=== PATIENT | female | born 1950 | race Caucasian/White ===

== ENCOUNTER 2021-09-28 09:19 | Day surgery (SDC) | payer MEDICARE, MEDICAID, SELFPAY ==
[2021-09-21 15:28] VITALS: BMI 31.8
[2021-09-28] VITALS (12 sets, daily range): BP systolic 110–148; BP diastolic 57–77; PULSE 64–79; RESP 16–17; TEMP 36.2–36.4; O2SAT 93–98
--- NOTE | 2021-09-28 10:22 | HO.ANESPROP2 ---
[facility] Past Medical History Medical History (HFpEF) heart failure with preserved ejection fraction Anxiety Arthritis Back pain Cardiac pacemaker in situ COPD (chronic obstructive pulmonary disease) Double vision Elevated cholesterol GERD (gastroesophageal reflux disease) History of 2019 novel coronavirus disease (COVID-19) History of DVT (deep vein thrombosis) History of TMJ disorder HTN (hypertension) Family History Family History Brother Factor V Leiden Brother Factor V Leiden Surgical History Surgical History History of parotidectomy Hx of colonoscopy Hx of hysterectomy Hx of umbilical hernia repair History of Problems with Anesthesia: No Social History Social History Patient Tobacco Use Status: Former Tobacco user Quit Date: 2009 Use of substances other than those prescribed or required for medical reasons: No Are you DNR?: No Advance Directives: No (will bring dos) Advance Directives Information Provided: No Advance Directives on File: No Recently lost weight without trying: No Meds Allergies Allergy/AdvReac Type Severity Reaction Status Date / Time aspirin [ASA] Allergy Angioedema Verified 09/28/21 10:01 Home Medications Medication Instructions Recorded Confirmed Last Taken Type apixaban 2.5 mg tablet (Eliquis) 2.5 mg PO BID 09/21/21 09/21/21 09/26/21 History atorvastatin 10 mg tablet 10 mg PO BEDTIME 09/21/21 09/21/21 Unknown History calcitriol 0.25 mcg capsule 0.25 mcg PO DAILY 09/21/21 09/21/21 Unknown History diazepam 5 mg tablet 5 mg PO BID PRN 09/21/21 09/21/21 Unknown History diltiazem HCl 120 mg 120 mg PO DAILY 09/21/21 09/21/21 Unknown History capsule,extended release 24 hr, controlled docusate sodium 100 mg capsule 100 mg PO BID 09/21/21 09/21/21 Unknown History (Colace) omeprazole 20 mg capsule,delayed 20 mg PO BID 09/21/21 09/21/21 Unknown History release oxycodone 10 mg tablet 10 mg PO Q8H PRN 09/21/21 09/21/21 Unknown History spironolactone 25 mg tablet 25 mg PO BID 09/21/21 09/21/21 Unknown History torsemide 20 mg tablet 20 mg PO BID 09/22/21 09/22/21 Unknown History Exam Exam Date and Time: September 28, 2021 1022 Height,Weight and Vital Signs: Height 5 ft 3 in Weight 81.647 kg Last Vital Signs Temp 97.6 F 09/28/21 10:08 Pulse 68 09/28/21 10:08 Resp 16 09/28/21 10:08 BP 110/57 L 09/28/21 10:08 Pulse Ox 95 09/28/21 10:08 Airway Mallampati Class: II (Edentulous) TM Dist: >3cm Neck ROM: Full Denture: Upper and Lower Loose/Missing/Broken Teeth: Yes Heart: RRR Lungs: CTA Assessment and Plan Assessment Anesthesia Assessment: Anesthesia Plan Discussed and Chart Reviewed Final Anesthetic Review History of Problems with Anesthesia: No NPO: Yes ASA Class: III Final Preanesthetic Review: Meds/Allgs Chart Reviewed, Consent Obtained/Reviewed and Anes Risks/Benef Reviewed Patient Risk: Intermediate Procedure Risk: Low Anesthetic Plan Anesthetic Plan: GA Disposition: Standard PACU
[2021-09-28] MEDS: fentaNYL citrate/PF 100 MCG/2 ML VIAL 50 MCG IVPUSH ×3 (12:07→13:12)
[2021-09-28] MEDS: Acetaminophen 325 MG TABLET 650 MG PO (12:08)
[2021-09-28] MEDS: oxyCODONE HCl Immed Release 5 MG TABLET PO ×2 (12:08→13:01)
--- NOTE | 2021-09-28 12:15 | HO.PEDOPHTHA ---
Pediatric Ophthalmology Operative Note Date of Service: 09/28/21 Narrative: Procedure 1. Recession of right lateral rectus muscle 6 mm anesthesia general complications none. The patient was brought to the operating room placed under general anesthesia. The patient's right eye was prepped and draped in the usual sterile ophthalmic fashion. A lid speculum was placed in the right eye and a limbal peritomy was created around the lateral rectus muscle. The muscle was secured with a double-armed Vicryl suture and disinserted from the globe. It was reattached to position 6 mm behind the original insertion. Conjunctiva was closed with interrupted Vicryl sutures. The patient was then awoken from general anesthesia and discharged to postoperative recovery in good condition. End of dictation
== END 2021-09-28 14:17 | disposition home or self-care (01) ==
PROVIDERS: PCP Student in an Organized Health Care Education/Training Program; Visit Provider Ophthalmology
PROC: (CPT 67311; principal; 2021-09-28 11:00)
DX: H50.10 Unspecified exotropia (principal); H53.2 Diplopia; I13.0 Hypertensive heart and chronic kidney disease with heart failure and stage 1 through stage 4 chronic kidney disease, or unspecified chronic kidney disease; N18.31 Chronic kidney disease, stage 3a; I50.30 Unspecified diastolic (congestive) heart failure; Z95.0 Presence of cardiac pacemaker; Z79.01 Long term (current) use of anticoagulants; Z87.891 Personal history of nicotine dependence; J44.9 Chronic obstructive pulmonary disease, unspecified; Z79.899 Other long term (current) drug therapy; Z88.8 Allergy status to other drugs, medicaments and biological substances; Z86.718 Personal history of other venous thrombosis and embolism; H50.111 Monocular exotropia, right eye
CPT/HCPCS: 67311; J2250; J2405; J3010

== ENCOUNTER 2022-05-25 09:23 | Outpatient (REF) | payer MEDICARE, MEDICAID, SELFPAY ==
--- NOTE | ~2022-05-25 | US_ITS ---
EXAMINATION: US VENOUS ULTRASOUND WITH DOPPLER LOWER EXTREMITY, LEFT CLINICAL INFORMATION: Leg pain status post recent fall COMPARISON: None TECHNIQUE: Ultrasound of the deep veins is performed from the hip to the calf with compression sonography and color and pulse Doppler assessment. Spectral analysis with color-flow imaging is performed. FINDINGS: There is normal venous compression and respiratory variation and augmented flow. The visualized common femoral vein, superficial femoral vein, profunda femoral vein, popliteal vein, and the trifurcation region shows no evidence of deep venous thrombosis. There is no significant popliteal fossa cyst. The contralateral right femoral vein appears normal. If the patient's symptoms persist, followup ultrasound in 5 days 7 days might be of value to exclude proximal propagation from a non-visualized calf vein. US/US venous duplex LE IMPRESSION: No DVT demonstrated in the left left lower extremity.
== END 2022-05-25 09:24 | disposition home or self-care (01) ==
LOC: HO.HMGCX 09:23
PROVIDERS: Visit Provider Student in an Organized Health Care Education/Training Program
DX: M79.605 Pain in left leg (principal); M79.89 Other specified soft tissue disorders; Z91.81 History of falling
CPT/HCPCS: 93971

== ENCOUNTER 2023-09-13 11:32 | Outpatient (REF) | payer MEDICARE, MEDICAID, SELFPAY ==
[2023-09-13 15:11] LABS: Alanine Aminotransferase 13 U/L (0-31); Albumin Level 4.4 g/dL (3.5-5.0); Alkaline Phosphatase 218 U/L (39-117); Anion Gap 15 (12-20); Aspartate Amino Transferase 19 U/L (5-31); Bilirubin Direct 0.2 mg/dL (0.0-0.5); Bilirubin Total 0.5 mg/dL (0.0-1.0); Blood Urea Nitrogen 23 mg/dL (9-16); Calcium 10.9 mg/dL (8.4-10.2); Carbon Dioxide 27 mmol/L (22-29); Chloride 100 mmol/L (96-108); Cholesterol 170 mg/dL (<200); Estimated Glomerular Filt Rate 37; Glucose Fasting 104 mg/dL (60-99); HDL Cholesterol 38 mg/dL (>40); LDL Cholesterol Calculated 95 mg/dL (<100); Potassium 4.4 mmol/L (3.3-5.1); Sodium 138 mmol/L (135-145); Total Protein 7.6 g/dL (6.5-8.0); Triglycerides 187 mg/dL (<150)
== END 2023-09-13 11:33 | disposition home or self-care (01) ==
LOC: HO.CHCLDS 11:32
PROVIDERS: Visit Provider Student in an Organized Health Care Education/Training Program
DX: N18.4 Chronic kidney disease, stage 4 (severe) (principal)
CPT/HCPCS: 36415; 80048; 80061; 80076

== ENCOUNTER 2024-02-20 14:22 | Outpatient (AMB) | payer MEDICARE, MEDICAID, SELFPAY ==
--- NOTE | 2024-02-20 14:25 | HO.NEPHOV ---
HPI HPI Comments History of Present Illness Details Elderly woman with HTN and CHF with CKD IV She is on high dose of diuretics - Torsemide 40 mg BID and Spironolactone 25 mg BID [facility] Medical History (Updated 02/20/24 @ 14:38 by Nestor Zepeda MD) (HFpEF) heart failure with preserved ejection fraction Cardiac pacemaker in situ History of TMJ disorder Arthritis Back pain History of DVT (deep vein thrombosis) GERD (gastroesophageal reflux disease) Double vision Anxiety History of 2019 novel coronavirus disease (COVID-19) COPD (chronic obstructive pulmonary disease) Elevated cholesterol HTN (hypertension) Surgical History Hx of colonoscopy Hx of umbilical hernia repair Hx of hysterectomy History of parotidectomy Family History Brother Factor V Leiden Brother Factor V Leiden Social History Patient Tobacco Use Status: Former Tobacco user Quit Date: 2009 Vital Signs 02/20/24 14:26 Weight 190 lb BP 118/64 Blood Pressure Location Lt brachial Position Sitting Pulse 90 Pulse Source Pulse Oximeter Pulse Oximetry (%) 87 L Oxygen Delivery Method Room Air Physical Exam Vital Signs: Last Vital Signs Pulse 90 02/20/24 14:26 BP 118/64 02/20/24 14:26 Pulse Ox 87 L 02/20/24 14:26 Oxygen Delivery Method Room Air 02/20/24 14:26 Const General: comfortable Nutritional Appearance: well nourished Orientation/consciousness: patient oriented x3 HEENT Head: No normal to inspection Mouth: moist mucous membranes Neck Neck: Yes supple and Yes no JVD Resp Auscultation: clear to auscultation bilaterally, no rales and rub present Cardio Jugular venous distension: no JVD Palpation: no palpable S3 and no palpable S4 Heart sounds: no rubs GI Palpation (GI): Soft to palpation and nontender Percussion: No Fluid wave present General: Yes no CVA tenderness Back/Spine/Pelvis Back: no CVA tenderness Skin General skin exam: no rashes or lesions noted Neuro General: patient oriented x3 Extrem General: No clubbing and Yes edema Assessment & Plan Assessment & Plan (1) CKD (chronic kidney disease) stage 4, GFR 15-29 ml/min: Code(s): N18.4 - Chronic kidney disease, stage 4 (severe) Plan 71-year-old man with stage IV CKD in a setting of longstanding diabetes mellitus and congestive heart failure. Renal function close to baseline. She has no signs symptoms of uremia. She continues to have mild fluid overload. Continue with current dose of diuretics. Encouraged to stand low-sodium diet. Continue to avoid nephrotoxic agents including NSAIDs. We will continue to follow renal function closely. We will screen for anemia and secondary hyperparathyroidism We will need to track down old records as well I have answered all the questions Orders: Orders Total Protein Urine Random 02/20/24 N18.4 - Chronic kidney disease, stage 4 (severe) Complete Blood Count Auto Diff 02/20/24 N18.30 - Chronic kidney disease, stage 3 unspecified, N18.4 - Chronic kidney disease, stage 4 (severe) Parathyroid Hormone Intact 02/20/24 N18.4 - Chronic kidney disease, stage 4 (severe) Phosphorus 02/20/24 N18.4 - Chronic kidney disease, stage 4 (severe) Magnesium 02/20/24 N18.4 - Chronic kidney disease, stage 4 (severe) UA and rflx microscopic 02/20/24 N18.4 - Chronic kidney disease, stage 4 (severe) Creatinine Urine 02/20/24 N05.9 - Unspecified nephritic syndrome with unspecified morphologic changes, N18.4 - Chronic kidney disease, stage 4 (severe) Comprehensive Met. Panel 02/20/24 N18.4 - Chronic kidney disease, stage 4 (severe), N18.9 - Chronic kidney disease, unspecified Coding Level of Care Code New Pt Level 5 (62677) Diagnoses CKD (chronic kidney disease) stage 4, GFR 15-29 ml/min N18.4 Results Reviewed Nephrology Results: Sodium 138 mmol/L (135-145) 09/13/23 Potassium 4.4 mmol/L (3.3-5.1) 09/13/23 Chloride 100 mmol/L (96-108) 09/13/23 Carbon Dioxide 27 mmol/L (22-29) 09/13/23 BUN 23 mg/dL (9-16) H 09/13/23 Creatinine 1.40 mg/dL (0.5-1.4) 09/13/23 Calcium 10.9 mg/dL (8.4-10.2) H 09/13/23 Phosphorus 3.0 MG/DL (2.7-4.5) 09/16/19 PTH Intact 116 pg/mL (14-64) H 09/16/19 Protein/Creatinin Ratio TNP (< 0.2-) 09/16/19
[2024-02-20 14:26] VITALS: BP 118/64; PULSE 90; O2SAT 87
== END 2024-02-20 14:46 | disposition home or self-care (01) ==
PROVIDERS: PCP Student in an Organized Health Care Education/Training Program; Referring Provider Student in an Organized Health Care Education/Training Program; Visit Provider Internal Medicine Hypertension Specialist
DX: I13.0 Hypertensive heart and chronic kidney disease with heart failure and stage 1 through stage 4 chronic kidney disease, or unspecified chronic kidney disease (principal); E11.22 Type 2 diabetes mellitus with diabetic chronic kidney disease; N18.4 Chronic kidney disease, stage 4 (severe); I50.9 Heart failure, unspecified; Z79.899 Other long term (current) drug therapy
CPT/HCPCS: 99204

== ENCOUNTER → 2024-02-20 14:22 | Outpatient (BNVA) | payer MEDICARE, MEDICAID, SELFPAY | PROVIDERS: PCP Student in an Organized Health Care Education/Training Program; Referring Provider Student in an Organized Health Care Education/Training Program; Visit Provider Internal Medicine Hypertension Specialist | DX: N18.4 Chronic kidney disease, stage 4 (severe) (principal) | CPT/HCPCS: 99202 ==

== ENCOUNTER 2024-03-18 13:12 | Outpatient (REF) | payer MEDICARE, MEDICAID, SELFPAY ==
[2024-03-18 14:21] LABS: Appearance Urine Clear; Color Urine Yellow; Glucose Urine UA Negative (Negative); Leukocyte Esterase Urine Trace (Negative); Nitrite Urine Negative (Negative); PH 5.5 (5.0-9.0); Specific Gravity - Urine <= 1.005 (1.005-1.025); UMIC TRIGGER UA YES; Urine Blood Trace (Negative); Urine Ketones Negative (Negative); Urine Protein Negative (Neg-Trace)
[2024-03-18 14:32] LABS: Bacteria Urine None Seen (None Seen); Hyaline Casts Urine 0-2 /LPF (0-2); RBC Urine 0-2 /HPF (0-2); Squamous Epithelial Cell Urine 0-2 /HPF (0-2); WBC Urine 0-5 /HPF (0-5)
[2024-03-18 14:41] LABS: Basophils Percent Auto 0.4 % (0-2); Eosinophils Absolute Auto 0.1 X10*3/uL (0.0-0.4); Eosinophils Percent Auto 1.3 % (0-4); Hematocrit 36.1 % (37.0-47.0); Hemoglobin 11.5 g/dl (12.0-16.0); Imm Gran Abs Auto 0.04 X10*3/uL (0.00-0.03); Imm Gran Pct Auto 0.7 % (0.0-0.4); Lymphocytes Absolute Auto 1.2 X10*3/uL (1.2-4.9); Lymphocytes Percent Auto 21.9 % (20-40); MANUAL DIFF FLAG SCAN; Mean Corpuscular HGB Conc 31.9 g/dl (31.0-35.0); Mean Corpuscular Hemoglobin 30.3 pg (27.0-33.0); Mean Corpuscular Volume 95.3 fL (80.0-98.0); Mean Platelet Volume 10.8 fL (9.4-12.3); Monocytes Absolute Auto 1.2 X10*3/uL (0.1-1.2); Monocytes Percent Auto 22.6 % (2-11); Neutrophils Absolute Auto 2.9 x10*3/uL (2.0-8.3); Neutrophils Percent Auto 53.1 % (45-73); Platelet Count 268 X10*3/uL (160-400); Red Blood Count 3.79 X10*6/uL (4.20-5.50); Red Cell Distribution Width 13.2 % (11.0-16.0); SCAN SMEAR FLAG 1; White Blood Count 5.5 X10*3/uL (4.8-10.8)
[2024-03-18 14:45] LABS: Alanine Aminotransferase 9 U/L (0-31); Albumin Level 4.2 g/dL (3.5-5.0); Alkaline Phosphatase 170 U/L (39-117); Anion Gap 14 (12-20); Aspartate Amino Transferase 15 U/L (5-31); Bilirubin Total 0.3 mg/dL (0.0-1.0); Blood Urea Nitrogen 34 mg/dL (9-16); Calcium 9.9 mg/dL (8.4-10.2); Carbon Dioxide 28 mmol/L (22-29); Chloride 101 mmol/L (96-108); Estimated Glomerular Filt Rate 28; Glucose Random 125 mg/dL (60-115); Magnesium 2.1 mg/dL (1.6-2.6); Phosphorus 3.6 mg/dL (2.7-4.5); Potassium 4.1 mmol/L (3.3-5.1); Sodium 139 mmol/L (135-145); Total Protein 7.2 g/dL (6.5-8.0)
[2024-03-18 15:01] LABS: Creatinine Urine 43.35 mg/dL; Total Protein Urine Random < 7 mg/dL (<12)
[2024-03-18 15:27] LABS: SLIDE REVIEW VERIFIED
== END 2024-03-18 13:13 | disposition home or self-care (01) ==
LOC: HO.CHCLDS 13:12
PROVIDERS: PCP Student in an Organized Health Care Education/Training Program; Visit Provider Internal Medicine Hypertension Specialist
DX: N05.9 Unspecified nephritic syndrome with unspecified morphologic changes (principal); N18.4 Chronic kidney disease, stage 4 (severe)
CPT/HCPCS: 36415; 80053; 81001; 82570; 83735; 83970; 84100; 84156; 85025

== ENCOUNTER 2024-03-26 11:10 | Outpatient (AMB) | payer MEDICARE, MEDICAID, SELFPAY ==
[2024-03-26 11:11] VITALS: BP 130/68; PULSE 104; O2SAT 88
--- NOTE | 2024-03-26 11:11 | HO.NEPHOV ---
Vital Signs 03/26/24 11:11 Weight 187 lb BP 130/68 Blood Pressure Location Lt brachial Position Sitting Pulse 104 H Pulse Source Pulse Oximeter Pulse Oximetry (%) 88 L Oxygen Delivery Method Room Air Intake Visit Reasons: 4-5 wks follow up/LVM Schedule Planning Manager Required: No Accompanied by: Daughter Allergies aspirin [ASA] Allergy (Verified 03/26/24 11:13) Angioedema HPI Comments Details: Elderly woman with HTN and CHF with CKD IV She is on high dose of diuretics - Torsemide 40 mg BID and Spironolactone 25 mg BID Overall feels better Accompanied by granddaughter Lost 3 lbs from last visit [facility] Medical History (Updated 02/20/24 @ 14:38 by Nestor Zepeda MD) (HFpEF) heart failure with preserved ejection fraction Cardiac pacemaker in situ History of TMJ disorder Arthritis Back pain History of DVT (deep vein thrombosis) GERD (gastroesophageal reflux disease) Double vision Anxiety History of 2019 novel coronavirus disease (COVID-19) COPD (chronic obstructive pulmonary disease) Elevated cholesterol HTN (hypertension) Surgical History Hx of colonoscopy Hx of umbilical hernia repair Hx of hysterectomy History of parotidectomy Family History Brother Factor V Leiden Brother Factor V Leiden Social History Patient Tobacco Use Status: Former Tobacco user Quit Date: 2009 Physical Exam Vital Signs: Last Vital Signs Pulse 104 H 03/26/24 11:11 BP 130/68 03/26/24 11:11 Pulse Ox 88 L 03/26/24 11:11 Oxygen Delivery Method Room Air 03/26/24 11:11 Const General: comfortable Nutritional Appearance: well nourished Orientation/consciousness: patient oriented x3 HEENT Head: No normal to inspection Mouth: moist mucous membranes Neck Neck: Yes supple and Yes no JVD Resp Auscultation: clear to auscultation bilaterally, no rales and rub present Cardio Jugular venous distension: no JVD Palpation: no palpable S3 and no palpable S4 Heart sounds: no rubs GI Palpation (GI): Soft to palpation and nontender Percussion: No Fluid wave present General: Yes no CVA tenderness Back/Spine/Pelvis Back: no CVA tenderness Skin General skin exam: no rashes or lesions noted Neuro General: patient oriented x3 Extrem General: No clubbing and Yes edema Results Reviewed Nephrology Results: Hgb 11.5 g/dl (12.0-16.0) L 03/18/24 WBC 5.5 X10*3/uL (4.8-10.8) 03/18/24 Plt Count 268 X10*3/uL (160-400) 03/18/24 Sodium 139 mmol/L (135-145) 03/18/24 Potassium 4.1 mmol/L (3.3-5.1) 03/18/24 Chloride 101 mmol/L (96-108) 03/18/24 Carbon Dioxide 28 mmol/L (22-29) 03/18/24 BUN 34 mg/dL (9-16) H 03/18/24 Creatinine 1.78 mg/dL (0.5-1.4) H 03/18/24 Calcium 9.9 mg/dL (8.4-10.2) 03/18/24 Phosphorus 3.6 mg/dL (2.7-4.5) 03/18/24 PTH Intact 276.0 pg/mL (8.7-77.1) H 03/18/24 Urine Protein Negative mg/dL (Neg-Trace) 03/18/24 Urine Creatinine 43.35 mg/dL 03/18/24 Protein/Creatinin Ratio TNP (< 0.2-) 09/16/19 Assessment & Plan Assessment & Plan (1) HTN (hypertension): Code(s): I10 - Essential (primary) hypertension Category: Medical (2) CKD (chronic kidney disease) stage 4, GFR 15-29 ml/min: Code(s): N18.4 - Chronic kidney disease, stage 4 (severe) Category: Medical Plan 71-year-old man with stage IV CKD in a setting of longstanding diabetes mellitus and congestive heart failure. Renal function close to baseline. She has no signs symptoms of uremia. She continues to have mild fluid overload. She has lost 3 lbs Continue with current dose of diuretics. Encouraged to stand low-sodium diet. Continue to avoid nephrotoxic agents including NSAIDs. We will continue to follow renal function closely. creatinine close to baseline We will continue to screen for anemia and secondary hyperparathyroidism Orders: Orders Basic Metabolic Panel 3 Months I10 - Essential (primary) hypertension, N18.4 - Chronic kidney disease, stage 4 (severe) Complete Blood Count no Diff 3 Months I10 - Essential (primary) hypertension, N18.4 - Chronic kidney disease, stage 4 (severe) Parathyroid Hormone Intact 3 Months I10 - Essential (primary) hypertension, N18.4 - Chronic kidney disease, stage 4 (severe) Coding Level of Care Code Est Pt Level 4 (66152) Diagnoses HTN (hypertension) I10 CKD (chronic kidney disease) stage 4, GFR 15-29 ml/min N18.4
== END 2024-03-26 11:37 | disposition home or self-care (01) ==
PROVIDERS: PCP Student in an Organized Health Care Education/Training Program; Visit Provider Internal Medicine Hypertension Specialist
DX: I12.9 Hypertensive chronic kidney disease with stage 1 through stage 4 chronic kidney disease, or unspecified chronic kidney disease (principal); N18.4 Chronic kidney disease, stage 4 (severe)
CPT/HCPCS: 99214

== ENCOUNTER → 2024-03-26 11:10 | Outpatient (BNVA) | payer MEDICARE, MEDICAID, SELFPAY | PROVIDERS: PCP Student in an Organized Health Care Education/Training Program; Visit Provider Internal Medicine Hypertension Specialist | DX: I13.0 Hypertensive heart and chronic kidney disease with heart failure and stage 1 through stage 4 chronic kidney disease, or unspecified chronic kidney disease (principal); I50.9 Heart failure, unspecified; N18.4 Chronic kidney disease, stage 4 (severe) | CPT/HCPCS: 99212 ==

== ENCOUNTER 2024-07-11 12:26 | Outpatient (REF) | payer MEDICARE, MEDICAID, SELFPAY ==
[2024-07-11 14:24] LABS: Appearance Urine Clear; Color Urine Yellow; Glucose Urine UA Negative (Negative); Leukocyte Esterase Urine Moderate (2+) (Negative); Nitrite Urine Negative (Negative); PH 5.5 (5.0-9.0); UMIC TRIGGER UA YES; Urine Blood Small (1+) (Negative); Urine Ketones Negative (Negative); Urine Protein Negative (Neg-Trace)
[2024-07-11 14:35] LABS: Hematocrit 34.8 % (37.0-47.0); Mean Corpuscular HGB Conc 31.6 g/dl (31.0-35.0); Mean Corpuscular Hemoglobin 29.1 pg (27.0-33.0); Mean Corpuscular Volume 92.1 fL (80.0-98.0); Mean Platelet Volume 10.9 fL (9.4-12.3); Platelet Count 212 X10*3/uL (160-400); Red Blood Count 3.78 X10*6/uL (4.20-5.50); White Blood Count 5.9 X10*3/uL (4.8-10.8)
[2024-07-11 14:46] LABS: Anion Gap 17 (12-20); Blood Urea Nitrogen 40 mg/dL (9-16); Calcium 10.1 mg/dL (8.4-10.2); Carbon Dioxide 28 mmol/L (22-29); Chloride 96 mmol/L (96-108); Estimated Glomerular Filt Rate 21; Glucose Random 96 mg/dL (60-115); Potassium 5.1 mmol/L (3.3-5.1); Sodium 136 mmol/L (135-145)
[2024-07-11 14:47] LABS: Bacteria Urine None Seen (None Seen); Squamous Epithelial Cell Urine 0-2 /HPF (0-2); WBC Clumps Urine Present
[2024-07-11 15:30] LABS: Parathyroid Hormone Intact 325.1 pg/mL (8.7-77.1)
== END 2024-07-11 12:27 | disposition home or self-care (01) ==
LOC: HO.CHCLDS 12:26
PROVIDERS: Visit Provider Internal Medicine Hypertension Specialist
DX: I12.9 Hypertensive chronic kidney disease with stage 1 through stage 4 chronic kidney disease, or unspecified chronic kidney disease (principal); N18.4 Chronic kidney disease, stage 4 (severe)
CPT/HCPCS: 36415; 80048; 81001; 83970; 85027

== ENCOUNTER 2024-07-21 13:28 | Outpatient (AMB) | payer MEDICARE, MEDICAID, SELFPAY ==
[2024-07-21 13:29] VITALS: BP 128/70
--- NOTE | 2024-07-21 13:29 | HO.NEPHOV ---
Vital Signs 07/21/24 13:29 Height 5 ft 5 in Weight 180 lb BMI 30.0 BP 128/70 Blood Pressure Location Lt brachial Position Sitting Intake Visit Reasons: CKD/ Conf Selvage Machine Operator Required: No Accompanied by: Self / Same As Patient Allergies aspirin [ASA] Allergy (Verified 07/21/24 13:31) Angioedema Medication List - Last Reconciled 07/21/24 by Nestor Zepeda MD apixaban (Eliquis) 5 mg PO BID atorvastatin 10 mg PO BEDTIME budesonide-formoterol 80-4.5 mcg/actuation (Symbicort) inhalation BID calcitriol 0.25 mcg PO DAILY diazepam 5 mg PO BID PRN diltiazem HCl ER 120 mg PO DAILY docusate sodium (Colace) 100 mg PO BID fluticasone propion-salmeterol 115-21 mcg/actuation (Advair HFA) 2 puffs inhalation BID PRN gabapentin 100 mg PO DAILY omeprazole 20 mg PO BID oxycodone 15 mg PO QID PRN spironolactone 25 mg PO BID torsemide 40 mg PO BID umeclidinium 62.5 mcg/actuation (Incruse Ellipta) 1 inh inhalation DAILY HPI Comments Details: Elderly woman with HTN and CHF with CKD IV She is on high dose of diuretics - Torsemide 40 mg BID and Spironolactone 25 mg BID Overall feels better [facility] Medical History (Updated 02/20/24 @ 14:38 by Nestor Zepeda MD) (HFpEF) heart failure with preserved ejection fraction Cardiac pacemaker in situ History of TMJ disorder Arthritis Back pain History of DVT (deep vein thrombosis) GERD (gastroesophageal reflux disease) Double vision Anxiety History of 2019 novel coronavirus disease (COVID-19) COPD (chronic obstructive pulmonary disease) Elevated cholesterol HTN (hypertension) Surgical History Hx of colonoscopy Hx of umbilical hernia repair Hx of hysterectomy History of parotidectomy Family History Brother Factor V Leiden Brother Factor V Leiden Social History Patient Tobacco Use Status: Former Tobacco user Physical Exam Vital Signs: Last Vital Signs BP 128/70 07/21/24 13:29 BMI result Body Mass Index 30.0 Results Reviewed Nephrology Results: Hgb 11.0 g/dl (12.0-16.0) L 07/11/24 WBC 5.9 X10*3/uL (4.8-10.8) 07/11/24 Plt Count 212 X10*3/uL (160-400) 07/11/24 Sodium 136 mmol/L (135-145) 07/11/24 Potassium 5.1 mmol/L (3.3-5.1) 07/11/24 Chloride 96 mmol/L (96-108) 07/11/24 Carbon Dioxide 28 mmol/L (22-29) 07/11/24 BUN 40 mg/dL (9-16) H 07/11/24 Creatinine 2.30 mg/dL (0.5-1.4) H 07/11/24 Calcium 10.1 mg/dL (8.4-10.2) 07/11/24 Phosphorus 3.6 mg/dL (2.7-4.5) 03/18/24 PTH Intact 325.1 pg/mL (8.7-77.1) H 07/11/24 Urine Protein Negative mg/dL (Neg-Trace) 07/11/24 Urine Creatinine 43.35 mg/dL 03/18/24 Protein/Creatinin Ratio TNP (< 0.2-) 09/16/19 Assessment & Plan Assessment & Plan (1) HTN (hypertension): Code(s): I10 - Essential (primary) hypertension Category: Medical (2) CKD (chronic kidney disease) stage 4, GFR 15-29 ml/min: Code(s): N18.4 - Chronic kidney disease, stage 4 (severe) Category: Medical Plan 71-year-old man with stage IV CKD in a setting of longstanding diabetes mellitus and congestive heart failure. Renal function close to baseline. She has no signs symptoms of uremia. Encouraged to stand low-sodium diet. Continue to avoid nephrotoxic agents including NSAIDs. We will continue to follow renal function closely. Creatinine is bumped up to 2.58. I will decrease torsemide to 40 mg q.a.m. and 20 mg q.p.m.. Recheck renal function again. We will continue to screen for anemia and secondary hyperparathyroidism Orders: Orders Basic Metabolic Panel 1 Month N18.4 - Chronic kidney disease, stage 4 (severe) Coding Level of Care Code Tele New Pt Level 4 (57287) Diagnoses HTN (hypertension) I10 CKD (chronic kidney disease) stage 4, GFR 15-29 ml/min N18.4
== END 2024-07-21 16:50 | disposition home or self-care (01) ==
LOC: HO.HKA 13:28
PROVIDERS: PCP Student in an Organized Health Care Education/Training Program; Visit Provider Internal Medicine Hypertension Specialist
DX: I13.0 Hypertensive heart and chronic kidney disease with heart failure and stage 1 through stage 4 chronic kidney disease, or unspecified chronic kidney disease (principal); I50.9 Heart failure, unspecified; E11.22 Type 2 diabetes mellitus with diabetic chronic kidney disease; N18.4 Chronic kidney disease, stage 4 (severe)
CPT/HCPCS: 99214

== ENCOUNTER → 2024-07-21 13:28 | Outpatient (BNVA) | payer MEDICARE, MEDICAID, SELFPAY | PROVIDERS: PCP Student in an Organized Health Care Education/Training Program; Visit Provider Internal Medicine Hypertension Specialist | DX: I13.0 Hypertensive heart and chronic kidney disease with heart failure and stage 1 through stage 4 chronic kidney disease, or unspecified chronic kidney disease (principal); I50.30 Unspecified diastolic (congestive) heart failure; N18.4 Chronic kidney disease, stage 4 (severe) | CPT/HCPCS: 99212 ==

== ENCOUNTER 2024-08-18 11:46 | Outpatient (REF) | payer MEDICARE, MEDICAID, SELFPAY ==
[2024-08-18 15:44] LABS: Anion Gap 18 (12-20); Blood Urea Nitrogen 48 mg/dL (9-16); Calcium 9.9 mg/dL (8.4-10.2); Carbon Dioxide 23 mmol/L (22-29); Chloride 101 mmol/L (96-108); Estimated Glomerular Filt Rate 24; Glucose Random 92 mg/dL (60-115); Potassium 4.5 mmol/L (3.3-5.1); Sodium 137 mmol/L (135-145)
== END 2024-08-18 11:47 | disposition home or self-care (01) ==
LOC: HO.CHCLDS 11:46
PROVIDERS: Visit Provider Internal Medicine Hypertension Specialist
DX: N18.4 Chronic kidney disease, stage 4 (severe) (principal)
CPT/HCPCS: 36415; 80048

== ENCOUNTER 2024-08-20 10:45 | Outpatient (AMB) | payer MEDICARE, MEDICAID, SELFPAY ==
--- NOTE | 2024-08-20 10:37 | HO.NEPHOV ---
Vital Signs 08/20/24 10:46 08/20/24 11:13 Height 5 ft 5 in Weight 185 lb BMI 30.8 BP 142/84 H 140/82 H Blood Pressure Location Lt brachial Lt brachial Position Sitting Sitting Pulse 110 H Pulse Source Pulse Oximeter Pulse Oximetry (%) 93 Oxygen Delivery Method Room Air Intake Visit Reasons: CKD/ Conf Weaving Machine Operator Required: No Accompanied by: Self / Same As Patient Allergies aspirin [ASA] Allergy (Verified 08/20/24 10:48) Angioedema Medication List - Last Reconciled 08/20/24 by Lizabeth Odom, DNP, [employer] apixaban (Eliquis) 5 mg PO BID atorvastatin 10 mg PO BEDTIME budesonide-formoterol 80-4.5 mcg/actuation (Symbicort) inhalation BID calcitriol 0.25 mcg PO Q OTHER DAY diazepam 5 mg PO BID PRN diltiazem HCl ER 120 mg PO DAILY docusate sodium (Colace) 100 mg PO BID fluticasone propion-salmeterol 115-21 mcg/actuation (Advair HFA) 2 puffs inhalation BID PRN gabapentin 100 mg PO DAILY omeprazole 20 mg PO BID oxycodone 15 mg PO QID PRN spironolactone 25 mg PO BID torsemide 60 mg (3 x 20 mg) PO DAILY umeclidinium 62.5 mcg/actuation (Incruse Ellipta) 1 inh inhalation DAILY HPI Comments Details: Elderly woman with HTN and CHF with CKD IV pt was previously taking torsemide 40mg BID, spironolactone 25mg BID last visit Creatinine bumped from 1.78 to 2.30. Torsemide was reduced to 40mg in a.m., 20mg in p.m. her creatinine has since improved to 2.01 she notes she was on a course of prednisone and just finished yesterday for wrist swelling in the ED. reports ate salty soup over the weekends and legs were more swollen, prior no leg swelling breathing has been comfortable sees social work faculty member: Dr Mauricio at [facility] saw her a few months ago this summer, but does not have another appointment yet. Had been seen every 6 months reports has 1500mL fluid restriction denies urinary symptoms PFSH Medical History (Updated 02/20/24 @ 14:38 by Nestor Zepeda MD) (HFpEF) heart failure with preserved ejection fraction Cardiac pacemaker in situ History of TMJ disorder Arthritis Back pain History of DVT (deep vein thrombosis) GERD (gastroesophageal reflux disease) Double vision Anxiety History of 2019 novel coronavirus disease (COVID-19) COPD (chronic obstructive pulmonary disease) Elevated cholesterol HTN (hypertension) Surgical History Hx of colonoscopy Hx of umbilical hernia repair Hx of hysterectomy History of parotidectomy Family History Brother Factor V Leiden Brother Factor V Leiden Social History Patient Tobacco Use Status: Former Tobacco user Physical Exam Vital Signs: Last Vital Signs Pulse 110 H 08/20/24 10:46 BP 140/82 H 08/20/24 11:13 Pulse Ox 93 08/20/24 10:46 Oxygen Delivery Method Room Air 08/20/24 10:46 BMI result Body Mass Index 30.8 Const Other: General: No acute distress, well-appearing. Neck: No lymphadenopathy, no thyromegaly. No JVD. Resp: Clear to auscultation bilaterally. Cardio: Regular rate, regular rhythm. No JVD. Trace pitting lower extremity edema. GI: soft, nontender, no guarding. : No CVA tenderness. Skin: no rashes or lesions noted Neuro: Alert, oriented to person, place, time. Moves all extremities spontaneously. No tremor. No asterixis. Neck Neck: Yes supple and Yes no JVD Resp Auscultation: clear to auscultation bilaterally and no rales Cardio Jugular venous distension: no JVD Palpation: no palpable S3 and no palpable S4 Heart sounds: no rubs GI Palpation (GI): Soft to palpation and nontender Percussion: No Fluid wave present General: Yes no CVA tenderness Back/Spine/Pelvis Back: no CVA tenderness Skin General skin exam: no rashes or lesions noted Extrem General: Yes edema Results Reviewed Nephrology Results: Hgb 11.0 g/dl (12.0-16.0) L 07/11/24 WBC 5.9 X10*3/uL (4.8-10.8) 07/11/24 Plt Count 212 X10*3/uL (160-400) 07/11/24 Sodium 137 mmol/L (135-145) 08/18/24 Potassium 4.5 mmol/L (3.3-5.1) 08/18/24 Chloride 101 mmol/L (96-108) 08/18/24 Carbon Dioxide 23 mmol/L (22-29) 08/18/24 BUN 48 mg/dL (9-16) H 08/18/24 Creatinine 2.01 mg/dL (0.5-1.4) H 08/18/24 Calcium 9.9 mg/dL (8.4-10.2) 08/18/24 Phosphorus 3.6 mg/dL (2.7-4.5) 03/18/24 PTH Intact 325.1 pg/mL (8.7-77.1) H 07/11/24 Urine Protein Negative mg/dL (Neg-Trace) 07/11/24 Urine Creatinine 43.35 mg/dL 03/18/24 Assessment & Plan Assessment & Plan (1) HTN (hypertension): Code(s): I10 - Essential (primary) hypertension Category: Medical (2) CKD (chronic kidney disease) stage 4, GFR 15-29 ml/min: Code(s): N18.4 - Chronic kidney disease, stage 4 (severe) Category: Medical (3) Hematuria: Code(s): R31.9 - Hematuria, unspecified Plan 71-year-old woman with stage IV CKD in a setting of longstanding diabetes mellitus and congestive heart failure. Encouraged to stand low-sodium diet- pt will avoid salty foods going forward, this is likely shy her legs have some trace edema today. Continue to avoid nephrotoxic agents including NSAIDs. We will continue to follow renal function closely. creatinine has improved since lowering dose of torsemide, she may continue 40mg every morning and 20mg every afternoon. appears euvolemic clinically. will continue to monitor renal function and screen for secondary hyperparathyroidism blood pressure is acceptable. no changes today. she will return in [address] Zepeda. Orders: Orders Basic Metabolic Panel 4 Months I10 - Essential (primary) hypertension, N18.30 - Chronic kidney disease, stage 3 unspecified Parathyroid Hormone Intact 4 Months N18.4 - Chronic kidney disease, stage 4 (severe) UA w Microscopic 4 Months N18.4 - Chronic kidney disease, stage 4 (severe), R31.9 - Hematuria, unspecified Coding Level of Care Code Est Pt Level 3 (31868) Diagnoses HTN (hypertension) I10 CKD (chronic kidney disease) stage 4, GFR 15-29 ml/min N18.4 Hematuria R31.9
[2024-08-20 10:46] VITALS: BP 142/84; PULSE 110; O2SAT 93; BMI 30.8
[2024-08-20 11:13] VITALS: BP 140/82
== END 2024-08-20 11:11 | disposition home or self-care (01) ==
PROVIDERS: PCP Student in an Organized Health Care Education/Training Program; Visit Provider Internal Medicine Hypertension Specialist
DX: I12.9 Hypertensive chronic kidney disease with stage 1 through stage 4 chronic kidney disease, or unspecified chronic kidney disease (principal); N18.4 Chronic kidney disease, stage 4 (severe); R31.9 Hematuria, unspecified
CPT/HCPCS: 99213

== ENCOUNTER → 2024-08-20 10:45 | Outpatient (BNVA) | payer MEDICARE, MEDICAID, SELFPAY | PROVIDERS: PCP Student in an Organized Health Care Education/Training Program; Visit Provider Internal Medicine Hypertension Specialist | DX: I12.9 Hypertensive chronic kidney disease with stage 1 through stage 4 chronic kidney disease, or unspecified chronic kidney disease (principal); I50.30 Unspecified diastolic (congestive) heart failure; N18.4 Chronic kidney disease, stage 4 (severe); R31.9 Hematuria, unspecified | CPT/HCPCS: 99212 ==

== ENCOUNTER 2024-08-26 14:10 | Outpatient (REF) | payer MEDICARE, MEDICAID, SELFPAY ==
[2024-08-29 21:23] LABS: Alk.Phos Iso. Macrohepatic 0 % (<=0); Alk.Phos Isoenzymes Bone 26 % (28-66); Alk.Phos Isoenzymes Intest 8 % (1-24); Alk.Phos Isoenzymes Liver 66 % (25-69); Alk.Phos Isoenzymes Placental 0 % (<=0); Alk.Phos Isoenzymes Total 152 U/L (37-153)
== END 2024-08-26 14:11 | disposition home or self-care (01) ==
LOC: HO.CHCLDS 14:10
PROVIDERS: Visit Provider Student in an Organized Health Care Education/Training Program
DX: R74.8 Abnormal levels of other serum enzymes (principal)
CPT/HCPCS: 36415; 84080

== ENCOUNTER 2024-09-29 14:14 | Outpatient (REF) | payer MEDICARE, MEDICAID, SELFPAY ==
[2024-09-29 17:44] LABS: MANUAL DIFF FLAG NO
[2024-09-29 17:51] LABS: Basophils Percent Auto 0.2 % (0-2); Eosinophils Absolute Auto 0.1 X10*3/uL (0.0-0.4); Eosinophils Percent Auto 1.1 % (0-4); Hematocrit 31.9 % (37.0-47.0); Hemoglobin 9.8 g/dl (12.0-16.0); Imm Gran Abs Auto 0.04 X10*3/uL (0.00-0.03); Imm Gran Pct Auto 0.7 % (0.0-0.4); Lymphocytes Absolute Auto 0.9 X10*3/uL (1.2-4.9); Lymphocytes Percent Auto 16.2 % (20-40); Mean Corpuscular HGB Conc 30.7 g/dl (31.0-35.0); Mean Corpuscular Hemoglobin 28.5 pg (27.0-33.0); Mean Corpuscular Volume 92.7 fL (80.0-98.0); Mean Platelet Volume 10.6 fL (9.4-12.3); Monocytes Absolute Auto 1.1 X10*3/uL (0.1-1.2); Monocytes Percent Auto 19.7 % (2-11); Neutrophils Absolute Auto 3.4 x10*3/uL (2.0-8.3); Neutrophils Percent Auto 62.1 % (45-73); Platelet Count 349 X10*3/uL (160-400); Red Blood Count 3.44 X10*6/uL (4.20-5.50); Red Cell Distribution Width 15.8 % (11.0-16.0); White Blood Count 5.4 X10*3/uL (4.8-10.8)
[2024-09-29 18:31] LABS: Amylase 18 U/L (28-100); Anion Gap 17 (12-20); Blood Urea Nitrogen 18 mg/dL (9-16); Calcium 10.2 mg/dL (8.4-10.2); Carbon Dioxide 27 mmol/L (22-29); Chloride 102 mmol/L (96-108); Estimated Glomerular Filt Rate 30; Glucose Random 94 mg/dL (60-115); Lipase 26 U/L (8-78); Potassium 4.2 mmol/L (3.3-5.1); Sodium 142 mmol/L (135-145)
== END 2024-09-29 14:15 | disposition home or self-care (01) ==
LOC: HO.CHCLDS 14:14
PROVIDERS: Visit Provider Internal Medicine
DX: K85.80 Other acute pancreatitis without necrosis or infection (principal); D72.828 Other elevated white blood cell count
CPT/HCPCS: 36415; 80048; 82150; 83690; 85025

== ENCOUNTER 2024-10-15 10:10 | Outpatient (AMB) | payer MEDICARE, MEDICAID, SELFPAY ==
[2024-10-15 10:09] VITALS: BP 122/72; PULSE 113; O2SAT 80; BMI 31.3
--- NOTE | 2024-10-15 10:09 | HO.NEPHOV ---
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 Lieutenant Required: No Accompanied by: Self / Same As Patient Allergies aspirin [ASA] Allergy (Verified 10/15/24 10:11) Angioedema Medication List - Last Reconciled 10/15/24 by Nestor Zepeda MD apixaban (Eliquis) 5 mg PO BID atorvastatin 10 mg PO BEDTIME budesonide-formoterol 80-4.5 mcg/actuation (Symbicort) inhalation BID calcitriol 0.25 mcg PO Q OTHER DAY diazepam 5 mg PO BID PRN diltiazem HCl ER 120 mg PO DAILY docusate sodium (Colace) 100 mg PO BID fluticasone propion-salmeterol 115-21 mcg/actuation (Advair HFA) 2 puffs inhalation BID PRN gabapentin 100 mg PO DAILY omeprazole 20 mg PO BID oxycodone 15 mg PO QID PRN spironolactone 25 mg PO BID torsemide 60 mg (3 x 20 mg) PO DAILY umeclidinium 62.5 mcg/actuation (Incruse Ellipta) 1 inh inhalation DAILY HPI Comments Details: Elderly woman with HTN and CHF with CKD IV pt was previously taking torsemide 40mg BID, spironolactone 25mg BID last visit Creatinine bumped from 1.78 to 2.30. Torsemide was reduced to 40mg in a.m., 20mg in p.m. her creatinine has since improved to 2.01 she notes she was on a course of prednisone and just finished yesterday for wrist swelling in the ED. reports ate salty soup over the weekends and legs were more swollen, prior no leg swelling breathing has been comfortable sees gis scientist: Dr Mauricio at [facility] saw her a few months ago this summer, but does not have another appointment yet. Had been seen every 6 months reports has 1500mL fluid restriction denies urinary symptoms 10/15/24 Recently hospitalized to [facility] for pancreatitis On discharge , creatinine was 0.93 Now has right UE edema and leg edema No dyspnea Currently on Torsemide 40 mg in AM and 20 mg in PM [facility] Medical History (Updated 02/20/24 @ 14:38 by Nestor Zepeda MD) (HFpEF) heart failure with preserved ejection fraction Cardiac pacemaker in situ History of TMJ disorder Arthritis Back pain History of DVT (deep vein thrombosis) GERD (gastroesophageal reflux disease) Double vision Anxiety History of 2019 novel coronavirus disease (COVID-19) COPD (chronic obstructive pulmonary disease) Elevated cholesterol HTN (hypertension) Surgical History Hx of colonoscopy Hx of umbilical hernia repair Hx of hysterectomy History of parotidectomy Family History Brother Factor V Leiden Brother Factor V Leiden Social History Patient Tobacco Use Status: Former Tobacco user Physical Exam Vital Signs: Last Vital Signs Pulse 113 H 10/15/24 10:09 BP 122/72 10/15/24 10:09 Pulse Ox 80 L 10/15/24 10:09 Oxygen Delivery Method Room Air 10/15/24 10:09 BMI result Body Mass Index 31.3 Const General: comfortable Nutritional Appearance: well nourished Orientation/consciousness: patient oriented x3 HEENT Head: No normal to inspection Mouth: moist mucous membranes Neck Neck: Yes supple and Yes no JVD Resp Auscultation: clear to auscultation bilaterally, no rales and rub present Cardio Jugular venous distension: no JVD Palpation: no palpable S3 and no palpable S4 Heart sounds: no rubs GI Palpation (GI): Soft to palpation and nontender Percussion: No Fluid wave present General: Yes no CVA tenderness Back/Spine/Pelvis Back: no CVA tenderness Skin General skin exam: no rashes or lesions noted Neuro General: patient oriented x3 Extrem General: No clubbing and Yes edema Results Reviewed Nephrology Results: Hgb 9.8 g/dl (12.0-16.0) L 09/29/24 WBC 5.4 X10*3/uL (4.8-10.8) 09/29/24 Plt Count 349 X10*3/uL (160-400) 09/29/24 Sodium 142 mmol/L (135-145) 09/29/24 Potassium 4.2 mmol/L (3.3-5.1) 09/29/24 Chloride 102 mmol/L (96-108) 09/29/24 Carbon Dioxide 27 mmol/L (22-29) 09/29/24 BUN 18 mg/dL (9-16) H 09/29/24 Creatinine 1.65 mg/dL (0.5-1.4) H 09/29/24 Calcium 10.2 mg/dL (8.4-10.2) 09/29/24 Phosphorus 3.6 mg/dL (2.7-4.5) 03/18/24 PTH Intact 325.1 pg/mL (8.7-77.1) H 07/11/24 Urine Protein Negative mg/dL (Neg-Trace) 07/11/24 Urine Creatinine 43.35 mg/dL 03/18/24 Assessment & Plan Assessment & Plan (1) HTN (hypertension): Code(s): I10 - Essential (primary) hypertension Category: Medical (2) CKD (chronic kidney disease) stage 4, GFR 15-29 ml/min: Code(s): N18.4 - Chronic kidney disease, stage 4 (severe) Category: Medical (3) Hematuria: Code(s): R31.9 - Hematuria, unspecified Plan 71-year-old woman with stage IV CKD in a setting of longstanding diabetes mellitus and congestive heart failure. Encouraged to stand low-sodium diet- pt will avoid salty foods going forward, this is likely shy her legs have some trace edema today. Continue to avoid nephrotoxic agents including NSAIDs. We will continue to follow renal function closely. Keep current dose of Torsemide Blood pressure is acceptable. no changes today. she will return in 4 months Orders: Orders Basic Metabolic Panel 3 Months I10 - Essential (primary) hypertension, N18.4 - Chronic kidney disease, stage 4 (severe) Parathyroid Hormone Intact 3 Months I10 - Essential (primary) hypertension, N18.4 - Chronic kidney disease, stage 4 (severe) Complete Blood Count no Diff 3 Months I10 - Essential (primary) hypertension, N18.4 - Chronic kidney disease, stage 4 (severe) Coding Level of Care Code Est Pt Level 4 (31954) Diagnoses HTN (hypertension) I10 CKD (chronic kidney disease) stage 4, GFR 15-29 ml/min N18.4 Hematuria R31.9
== END 2024-10-15 10:25 | disposition home or self-care (01) ==
PROVIDERS: PCP Student in an Organized Health Care Education/Training Program; Visit Provider Internal Medicine Hypertension Specialist
DX: I12.9 Hypertensive chronic kidney disease with stage 1 through stage 4 chronic kidney disease, or unspecified chronic kidney disease (principal); N18.4 Chronic kidney disease, stage 4 (severe); R31.9 Hematuria, unspecified
CPT/HCPCS: 99214

== ENCOUNTER → 2024-10-15 10:10 | Outpatient (BNVA) | payer MEDICARE, MEDICAID, SELFPAY | PROVIDERS: PCP Student in an Organized Health Care Education/Training Program; Visit Provider Internal Medicine Hypertension Specialist | DX: I12.9 Hypertensive chronic kidney disease with stage 1 through stage 4 chronic kidney disease, or unspecified chronic kidney disease (principal); N18.4 Chronic kidney disease, stage 4 (severe); R31.9 Hematuria, unspecified | CPT/HCPCS: 99212 ==

== ENCOUNTER 2024-12-30 13:02 | Outpatient (AMB) | payer MEDICARE, MEDICAID, SELFPAY ==
--- NOTE | 2024-12-30 12:57 | HO.NEPHOV ---
Vital Signs 12/30/24 13:00 Height 5 ft 5 in Weight 175 lb BMI 29.1 Intake Visit Reasons: CKD/ Conf Clerical Proofreader Required: No Accompanied by: Self / Same As Patient Allergies aspirin [ASA] Allergy (Verified 12/30/24 12:58) Angioedema Medication List - Last Reconciled 12/30/24 by Nestor Zepeda MD albuterol sulfate 90 mcg/actuation inhalation apixaban (Eliquis) 5 mg PO BID atorvastatin 10 mg PO BEDTIME budesonide-formoterol 80-4.5 mcg/actuation (Symbicort) inhalation BID calcitriol 0.25 mcg PO Q OTHER DAY diazepam 5 mg PO BID PRN diltiazem HCl ER 120 mg PO DAILY docusate sodium (Colace) 100 mg PO BID fluticasone propion-salmeterol 115-21 mcg/actuation (Advair HFA) 2 puffs inhalation BID PRN gabapentin 100 mg PO DAILY omeprazole 20 mg PO BID oxycodone 15 mg PO QID PRN spironolactone 25 mg PO BID torsemide 60 mg (3 x 20 mg) PO DAILY umeclidinium 62.5 mcg/actuation (Incruse Ellipta) 1 inh inhalation DAILY HPI Comments Details: Elderly woman with HTN and CHF with CKD IV pt was previously taking torsemide 40mg BID, spironolactone 25mg BID last visit Creatinine bumped from 1.78 to 2.30. Torsemide was reduced to 40mg in a.m., 20mg in p.m. her creatinine has since improved to 2.01 she notes she was on a course of prednisone and just finished yesterday for wrist swelling in the ED. reports ate salty soup over the weekends and legs were more swollen, prior no leg swelling breathing has been comfortable sees jockey's agent: Dr Mauricio at [facility] saw her a few months ago this summer, but does not have another appointment yet. Had been seen every 6 months reports has 1500mL fluid restriction denies urinary symptoms 10/15/24 Recently hospitalized to [facility] for pancreatitis On discharge , creatinine was 0.93 Now has right UE edema and leg edema No dyspnea Currently on Torsemide 40 mg in AM and 20 mg in PM [facility] Medical History (Updated 02/20/24 @ 14:38 by Nestor Zepeda MD) (HFpEF) heart failure with preserved ejection fraction Cardiac pacemaker in situ History of TMJ disorder Arthritis Back pain History of DVT (deep vein thrombosis) GERD (gastroesophageal reflux disease) Double vision Anxiety History of 2019 novel coronavirus disease (COVID-19) COPD (chronic obstructive pulmonary disease) Elevated cholesterol HTN (hypertension) Surgical History Hx of colonoscopy Hx of umbilical hernia repair Hx of hysterectomy History of parotidectomy Family History Brother Factor V Leiden Brother Factor V Leiden Social History Patient Tobacco Use Status: Former Tobacco user Physical Exam Vital Signs: BMI result Body Mass Index 29.1 Telehealth Telehealth Telehealth Platform: Telephone Location of provider rendering services: practice address Location of patient: address on file Telehealth method: voice only Patient verbally consented to treatment: Yes Results Reviewed Nephrology Results: Hgb 9.8 g/dl (12.0-16.0) L 09/29/24 WBC 5.4 X10*3/uL (4.8-10.8) 09/29/24 Plt Count 349 X10*3/uL (160-400) 09/29/24 Sodium 142 mmol/L (135-145) 09/29/24 Potassium 4.2 mmol/L (3.3-5.1) 09/29/24 Chloride 102 mmol/L (96-108) 09/29/24 Carbon Dioxide 27 mmol/L (22-29) 09/29/24 BUN 18 mg/dL (9-16) H 09/29/24 Creatinine 1.65 mg/dL (0.5-1.4) H 09/29/24 Calcium 10.2 mg/dL (8.4-10.2) 09/29/24 Phosphorus 3.6 mg/dL (2.7-4.5) 03/18/24 PTH Intact 325.1 pg/mL (8.7-77.1) H 07/11/24 Urine Protein Negative mg/dL (Neg-Trace) 07/11/24 Urine Creatinine 43.35 mg/dL 04/23/24 Assessment & Plan Assessment & Plan (1) HTN (hypertension): Code(s): I10 - Essential (primary) hypertension Category: Medical (2) CKD (chronic kidney disease) stage 4, GFR 15-29 ml/min: Code(s): N18.4 - Chronic kidney disease, stage 4 (severe) Category: Medical (3) Hematuria: Code(s): R31.9 - Hematuria, unspecified Plan 71-year-old woman with stage IV CKD in a setting of longstanding diabetes mellitus and congestive heart failure. Encouraged to stay on low-sodium diet- pt will avoid salty foods going forward, this is likely shy her legs have some trace edema today. cr improved ;1.6 on 12/12/24 Continue to avoid nephrotoxic agents including NSAIDs. We will continue to follow renal function closely. Keep current dose of Torsemide Blood pressure is acceptable. no changes today. she will return in 4 months Coding Level of Care Code Tele New Pt Level 4 (14830) Diagnoses HTN (hypertension) I10 CKD (chronic kidney disease) stage 4, GFR 15-29 ml/min N18.4 Hematuria R31.9
[2024-12-30 13:00] VITALS: BMI 29.1
--- OUTSIDE RECORDS SUMMARY | 2024-12-30 13:21 | XMS_ITS | Encounter Summary ---
Author Organization [employer] Address [address] [place] [address] [address] [place] [address] Care Team Providers Care Net Mender Name Role Phone Keyla Burgess MD Primary Care Provider [phone] Reason for Visit * Reason Comments Med Refill Encounter Details Date Type Department Care Team (Late Contact Info) Description 07/18/2023 Refill [facility] MED & PEDS [address] [place] [address] Keyla Burgess MD [address] [place] [address] Gastroesophageal reflux disease without esophagitis Social History Tobacco Use Types Packs/Day Years Used Date Smoking Tobacco: Never Passive Smoke Exposure: Never Smokeless Tobacco: Never Alcohol Use Standard Drinks/Week Comments Never 0 (1 standard drink = 0.6 oz pur e alcohol) Comments Unknown Sex and Gender Information Value Date Recorded Sex Assigned at Female 09/25/2022 10:25 AM EDT Legal Sex Female 10:25 AM EDT Gender Identity Female 09/25/2022 10:25 AM EDT Sexual Orientation Straight 09/25/2022 10 :25 AM EDT documented as of this encounter Plan of Treatment Upcoming Encounters Date Type Department Care Team (Late Contact Info) Description 03/09/2025 2:00 PM EDT Telemedicine [facility] MED & PEDS [address] [place] [address] Lin Cline RN [address] [place] [address] documented as of this encounter Visit Diagnoses Diagnosis Gastroesophageal reflux disease without esophagitis Esophageal reflux documented in this encounter Care Teams Net Mender Relationship Specialty Start Date End Date Keyla Burgess MD [address] [place] [address] PCP - General Family Medicine 11/10/15 Harry 09/28/24 documented as of this encounter
--- OUTSIDE RECORDS SUMMARY | 2024-12-30 13:21 | XMS_ITS | Encounter Summary ---
Author Organization [employer] Address [address] [facility] [address] [place] [address] Care Team Providers Care Terminal Makeup Operator Name Role Phone Keyla Burgess MD Primary Care Provider [phone] Reason for Visit * Reason Onset Date Comments Request For Order(s) 11/12/2024 Encounter Details Date Type Department Care Team ([facility] st Contact Info) Description 11/12/2024 Telephone [facility] MEDICINE [address] [place] [address] Keyla Burgess MD [address] [place], [place] [id number] Request For Order(s) Social History Tobacco Use Types Packs/Day Years Used Date Smoking Tobacco: Never Passive Smoke Exposure: Never Smokeless Tobacco: Never Alcohol Use Standard Drinks/Week Comments Never 0 (1 standard drink = 0.6 oz pur e alcohol) Housing Stability Answer Date Recorded What is your housing situation today? I have meganelma sifuentes 03/14/[address] you li ve. Do you have problems with any of the following? None of the above 03/14/2024 Food Insecurity Answer Date Recorded Within the past 12 months, y ou worried that your food would run out before you got money to buy more: Never True 03/14/2024 Within the past 12 months,th e food you bought just didn't last and you didn't have enough money to get more: Never True Transportation Answer Date Recorded In the past 12 months, has l ack of transportation kept you from medical appts, meetings, work or from getting things needed for daily living? No 03/14/2024 Utilities Answer Date Recorded In the past 12 months, has t he electric, gas, oil or water company threatened to shut off services in your home? No 03/14/2024 Comments No Sex and Gender Information Value Date Recorded Sex Assigned at Female 09/25/2022 10:25 AM EDT Legal Sex Female 10:25 AM EDT Gender Identity Female 09/25/2022 10:25 AM EDT Sexual Orientation Straight 09/25/2022 10 :25 AM EDT documented as of this encounter Miscellaneous Notes * Telephone Encounter - Antonietta Yeung RN - 11/12/2024 11:24 AM EST Ok for VO given to [facility] for additional visit. * Telephone Encounter - Spencer Boggs - 11/12/2024 10:59 AM EST Tc from [facility] with care tender a verbal order for penitentiary visit , states would like to add an additional visit for tomorrow 11/13/24 due to pt having BP changes. Please contact at [phone] documented in this encounter Plan of Treatment Upcoming Encounters Date Type Department Care Team (Late st Contact Info) Description 03/09/2025 2:00 PM EDT Telemedicine [facility] MED & PEDS [address] [place] [address] Lin Cline, CECILIO [address] [place] [address] documented as of this encounter Visit Diagnoses Not on filedocumented in this encounter Care Teams Terminal Makeup Operator Relationship Specialty Start Date End Date Keyla Burgess MD [address] [place] [address] PCP - General Family Medicine 11/10/15 [place] 09/28/24 documented as of this encounter
--- OUTSIDE RECORDS SUMMARY | 2024-12-30 13:21 | XMS_ITS | Encounter Summary ---
Author Organization [employer] Address [address] [place] [address] Care Team Providers Care Process Controller Name Role Phone Keyla Burgess MD Primary Care Provider [phone] Encounter Details Date Type Department Care Team ([facility] st Contact Info) Description 12/30/[address] [facility] MEDICINE [address] [place] [address] Keyla Burgess MD [address] [place], [place] [phone] Social History Tobacco Use Types Packs/Day Years Used Date Smoking Tobacco: Never Passive Smoke Exposure: Never Smokeless Tobacco: Never Alcohol Use Standard Drinks/Week Comments Never 0 (1 standard drink = 0.6 oz pur e alcohol) Housing Stability Answer Date Recorded What is your housing situation today? I have megan sifuentes 03/14/[address] you [...] encounter Miscellaneous Notes * Telephone Encounter - Jaime Covarrubias - 12/30/2024 12:59 PM EST Pharmacy [facility] attempted outreach call on 12/30/24 for CDTM - Hypertension appointment; however, unable to reach patient. LVM for patient to contact Jaime Covarrubias at [phone]. documented in this encounter Plan of Treatment Upcoming Encounters Date Type Department Care Team ([facility] st Contact Info) Description 03/09/2025 2:00 PM EDT Telemedicine [facility] MED & PEDS [address] [place] [address] Lin Cline, RN [address] [place] [address] documented as of this encounter Visit Diagnoses Not on filedocumented in this encounter Care Teams Process Controller Relationship Specialty Start Date End Date Keyla Burgess MD [address] [place] [id number] PCP - General Family Medicine 11/10/15 [place] 09/28/24 documented as of this encounter
--- OUTSIDE RECORDS SUMMARY | 2024-12-30 13:21 | XMS_ITS | Encounter Summary ---
Author Organization [employer] Address [address] [place] [address] [address] [place] [address] Care Team Providers Care Administrative Project Coordinator Name Role Phone Keyla Burgess MD Primary Care Provider [phone] Reason for Visit * Reason Comments Med Refill Encounter Details Date Type Department Care Team ([facility] Contact Info) Description 10/11/2023 Refill [facility] MED & PEDS [address] [place] [address] Ana Mei MD [address] [place] [address] Gastroesophageal reflux disease without esophagitis Social History [...] Upcoming Encounters Date Type Department Care Team ([facility] Contact Info) Description 03/09/2025 2:00 PM EDT Telemedicine [facility] MED & PEDS [address] [place] [address] Lin Cline RN [address] [place], [place] [phone] documented as of this encounter Visit Diagnoses Diagnosis Gastroesophageal reflux disease without esophagitis Esophageal reflux documented in this encounter Care Teams Administrative Project Coordinator Relationship Specialty Start Date End Date Kelya Burgess MD [address] [place] [address] PCP - General Family Medicine 11/10/15 Harry 09/28/24 documented as of this encounter
--- OUTSIDE RECORDS SUMMARY | 2024-12-30 13:21 | XMS_ITS | Encounter Summary ---
Author Organization [email or web address] Address [address] [place] [address] [address] [place] [address] Care Team Providers Care Rail Bender Name Role Phone Keyla Burgess MD Primary Care Provider [phone] Reason for Visit * Reason Onset Date Comments Med Refill 05/22/2023 Encounter Details Date Type Department Care Team (Late st Contact Info) Description 05/22/2023 Telephone [facility] MED & PEDS [address] [place] [address] Keyla Burgess MD [address] [place] [address] Med Refill Social History Tobacco Use Types Packs/Day Years [...] encounter Miscellaneous Notes * Telephone Encounter - Tati Burnett - 05/22/2023 10:12 AM EDT Tc from pt requesting a medication refill on oxyCODONE (Roxicodone) 10 MG immediate release tablet documented in this encounter Plan of Treatment Upcoming Encounters Date Type Department Care Team (Late st Contact Info) Description 03/09/2025 2:00 PM EDT Telemedicine [facility] MED & PEDS [address] [place] [address] Lin Cline, RN [address] [place] [address] documented as of this encounter Visit Diagnoses Not on filedocumented in this encounter Care Teams Rail Bender Relationship Specialty Start Date End Date Keyla Burgess MD [address] [place] [id number] PCP - General Family Medicine 11/10/15 Harry 09/28/24 documented as of this encounter
--- OUTSIDE RECORDS SUMMARY | 2024-12-30 13:21 | XMS_ITS | Encounter Summary ---
Author Organization [employer] Address [address] [place] [address] [address] [place] [address] Care Team Providers Care County Director Name Role Phone Keyla Burgess MD Primary Care Provider [phone] Reason for Visit * Reason Comments Med Refill Encounter Details Date Type Department Care Team ([facility] Contact Info) Description 12/07/[address] [facility] MEDICINE [address] [place] [address] Keyla Burgess MD [address] [place] [address] Other terminal makeup operator (current) drug therapy Social History Tobacco Use Types Packs/Day Years [...] Orientation Straight 09/25/2022 10 :25 AM EDT COVID-19 Exposure Response Date Recorded In the last 10 days, have yo u been in contact with someone who was confirmed or suspected to have Coronavirus/COVID-19? No / Unsure 12/01/2022 9:28 AM EST documented as of this encounter Plan of Treatment Upcoming Encounters Date Type Department Care Team ([facility] Contact Info) Description 03/09/2025 2:[address] [facility] MED & PEDS [address] [place], [place] [phone] Lin Cline RN [address] [place] [address] documented as of this encounter Visit Diagnoses Diagnosis Other correction (current) drug therapy documented in this encounter Care Teams County Director Relationship Specialty Start Date End Date Keyla Burgess MD [address] [place] [id number] PCP - General Family Medicine [facility] documented as of this encounter
--- OUTSIDE RECORDS SUMMARY | 2024-12-30 13:21 | XMS_ITS | Encounter Summary ---
Author Organization [employer] Address [address] [place] [address] [address] [place] [address] Care Team Providers Care System Safety Engineer Name Role Phone Keyla Burgess MD Primary Care Provider [phone] Reason for Visit * Reason Onset Date Comments Nurse Triage 10/08/2023 Encounter Details Date Type Department Care Team ([facility] st Contact Info) Description 10/08/2023 Telephone [facility] [address] [place] [address] Keyla Burgess MD [address] [place] [address] Nurse Triage Social History Tobacco Use Types Packs/Day Years [...] encounter Miscellaneous Notes * Telephone Encounter - Salome Davis RN - 10/08/2023 3:52 PM EST Triage call Pt reports 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 Pt reports cleaning the area and applying antibioticointment, silvadene and covering with clean bandage. Pt is concerned that there are more than one of these skin tears and there is some redness surrounding this recent one. Pt is advised to come to be seen by provider. Apt scheduled with Dr. eMi 10/11/23 @ 330pm and Pt agrees with this disposition and will call a neighbor for a ride. Insurance is verified as active prior to booking Protocol Used: Skin Injury (Adult) Protocol-Based Disposition: See in Office or Video Visit within 3 Days Positive Triage Question: * Minor cut, scratch, scrape, or scab from self-injury (e.g., cutting, picking; self-harm) and stable (i.e., not suicidal, not out of control) * All higher-acuity triage questions were negative Care Advice Discussed: * Reassurance and Education - Small Cut or Scrape * How to Stop Bleeding - Apply Direct Pressure * Clean the Wound * Antibiotic Ointment * Liquid Skin Bandage * Pain Medicines * Pain Medicines - Extra Notes and Warnings * Reasons To Call Back - Dirt in the wound persists after 15 minutes of scrubbing - Looks infected (increasing pain or tenderness, pus, spreading redness) - Doesn't heal within 14 days - Bleeding does not stop after using direct pressure - You become worse * Telephone Encounter - Carlos Hanna - 10/08/2023 3:23 PM EST Symptom: Skin Injury / Cuts Outcome: Schedule an urgent appointment (within 4 hours) or talk to a nurse or provider soon Reason: Getting worse The caller accepted this outcome Bleeding Please contact pt at [phone] documented in this encounter Plan of Treatment Upcoming Encounters Date Type Department Care Team (Late st Contact Info) Description 03/09/2025 2:00 PM EDT Telemedicine [facility] [address] [place] [address] Lin Cline, RN [address] [place] [address] documented as of this encounter Visit Diagnoses Not on filedocumented in this encounter Care Teams System Safety Engineer Relationship Specialty Start Date End Date Keyla Burgess MD [address] [facility] [place] [address] PCP - General Family Medicine 11/10/15 Harry 09/28/24 documented as of this encounter
--- OUTSIDE RECORDS SUMMARY | 2024-12-30 13:21 | XMS_ITS | Encounter Summary ---
Author Organization [employer] Address [address] [place] [address] [address] [place] [address] Care Team Providers Care Bottom Presser Name Role Phone Keyla Burgess MD Primary Care Provider [phone] Reason for Referral * Consultation (Urgent) - Authorized Specialty Diagnoses / Procedures Referred By Jeremy kothari Referred To Contact Pharmacy Diagnoses Primary hypertension Keyla Burgess MD [address] [place] [address] Phone: tel: fax: Referral ID Status Reason Start Date Expiration Date Visits Requested Visits Authorized [id number] Authorized Consult and Treat 12/30/2024 12/30/2025 6 6 Reason for Visit * Reason Comments pain meds Encounter Details Date Type Department Care Team ([facility] st Contact Info) Description 12/30/2024 11:30 AM EST Telemedicine [facility] MED & PEDS [address] [place] [address] Keyla Burgess MD [address] [place] [address] Primary hypertension (Primary Dx); Chronic obstructive pulmonary disease, unspecified COPD type (CMS/HCC); Dorsalgia of lumbar region Social History Tobacco Use Types Packs/Day Years [...] AM EDT documented as of this encounter Progress Notes * Keyla Burgess MD - 12/30/2024 11:30 AM EST Subjective Patient ID: Ame Hernandez is a 74 y.o. female who presents for No chief complaint on file.. Pt had a few inhalers changed by Pulm which is working better now Follows with Nephro Pain is better controlled with new regimen Review of Systems Constitutional: Negative. Respiratory: Negative. Negative for shortness of breath. Cardiovascular: Negative for chest pain and palpitations. Gastrointestinal: Negative. Genitourinary: Negative. Musculoskeletal: Negative for neck pain. Neurological: Negative for headaches. Objective Physical Exam Psychiatric: Mood and Affect: Mood normal. Behavior: Behavior normal. Thought Content: Thought content normal. Judgment: Judgment normal. Assessment/Plan Diagnoses and all orders for this visit: Primary hypertension Comments: Stable No changes in meds referred to [facility] Orders: - Referral to Pharmacy [facility] Chronic obstructive pulmonary disease, unspecified COPD type ([facility]) Comments: Inhalers updated Dorsalgia of lumbar region Comments: Stable on New regimen No changes in COT Other orders - albuterol 108 (90 Base) MCG/ACT inhaler; Inhale 2 puffs every 4 (four) hours if needed for wheezing. documented in this encounter Plan of Treatment Upcoming Encounters Date Type Department Care Team ([facility] st Contact Info) Description 03/09/2025 2:00 PM EDT Telemedicine [facility] MED & PEDS [address] [place] [address] Lin Cline, RN [address] [place] [address] Scheduled Referrals Name Type Priority Associated Diagnoses Orde r Schedule Referral to Pharmacy [facility] Outpatient Referral Urgent Primary hypertension Ordered: 12/30/2024 documented as of this encounter Visit Diagnoses Diagnosis Primary hypertension- Primary Unspecified essential hypertension Chronic obstructive pulmonary disease, unspecified COPD type (CMS/HCC) Dorsalgia of lumbar region documented in this encounter Care Teams Bottom Presser Relationship Specialty Start Date End Date Keyla Burgess MD [address] [place] [id number] PCP - General Family Medicine 11/10/15 Harry 09/28/24 documented as of this encounter
--- OUTSIDE RECORDS SUMMARY | 2024-12-30 13:21 | XMS_ITS | Encounter Summary ---
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
--- OUTSIDE RECORDS SUMMARY | 2024-12-30 13:21 | XMS_ITS | Encounter Summary ---
Author Organization [employer] Address [address] [place] [address] Care Team Providers Care Battery Container Tester Aluminum Name Role Phone Keyla Burgess MD Primary Care Provider [phone] Reason for Visit * Reason Onset Date Comments Med Refill 11/06/2023 Encounter Details Date Type Department Care Team ([facility] st Contact Info) Description 11/06/2023 Telephone [facility] MEDICINE [address] [place] [address] Keyla Burgess MD [address] [place], [place] [id number] Med Refill Social History Tobacco Use Types [...] the past 12 months, has t he [employer], gas, oil or water [employer] threatened to shut off services in your home? No 03/14/2024 Comments Unknown Sex and Gender Information Value Date Recorded Sex Assigned at Female 09/25/2022 10:25 AM EDT Legal Sex Female 10:25 AM EDT Gender Identity Female 09/25/2022 10:25 AM EDT Sexual Orientation Straight 09/25/2022 10 :25 AM EDT documented as of this encounter Miscellaneous Notes * Telephone Encounter - Spencer Boggs - 11/06/2023 11:27 AM EST Tc from pt requesting a refill for diazePAM (Valium) 5 MG tablet and oxyCODONE (Roxicodone) 10 MG immediate release tablet documented in this encounter Plan of Treatment Upcoming Encounters Date Type Department Care Team (Late st Contact Info) Description 03/09/2025 2:00 PM EDT Telemedicine [facility] MED & PEDS [address] [place] [address] Lin Cline, RN [address] [place] [address] documented as of this encounter Visit Diagnoses Not on filedocumented in this encounter Care Teams Battery Container Tester Aluminum Relationship Specialty Start Date End Date Keyla Burgess MD [address] [place] [address] PCP - General Family Medicine 11/10/15 [facility] 09/28/24 documented as of this encounter
--- OUTSIDE RECORDS SUMMARY | 2024-12-30 13:21 | XMS_ITS | Clinical Summary ---
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 and 20 mg every afternoon 02/27/2019 Active budesonide-formote roL (SYMBICORT) 160-4.5 mcg/actuation inhaler Inhale 2 puffs by mouth 2 (two) times a day. 06/26/2024 Active dilTIAZem SR (CARDIZEM SR) 120 mg 12 hr capsule Take 1 capsule (120 mg total) by mouth 1 (one) time each day. 06/05/2011 Active fluticasone propion-salmeteroL (ADVAIR HFA) 115-21 mcg/actuation inhaler Inhale 2 puffs by mouth. 01/07/2024 Active albuterol HFA (PROAIR HFA ; PROVENTIL HFA ; VENTOLIN HFA) 90 mcg/actuation inhaler Inhale 2 puffs by mouth 1 (one) time each day if needed. 11/15/2023 Active docusate sodium (COLACE) 100 mg capsule Take 1 capsule (100 mg total) by mouth 2 (two) times a day. 03/25/2024 Active spironolactone (ALDACTONE) 25 mg tablet Take 1 tablet (25 mg total) by mouth 2 (two) times a day. 04/12/2017 Active ondansetron (ZOFRAN) 4 mg tablet Take 1 tablet (4 mg total) by mouth if needed. 08/30/2022 Active gabapentin (NEURONTIN) 100 mg capsule Take 1 capsule (100 mg total) by mouth daily. 09/29/2022 Active apixaban (Eliquis) 5 mg tablet Take 1 tablet (5 mg total) by mouth 2 (two) times a day. 08/30/2022 Active fluticasone propionate (FLONASE) 50 mcg/actuation nasal spray 2 (two) times a day if needed. 07/28/2022 Active omeprazole OTC (PriLOSEC OTC) 20 mg EC tablet 2 (two) times a day. Active loratadine (CLARITIN) 10 mg tablet Take 1 tablet (10 mg total) by mouth daily. 05/23/2022 Active oxyCODONE (ROXICODONE) 15 mg immediate release tablet Take 1 tablet (15 mg total) by mouth every 6 (six) hours if needed. Active atorvastatin (LIPITOR) 10 mg tablet Take 1 tablet (10 mg total) by mouth 1 (one) time each day. 90 tablet 1 11/06/2024 Active budesonide-formote roL (Symbicort) 160-4.5 mcg/actuation inhalerIndications :Chronic obstructive pulmonary disease, unspecified COPD type (CMS/HCC),Bronchie ctasis without acute exacerbation (CMS/HCC) Inhale 2 puffs by mouth 2 (two) times a day. Rinse mouth with water after use to reduce aftertaste and incidence of candidiasis. Do not swallow. 3 each 3 12/09/2024 Active umeclidinium (Incruse Ellipta) 62.5 mcg/actuation inhalationIndicati ons:Chronic obstructive pulmonary disease, unspecified COPD type (CMS/HCC),Bronchie ctasis without acute exacerbation (CMS/HCC) Inhale 1 puff by mouth 1 (one) time each day. 3 each 3 12/09/2024 6 Active albuterol HFA (PROAIR HFA ; PROVENTIL HFA ; VENTOLIN HFA) 90 mcg/actuation inhalerIndications :Chronic obstructive pulmonary disease, unspecified COPD type (CMS/HCC) Inhale 2 puffs by mouth every 6 (six) hours if needed for wheezing or shortness of breath. 3 each 3 12/09/2024 6 Active fluticasone furoate-vilanteroL (Breo Ellipta) 200-25 mcg/dose inhaler Inhale 1 puff by mouth 1 (one) time each day. 2 each 4 12/17/2024 6 Active umeclidinium (Incruse Ellipta) 62.5 mcg/actuation inhalation Inhale 1 puff by mouth 1 (one) time each day. 06/26/2024 5 Discontinue d(Reorder) Active Problems Problem Noted Date Diagnosed Date Hypoxia 06/15/2023 Overview (09/02/2024): Last Assessment & Plan: She is having episodes of hypoxia which is concerning. She is highly symptomatic at this time. I checked her device in the office today and did not correlate this with any SVT or arrhythmias. There are actually no alerts since her last device check in February. I am not going to make any adjustments to her rate control medications at this time. I do think she needs to see a fur designer if she is having hypoxia. She may benefit from supplemental oxygen. I am going to refer her for this. Echocardiogram from January is relatively unremarkable. I also do not believe this is a volume issue. HLD (hyperlipidemia) 07/10/2022 Overview (09/02/2024): Last Assessment & Plan: Continue low-dose atorvastatin. Assessment & Plan (10/27/2024 3:17 PM EST): Continue statin therapy. Most recent LDL was 57. Orders: Basic metabolic panel; Future CBC and differential; Future B-type natriuretic peptide; Future Basic metabolic panel CBC and differential B-type natriuretic peptide Status post placement of cardiac pacemaker 07/10 Overview (09/02/2024): - Status post Medtronic dual-chamber permanent pacemaker placement for sick sinus syndrome on 09/07/2015 - Most recent device check on 04/16/2024 showed normal device function, 2 EGM suggestive of paroxysmal atrial tachycardia or SVT with the longest episode being 3 minutes and 52 seconds for which the patient was asymptomatic, no events to correlate to yesterday symptomatic episode Last Assessment & Plan: Continue follow-up in device clinic. Deep venous thrombosis 09/17/2021 Overview (09/02/2024): Last Assessment & Plan: She states that she is going to be having an injection on her back. She tells me that the doctor is willing to do this on her anticoagulation. If they are willing to continue anticoagulation during her procedure this would be okay. If anticoagulation must be stopped for 48 hours then it would need to be discussed with her PCP whether or not bridging is required given she is on this for DVTs and PEs. (HFpEF) heart failure with preserved ejection fr action 02/15/2021 Overview (09/02/2024): -??Last echocardiogram is from January 2023 revealing mild concentric LVH with a normal left ventricular ejection fraction of 60 to 65%, indeterminate diastolic function, and no significant valvular abnormalities Last Assessment & Plan: Clinically euvolemic on exam without symptoms of overt heart failure. No recent heart failure hospitalizations. For now continue current torsemide 40 mg twice daily along with spironolactone 25 mg daily. If she has additional episodes that are not clearly triggered by something else such as sodium indiscretion, may opt to start her on SGLT2 inhibitor or potentially Entresto. Will hold off for now. Assessment & Plan (10/27/2024 3:17 PM EST): Patient appears to be fluid overloaded today. I am going to draw BNP lab. Will instruct patient to increase torsemide dosage we will have her take 40 mg in the morning and 40 mg in the afternoon for the next 3 days, and then she can reduce back to her normal regimen. I would like patient to weigh herself daily the same way, at the same time ideally. I would like her to continue her fluid restriction. Would like to in the future investigate adding SGLT2 inhibitor like Farxiga or Jardiance.Have instructed patient to raise her limbs especially while she sleeps. Would like her to adhere to a cardiac healthy diet. Would like her to continue limiting sodium. Orders: Basic metabolic panel; Future CBC and differential; Future B-type natriuretic peptide; Future Basic metabolic panel CBC and differential B-type natriuretic peptide Paroxysmal supraventricular tachycardia 02/16/20 Overview (09/02/2024): Paroxysmal supraventricular tachycardia Last Assessment & Plan: Patient did have a 3-minute episode since her last device check but it did not correlate any of her symptomatic episodes. Continue diltiazem for suppression. Assessment & Plan (10/27/2024 3:17 PM EST): Seen on remote download. 3 seconds of AT/A-fib. Patient is anticoagulated on Eliquis. No issues with abnormal bleeding. Of note Eliquis is primarily for history of PE/DVTs. Orders: Basic metabolic panel; Future CBC and differential; Future B-type natriuretic peptide; Future Basic metabolic panel CBC and differential B-type natriuretic peptide Sick sinus syndrome 02/15/2021 Overview (09/02/2024): Sinus node dysfunction Last Assessment & Plan: Normal functioning Medtronic dual-chamber permanent pacemaker on most recent device check. 3.5 years of battery longevity. We will continue to monitor. Assessment & Plan (10/27/2024 3:17 PM EST): Normal functioning Medtronic dual-chamber permanent pacemaker. Continue to monitor. Orders: Basic metabolic panel; Future CBC and differential; Future B-type natriuretic peptide; Future Basic metabolic panel CBC and differential B-type natriuretic peptide Hypertension 02/15/2021 Overview (09/02/2024): Last Assessment & Plan: Well-controlled on current regimen, continue. Chest pain 02/15/2021 Overview (09/02/2024): Chest pain Last Assessment & Plan: Had a strange episode just yesterday which thankfully was not correlated to any arrhythmias. All in all, since the symptoms resolved and she was not having any preceding chest pain with exertion, I suspect this might have been a vagal episode triggered by headache. At this point, we will just continue to monitor for future symptoms. Low suspicion for cardiac cause for this particular episode. She has described these types of episodes sometimes associated with presyncopal symptoms and sometimes overt syncope in the past. Ultimately explained that if she has any chest pain that is concerning, it is reasonable to go to the hospital to be ruled out. Chronic obstructive lung disease 11/10/2015 Overview (09/02/2024): Chronic obstructive lung disease Encounters Date Type Department Care Team Description [facility] [address] [phone] Hansa Cheek MD prior authorization [facility] [address] [place] [address] Emily Keita MA 12/12/2024 Telephone [facility] Cardiology [facility] - [facility] [address] [facility] [address] [place] [address] Gladis Mauricio MD tele monitor 12/09/2024 1:15 PM EST [facility] [address] [place] [phone] Hansa Cheek MD Chronic obstructive pulmonary disease, unspecified COPD type (CMS/HCC) (Primary Dx); Bronchiectasis without acute exacerbation (CMS/HCC); Chronic hypoxemic respiratory failure (CMS/HCC); Pulmonary hypertension (CMS/HCC); HEMANT (obstructive sleep apnea); Dyspnea, unspecified type; Restrictive lung disease 11/06/2024 Telephone [facility] Cardiology [facility] [address] [facility] [address] [place] [address] Gladis Mauricio MD Med Refill (Atorvastatin) 2024 12:03 PM EST - 2024 6:29 PM EST Emergency [facility] Emergency [address] [place] [address] Yury Barba MD Arm swelling (Primary Dx); Cellulitis, unspecified cellulitis site Discharge Disposition: Home or Self Care 10/27/2024 12:40 PM EST Office Visit [facility] Cardiology [facility] - [facility] [address] [phone] Rigo Meyers NP Acute on chronic heart failure with preserved ejection fraction (CMS/HCC) (Primary Dx); Paroxysmal supraventricular tachycardia (CMS/HCC); Sick sinus syndrome (CMS/HCC); Hyperlipidemia, unspecified hyperlipidemia type; Right arm cellulitis 10/21/2024 Telephone [facility] Cardiology [facility] [address] [phone] Gladis Mauricio MD Arm Swelling 10/01/2024 5:00 PM EST - 10/01/2024 11:59 PM EST Hospital Encounter [facility] Ultrasound [address] [place] [phone] Localized swelling, mass and lump, right upper limb; Redness Discharge Disposition: Home or Self Care from Last 3 Months Immunizations Name Administration Dates Next Due Influenza Quadravalent, 0.5m l (Fluzone High-dose) 65yo and older 07/13/2023,09/15/2022,09/08/2021,09/01 Influenza Quadrivalent, with preservative (Fluzone; Afluria) 6mo and older 09/16/2019,09/02/2018,08/28/2017,11/10 Influenza trivalent, 0.5mL ( Fluzone High-dose) 65yo and older 07/30/2016 Moderna SARS-CoV-2 COVID-19, mRNA, LNP-S, preservative free 10/18/2021,02/02/2021 Pneumococcal conjugate 13 va lent (Prevnar 13, PCV13) 2mo and older 10/29/2018,07/30/2016 Pneumococcal polysaccharide 23 valent (Pneumovax 23) 2yo and older 10/30/2019,09/16/2014,03/09/2014,01/19,01/19/2013 Td Tetanus diptheria (Tdvax) 7yo and older 08/28/2017 Zoster recombinant (Shingrix ) 19yo and older 08/10/2022,06/08/2022 Surgical History Surgery Date Site/Laterality Comments PACEMAKER IMPLANT PROCEDURE: HISTORICAL PACEMAKER OTHER SURGICAL HISTORY 02/16/2021 N/A PROCEDURE: [place] RPR EPIGASTRIC HERNIA REDUCIBLE SPX; COMMENT: open epigastric ventral hernia repair - Dr. Charlie Marquez HYSTERECTOMY PROCEDURE: HISTORICAL HYSTERECTOMY Medical History Medical History Date Comments Heart disease DX:Heart disease Acute respiratory failure wi th hypoxia (CMS/HCC) DX:Acute respiratory failure with hypoxia (HCC) COPD exacerbation (CMS/HCC) DX:C OPD exacerbation (HCC) SSS (sick sinus syndrome) (CMS/HCC) DX:SSS (sick sinus syndrome) (HCC) CKD (chronic kidney disease) , stage IV (CMS/HCC) DX:CKD (chronic kidney disea se), stage IV (HCC) History of DVT (deep vein thrombosis) DX:History of DVT (deep vein thrombosis) HEMANT (obstructive sleep apnea) 12/13/2022 DX :HEMANT (obstructive sleep apnea) Ventral hernia DX:Ventral herni a Obesity DX:Obesity Family History Medical History Relation Name Comments Coronary artery disease Brother Coronary artery disease Father Relation Name Status Comments Brother Father triple by pass Social History Tobacco Use Types Packs/Day Years Used Date Smoking Tobacco: Former Smokeless Tobacco: Never Tobacco Cessation:Counseling Given: Not Answered Alcohol Use Standard Drinks/Week Comments No 0 (1 standard drink = 0.6 oz pur e alcohol) Sex and Gender Information Value Date Recorded Sex Assigned at Not on file Gender Identity Not on file Sexual Orientation Not on file Job Start Date Occupation Industry Not on file Not on file Not on file Obstetrics History Last Filed Vital Signs Vital Sign Reading Time Taken Comments Blood Pressure 113/52 12/09/2024 1:19 PM EST Pulse 76 12/09/2024 1:19 PM EST Temperature 36.1 ??C (96.9 ??F) 12/09/2024 1:19 PM ES T Respiratory Rate 21 12/09/2024 1:19 PM EST Oxygen Saturation 92% 12/09/2024 1:19 PM EST Inhaled Oxygen Concentration - - Weight 81.2 kg (179 lb 1.6 oz) 12/09/2024 1:19 P M EST Height 152.4 cm (5') 12/09/2024 1:19 PM EST Body Mass Index 34.98 12/09/2024 1:19 PM EST Plan of Treatment Upcoming Encounters Date Type Department Care Team (Late st Contact Info) Description 03/05/2025 2:40 PM EDT Office Visit [facility] Cardiology [facility] - [facility] [address] [facility] [address] [place] [phone] Rigo Meyers NP [address] [place] [address] 04/16/2025 2:00 PM EDT Ancillary Procedure [facility] - [facility] [address] [facility] [address] [place] [address] 06/23/2025 10:45 AM EDT Office Visit Pulmonolgy - [place] 175 [facility] [address] [place] [address] Hansa Cheek MD 175 [facility] [address] [place] [address] Health Maintenance Due Date Last Done Comments Depression Screening 11/04/2022 Falls Risk Assessment 11/04/2022 Hepatitis C Screening 11/04/2022 Medicare Annual Wellness Visit 11/04/2022 Osteoporosis Screening (Bone Density Screening) 11/04/2022 Social Influencers of Health Screening 11/04/2022 Hypertension/CHF/CAD Annual BMP Blood Test 2025 2024, 10/30/2024, 09/29/2024, Additional history exists DTaP,Tdap,and Td Vaccines (2 - Td or Tdap) 08/28/2027 08/28/2017 Cholesterol Screening (Lipid Panel) 09/13/2028 09/13/2023, 09/13/2023 Pneumococcal Vaccine: 65+ Years Completed 10/30/2019, 10/29/2018, 07/30/2016, Additional history exists Zoster Vaccines Completed 08/10/2022, 06/08/2022 RSV Immunization Patients 60+ Years Old Completed 06/27/2024 COVID-19 Vaccine Completed 08/23/2024, , 09/15/2022, Additional history exists Influenza Vaccine Completed 08/23/2024, , 09/15/2022, Additional history exists HIB Vaccines Aged Out No longer eligi ble based on patient's age to complete this topic HPV Vaccines Aged Out No longer eligi ble based on patient's age to complete this topic Hepatitis A Vaccines Aged Out No long er eligible based on patient's age to complete this topic Hepatitis B Vaccines Aged Out No long er eligible based on patient's age to complete this topic IPV Vaccines Aged Out No longer eligi ble based on patient's age to complete this topic MMR Vaccines Aged Out No longer eligi ble based on patient's age to complete this topic Meningococcal ACWY Vaccine Aged Out N o longer eligible based on patient's age to complete this topic RSV Immunization Patients Under 20 months Aged Out No longer eligible based on patient's age to complete this topic Varicella Vaccines Aged Out No longer eligible based on patient's age to complete this topic Procedures Procedure Name Priority Date/Time Associated Diagnosis Comments VAS US DUPLEX UPPER EXT VENOUS RIGHT STAT 2024 1:56 PM EST Arm swelling CBC WITH AUTO DIFFERENTIAL STAT 2024 12:20 PM EST C-REACTIVE PROTEIN STAT 2024 12 :20 PM EST SEDIMENTATION RATE STAT 2024 12 :20 PM EST CBC AND DIFFERENTIAL STAT 2024 12:20 PM EST COMPREHENSIVE METABOLIC PANEL STAT 2024 12:20 PM EST VAS US DUPLEX UPPER EXT VENOUS RIGHT Routine 10/01/2024 5:39 PM EST Localized swelling, mass and lump, right upper limb Redness LIPID PANEL Routine 09/13/2023 from Last 3 Months or Most Recently Relevant to Health Maintenance Results * Vascular US duplex upper extremity venous right (2024 1:56 PM EST) Only the most recent of2 resultswithin the time period is included. Anatomical Region Laterality Modality Vascular, Abdomen Ultrasound 2024 2:22 PM EST Impressions 2024 2:23 PM EST No evidence of deep vein thrombosis. -------- FINAL REPORT -------- Dictated By: Chico Agudelo Dictated Date: 2024 14:22 ET Assigned Physician: Chico Agudelo Reviewed and Electronically Signed By: Chico Agudelo Signed Date: 2024 14:23 ET Workstation ID: [id number] Transcribed By: Self Edit Transcribed Date: 2024 14:22 ET Narrative 2024 2:23 PM EST Ultrasound duplex venous study right upper extremity TECHNIQUE: Grayscale and color imaging with spectral analysis was performed of the region of interest INDICATION: Swelling COMPARISON: None FINDINGS: The veins appear normal throughout the right upper extremity. ??Normal venous flow. ??Normal compressibility. ??Soft tissues appear normal. ??No evidence of thrombosis. Procedure Note Chico Agudelo MD - 2024 Ultrasound duplex venous study right upper extremity TECHNIQUE: Grayscale and color imaging with spectral analysis wasperformed of the region of interest INDICATION: Swelling COMPARISON: None FINDINGS: The veins appear normal throughout the right upper extremity. Normalvenous flow. Normal compressibility. Soft tissues appear normal. Noevidence of thrombosis. IMPRESSION: No evidence of deep vein thrombosis. -------- FINAL REPORT -------- Dictated By: Chico Agudelo Dictated Date: 2024 14:22 ET Assigned Physician: Chico Agudelo Reviewed and Electronically Signed By: Chico Agudelo Signed Date: 2024 14:23 ET Workstation ID: [id number] Transcribed By: Self Edit Transcribed Date: 2024 14:22 ET [place] [facility]EG[facility] CV VASCULAR PROCE DURES * (ABNORMAL) CBC auto differential (2024 12:20 PM EST) [facility] Signature WBC 6.3 4.8 - 10.8 K/mcL LAB HEMETOLOGY METHOD 2024 12:38 PM [facility] RBC 3.50(L) 3.80 - 4.80 M/mcL LAB HEMETOLOGY METHOD 2024 12:38 PM [facility] Hemoglobin 9.0(L) 11.5 - 16.0 g/dL LAB HEMETOLOGY METHOD 2024 12:38 PM [facility] Hematocrit 30.9(L) 35.0 - 47.0 % LAB HEMETOLOGY METHOD 2024 12:38 PM [facility] MCV 88.0 79.0 - 98.0 FL LAB HEMETOLOGY METHOD 2024 12:38 PM [facility] MCH 25.6(L) 27.0 - 32.0 pcg LAB HEMETOLOGY METHOD 2024 12:38 PM [facility] MCHC 29.1(L) 32.0 - 37.0 g/dL LAB HEMETOLOGY METHOD 2024 12:38 PM [facility] RDW 16.6(H) 11.0 - 15.0 % LAB HEMETOLOGY METHOD 2024 12:38 PM [facility] Platelets 288 130 - 400 K/mcL LAB HEMETOLOGY METHOD 2024 12:38 PM [facility] MPV 10.0 7.0 - 11.0 FL LAB HEMETOLOGY METHOD 2024 12:38 PM [facility] NRBC 0.0 <1.0 % LAB HEMETOLOGY METHOD 2024 12:38 PM [facility] NRBC Absolute 0.00 <0.10 K/mcL LAB HEMETOLOGY METHOD 2024 12:38 PM [facility] Neutrophils Relative 62.6 % LAB HEMETOLOGY METHOD 2024 12:38 PM [facility] Lymphocytes Relative 12.9 % LAB HEMETOLOGY METHOD 2024 12:38 PM [facility] Monocytes Relative 23.2 % LAB HEMETOLOGY METHOD 2024 12:38 PM [facility] Eosinophils Relative 0.2 % LAB HEMETOLOGY METHOD 2024 12:38 PM [facility] Basophils Relative 0.3 % LAB HEMETOLOGY METHOD 2024 12:38 PM [facility] Immature Granulocytes Relative 0.8 % LAB HEMETOLOGY METHOD 2024 12:38 PM [facility] Neutrophils Absolute 3.94 1.50 - 7.00 K/mcL LAB HEMETOLOGY METHOD 2024 12:38 PM [facility] Lymphocytes Absolute 0.81(L) 1.00 - 5.00 K/mcL LAB HEMETOLOGY METHOD 2024 12:38 PM [facility] Monocytes Absolute 1.46(H) 0.20 - 1.00 K/mcL LAB HEMETOLOGY METHOD 2024 12:38 PM [facility] Eosinophils Absolute 0.01 0.00 - 0.50 K/mcL LAB HEMETOLOGY METHOD 2024 12:38 PM [facility] Basophils Absolute 0.02 0.00 - 0.20 K/mcL LAB HEMETOLOGY METHOD 2024 12:38 PM [facility] Immature Granulocytes Absolute 0.05(H) 0.00 - 0.03 K/mcL LAB HEMETOLOGY METHOD 2024 12:38 PM EST [facility] Blood Venous blood specimen / Unknown Venipuncture / Unknown 2024 12:20 PM EST 2024 12:28 PM EST [place] [facility] LAB BLOOD ORDERAB LES [facility] [address] [place] [address], [place] [phone] * (ABNORMAL) Sedimentation Rate, Automated (2024 12:20 PM EST) Pathologist [facility] Sed Rate 81(H) 0 - 30 mm/hr LAB HEMETOLOGY METHOD 2024 12:53 PM EST [facility] Blood Venous blood specimen / Unknown Venipuncture / Unknown 2024 12:20 PM EST 2024 12:28 PM EST [place] [facility] LAB BLOOD ORDERAB LES Performing Organization Address City/[facility]/ZIP Co de Phone Number [facility] [address] [place] [address], [place] [phone] * (ABNORMAL) C-reactive protein (2024 12:20 PM EST) [facility] C-Reactive Protein 1.26(H) <=0.50 mg/dL LAB CHEMISTRY METHOD 2024 12:54 PM EST [facility] Blood Venous blood specimen / Unknown Venipuncture / Unknown 2024 12:20 PM EST 2024 12:28 PM EST [place] [facility] LAB BLOOD ORDERAB LES [facility] [address] [place] [address], [place] [phone] * (ABNORMAL) Comprehensive Metabolic Panel (CMP) (2024 12:20 PM EST) [facility] Signature Sodium 138 133 - 145 mmol/L LAB CHEMISTRY METHOD 2024 12:54 PM [facility] Potassium 3.8 3.5 - 5.5 mmol/L LAB CHEMISTRY METHOD 2024 12:54 PM [facility] Chloride 101 96 - 110 mmol/L LAB CHEMISTRY METHOD 2024 12:54 PM [facility] CO2 29 21 - 32 mmol/L LAB CHEMISTRY METHOD 2024 12:54 PM [facility] Anion Gap 8 3 - 11 LAB CHEMISTRY METHOD 2024 12:54 PM [facility] Glucose 131(H) 70 - 100 mg/dL LAB CHEMISTRY METHOD 2024 12:54 PM [facility] BUN 24 5 - 25 mg/dL LAB CHEMISTRY METHOD 2024 12:54 PM [facility] Creatinine 1.98(H) 0.50 - 1.10 mg/dL LAB CHEMISTRY METHOD 2024 12:54 PM [facility] eGFR 26(L) >=60 mL/min/1. 73m2 LAB CHEMISTRY METHOD 2024 12:54 PM [facility] Comment:Calculation based on the??Chronic Kidney Disease Epidemiology Collaboration (CKD-EPI) equation refit??without adjustment for race. BUN/Creatinine Ratio 12.1 LAB CHEMISTRY METHOD 2024 12:54 PM [facility] Calcium 9.8 8.5 - 10.5 mg/dL LAB CHEMISTRY METHOD 2024 12:54 PM [facility] AST (SGOT) 14 10 - 42 unit/L LAB CHEMISTRY METHOD 2024 12:54 PM [facility] ALT (SGPT) 10 10 - 60 unit/L LAB CHEMISTRY METHOD 2024 12:54 PM EST [facility] Alkaline Phosphatase 143(H) 42 - 121 unit/L LAB CHEMISTRY METHOD 2024 12:54 PM EST [facility] Total Protein 6.5 6.0 - 8.0 g/dL LAB CHEMISTRY METHOD 2024 12:54 PM EST [facility] Albumin 3.5 3.2 - 5.0 g/dL LAB CHEMISTRY METHOD 2024 12:54 PM [facility] Total Bilirubin 0.4 0.0 - 1.4 mg/dL LAB CHEMISTRY METHOD 2024 12:54 PM EST [facility] Blood Venous blood specimen / Unknown Venipuncture / Unknown 2024 12:20 PM EST 2024 12:28 PM EST [place] [facility] BLOOD ORDERAB LES [facility] [address] [place] [address], * Lipid panel (09/13/2023) LDL/HDL Ratio 0 Comment:no interpretation Triglycerides 0 mg/dL Comment:no interpretation Cholesterol 0 mg/dL Comment:no interpretation HDL 0 mg/dL Comment:no interpretation LDL Cholesterol 0 mg/dL Comment:no interpretation Blood Venous blood specimen / Unknown Historical Provider LAB BLOOD ORDERAB LES from Last 3 Months or Most Recently Relevant to Health Maintenance Advance Directives Documents on File Type Date Recorded Patient [employer] Supervisor Expl anation Health Care Decision (hx) 01/31/2023 AD SOTELO DIRECTIVE Health Care Decision (hx) 01/31/2023 AD SOTELO DIRECTIVE Health Care Decision (hx) 01/31/2023 AD SOTELO DIRECTIVE Health Care Decision (hx) 01/31/2023 AD SOTELO DIRECTIVE Care Teams Photoengraving Proofer Apprentice Relationship Specialty Start Date End Date Keyla Burgess MD [address] [place] [address] PCP - General 09/04/12
--- OUTSIDE RECORDS SUMMARY | 2024-12-30 13:21 | XMS_ITS | Encounter Summary ---
Author Organization [employer] Address [address] [facility] [address] [place] [address] Care Team Providers Care Pharmacognosist Name Role Phone Keyla Burgess MD Primary Care Provider [phone] Encounter Details Date Type Department Care Team ([facility] st Contact Info) Description 12/09/2024 Telephone [facility] CHC MED & PEDS [address] [place] [address] Keyla Burgess MD [address] [place] [address] Social History Tobacco Use Types Packs/Day Years [...] encounter Miscellaneous Notes * Telephone Encounter - Yanique Villarreal RN - 12/09/2024 1:46 PM EST Returned call to Megan at [facility]. She was unavailable. She will return call. * Telephone Encounter - Annette Price - 12/09/2024 11:18 AM EST Tc from Megan with [facility] requesting an order for tele monitor. Any further question please contact phone # [phone]. documented in this encounter Plan of Treatment Upcoming Encounters Date Type Department Care Team (Late st Contact Info) Description 03/09/2025 2:00 PM EDT Telemedicine [facility] CHC MED & PEDS [address] [place] [address] Lin Cline, RN 505 [place] [address] documented as of this encounter Visit Diagnoses Not on filedocumented in this encounter Care Teams Pharmacognosist Relationship Specialty Start Date End Date Keyla Burgess MD [address] [place] [address] PCP - General Family Medicine 11/10/15 [facility] 09/28/24 documented as of this encounter
--- OUTSIDE RECORDS SUMMARY | 2024-12-30 13:21 | XMS_ITS | Encounter Summary ---
Author Organization [employer] Address [address] [facility] 7t [place] [address] Care Team Providers Care Senior Cytotechnologist Name Role Phone Keyla Burgess MD Primary Care Provider [phone] Reason for Visit * Reason Onset Date Comments Verbal orders 12/11/2024 Encounter Details Date Type Department Care Team ([facility] st Contact Info) Description 12/11/2024 Telephone [facility] MEDICINE [address] [place] [address] Keyla Burgess MD [address] [place], [place] [phone] Verbal orders Social History Tobacco Use Types Packs/Day Years [...] encounter Miscellaneous Notes * Telephone Encounter - Ara Rausch RN - 12/23/2024 9:29 AM EST TC placed to [facility] to deliver instructions from pt PCP Dr. Buregss to continue with the tele monitoring. VNA also advised that there are no specific parameters for the monitor * Telephone Encounter - Keyla Burgess MD - 12/23/2024 8:49 AM EST Advised to keep the telemonitor * Telephone Encounter - Ara Rausch RN - 12/16/2024 12:34 PM EST TC from Megan with [facility] who called in to request VO for pt to continue with wearing a tele-monitor. According to Megan who spoke with [facility] Cardiology the pt had the orders for a tele monitor signed by PCP Dr. Burgess back in September of 2024. The pt would need these verbal orders by tomorrow 12/17/24 as the pt is currently going through re certification by [facility]. * Telephone Encounter - Ara Rausch RN - 12/16/2024 11:59 AM EST TC placed to Megan with [facility] and LVM to call back the [facility] * Telephone Encounter - Angelique Bennett - 12/12/2024 3:44 PM EST Tc from Megan returning call. [phone] * Telephone Encounter - Yanique Villarreal RN - 12/12/2024 9:24 AM EST TC from [facility] Cardiology nurse. She states she does not see where patient has been orderedto wear a telemonitor. Cardio nurse stated she would call Megan from [facility] ([phone]) to find out what exactly Megan is looking for. * Telephone Encounter - Jose Holcomb - 12/11/2024 3:19 PM EST Tc from Megan from [facility] requesting a verbal order for a telemonitor for pt. Megan requested a call back at [phone]. documented in this encounter Plan of Treatment Upcoming Encounters Date Type Department Care Team (Late st Contact Info) Description 03/09/2025 2:00 PM EDT Telemedicine [facility] MED & PEDS [address] [place] [address] Lin Cline, RN 505 [place] [address] documented as of this encounter Visit Diagnoses Not on filedocumented in this encounter Care Teams Senior Cytotechnologist Relationship Specialty Start Date End Date Keyla Burgess MD [address] [place] [address] PCP - General Family Medicine 11/10/15 Harry 09/28/24 documented as of this encounter
--- OUTSIDE RECORDS SUMMARY | 2024-12-30 13:21 | XMS_ITS | Encounter Summary ---
Author Organization [employer] Address [address] [place] [address] 7t [place] [address] Care Team Providers Care Poly Packer And Heat Sealer Name Role Phone Keyla Burgess MD Primary Care Provider [phone] Reason for Visit * Reason Onset Date Comments triage 11/22/2022 Encounter Details Date Type Department Care Team ([facility] st Contact Info) Description 11/22/2022 Telephone C [facility] MED & PEDS 505 [place] [address] Keyla Burgess MD 505 [place] [address] triage Social History Tobacco Use Types Packs/Day Years Used Date Smoking Tobacco: Never Assessed Comments Unknown Sex and Gender Information Value [...] suspected to have Coronavirus/COVID-19? No / Unsure 2022 10:14 AM EST documented as of this encounter Miscellaneous Notes * Telephone Encounter - Keyla Burgess MD - 12/04/2022 11:34 AM EST Increase dose and task * Telephone Encounter - Lin Torres RN - 12/04/2022 11:17 AM EST Pt was recently discharged from [facility], states she has been in so much pain and has been told at the hospital to increase Oxycodone 10mg to qid. She is due for a refill. Please advise. * Telephone Encounter - Annette Price - 11/22/2022 1:43 PM EST Patient calling for HDF follow up appointment. Patient hospitalized at [facility] on 11/14/22 and discharged on 11/21/22. Patient advised will forward to triage nurse for follow up and appointment scheduling. Pt states paper work informs needs an appt within 2 weeks. Pt also informs her saturation oxygen levels are between 84-88. documented in this encounter Plan of Treatment Upcoming Encounters Date Type Department Care Team (Late st Contact Info) Description 03/09/2025 2:00 PM EDT Telemedicine [facility] MED & PEDS 505 [place] [address] Lin Cline, CECILIO 505 [place] [address] documented as of this encounter Visit Diagnoses Diagnosis Dorsalgia of lumbar region documented in this encounter Care Teams Poly Packer And Heat Sealer Relationship Specialty Start Date End Date Keyla Burgess MD [address] [place] [address] PCP - General Family Medicine 11/10/15 [facility] 09/28/24 documented as of this encounter
--- OUTSIDE RECORDS SUMMARY | 2024-12-30 13:21 | XMS_ITS | Encounter Summary ---
Author Organization [employer] Address [address] 7t [place] [address] Care Team Providers Care Pig Sticker Name Role Phone Keyla Burgess MD Primary Care Provider [phone] Encounter Details Date Type Department Care Team (Latest Contact Info) Description 12/30/2024 Travel Social History Tobacco Use Types Packs/Day Years [...] Info) Description 03/09/2025 2:00 PM EDT Telemedicine [facility] MED & PEDS 505 [place] [address] Lin Cline, RN [address] [place] [address] documented as of this encounter Visit Diagnoses Not on filedocumented in this encounter Care Teams Pig Sticker Relationship Specialty Start Date End Date Keyla Burgess MD [address] [place] [address] PCP - General Family Medicine 11/10/15 Harry 09/28/24 documented as of this encounter
--- OUTSIDE RECORDS SUMMARY | 2024-12-30 13:21 | XMS_ITS | Encounter Summary ---
Author Organization [employer] Address [address] [facility] 7t [place] [address] Care Team Providers Care Dietary Worker Name Role Phone Kyela Burgess MD Primary Care Provider Reason for Visit * Reason Onset Date Comments Telemonitor orders 12/12/2024 Encounter Details Date Type Department Care Team ([facility] st Contact Info) Description 12/12/2024 Telephone [facility] CHC MED & PEDS [address] [place] [address] Yanique Villarreal RN Telemonitor orders Social History Tobacco Use Types Packs/Day [...] Encounter - Yanique Villarreal RN - 12/12/2024 9:15 AM EST Called [facility] to see if they ordered a telemonitor for the patient tohave in place. They will return call when they have the information available. documented in this encounter Plan of Treatment Upcoming Encounters Date Type Department Care Team (Late st Contact Info) Description 03/09/2025 2:00 PM EDT Telemedicine [facility] MED & PEDS 505 [place] [address] Lin Cline RN [address] [place] [address] documented as of this encounter Visit Diagnoses Not on filedocumented in this encounter Care Teams Dietary Worker Relationship Specialty Start Date End Date Keyla Burgess MD [address] [place] [address] PCP - General Family Medicine 11/10/15 [facility] documented as of this encounter
--- OUTSIDE RECORDS SUMMARY | 2024-12-30 13:21 | XMS_ITS | Encounter Summary ---
Author Organization [employer] Address [address] [facility] 7t [place] [address] Care Team Providers Care Refrigerating Machine Operator Name Role Phone Keyla Burgess MD Primary Care Provider [phone] Reason for Visit * Reason Onset Date Comments Nurse Triage 12/19/2024 Encounter Details Date Type Department Care Team ([facility] st Contact Info) Description 12/19/[address] [facility] MEDICINE [address] [place] [address] Keyla Burgess MD [address] [place], [place] [phone] Nurse Triage Social History Tobacco Use Types [...] encounter Miscellaneous Notes * Telephone Encounter - Marilu Kasper RN - 12/19/2024 4:21 PM EST Called pt. She states that she has been having increasingly painful right hand pain that radiates up her arm to her shoulder. Pt also having knee pain. Pt. States that she had to take an extra Oxycodone 1 or 2 days last week because she is in so much pain. Pt states that she went to ED and had testing done on her arm hands and leg which came back negative. Pt. States that she has been using her walker to walk and she still has severe pain. Pt. Has VNA nurse come once a week and has a INTERNET [employer] SPECIALIST come Sunday-. Pt states that she feels she does not get any benefit from going to ED . Pt. Feels like she has Rheumatoid Arthritis and wants advice from Dr. Burgess . Pt states all her fingers are crooked and she has a strong Family HX. Of Rheumatoid Arthritis so she is wondering if she should get blood work or be referred to a Staff Readiness Officer to control and monitor her pain. Advised that PCP has no openings next week and she wants PCP to know that she is in pain when she walks and is requesting a call from PCP when she has free time . Please advise and I can call pt. Back on 12/22/24. With any information you advise. *I did make a televisit for 12/30/24 at 1130am with PCP Protocol Used: Arm Pain (Adult) Protocol-Based Disposition: Go to Office or Video Visit Now- Will send note to PCP. Positive Triage Questions: * Severe pain (e.g., excruciating, unable to do any normal activities) * Weakness (i.e., loss of strength) of new-onset in hand or fingers (Exceptions: Not truly weak, hand feels weak because of pain; weakness present > 2 weeks) * Arm pains with exertion (e.g., occurs with walking; goes away on resting) * All higher-acuity triage questions were negative Care Advice Discussed: * Pain Medicines * Pain Medicines - Extra Notes and Warnings * Use a Cold Pack for Pain * Use Heat After 48 Hours for Pain * Local Heat (Shower Option) * Rest * Pain Medicines * Telephone Encounter - Jose Gallos - 12/19/2024 4:17 PM EST Symptom: Hand or Wrist Pain - Not From Injury Outcome: Schedule an urgent appointment (within 1 hour) or talk to a nurse or provider soon Reason: Can't use the hand normally The caller accepted this outcome. documented in this encounter Plan of Treatment Upcoming Encounters Date Type Department Care Team (Late st Contact Info) Description 03/09/2025 2:00 PM EDT Telemedicine [facility] MED & PEDS 505 [place] [address] Lin Cline RN 505 [place] [address] documented as of this encounter Visit Diagnoses Not on filedocumented in this encounter Care Teams Refrigerating Machine Operator Relationship Specialty Start Date End Date Keyla Burgess MD [address] [place] [address] PCP - General Family Medicine 11/10/15 [facility] 09/28/24 documented as of this encounter
--- OUTSIDE RECORDS SUMMARY | 2024-12-30 13:21 | XMS_ITS | Encounter Summary ---
Author Organization [employer] Address [address] [facility] 7t [place] [address] Care Team Providers Care Utility Maintenance Worker Name Role Phone Keyla Burgess MD Primary Care Provider [phone] Reason for Visit * Reason Onset Date Comments Medication Question 11/11/2024 FYI 11/11/2024 Encounter Details Date Type Department Care Team ([facility] st Contact Info) Description 11/11/2024 Telephone [facility] MEDICINE [address] [place] [address] Keyla Burgess MD 505 [place], [place] [phone] Medication Question; Social History Tobacco Use Types Packs/Day Years [...] encounter Miscellaneous Notes * Telephone Encounter - Jey Amor - 11/11/2024 10:36 AM EST TC from pt stating she stopped taking Med Doxycycline due to the medication making pt feel Nauseas. IF any questions contact pt at [phone] documented in this encounter Plan of Treatment Upcoming Encounters Date Type Department Care Team (Late st Contact Info) Description 03/09/2025 2:00 PM EDT Telemedicine [facility] MED & PEDS 505 [place] [address] Lin Cline, CECILIO 505 [place] [address] documented as of this encounter Visit Diagnoses Not on filedocumented in this encounter Care Teams Utility Maintenance Worker Relationship Specialty Start Date End Date Keyla Burgess MD [address] [place] [address] PCP - General Family Medicine 11/10/15 [facility] 09/28/24 documented as of this encounter
--- OUTSIDE RECORDS SUMMARY | 2024-12-30 13:21 | XMS_ITS | Encounter Summary ---
Author Organization [employer] Address [address] [facility] 7t [place] [address] Care Team Providers Care Historiography Teacher Name Role Phone Keyla Burgess MD Primary Care Provider [phone] Encounter Details Date Type Department Care Team ([facility] Contact Info) Description 12/24/2024 Telephone C [facility] MED & PEDS [address] [place] [address] Lin Cline, RN [address] [place] [address] Social History Tobacco Use Types Packs/Day Years [...] Telephone Encounter - Keyla Burgess MD - 12/25/2024 1:06 PM EST Yes * Telephone Encounter - Lin Cline RN - 12/24/2024 1:41 PM EST .What TRANSPORTATION OFFICER Tier would you like this patient to be? Are you ok with TRANSPORTATION OFFICER Televisit? Tier 1 = HIGH RISK, Monthly TRANSPORTATION OFFICER visits Tier 2 = MODerate RISK, Q3 Month visits Tier 3 = LOW RISK = Q4-6 month visits documented in this encounter Plan of Treatment Upcoming Encounters Date Type Department Care Team (Late st Contact Info) Description 03/09/2025 2:00 PM EDT Telemedicine [facility] MED & PEDS [address] [place] [address] Lin Cline, RN [address] [place] [address] documented as of this encounter Visit Diagnoses Not on filedocumented in this encounter Care Teams Historiography Teacher Relationship Specialty Start Date End Date Keyla Burgess MD [address] [place] [address] PCP - General Family Medicine 11/10/15 [facility] 09/28/24 documented as of this encounter
--- OUTSIDE RECORDS SUMMARY | 2024-12-30 13:21 | XMS_ITS | Encounter Summary ---
Author Organization [employer] Address [address] [facility] 7t [place] [address] Care Team Providers Care Japanese Tutor Name Role Phone Keyla Burgess MD Primary Care Provider [phone] Reason for Visit * Reason Onset Date Comments Results 10/25/2023 Encounter Details Date Type Department Care Team ([facility] st Contact Info) Description 10/25/2023 Telephone [facility] MEDICINE [address] [place] [address] Keyla Burgess MD [address] [place], [place] [phone] Results Social History Tobacco Use Types Packs/Day Years [...] Telephone Encounter - Antonietta Yeung RN - 2023 9:55 AM EST Returned call to pt and informed of XR results. Pt expressed understanding and agrees with plan. * Telephone Encounter - Spencer Boggs - 10/25/2023 1:38 PM EST Tc from pt requesting XRAY results. Please contact at [phone] documented in this encounter Plan of Treatment Upcoming Encounters Date Type Department Care Team (Late st Contact Info) Description 03/09/2025 2:00 PM EDT Telemedicine [facility] MED & PEDS [address] [place] [address] Lin Cline RN 505 [place] [address] documented as of this encounter Visit Diagnoses Not on filedocumented in this encounter Care Teams Japanese Tutor Relationship Specialty Start Date End Date Keyla Burgess MD [address] [place] [address] PCP - General Family Medicine 11/10/15 Harry 09/28/24 documented as of this encounter
--- OUTSIDE RECORDS SUMMARY | 2024-12-30 13:21 | XMS_ITS | Encounter Summary ---
Author Organization [employer] Address [address] [facility] 7t [place] [address] Care Team Providers Care Ethics Instructor Name Role Phone Keyla Burgess MD Primary Care Provider [phone] Reason for Visit * Reason Onset Date Comments Nurse Triage 05/31/2023 Encounter Details Date Type Department Care Team ([facility] st Contact Info) Description 05/31/2023 Telephone [facility] MEDICINE [address] [place] [address] Keyla Burgess MD [address] [place] [address] Nurse Triage Social History Tobacco Use Types [...] suspected to have Coronavirus/COVID-19? No / Unsure 06/01/2023 1:25 PM EDT documented as of this encounter Miscellaneous Notes * Telephone Encounter - Salome Davis RN - 05/31/2023 3:01 PM EDT Triage call Pt reports that since winter has had some mucous plugs in the chest that have been hardto expectorate. Pt reports taking mucinex during the day and a cough suppressant at night to calm cough to be able to sleep. Pt reports being able to drink 2000cc/day of liquid. Pt did a Covid test yesterday and it was neg. Pt uses symbicort inhaler in AM and HS and can use albuterol prn 4x/day when needed. Pt reports no wheezing or difficulty breathing. Occasional desats to 80% due to mucous plugs. Pt reports having gerd and when having to cough to free mucous plugs it upsets stomach. Pt is asking to be seen for possible medication prescription to help this. Insurance is verified as active prior to booking. Apt [facility] 06/01 @ 140pm Protocol Used: Cough (Adult) Protocol-Based Disposition: See in Office or Video Visit within 3 Days Positive Triage Question: * Cough has been present for > 3 weeks * All higher-acuity triage questions were negative Care Advice Discussed: * Reassurance and Education - Cough * Prevent Dehydration * Humidifier * Reasons To Call Back - Difficulty breathing - Cough lasts more than 3 weeks - Fever lasts more than 3 days - You become worse * Telephone Encounter - Marie Saldana - 05/31/2023 2:42 PM EDT Symptom: Cough and Phlegm Outcome: Schedule an appointment to be seen within 24 hours Reason: Caller denied all higher acuity questions The caller accepted this outcome documented in this encounter Plan of Treatment Upcoming Encounters Date Type Department Care Team (Late st Contact Info) Description 03/09/2025 2:00 PM EDT Telemedicine [facility] MED & PEDS [address] [place] [address] Lin Cline, RN 505 [place] [address] documented as of this encounter Visit Diagnoses Not on filedocumented in this encounter Care Teams Ethics Instructor Relationship Specialty Start Date End Date Keyla Burgess MD [address] [place] [address] PCP - General Family Medicine 11/10/15 Harry 09/28/24 documented as of this encounter
--- OUTSIDE RECORDS SUMMARY | 2024-12-30 13:21 | XMS_ITS | Encounter Summary ---
Author Organization [employer] Address [address] [facility] 7t [place] [address] Care Team Providers Care Fulfillment Coordinator Name Role Phone Keyla Burgess MD Primary Care Provider [phone] Reason for Visit * Reason Onset Date Comments Med Refill 06/21/2023 Encounter Details Date Type Department Care Team ([facility] st Contact Info) Description 06/21/2023 Telephone [facility] [address] [place] [address] Keyla Burgess MD [address] [place], [place] [id number] Med Refill Social History Tobacco Use Types [...] the past 12 months, has t he [employer], gas, oil or water [employer] threatened to shut off services in your [...] * Telephone Encounter - Spencer Boggs - 06/21/2023 11:21 AM EDT Tc from pt requesting a refill for diazePAM (Valium) 5 MG tablet documented in this encounter Plan of Treatment Upcoming Encounters Date Type Department Care Team (Late st Contact Info) Description 03/09/2025 2:00 PM EDT Telemedicine [facility] P[facility] [address] [place] [address] Lin Cline RN [address] [place] [address] documented as of this encounter Visit Diagnoses Not on filedocumented in this encounter Care Teams Fulfillment Coordinator Relationship Specialty Start Date End Date Keyla Burgess MD [address] [place] [id number] PCP - General Family Medicine 11/10/15 [facility] 09/28/24 documented as of this encounter
--- OUTSIDE RECORDS SUMMARY | 2024-12-30 13:22 | XMS_ITS | Encounter Summary ---
Author Organization [employer] Address [address] [facility] [address] [place] [address] Care Team Providers Care Animal Cytologist Name Role Phone Keyla Burgess MD Primary Care Provider [phone] Encounter Details Date Type Department Care Team (Latest Contact Info) Description 12/22/2024 Travel Social History Tobacco Use Types Packs/Day [...] 03/09/2025 2:00 PM EDT Telemedicine [facility] MED & [facility]ED[facility] [address] [place] [address] Lin Cline, RN [address] [place] [address] documented as of this encounter Visit Diagnoses Not on filedocumented in this encounter Care Teams Animal Cytologist Relationship Specialty Start Date End Date Keyla Burgess MD [address] [place] [id number] PCP - General Family Medicine 11/10/15 [facility] 09/28/24 documented as of this encounter
--- OUTSIDE RECORDS SUMMARY | 2024-12-30 13:22 | XMS_ITS | Encounter Summary ---
Author Organization [employer] Address [address] [facility] [address] [place] [address] Care Team Providers Care Sandwich And Drink Cart Operator Name Role Phone Keyla Burgess MD Primary Care Provider [phone] Encounter Details Date Type Department Care Team ([facility] st Contact Info) Description 10/01/2024 Telephone [facility] MED[facility]INE [address] [place] [address] Keyla Burgess MD [address] [place], [place] [phone] Social History Tobacco Use Types Packs/Day Years [...] Miscellaneous Notes * Telephone Encounter - Spencer Francisjia - 10/01/2024 3:21 PM EST Tc from pt stating they received a missed calll from [facility] however health underwriter sees no encounter,pt was triaged and scheduled earlier today. Please contact at [phone] documented in this encounter Plan of Treatment Upcoming Encounters Date Type Department Care Team ([facility] st Contact Info) Description 03/09/2025 2:00 PM EDT Telemedicine [facility]S [address] [place] [address] Lin Cline, RN [address] [place] [address] documented as of this encounter Visit Diagnoses Not on filedocumented in this encounter Care Teams Sandwich And Drink Cart Operator Relationship Specialty Start Date End Date Keyla Burgess MD [address] [place] [address] PCP - General Family Medicine 11/10/15 [facility] 09/28/24 documented as of this encounter
--- OUTSIDE RECORDS SUMMARY | 2024-12-30 13:22 | XMS_ITS | Encounter Summary ---
Author Organization [facility] Address [address] [place] [address] Care Team Providers Care Tool And Cutter Grinder Name Role Phone Keyla Burgess MD Primary Care Provider [phone] Encounter Details Date Type Department Care Team (Late Contact Info) Description 12/17/2024 Telephone [facility] [place] [address] [facility] [address] [place] [address] Emily Keita MA Social History Tobacco Use Types Packs/Day Years Used Date Smoking Tobacco: Former Smokeless Tobacco: Never Alcohol Use Standard Drinks/Week Comments No 0 (1 standard drink = 0.6 oz pur e alcohol) Sex and Gender Information Value Date Recorded Sex Assigned at Not on file Gender Identity Not on file Sexual Orientation Not on file Job Start Date Occupation Industry Not on file Not on file Not on file documented as of this encounter Progress Notes * Emily Keita MA - 12/17/2024 12:[address] [facility] pharmacy request alter script symbicort non formulary alternate breo,fluticasone-salmet please submit alternate to patient pharmacy documented in this encounter Plan of Treatment Upcoming Encounters Date Type Department Care Team (Late Contact Info) Description 03/05/2025 2:40 PM EDT Office Visit [facility] [address] [facility] [address] [place] [address] Rigo Meyers NP [address] [place] [address] 04/16/2025 2:00 PM EDT Ancillary Procedure [facility] [address] [facility] [address] [place] [address] 06/23/2025 10:45 AM EDT Office Visit [facility] [place] [address] [facility] [address] [place] [address] Hansa Sharma MD 175 [facility] [address] [place] [address] documented as of this encounter Visit Diagnoses Not on filedocumented in this encounter Care Teams Tool And Cutter Grinder Relationship Specialty Start Date End Date Keyla Burgess MD [address] [place] [address] PCP - General 09/04/12 documented as of this encounter
--- OUTSIDE RECORDS SUMMARY | 2024-12-30 13:22 | XMS_ITS | Encounter Summary ---
Author Organization [employer] Address [address] [facility] 7t [place] [address] Care Team Providers Care Actuary Manager Name Role Phone Keyla Burgess MD Primary Care Provider [phone] Reason for Visit * Reason Comments controlled substance treatment Encounter Details Date Type Department Care Team ([facility] st Contact Info) Description 12/22/2024 2:[address] [facility]S [address] [place] [address] Lin Cline RN [address] [place] [address] Lumbar radiculopathy Social History Tobacco Use Types Packs/Day Years [...] as of this encounter Progress Notes * Lin Cline RN - 12/22/2024 2:30 PM EST S: TALENT RECRUITER Televisit. Patient was taking Oxycodone 15mg Q 6 hrs PRN and Diazepam 5mg bid PRN. At the last appt with PCP on 12/30/24 dose of Oxycodone was changed to 20mg tid. Patient reports no adverse reactions. Patient also uses ice/ warm compresses. Patient states Diazepam helps with her anxiety. Patient denies smoking, ETOH or illicit drug use. Patient also takes Gabapentin 100mg QD. Patient f/u with Pain Management at [facility]. Pt c/o of panda roberson, has an appt scheduled with dr. Burgess 12/30/24. Advised to call PRN. O: VSS. TRADE MANAGER checked on 12/22/24. Pill count performed over the phone, patient states she is not surehow many Oxycodone she has left, states she takes it tid, 58 expected and about 33 Diazepam, 33 expected. Medications are not being overused. A: Chronic opioid use and BZO use r/t chronic pain and anxiety. P: Patient to cont. with current pain medication regimen as needed and take medication only as directed. f/u for next TALENT RECRUITER NV scheduled for 03/09/25 @2pm. F/u with PCP 12/30/24. f/u sooner PRN. Patient verbalized understanding and agreed to plan. documented in this encounter Plan of Treatment Upcoming Encounters Date Type Department Care Team ([facility] st Contact Info) Description 03/09/2025 2:00 PM EDT Telemedicine [facility] MED [facility] [address] [facility] [place] [address] Lin Cline RN 505 [facility] [place] [address] documented as of this encounter Visit Diagnoses Diagnosis Lumbar radiculopathy Thoracic or lumbosacral neuritis or radiculitis, unspecified documented in this encounter Care Teams Actuary Manager Relationship Specialty Start Date End Date Keyla Burgess MD [address] [place] [address] PCP - General Family Medicine 11/10/15 [facility] 09/28/24 documented as of this encounter
--- OUTSIDE RECORDS SUMMARY | 2024-12-30 13:22 | XMS_ITS | Clinical Summary ---
Author Organization [employer] Address [address] [place] [address] 7[address] [place] [address] Care Team Providers Care Senior Web Applications Developer Name Role Phone Keyla Burgess MD Primary Care Provider [phone] Allergies Active Allergy Reactions Criticality Noted Date Comments Aspirin 2022 Epinephrine 05/12/2015 Ibuprofen 2022 Procaine 05/12/2015 Acetaminophen 2022 Wound Dressing Adhesive 10/16/2023 Medical tape Medications atorvastatin (Lipitor) 10 MG tablet Take 1 tablet by mouth. Active calcitriol (Rocaltrol) 0.25 MCG capsule Take 0.25 mcg by mouth every other day. In the morning Active fluticasone (Flonase) 50 MCG/ACT nasal spray INHALE TWO SPRAYS IN EACH NOSTRIL DAILY Active sennosides (Senokot) 8.6 MG tablet TAKE TWO TABLETS EVERY EVENING Active polyethylene glycol, PEG, 3350 (Glycolax) 17 GM/SCOOP powder MIX 1 PACKET IN 8 OUNCES OF WATER, JUICE,SODA, COFFEE, OR TEA DAILY NEEDED FOR CONSTIPATION Active naloxone (Narcan) 4 mg/0.1 mL nasal spray Administer 0.1 mL into affected nostril(s). Active loratadine (Claritin) 10 MG tablet Take 10 mg by mouth 1 (one) time each day. Active dilTIAZem CD (Cardizem CD) 120 MG 24 hr capsule Take 1 capsule by mouth in the morning. Active Diclofenac Sodium (Voltaren Arthritis Pain) 1 % gel Use sparingly on the affected joint TID 350 g 3 023 Active torsemide (Demadex) 20 MG tabletIndication s:Chronic congestive heart failure, unspecified heart failure type (CMS/HCC) TAKE TWO TABLET BY MOUTH TWICE DAILY IN THE MORNING AND EVENING 120 tablet 11 024 Active nystatin (Mycostatin) 899166 UNIT/GM powder Apply topically 2 times daily. APPLY TO THE AFFECTED AREA(S) THREE TIMES DAILY DIRECTED 60 g 3 024 2024 Active spironolactone (Aldactone) 25 MG tabletIndication s:Chronic congestive heart failure, unspecified heart failure type (CMS/HCC) TAKE ONE TABLET TWICE DAILY IN THE MORNING AND AT BEDTIME 180 tablet 1 024 Active Eliquis 5 MG tabletIndication s:Chronic congestive heart failure, unspecified heart failure type (CMS/HCC) TAKE ONE TABLET TWICE DAILY IN THE MORNING AND AT BEDTIME 60 tablet 11 024 Active omeprazole (PriLOSEC) [address] capsuleIndicatio ns:Gastroesophag eal reflux disease without esophagitis TAKE ONE CAPSULE TWICE DAILY IN THE MORNING AND AT BEDTIME 180 capsule 1 024 Active docusate sodium (Colace) 100 MG capsuleIndicatio ns:Constipation, unspecified constipation type TAKE ONE CAPSULE TWICE DAILY IN THE MORNING AND AT BEDTIME 180 capsule 1 024 Active Advair HFA 115-21 MCG/ACT inhaler Inhale 2 puffs in the morning and at bedtime. Rinse mouth after use. Active Incruse Ellipta 62.5 MCG/ACT aerosol powder Take 1 puff by mouth Once per day. 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 28 g 024 Active gabapentin (Neurontin) 100 MG capsuleIndicatio ns:Lumbar radiculopathy TAKE ONE CAPSULE EVERY MORNING 30 capsule 2 024 Active ondansetron (Zofran) 4 MG tabletIndication s:Chronic renal disease, stage IV (CMS/HCC) TAKE ONE TABLET EVERY 4 HOURS NEEDED 20 tablet 024 Active diazePAM (Valium) 5 MG tabletIndication s:Other m[facility]p (current) drug therapy TAKE ONE TABLET TWICE DAILY IN THE MORNING AND AT BEDTIME FOR ANXIETY 60 tablet 025 Active budesonide-formo terol (Symbicort) 160-4.5 MCG/ACT inhaler Inhale 2 puffs 2 times daily. 025 2025 Active albuterol 108 (90 Base) MCG/ACT inhaler Inhale 2 puffs every 4 (four) hours if needed for wheezing. 18 g 11 025 Active albuterol 108 (90 Base) MCG/ACT inhaler Inhale 2 puffs every 6 (six) hours if needed. 022 2024 Discontinued(R eorder (will not trigger notification to Pharmacy)) diazePAM (Valium) 5 MG tabletIndication s:Other mcfp (current) drug therapy TAKE ONE TABLET TWICE DAILY IN THE MORNING AND AT BEDTIME FOR ANXIETY 60 tablet 024 2024 Discontinued oxyCODONE (Roxicodone) 20 MG immediate release tabletIndication s:Lumbar radiculopathy Take 1 tablet (20 mg) by mouth 3 times daily. 90 tablet 024 2024 Active Problems Problem Noted Date Diagnosed Date Localized swelling on right hand 10/01/2024 Assessment & Plan (10/01/2024 2:34 PM EST): concern for DVT vs other - need to send for US upper extremity - will send for x ray STAT Bandemia 09/29/2024 Class 1 obesity 11/13/2023 11/13/2023 Knee pain 11/13/2023 11/13/2023 Lumbar radicular pain 11/13/2023 11/13/2023 Acute right ankle pain 10/24/2023 Assessment & Plan (10/24/2023 3:43 PM EST): Swelling and pain sp trauma, will send X rays, recommended rest and will start antibiotics given concern of developing cellulitis, made quick f/up with PCP. Consider referral to ortho Cellulitis of right lower extremity 10/24/2023 Fall with injury L arm 09/18/2023 Assessment & Plan (09/18/2023 4:16 PM EDT): Patient with complaints of a wound located on L arm had no sign of infections, therefore, antibiotics are not necessary. Patient had proper wound care at the time of visit. Recommended patient to apply Vaseline or Petrillium jelly on affected area. Advised to leave guaze on, since they last up to 2 weeks. Open wound 09/18/2023 Chronic hand pain, left 07/17/2023 Assessment & Plan (07/17/2023 3:04 PM EDT): Patient with L hand pain with associated swelling. Will start on prednisone and send to hand surgeon for further evaluation. Will send for xray of L hand and schedule appointment with Dr. Burgess. Acute cystitis without hematuria 03/25/2023 Assessment & Plan (03/25/2023 7:54 PM EDT): Patient refers symptoms improving, pending culture results, no reported fever/chills, nausea/vomiting, hematuria/dysuria Hospital discharge follow-up 03/25/2023 Assessment & Plan (03/25/2023 7:57 PM EDT): Patient denied having any symptoms, continue antibiotics, stay well hydrated, call back if any symptoms Sick sinus syndrome 06/17/2022 Presence of automatic (implantable) cardiac defi brillator 06/17/2022 Acquired absence of both cervix and uterus 06/17 Lumbar radiculopathy 06/12/2022 Pain in unspecified knee 06/12/2022 Chronic kidney disease, stage 4 (severe) 022 Cellulitis of left lower limb 04/29/2021 Hypertension 04/29/2021 Chronic diastolic heart failure 04/08/2021 Assessment & Plan (12/01/2022 10:20 AM EST): Pt was discharged on 11/20 for HF exac, presented to HDF visit, SpO2 ranging from 88-90%, denies weight gain but on examination has fluid 3/4-5/6 on right side and base of her left side also with fluid and crackles. I strongly encouraged her to go to the ED for evaluation, called ambulance and they will take her to [facility] ED for eval. Vitamin D deficiency 04/08/2021 Hypercalcemia 03/31/2021 Hyperparathyroidism due to renal insufficiency 0 03/31/2021 Hypertensive heart and renal disease with (congestive) heart failure 03/31/2021 Hypokalemia 03/31/2021 Acute renal failure syndrome 03/31/2021 Cardiac pacemaker in situ 06/25/2018 Chronic obstructive lung disease 11/10/2015 Dorsalgia of lumbar region 11/10/2015 Gastroesophageal reflux disease without esophagi tis 11/10/2015 Renal failure syndrome 11/10/2015 Encounters Date Type Department Care Team Description 12/30/2024 11:30 AM EST Telemedicine [facility] [address] [place] [address] Keyla Burgess MD Primary hypertension (Primary Dx); Chronic obstructive pulmonary disease, unspecified COPD type (CMS/HCC); Dorsalgia of lumbar region 12/30/2024 Telephone [facility] [address] [place] [address] Keyla Burgess MD 12/30/2024 Travel 12/29/2024 Telephone [facility] [address] [place] [address] Keyla Burgess MD 12/24/2024 Telephone [facility] [address] [place] [address] Lin Cline, CECILIO 12/22/2024 2:30 PM EST Telemedicine [facility] [address] [place] [address] Lin Cline, RN Lumbar radiculopathy 12/22/2024 Travel 12/19/2024 Telephone [facility] [address] [place] [address] Keyla Burgess MD Nurse Triage 12/12/2024 Telephone [facility] [address] [place] [address] Yanique Villarreal, RN Telemonitor orders 12/11/[address] [address] Keyla Burgess MD Verbal orders 12/09/2024 Telephone [facility] [address] [place] [address] Keyla Burgess MD 12/02/2024 Refill [facility] [address] [place] [address] Keyla Burgess MD Other superintendent terminal (current) drug therapy 11/13/2024 10:45 AM EST Telemedicine [facility] [address] [place] [address] Keyla Burgess MD Chronic obstructive pulmonary disease, unspecified COPD type (CMS/HCC) (Primary Dx); Chronic renal disease, stage IV (CMS/HCC); Chronic diastolic heart failure (CMS/HCC); Lumbar radiculopathy 11/13/2024 Travel 11/12/2024 Telephone [facility] [place] [address] Keyla Burgess MD Request For Order(s) 11/11/2024 Telephone [facility] [address] [place] [address] Keyla Burgess MD Medication Question; FYI 11/11/2024 Telephone [facility] [address] [place] [address] Keyla Burgess MD Nurse Triage 11/06/2024 Refill [facility] [address] [place] [address] Keyla Burgess MD Lumbar radiculopathy 11/04/2024 Refill [facility] [address] [place] [address] Keyla Burgess MD Other superintendent terminal (current) drug therapy 11/03/2024 Telephone [facility] [address] [place] [address] Keyla Burgess MD ER Follow-up 11/03/2024 Telephone [facility] [address] [place] [address] Keyla Burgess MD ER Follow-up 11/03/2024 Orders Only [facility] [address] [place] [address] Ivan Begum MD 11/02/2024 Refill [facility] [address] [place] [address] Keyla Burgess MD Lumbar radiculopathy 2024 9:15 AM EST Telemedicine [facility] [address] [place] [address] Keyla Burgess MD Cellulitis of forearm, right (Primary Dx) 2024 Travel 10/22/2024 Telephone [facility] [address] [place] [address] Keyla Burgess MD callback requested 10/20/2024 2:30 PM EST Telemedicine [facility] [address] [place] [address] Lin Cline RN Lumbar radiculopathy 10/20/2024 Travel 10/15/2024 Telephone [facility] [address] [place] [address] Keyla Burgess MD 10/10/2024 Telephone [facility] [address] [place] [address] Keyla Burgess MD Nurse Triage 10/10/2024 Refill [facility] [address] [place] [address] Keyla Burgess MD Lumbar radiculopathy 10/09/2024 Telephone [facility] [address] [place] [address] Keyla Burgess MD Nurse Triage 10/07/2024 Refill [facility] [address] [place] [address] Keyla Buregss MD Other superintendent terminal (current) drug therapy 10/03/2024 Telephone [facility] [address] [place] [address] Ana Mei MD Lab Orders 10/01/2024 2:00 PM EST Office Visit [facility] [address] [place] [address] Ana Mei MD Localized swelling on right hand (Primary Dx) 10/01/2024 Telephone [facility] [address] [place] [address] Ana Mei MD 10/01/2024 Telephone [facility] [address] [place], [place] [phone] Keyla Burgess MD 10/01/2024 Travel 10/01/2024 Telephone [facility] [address] [place] [address] Keyla Burgess MD Nurse Triage 09/30/2024 Telephone [facility] [address] [place], [place] [phone] Keyla Burgess MD 09/29/2024 1:15 PM EST Office Visit [facility] [address] [place], [place] [phone] Edi Phillips MD Other elevated white blood cell (WBC) count (Primary Dx); Acute renal failure, unspecified acute renal failure type (CMS/HCC); Other acute pancreatitis, unspecified complication status; Open wound of second toe of right foot, initial encounter; Allergic contact dermatitis due to adhesives; Bandemia 09/29/2024 Travel from Last 3 Months Immunizations Name Administration Dates Next Due Influenza High-dose Quadriva lent Preservative Free 07/13/2023,09/15/2022,09/08/2021,09/01 Influenza injectable quadriv alent IIV4 with preservative 09/16/2019,09/02/2018,08/28/2017,11/10 Influenza, High Dose Seasona l, Preservative Free 07/30/2016 Influenza, trivalent, adjuvanted 08/23/2024 Moderna Covid-19 Vaccine 12+ 10/18/2021,02/03/20 21 Moderna Covid-19 Vaccine 6+ Bivalent 09/15/2022 Pneumococcal Conjugate PCV 13 10/29/2018, 016 Pneumococcal Polysaccharide PPSV23 10/30,09/16/2014,03/09/2014,01/19,01/19/2013 RSV Adjuvant 06/27/2024 TD (adult), 2 Lf tetanus tox oid, preservative free, adsorbed 08/28/2017 Zoster, Recombinant 08/10/2022,06/08/2022 Social History Tobacco Use Types Packs/Day Years Used Date Smoking Tobacco: Never Passive Smoke Exposure: Never Smokeless Tobacco: Never Tobacco Cessation:Counseling Given: Not Answered Alcohol Use Standard Drinks/Week Comments Never 0 [...] Orientation Straight 09/25/2022 10 :25 AM EDT Last Filed Vital Signs Vital Sign Reading Time Taken Comments Blood Pressure 136/74 10/01/2024 2:07 PM EST Pulse 84 10/01/2024 2:07 PM EST Temperature 37.1 ??C (98.8 ??F) 10/01/2024 2:07 PM ES T Respiratory Rate 18 10/01/2024 2:07 PM EST Oxygen Saturation 98% 10/01/2024 2:07 PM EST Inhaled Oxygen Concentration - - Weight 86.6 kg (191 lb) 10/01/2024 2:07 PM EST Height 149.9 cm (4' 11 ) 10/01/2024 2:07 PM EST Body Mass Index 38.58 10/01/2024 2:07 PM EST Plan of Treatment Upcoming Encounters Date Type Department Care Team (Late st Contact Info) Description 03/09/2025 2:00 PM EDT Telemedicine [facility] [address] [place] [address] Lin Cline, RN [address] [place] [address] Health Maintenance Due Date Last Done Comments Depression Screening 1950 Alcohol/Substance Use Screening 1960 Hepatitis C Screening 1966 DTaP/Tdap/Td Vaccines (1 - Tdap) 08/29/2017 08/28/2017 SDOH Screening 03/14/2025 03/14/2024 Tobacco Screening 10/01/2025 10/01/2024 Lipid Panel 09/13/2028 09/13/2023 Pneumococcal Vaccine: 50+ Years Completed 10/30/2019, 10/29/2018, 07/30/2016, Additional history exists Zoster Vaccines Completed 08/10/2022, 06/08/2022 RSV Patients and Patients Aged 60 years or older Completed 06/27/2024 COVID-19 Vaccine Completed 08/23/2024, , [...] patient's age to complete this topic Meningococcal Vaccine Aged Out No kenzie mami eligible based on patient's age to complete this topic RSV under 20 months Aged Out No longe r eligible based on patient's age to complete this topic Rotavirus Vaccines Aged Out No longer eligible based on patient's age to complete this topic Procedures Procedure Name Priority Date/Time Associated Diagnosis Comments CBC WITH AUTO DIFFERENTIAL Routine 10/30/2024 9:51 AM EST BASIC METABOLIC PANEL Routine 10/30/2024 9:51 AM EST VASC US UPPER EXTREMITY VENOUS DUPLEX RIGHT STAT 10/01/2024 Localized swelling on right hand BASIC METABOLIC PANEL Routine 09/29/2024 2:18 PM EST Other acute pancreatitis, unspecified complication status CBC WITH AUTO DIFFERENTIAL Routine 09/29/2024 2:18 PM EST Other elevated white blood cell (WBC) count LIPASE Routine 09/29/2024 2:18 PM EST Other acute pancreatitis, unspecified complication status AMYLASE Routine 09/29/2024 2:18 PM EST Other acute pancreatitis, unspecified complication status LIPID PANEL, STANDARD Routine 09/13/2023 11:34 AM EDT Chronic kidney disease, stage 4 (severe) (CMS/HCC) from Last 3 Months or Most Recently Relevant to Health Maintenance Results * CBC auto differential (10/30/2024 9:51 AM EST) Only the most recent of2 resultswithin the time period is included. Blood Venous blood specimen / Unknown Historical Provider MD LAB BLOOD ORDERABLES Mendy l Result * Basic Metabolic Panel (10/30/2024 9:51 AM EST) Only the most recent of2 resultswithin the time period is included. Blood Venous blood specimen / Unknown Historical Provider MD LAB BLOOD ORDERABLES Mendy l Result * Vascular US upper extremity venous duplex right (10/01/2024) Ana Mei MD CV VASCULAR PROCEDURES Final Result [facility] [address] [place] [phone] * Lipase (09/29/2024 2:18 PM EST) Lipase 26 8 - 78 U/L [facility] Blood Venous blood specimen / Unknown 09/29/2024 2:18 PM EST 09/29/2024 5:36 PM EST us Edi Phillips MD LAB BLOOD ORDERABLES Final Result Performing Organization Address City/[facility]/ZIP Co de Phone Number [facility] [address] [place] [phone] * (ABNORMAL) Amylase (09/29/2024 2:18 PM EST) Amylase 18(L) 28 - 100 U/L [facility] Blood Venous blood specimen / Unknown 09/29/2024 2:18 PM EST 09/29/2024 5:36 PM EST us Edi Phillips MD LAB BLOOD ORDERABLES Final Result Performing Organization Address [facility] Co de Phone Number [facility] [address] [place] [phone] * (ABNORMAL) Lipid Panel, Standard (09/13/2023 11:34 AM EDT) Triglycerides 187(H) <150 mg/dL [facility] Comment:Desirable Triglyceri de: less than 150 mg/dLBorderline High Triglyceride 150-199 mg/dLHigh Triglyceride: 200-499 mg/dLVery High Triglyceride: greater than or equal to 5OO mg/dL Cholesterol 170 <200 mg/dL [facility] Comment:Desirable Cholestero l: less than 200 mg/dLBorderline High Cholesterol: 200-239 mg/dLHigh Cholesterol: greater than 239 mg/dL LDL Cholesterol Calculated 95 <100 mg/dL [facility] Comment:Desirable LDL: less than 100 mg/dLNear Optimal/Above Optimal LDL: 110- 129 mg/dLBorderline High LDL: 130-159 mg/dLHigh LDL: 160-189 mg/dLVery High LDL: greater than or equal to 190 mg/dL HDL Cholesterol 38(L) >40 mg/dL [facility] Comment:Desirable HDL: great er than 40 mg/dL Note: This HDL assay may give artificially low results in patients with liver disease. Blood Venous blood specimen / Unknown 09/13/2023 11:34 AM EDT 09/13/2023 2:10 PM EDT us Keyla Burgess MD LAB BLOOD ORDERABLES Final Resul t [facility] [address] [place] [phone] [phone] from Last 3 Months or Most Recently Relevant to Health Maintenance Insurance MEDICARE Member Subscriber Plan / Payer (Ef fective 2022-Present) Name:Ame Hernandez Member ID:[id number] Relation to Subscriber:Self Name:Ame Hernandez Subscriber ID:[id number] Payer ID:[id number] Group ID:Not on file Type:Medicare Address: [facility] [address] [address] [facility] * Guarantor: Ame Hernandez Account Type Relation to Patient Date of Phone Billing Address Personal/Family Self [place], [place] Care Teams Senior Web Applications Developer Relationship Specialty Start Date End Date Keyla Burgess MD [address] [place] [phone] PCP - General Family Medicine [facility]
--- OUTSIDE RECORDS SUMMARY | 2024-12-30 13:22 | XMS_ITS | Encounter Summary ---
Author Organization [employer] Address [address] [place] [address] Care Team Providers Care Brick Handler Name Role Phone Keyla Burgess MD Primary Care Provider [phone] Encounter Details Date Type Department Care Team ([facility] st Contact Info) Description 08/11/2024 Telephone [facility] [address] [place] [address] Keyla Burgess MD [address] [place] [address] Social History Tobacco Use Types Packs/Day Years [...] [facility] [address] [place] [address] Lin Cline, RN [address] [place] [address] documented as of this encounter Visit Diagnoses Not on filedocumented in this encounter Care Teams Brick Handler Relationship Specialty Start Date End Date Keyla Burgess MD [address] [place] [address] PCP - General Family Medicine 11/10/15 [facility] 09/28/24 documented as of this encounter
--- OUTSIDE RECORDS SUMMARY | 2024-12-30 13:22 | XMS_ITS | Encounter Summary ---
Author Organization [employer] Address [address] [place] [address] Care Team Providers Care Iron Guardrail Installer Name Role Phone Keyla Burgess MD Primary Care Provider [phone] Reason for Visit * Reason Onset Date Comments Nurse Triage 10/09/2024 Encounter Details Date Type Department Care Team ([facility] st Contact Info) Description 10/09/2024 Telephone [facility] [address] [place] [address] Keyla Burgess MD [address] [place] [address] Nurse Triage Social History Tobacco Use Types [...] encounter Miscellaneous Notes * Telephone Encounter - Jessica Alaniz LPN - 10/09/2024 2:24 PM EST Please obtain reports as related to visit on 10/01/24 [facility] for right arm Xray and Ultrasound reports. Any notes appreciated. * Telephone Encounter - Jessica Alaniz LPN - 10/09/2024 2:14 PM EST Triage call returned to patient. Is at home [facility] Patient with swelling from elbow to fingers when PT arrived. Patient reported hand was cold thismorning and had some tingling of 4th and 5th finger, Right arm Currently elevated and in approx 40 minutes swelling has significantly improved per PT and Patient. Patient did have imaging completed at [facility] on 10/01/24 and was told no blood clot ( records requested) Patient continues on Eliquis and is on Torsemide and is due to see [employer] [employer] [facility] next Sunday. Is followed by [facility] due in home again on Sunday. Patient is alert and verbal and able to make all needs known. Patient provided instructions for elevation of arm and home care advice with reasons to call back as needed. Patient verbalized understanding and in agreement with plan. Forwarded to PCP and team as FYI to follow up PRN Protocol Used: No Protocol Available (Adult) Protocol-Based Disposition: Home Care Positive Triage Question: * Patient's symptoms are safe to treat at home per nursing judgment * All higher-acuity triage questions were negative Care Advice Discussed: * Reasons To Call Back - New symptoms develop - You become worse * Telephone Encounter - Jessenia Awais - 10/09/2024 1:58 PM EST Symptom: Arm Swelling - Not From Injury Outcome: Schedule an urgent appointment (within 1 hour) or talk to a nurse or provider soon Reason: Swelling of entire arm The caller accepted this outcome. documented in this encounter Plan of Treatment Upcoming Encounters Date Type Department Care Team (Late st Contact Info) Description 03/09/2025 2:00 PM EDT Telemedicine [facility] [address] [place] [address] Lin Cline, RN [address] [place] [address] documented as of this encounter Visit Diagnoses Not on filedocumented in this encounter Care Teams Iron Guardrail Installer Relationship Specialty Start Date End Date Keyla Burgess MD [address] [place] [address] [place] [address] PCP - General Family Medicine 11/10/15 Harry 09/28/24 documented as of this encounter
--- OUTSIDE RECORDS SUMMARY | 2024-12-30 13:22 | XMS_ITS | Encounter Summary ---
Author Organization [facility] Address [address] [place] [address] Phone Care Team Providers Care Rehabilitation Services Director Name Role Phone Keyla Burgess MD Primary Care Provider [phone] Encounter Details Date Type Department Care Team (Late st Contact Info) Description 11/29/2021 Telephone [facility] [address] [place] [address] Ashly Caruso Social History Tobacco Use Types Packs/Day Years Used Date Smoking Tobacco: Former Comments:Smoking History Inf o:Every day Alcohol Use Standard Drinks/Week Comments No 0 (1 standard drink = 0.6 oz pur e alcohol) Comments Unknown Sex and Gender Information Value Date Recorded Sex Assigned at Not on file Legal Sex Female 5:07 PM EST Gender Identity Not on file Sexual Orientation Not on file documented as of this encounter Miscellaneous Notes * Telephone Encounter - Babak Zamora MD - 12/06/2021 6:53 PM EST I spoke to her * Telephone Encounter - Malia Mondragon MA - 12/06/2021 8:55 AM EST PLEASE ADVISE * Telephone Encounter - Ashly Caruso - 11/29/2021 2:[address] Zamora, Pt called stating she was told to d/c Vitamin D due to high Calcium lvl--but she went home and noticed that she hasn't been taking Vitamin D --she was confused with another medication-. So she mentions she is not so sure why calcium is elevated. She also tried to contact Dr. Parkinson office to notify him of medication d/c but seems like she couldn't reach his office due to a wrong number. So I will fax over patients office note documented in this encounter Plan of Treatment Not on file documented as of this encounter Visit Diagnoses Not on filedocumented in this encounter Care Teams Rehabilitation Services Director Relationship Specialty Start Date End Date Keyla Burgess MD [address] [place] [address] PCP - General 12/06/20 documented as of this encounter
--- OUTSIDE RECORDS SUMMARY | 2024-12-30 13:22 | XMS_ITS | Encounter Summary ---
Author Organization [employer] Address [address] 7[address] [place] [address] Care Team Providers Care Dinkey Brakeman Name Role Phone Keyla Burgess MD Primary Care Provider [phone] Reason for Visit * Reason Onset Date Comments Med Refill 09/22/2024 Encounter Details Date Type Department Care Team ([facility] st Contact Info) Description 09/22/[address] [facility] MEDICINE [address] [place] [address] Keyla Burgess MD [address] [place], [place] [id number] Med Refill Social History Tobacco Use Types [...] the past 12 months, has t he [employer], gas, oil or water [employer] threatened to shut off services in your home? No 03/14/2024 Comments No Sex and Gender Information Value Date Recorded Sex Assigned at Female 09/25/2022 10:25 AM EDT Legal Sex Female 10:25 AM EDT Gender Identity Female 09/25/2022 10:25 AM EDT Sexual Orientation Straight 09/25/2022 10 :25 AM EDT documented as of this encounter Miscellaneous Notes * Telephone Encounter - Christina Lamar LPN - 09/22/2024 1:10 PM EDT Medication pended to PCP. * Telephone Encounter - Ridge Kothari - 09/22/2024 12:02 PM EDT TC from pt requesting medication refill. Medications needing refill : ondansetron (Zofran) 4 MG tablet [facility] be [facility] to: [facility] documented in this encounter Plan of Treatment Upcoming Encounters Date Type Department Care Team (Late st Contact Info) Description 03/09/2025 2:00 PM EDT Telemedicine [facility] MED & PEDS [address] [place] [address] Lin Cline, RN [address] [place] [address] documented as of this encounter Visit Diagnoses Not on filedocumented in this encounter Care Teams Dinkey Brakeman Relationship Specialty Start Date End Date Keyla Burgess MD [address] [place] [address] PCP - General Family Medicine 11/10/15 SethFertile 09/28/24 documented as of this encounter
--- OUTSIDE RECORDS SUMMARY | 2024-12-30 13:22 | XMS_ITS | Encounter Summary ---
Author Organization [facility] Address [address] [place] [address] Care Team Providers Care Blanket Washer Name Role Phone Keyla Burgess MD Primary Care Provider [phone] Reason for Visit * Reason Onset Date Comments prior authorization 12/24/2024 Encounter Details Date Type Department Care Team ([facility] st Contact Info) Description 12/24/2024 Telephone [facility] [address] [address] Hansa Cheek MD [address] [address] prior authorization Social History Tobacco Use Types Packs/Day Years [...] as of this encounter Progress Notes * Sherrell Sorenson - 12/26/2024 4:16 PM EST PA: BOUCHRA 160-4.5 MCG/ACT Carmona: [id number] * Sherrell Sorenson - 12/24/2024 4:03 PM EST Pharmacy requesting prior authorization for SYMBICORT 160-4.5 MCG INHALER Form needs to be filled out and faxed back to [phone]. Form in patients chart (ONBASE) documented in this encounter Plan of Treatment Upcoming Encounters Date Type Department Care Team (Late st Contact Info) Description 03/05/2025 2:40 PM EDT Office Visit [facility] Cardiology [facility] [address] [facility] 154 [place] [address] Rigo Meyers NP 300 [place] [address] 04/16/2025 2:00 PM EDT Ancillary Procedure [facility] [address] [facility] 154 [place] [address] 06/23/2025 10:45 AM EDT Office Visit Pulmonolgy - [place] [address] [address] Hansa Cheek MD [address] [address] documented as of this encounter Visit Diagnoses Not on filedocumented in this encounter Care Teams Blanket Washer Relationship Specialty Start Date End Date Keyla Burgess MD [address] [place] [address] PCP - General 09/04/12 documented as of this encounter
--- OUTSIDE RECORDS SUMMARY | 2024-12-30 13:22 | XMS_ITS | Encounter Summary ---
Author Organization [employer] Address [address] [facility] 7t [place] [address] Care Team Providers Care Mesh Cutter Name Role Phone Keyla Burgess MD Primary Care Provider [phone] Reason for Visit * Reason Onset Date Comments Nurse Triage 06/17/2024 Encounter Details Date Type Department Care Team ([facility] st Contact Info) Description 06/17/2024 Telephone [facility] MEDICINE 230 [place] [address] Keyla Burgess MD [address] [place], [place] [phone] Nurse Triage Social History Tobacco Use Types [...] Telephone Encounter - Salome Davis RN - 06/17/2024 2:21 PM EDT Triage call Pt reports two skin lumps one near arm pit area on shoulder and the other above elbow ,both on right side. Pt reports the elbow lump is a pea size and doesn't hurt but the one on shoulder area is a little larger than a dime and is painful especially to touch. Pt reports just noticing them a week ago or so and may be associated with a black and blue. Pt is taking blood thinner and repo rts bruises easily. ASK apt with Dr. Burgess 06/24/24 @ 1115am. Unable to verify insurance due to computer error. Protocol Used: Skin Lump or Localized Swelling (Adult) Protocol-Based Disposition: See in Office or Video Visit within 3 Days Override (Final) Disposition: See in Office or Video Visit within 2 Weeks Override Reason: Other Video visit not offered Positive Triage Question: * Small swelling or lump present > 1 week * All higher-acuity triage questions were negative Care Advice Discussed: * Reasons To Call Back - Fever occurs - Spreading redness occurs - Swelling becomes painful - Swelling persists over 1 week - You become worse * Telephone Encounter - Angel Morin - 06/17/2024 1:55 PM EDT Symptom: Skin Lump Outcome: Schedule an appointment to be seen within 3 days Reason: Caller denied all higher acuity questions The caller accepted this outcome documented in this encounter Plan of Treatment Upcoming Encounters Date Type Department Care Team (Late st Contact Info) Description 03/09/2025 2:00 PM EDT Telemedicine [facility] MED [facility] PEDS 505 [place] [address] Lin Cline, RN 505 [place] [address] documented as of this encounter Visit Diagnoses Not on filedocumented in this encounter Care Teams Mesh Cutter Relationship Specialty Start Date End Date Keyla Burgess MD [address] [place] [address] PCP - General Family Medicine 11/10/15 Harry 09/28/24 documented as of this encounter
--- OUTSIDE RECORDS SUMMARY | 2024-12-30 13:22 | XMS_ITS | Encounter Summary ---
Author Organization [employer] Address [address] 7[address] [place] [address] Care Team Providers Care Tax Compliance Manager Name Role Phone Keyla Burgess MD Primary Care Provider [phone] Reason for Visit * Reason Onset Date Comments ER Follow-up 11/03/2024 Encounter Details Date Type Department Care Team ([facility] st Contact Info) Description 11/03/[address] [facility] MEDICINE 230 [place] [address] Keyla Burgess MD [address] [place], [place] [phone] ER Follow-up Social History Tobacco Use Types Packs/Day Years Used Date Smoking Tobacco: Never Passive Smoke Exposure: Never Smokeless Tobacco: Never Alcohol Use Standard Drinks/Week Comments Never 0 (1 standard drink = 0.6 oz pur e alcohol) Housing Stability Answer Date Recorded What is your housing situation today? I have megan bear 03/14/[address] you li [...] the past 12 months, has t he [employer], gas, oil or water company threatened to [...] * Telephone Encounter - Jey Amor - 11/03/2024 3:00 PM EST Patient calling to report ED visit on : Date: 10/31 Hospital: [facility] Seen for: Swelling Arms, Back pain, and Numb Hands cause of Hand swelling. Symptomatic No *if yes message should go to Triage Contact pt at [phone] Patient advised will forward to team nurse for follow up documented in this encounter Plan of Treatment Upcoming Encounters Date Type Department Care Team (Late st Contact Info) Description 03/09/2025 2:00 PM EDT Telemedicine [facility] MED & PEDS 505 [place] [address] Lin Cline, RN 505 [place] [address] documented as of this encounter Visit Diagnoses Not on filedocumented in this encounter Care Teams Tax Compliance Manager Relationship Specialty Start Date End Date Keyla Burgess MD [address] [place] [address] PCP - General Family Medicine 11/10/15 Harry 09/28/24 documented as of this encounter
--- OUTSIDE RECORDS SUMMARY | 2024-12-30 13:22 | XMS_ITS | Encounter Summary ---
Author Organization [employer] Address [address] 7[address] [place] [address] Care Team Providers Care Bulb Assembler Name Role Phone Keyla Burgess MD Primary Care Provider [phone] Encounter Details Date Type Department Care Team ([facility] st Contact Info) Description 11/03/2024 Orders Only [facility]S [address] [place] [address] ProviderIvan MD Social History Tobacco Use Types Packs/Day Years [...] Info) Description 03/09/2025 2:00 PM EDT Telemedicine [facility] 505 [place] [address] Lin Cline, RN 505 [place] [address] documented as of this encounter Procedures Procedure Name Priority Date/Time Associated Diagnosis Comments CBC WITH AUTO DIFFERENTIAL Routine 10/30/2024 9:51 AM EST BASIC METABOLIC PANEL Routine 10/30/2024 9:51 AM EST documented in this encounter Results * CBC auto differential (10/30/2024 9:51 AM EST) Blood Venous blood specimen / Unknown Historical Provider LAB BLOOD ORDERABLES Mendy l Result * Basic Metabolic Panel (10/30/2024 9:51 AM EST) Blood Venous blood specimen / Unknown Historical Provider LAB BLOOD ORDERABLES Mendy l Result documented in this encounter Visit Diagnoses Not on filedocumented in this encounter Care Teams Bulb Assembler Relationship Specialty Start Date End Date Keyla Burgess MD [address] [place] [address] PCP - General Family Medicine 11/10/15 SethKishore 09/28/24 documented as of this encounter
--- OUTSIDE RECORDS SUMMARY | 2024-12-30 13:22 | XMS_ITS | Encounter Summary ---
Author Organization [employer] Address [address] [place] [address] Care Team Providers Care Station Manager Name Role Phone Keyla Burgess MD Primary Care Provider [phone] Encounter Details Date Type Department Care Team ([facility] st Contact Info) Description 12/29/2024 Telephone [facility] 505 [place] [address] Keyla Burgess MD 505 [place] [address] Social History Tobacco Use Types Packs/Day Years [...] encounter Miscellaneous Notes * Telephone Encounter - Eva Diop MA - 12/29/2024 2:45 PM EST Chart Prep Labs: done Images: done Vaccines due: yes Referrals: complete Screenings: Overdue care gaps: PHQ-9 documented in this encounter Plan of Treatment Upcoming Encounters Date Type Department Care Team ([facility] st Contact Info) Description 03/09/2025 2:00 PM EDT Telemedicine [facility] MED [facility] PEDS 505 [place] [address] Lin Cline RN 505 [place] [address] documented as of this encounter Visit Diagnoses Not on filedocumented in this encounter Care Teams Station Manager Relationship Specialty Start Date End Date Keyla Burgess MD [address] [place] [address] PCP - General Family Medicine 11/10/15 SethKishore 09/28/24 documented as of this encounter
--- OUTSIDE RECORDS SUMMARY | 2024-12-30 13:22 | XMS_ITS | Encounter Summary ---
Author Organization [employer] Address [address] [facility] 7t [place] [address] Care Team Providers Care Global Sales Manager Name Role Phone Keyla Burgess MD Primary Care Provider [phone] Encounter Details Date Type Department Care Team (Late st Contact Info) Description 08/15/2024 Orders Only [facility] 230 [place], [place] [phone] ProviderIvan MD Social History Tobacco Use Types [...] as of this encounter Miscellaneous Notes * Result Encounter Note - Keyla Burgess MD - 08/15/2024 2:19 PM EDT Xray reviewed Shows arthritis documented in this encounter Plan of Treatment Upcoming Encounters Date Type Department Care Team (Late st Contact Info) Description 03/09/2025 2:00 PM EDT Telemedicine [facility] 505 [place] [address] Lin Cline, RN 505 [place] [address] documented as of this encounter Procedures Procedure Name Priority Date/Time Associated Diagnosis Comments XR WRIST 3+ VIEWS RIGHT Routine 08/15/2024 2:19 PM EDT documented in this encounter Results * XR Wrist 3+ Views Right (08/15/2024 2:19 PM EDT) Anatomical Region Laterality Modality Upper Extremities, Wrist Right Radiogr aphic Imaging us Historical Provider MD VIGIL XR PROCEDURES Final R esult documented in this encounter Visit Diagnoses Not on filedocumented in this encounter Care Teams Global Sales Manager Relationship Specialty Start Date End Date Keyla Burgess MD [address] [place] [address] PCP - General Family Medicine 11/10/15 SethKishore 09/28/24 documented as of this encounter
--- OUTSIDE RECORDS SUMMARY | 2024-12-30 13:22 | XMS_ITS | Encounter Summary ---
Author Organization [employer] Address [address] [place] [address] Care Team Providers Care Printed Circuit Boards Plasma Etcher Name Role Phone Keyla Burgess MD Primary Care Provider [phone] Encounter Details Date Type Department Care Team ([facility] st Contact Info) Description 09/18/2024 Orders Only [facility]S [address] [place] [address] ProviderIvan MD Social History Tobacco Use Types [...] 03/09/2025 2:00 PM EDT Telemedicine [facility] 505 [place] [address] Lin Cline, RN 505 [place] [address] documented as of this encounter Procedures Procedure Name Priority Date/Time Associated Diagnosis Comments CT ABDOMEN PELVIS WO CONTRAST Routine 09/17/2024 8:37 AM EDT documented in this encounter Results * CT Abdomen Pelvis w/o Contrast (09/17/2024 8:37 AM EDT) Anatomical Region Laterality Modality Body, Pelvis, Abdomen Computed T omography us Historical Provider MD VIGIL CT PROCEDURES Final R esult documented in this encounter Visit Diagnoses Not on filedocumented in this encounter Care Teams Printed Circuit Boards Plasma Etcher Relationship Specialty Start Date End Date Keyla Burgess MD 230 [place] [address] PCP - General Family Medicine 11/10/15 [facility] documented as of this encounter
--- OUTSIDE RECORDS SUMMARY | 2024-12-30 13:22 | XMS_ITS | Encounter Summary ---
Author Organization [facility] [place] [address] Care Team Providers Care Lumber Carrier Operator Name Role Phone Keyla Burgess MD Primary Care Provider [phone] Reason for Visit * Reason Onset Date Comments Med Refill 11/06/2024 Atorvastatin Encounter Details Date Type Department Care Team (Late st Contact Info) Description 11/06/2024 Telephone [facility] [address] [address] Gladis Mauricio MD 300 [place] [address] Med Refill (Atorvastatin) Social History Tobacco Use Types Packs/Day Years [...] on file documented as of this encounter Ordered Prescriptions Prescription Sig Dispensed Refills Start Date End Da te atorvastatin (LIPITOR) 10 mg tablet Take 1 tablet (10 mg total) by mouth 1 (one) time each day. 90 tablet 1 11/06/2024 documented in this encounter Progress Notes * Maryann Paz RN - 11/06/2024 11:52 AM EST Thank you ROBERT 10/27/24, advised pt to continue statin therapy with most recent LDL of 57 Atorvastatin refilled * Maryann Paz RN - 11/06/2024 10:08 AM EST Called pt as a Lipid panel was ordered for her 07/2024. The order was faxed to the [facility]. Pt is unsure if her cholesterol levels were checked, but has gotten blood work done twice recently. Can you please obtain the most recent lipid panel results from the [facility]? * Yohana Flores - 11/06/2024 8:54 AM EST Patient called requesting a refill for Atorvastatin 10 mg, 1 tablet daily, 90 day supply, pharmacy confirmed. documented in this encounter Plan of Treatment Upcoming Encounters Date Type Department Care Team (Late st Contact Info) Description 03/05/2025 2:40 PM EDT Office Visit [facility] Cardiology [facility] 154 300 [facility] 154 [place] [address] Rigo Meyers NP 300 [place] [address] 04/16/2025 2:00 PM EDT Ancillary Procedure [facility] Cardiology [facility] 154 [address] [facility] 154 [place] [address] 06/23/2025 10:45 AM EDT Office Visit Pulmonolgy - [place] 175 [facility] 200 [place] [address] Hansa Cheek MD 175 [facility] 200 [place] [address] documented as of this encounter Visit Diagnoses Not on filedocumented in this encounter Discontinued Medications Medication Sig Discontinue Reason Start Date End Da te atorvastatin (LIPITOR) 10 mg tablet Take 1 tablet (10 mg total) by mouth 1 (one) time each day. Reorder 08/27/2020 11/06/2024 documented as of this encounter Care Teams Lumber Carrier Operator Relationship Specialty Start Date End Date Keyla Burgess MD [address] [place] [address] PCP - General 09/04/12 documented as of this encounter
--- OUTSIDE RECORDS SUMMARY | 2024-12-30 13:22 | XMS_ITS | Encounter Summary ---
Author Organization [facility] Address [address] [place] [address] Care Team Providers Care Geospatial Engineer Name Role Phone Keyla Burgess MD Primary Care Provider [phone] Reason for Visit * Reason Comments COPD Encounter Details Date Type Department Care Team ([facility] st Contact Info) Description 12/09/2024 1:15 PM EST Office Visit Pulmonolgy - [place] [address] [address] Hansa Cheek MD [address] [address] Chronic obstructive pulmonary disease, unspecified COPD type (CMS/HCC) (Primary Dx); Bronchiectasis without acute exacerbation (CMS/HCC); Chronic hypoxemic respiratory failure (CMS/HCC); Pulmonary hypertension (CMS/HCC); HEMANT (obstructive sleep apnea); Dyspnea, unspecified type; Restrictive lung disease Social History Tobacco Use Types Packs/Day Years [...] on file documented as of this encounter Last Filed Vital Signs Vital Sign Reading [...] Mass Index 34.98 12/09/2024 1:19 PM EST documented in this encounter Ordered Prescriptions Prescription Sig Dispensed Refills Start Date End Da te albuterol HFA (PROAIR HFA ; PROVENTIL HFA ; VENTOLIN HFA) 90 mcg/actuation inhalerIndications:Chron ic obstructive pulmonary disease, unspecified COPD type (CMS/HCC) Inhale 2 puffs by mouth every 6 (six) hours if needed for wheezing or shortness of breath. 3 each 3 12/09/2024 12/09/2025 umeclidinium (Incruse Ellipta) 62.5 mcg/actuation inhalationIndications:Ch ronic obstructive pulmonary disease, unspecified COPD type (CMS/HCC),Bronchiectasis without acute exacerbation (CMS/HCC) Inhale 1 puff by mouth 1 (one) time each day. 3 each 3 12/09/2024 12/09/2025 budesonide-formoteroL (Symbicort) 160-4.5 mcg/actuation inhalerIndications:Chron ic obstructive pulmonary disease, unspecified COPD type (CMS/HCC),Bronchiectasis without acute exacerbation (CMS/HCC) Inhale 2 puffs by mouth 2 (two) times a day. Rinse mouth with water after use to reduce aftertaste and incidence of candidiasis. Do not swallow. 3 each 3 12/09/2024 12/09/2025 documented in this encounter Progress Notes * Hansa Cheek MD - 12/09/2024 1:15 PM EST ADULT PULMONARY Followup CHIEF COMPLAINT or REASON FOR CONSULTATION: COPD Last seen 06/04/24 HISTORY OF PRESENT ILLNESS: Ame W David is a 74 y.o. 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 COVID vaccinations: Pfizer/Moderna Ex Smoker: Teens to age 60, 1+ pack daily, @ 45+ ppy. 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 Negative PPD/QuantiFERON TB serology. FH: Father with lung cancer. Brother with pancreatic cancer. Pets: None. . Daughter lives in [place]. Since last seen: -Currently patient at follow-up visit, did not bring her oxygen with. -Hospitalized at for 09/17 to (pancreatitis). REVIEW OF SYSTEMS: Review of Systems Constitutional: Negative for chills, decreased appetite, diaphoresis, fever, malaise/fatigue and night sweats. HENT: Negative for congestion. Cardiovascular: Positive for dyspnea on exertion. Negative for chest pain, irregular heartbeat and leg swelling. Respiratory: Positive for shortness of breath and snoring. Negative for cough, hemoptysis, sputum production and wheezing. Endocrine: Negative for cold intolerance and heat intolerance. Skin: Negative for rash. Gastrointestinal: Negative for abdominal pain, constipation, diarrhea and dysphagia. Genitourinary: Negative for dysuria. ALLERGIES: Allergies Allergen Reactions Acetaminophen Adhesive Tape-Silicones Medical tape Aspirin Other Other Reaction(s): angioedema- lip swelling Epinephrine Ibuprofen Keflex [Cephalexin] Procaine ACTIVE MEDICATIONS: Outpatient Medications Marked as Taking for the 12/09/24 encounter (Office Visit) with Hansa Cheek MD Medication Sig Dispense Refill albuterol HFA (PROAIR HFA ; PROVENTIL HFA ; VENTOLIN HFA) 90 mcg/actuation inhaler Inhale 2 puffs by mouth 1 (one) time each day if needed. apixaban (Eliquis) 5 mg tablet Take 1 tablet (5 mg total) by mouth 2 (two) times a day. atorvastatin (LIPITOR) 10 mg tablet Take 1 tablet (10 mg total) by mouth 1 (one) time each day. 90 tablet 1 budesonide-formoteroL (SYMBICORT) 160-4.5 mcg/actuation inhaler Inhale 2 puffs by mouth 2 (two) times a day. dilTIAZem SR (CARDIZEM SR) 120 mg 12 hr capsule Take 1 capsule (120 mg total) by mouth 1 (one) timeeach day. docusate sodium (COLACE) 100 mg capsule Take 1 capsule (100 mg total) by mouth 2 (two) times a day. fluticasone propion-salmeteroL (ADVAIR HFA) 115-21 mcg/actuation inhaler Inhale 2 puffs by mouth. fluticasone propionate (FLONASE) 50 mcg/actuation nasal spray 2 (two) times a day if needed. gabapentin (NEURONTIN) 100 mg capsule Take 1 capsule (100 mg total) by mouth daily. loratadine (CLARITIN) 10 mg tablet Take 1 tablet (10 mg total) by mouth daily. omeprazole OTC (PriLOSEC OTC) 20 mg EC tablet 2 (two) times a day. ondansetron (ZOFRAN) 4 mg tablet Take 1 tablet (4 mg total) by mouth if needed. oxyCODONE (ROXICODONE) 15 mg immediate release tablet Take 1 tablet (15 mg total) by mouth every 6 (six) hours if needed. spironolactone (ALDACTONE) 25 mg tablet Take 1 tablet (25 mg total) by mouth 2 (two) times a day. torsemide (DEMADEX) 20 mg tablet 40 mg every a.m. and 20 mg every afternoon umeclidinium (Incruse Ellipta) 62.5 mcg/actuation inhalation Inhale 1 puff by mouth 1 (one) time each day. 3 each 3 [DISCONTINUED] umeclidinium (Incruse Ellipta) 62.5 mcg/actuation inhalation Inhale 1 puff by mouth 1 (one) time each day. PROVIDER ATTESTS THAT THE MEDICATION LIST WAS OBTAINED, REVIEWED AND UPDATED. PAST MEDICAL HISTORY: Patient Active Problem List Diagnosis Date Noted Hypoxia 06/15/2023 HLD (hyperlipidemia) 07/10/2022 Status post placement of cardiac pacemaker 07/10/2022 Deep venous thrombosis ([facility]) 09/17/2021 (HFpEF) heart failure with preserved ejection fraction ([facility]) 02/15/2021 Paroxysmal supraventricular tachycardia ([facility]) 02/15/2021 Sick sinus syndrome ([facility]) 02/15/2021 Hypertension 02/15/2021 Chest pain 02/15/2021 Chronic obstructive lung disease ([facility]) 11/10/2015 Past Surgical History: Procedure Laterality Date HYSTERECTOMY PROCEDURE: HISTORICAL HYSTERECTOMY OTHER SURGICAL HISTORY N/A 02/16/2021 PROCEDURE: TN RPR EPIGASTRIC HERNIA REDUCIBLE SPX; COMMENT: open epigastric ventral hernia repair -Dr. Charlie Marquez PACEMAKER IMPLANT PROCEDURE: HISTORICAL PACEMAKER Past Surgical History: Procedure Laterality Date HYSTERECTOMY PROCEDURE: HISTORICAL HYSTERECTOMY OTHER SURGICAL HISTORY N/A 02/16/2021 PROCEDURE: TN RPR EPIGASTRIC HERNIA REDUCIBLE SPX; COMMENT: open epigastric ventral hernia repair -Dr. Charlie Marquez PACEMAKER IMPLANT PROCEDURE: HISTORICAL PACEMAKER FAMILY HISTORY: Family History Problem Relation Name Age of Onset Coronary artery disease Father Coronary artery disease Brother SOCIAL HISTORY Social History Socioeconomic History Marital status: Spouse name: Not on file Number of children: Not on file Years of education: Not on file Highest education level: Not on file Occupational History Not on file Tobacco Use Smoking status: Former Smokeless tobacco: Never Substance and Sexual Activity Alcohol use: No Drug use: No Sexual activity: Not on file Other Topics Concern Not on file Social History Narrative Not on file IMMUNIZATION: Immunization History Administered Date(s) Administered COVID-19 (Pfizer/Comirnaty) 12yo and older 08/23/2024 Influenza Quadravalent, 0.5ml (Fluzone High-dose) 65yo and older 09/01/2020, 09/08/2021, 09/15/2022, 07/13/2023 Influenza Quadrivalent, with preservative (Fluzone; Afluria) 6mo and older 11/10/2015, 08/28/2017, 09/02/2018, 09/16/2019 Influenza trivalent, 0.5mL (Fluzone High-dose) 65yo and older 07/30/2016 Moderna (age 6mo & older) Bivalent, COVID-19, 0.5 mL or 0.25 mL dosage 09/15/2022, 07/13/2023 Moderna SARS-CoV-2 COVID-19, mRNA, LNP-S, preservative free 02/02/2021, 03/02/2021, 10/18/2021, 03/03/2022 Pneumococcal conjugate 13 valent (Prevnar 13, PCV13) 2mo and older 07/30/2016, 10/29/2018 Pneumococcal polysaccharide 23 valent (Pneumovax 23) 2yo and older 01/19/2013, 01/19/2014, 03/09/2014, 09/16/2014, 10/30/2019 Td Tetanus diptheria (Tdvax) 7yo and older 08/28/2017 Zoster recombinant (Shingrix) 19yo and older 06/08/2022, 08/10/2022 PHYSICAL EXAM: Visit Vitals BP 113/52 Pulse 76 Temp 36.1 ??C (96.9 ??F) (Temporal) Resp 21 Ht 1.524 m (60 ) Wt 81.2 kg (179 lb 1.6 oz) SpO2 92% BMI 34.98 kg/m?? Smoking Status Former BSA 1.78 m?? Physical Exam Constitutional: General: She is not in acute distress. Appearance: Normal appearance. She is obese. She is not ill-appearing. Comments: Wheel chair bound, limited HENT: Head: Normocephalic and atraumatic. Nose: Nose normal. No congestion or rhinorrhea. Mouth/Throat: Mouth: Mucous membranes are moist. Pharynx: No oropharyngeal exudate or posterior oropharyngeal erythema. Comments: Mallampati class II-III. Eyes: Pupils: Pupils are equal, round, and reactive to light. Cardiovascular: Rate and Rhythm: Normal rate and regular rhythm. Pulses: Normal pulses. Heart sounds: No murmur heard. Pulmonary: Effort: No respiratory distress. Breath sounds: No stridor. No wheezing, rhonchi or rales. Comments: Poor air entry bilaterally. Abdominal: General: Bowel sounds are normal. Palpations: Abdomen is soft. Tenderness: There is no abdominal tenderness. Musculoskeletal: Right lower leg: No edema. Left lower leg: No edema. Neurological: Mental Status: She is alert. Diagnostic: CURRENTS ICD-10 PULMONARY DIAGNOSIS 1. Chronic obstructive pulmonary disease, unspecified COPD type (CMS/[facility]) 2. Bronchiectasis without acute exacerbation (CMS/HCC) 3. Chronic hypoxemic respiratory failure (CMS/HCC) 4. Pulmonary hypertension (CMS/HCC) 5. HEMANT (obstructive sleep apnea) 6. Dyspnea, unspecified type 7. Restrictive lung disease ASSESSMENT/PLAN: 1. COPD with bronchiectasis and oxygen dependent. -Pathophysiology of COPD and bronchiectasis were discussed. Treatment options of the various inhalers, along with techniques of use, and side effects were discussed. Maintenace of care of obstructivelung disease health such as various vaccinations, smoking cessation & avoidance of chemicals/fumes/inhalants were discussed. All questions were answered. -Continue current triple therapy with Symbicort 160/4.5, 2 puff twice daily, and Incruse, 1 puff daily. Prescription sent. -Continue albuterol MDI, 2 puff every 6 as needed. -Continue current oxygen therapy, compliance suboptimal (certification 06/04/2024). -Continue with Mucinex as needed. 2. Compliance of oxygen therapy. -Continue to encourage. 3. Pulmonary hypertension and untreated sleep apnea. -Pathophysiology, diagnostic, and various treatment options regarding sleep apnea (HEMANT/CSA/mixed apnea/OHS) were discussed. Risks and benefits of CPAP/Bipap/iVaps use along with risks of nontreatmentwere discussed. 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 All questions were answered. -Patient continued to decline CPAP use. -Currently on oxygen at nighttime. 4. Restrictive lung disease, due to atelectasis kyphoscoliosis s/p cardiac arrest w/ ribs fracture,and significant compression fracture of multiple vertebrae. -Continue to monitor closely. -Proceed with PA lateral chest x-ray. -Follow up with Keyla Burgess MD for the other co-morbilities. RETURN TO THE NEXT VISIT: Based on physical exam, symptomatology, tests requested and baseline pulmonary evaluation/disease, I instructed the patient to come back to see me in 6 months for reevaluation after the test has beendone or earlier if the patient needed. Thanks Keyla Burgess MD for allowing me to have the opportunity to assist in the care of this patient. This chart was generated by the [employer] system and [employer] speech recognition software and may contain inherent errors or omissions not intended by the user. Grammatical errors, random word insertions, deletions, pronoun errors and incomplete sentences are occasional consequences of this technologydue to software limitations. Not all errors are caught or corrected. If there are questions or concerns about the content of this note or information contained within the body of this dictation they should be addressed directly with the author for clarification. @[email or web address]@ documented in this encounter Plan of Treatment Upcoming Encounters Date Type Department Care Team (Late st Contact Info) Description 03/05/2025 2:40 PM EDT Office Visit [facility] [address] [facility] [address] [place] [address] Rigo Meyers NP [address] [place] [address] 04/16/2025 2:00 PM EDT Ancillary Procedure [facility] [address] [facility] [address] [place] [address] 06/23/2025 10:45 AM EDT Office Visit Pulmonolgy - [place] [address] [address] Hansa Cheek MD 175 [facility] [address] [place] [address] Scheduled Orders Name Type Priority Associated Diagnoses Orde r Schedule XR Chest 2 Views Imaging Routine Dyspnea, unspecified type Expected: 12/09/2024, Expires: 12/09/2025 documented as of this encounter Visit Diagnoses Diagnosis Chronic obstructive pulmonary disease, unspecified COPD type (CMS/HCC)- Primary Bronchiectasis without acute exacerbation (CMS/HCC) Bronchiectasis without acute exacerbation Chronic hypoxemic respiratory failure (CMS/HCC) Chronic respiratory failure Pulmonary hypertension (CMS/HCC) Other chronic pulmonary heart diseases HEMANT (obstructive sleep apnea) Obstructive sleep apnea (adult) (pediatric) Dyspnea, unspecified type Restrictive lung disease Other diseases of lung, not elsewhere classified Encounter for adjustment or management of cardiac device documented in this encounter Discontinued Medications Medication Sig Discontinue Reason Start Date End Da te umeclidinium (Incruse Ellipta) 62.5 mcg/actuation inhalation Inhale 1 puff by mouth 1 (one) time each day. Reorder 06/26/2024 12/09/2024 documented as of this encounter Care Teams Geospatial Engineer Relationship Specialty Start Date End Date Keyla Burgess MD [address] [place] [address] PCP - General 09/04/12 documented as of this encounter
--- OUTSIDE RECORDS SUMMARY | 2024-12-30 13:23 | XMS_ITS | Encounter Summary ---
Author Organization [employer] Address [address] [place] [address] [address] [place] [address] Care Team Providers Care Retirement Village Manager Name Role Phone Keyla Burgess MD Primary Care Provider [phone] Reason for Visit * Reason Comments Med Refill Encounter Details Date Type Department Care Team (Late st Contact Info) Description 01/03/2024 Refill [facility] [address] [place] [address] Keyla Burgess MD [address] [place] [address] Lumbar radiculopathy; Other long-term (current) drug therapy Social History Tobacco Use [...] Info) Description 03/09/2025 2:00 PM EDT Telemedicine [facility] [address] [place] [address] Lin Cline RN [address] [place], [place] [phone] documented as of this encounter Visit Diagnoses Diagnosis Lumbar radiculopathy Thoracic or lumbosacral neuritis or radiculitis, unspecified Other intermediate accountant (current) drug therapy documented in this encounter Care Teams Retirement Village Manager Relationship Specialty Start Date End Date Keyla Burgess MD [address] [place] [address] [place] [address] PCP - General Family Medicine 11/10/15 Harry 09/28/24 documented as of this encounter
--- OUTSIDE RECORDS SUMMARY | 2024-12-30 13:23 | XMS_ITS | Encounter Summary ---
Author Organization [employer] Address [address] [facility] [address] [place] [address] Care Team Providers Care Ceramic Research Engineer Name Role Phone Keyla Burgess MD Primary Care Provider [phone] Reason for Visit * Reason Onset Date Comments VNA Services 11/15/2023 Encounter Details Date Type Department Care Team ([facility] st Contact Info) Description 11/15/2023 Telephone [facility] [address] [place] [address] Keyla Burgess MD [address] [place], [place] [phone] VNA Services Social History Tobacco Use Types Packs/Day Years [...] Telephone Encounter - Antonietta Yeung RN - 11/16/2023 9:42 AM EST Returned call to pt regarding message below. Pt states VN is currently at pt home from [facility] as requested by same day provider for daily wound care. VN came on the phone and requested a VO for in home PT for the pt. VN informed of ok for PT for strengthening and orders will be faxed at a later date. Will send to PCP as FYI. * Telephone Encounter - Nasima Marino - 11/15/2023 2:18 PM EST Tc from pt requesting status on at home VNA services. documented in this encounter Plan of Treatment Upcoming Encounters Date Type Department Care Team (Late st Contact Info) Description 03/09/2025 2:00 PM EDT Telemedicine [facility] [address] [place] [address] Lin Cline, CECILIO [address] [place] [address] documented as of this encounter Visit Diagnoses Not on filedocumented in this encounter Care Teams Ceramic Research Engineer Relationship Specialty Start Date End Date Keyla Burgess MD [address] [place] [address] PCP - General Family Medicine 11/10/15 Harry 09/28/24 documented as of this encounter
--- OUTSIDE RECORDS SUMMARY | 2024-12-30 13:23 | XMS_ITS | Clinical Summary ---
Author Organization [facility] Address [address] [place] [address] Phone Care Team Providers Care Bench Assembler Battery Name Role Phone Keyla Burgess MD Primary Care Provider [phone] Allergies Active Allergy Reactions Criticality Noted Date Comments Aspirin Other (see comments) 03/31/2021 Medications apixaban (ELIQUIS) 5 MG tablet Take 5 mg by mouth in the morning and 5 mg in the evening. Active atorvastatin (LIPITOR) 10 MG tablet Take 1 tablet by mouth 1 (one) time each day Active diazePAM (VALIUM) 5 MG tablet Take 1 tablet by mouth 2 (two) times a day Active omeprazole OTC (PriLOSEC OTC) 20 MG EC tablet Take 1 tablet by mouth 1 (one) time each day Active oxyCODONE (OxyCONTIN) 10 MG 12 hr abuse-deterrent tablet Take 1 tablet by mouth in the morning and 1 tablet in the evening and 1 tablet before bedtime. Active albuterol HFA (PROVENTIL HFA;VENTOLIN HFA) 108 (90 Base) MCG/ACT inhaler Inhale 2 puffs if needed for wheezing Active docusate sodium (COLACE) 100 MG capsule Take 100 mg by mouth in the morning and 100 mg in the evening. Active ondansetron (ZOFRAN) 4 MG tablet Take 4 mg by mouth every 8 (eight) hours if needed for nausea or vomiting Active dilTIAZem CD (CARDIZEM CD) 120 MG 24 hr capsule Take 120 mg by mouth every morning Active Symbicort 80-4.5 MCG/ACT inhaler INHALE TWO PUFFS BY MOUTH TWICE DAILY IN THE MORNING AND EVENING RINSE MOUTH AFTER USE 2 Active polyethylene glycol (GLYCOLAX) 17 g packet MIX 1 PACKET IN 8 OUNCES OF WATER, JUICE,SODA, COFFEE, OR TEA DAILY NEEDED FOR CONSTIPATION 2 Active senna (SENOKOT) 8.6 MG tablet TAKE TWO TABLETS EVERY EVENING 2 Active nystatin (MYCOSTATIN) powder APPLY TO THE AFFECTED AREA(S) THREE TIMES DAILY DIRECTED 2 Active gabapentin (NEURONTIN) 100 MG capsule 100 mg every morning 2 Active fluticasone (FLONASE) 50 MCG/ACT nasal spray INHALE TWO SPRAYS IN EACH NOSTRIL DAILY 2 Active spironolactone (Aldactone) 25 MG tablet Take 1 tablet (25 mg total) by mouth every other day 45 tablet 3 2 Active torsemide (DEMADEX) 20 MG tablet Take 1 tablet (20 mg total) by mouth in the morning and 1 tablet (20 mg total) in the evening. 180 tablet 3 4 01/21/20 25 Active calcitriol (ROCALTROL) 0.25 MCG capsule TAKE ONE CAPSULE EVERY OTHER DAY IN THE MORNING 45 capsule 3 4 Active Active Problems Problem Noted Date Diagnosed Date Hypercalcemia 09/18/2022 High risk drug monitoring status 06/12/2022 History of clinical finding in subject 2 Overview (06/12/2022): See problem list below Pain of knee region 06/12/2022 Lumbar radiculopathy 06/12/2022 Chronic kidney disease, stage 4 (severe) 022 Chronic kidney disease, stage 2 (mild) 1 Hypertension 04/29/2021 Cellulitis of left lower limb 04/29/2021 Acute nontraumatic kidney injury 03/31/2021 Chronic kidney disease stage 3 03/31/2021 Chronic systolic heart failure 03/31/2021 Hypercalcemia 03/31/2021 Hyperparathyroidism due to renal insufficiency 0 03/31/2021 Hypertensive heart and renal disease with (congestive) heart failure 03/31/2021 Hypokalemia 03/31/2021 Immunizations Name Administration Dates Next Due Pneumococcal Polysaccharide 09/16/2014, 4,01/19/2014,01/19/2013 Family History Medical History Relation Comments Cancer Father Heart disease Mother Hypertension Mother Kidney disease Mother Relation Status Comments Father Mother Social History Tobacco Use Types Packs/Day Years Used Date Smoking Tobacco: Former Smokeless Tobacco: Never Tobacco Cessation:Counseling Given: No Comments:Smoking History Info:Every day Alcohol Use Standard Drinks/Week Comments No 0 (1 standard drink = 0.6 oz pur e alcohol) Comments Unknown Sex and Gender Information Value Date Recorded Sex Assigned at Not on file Legal Sex Female 5:07 PM EST Gender Identity Not on file Sexual Orientation Not on file Last Filed Vital Signs Vital Sign Reading Time Taken Comments Blood Pressure 110/62 10/23/2022 2:52 PM EST Pulse 83 10/23/2022 2:52 PM EST Temperature - - Respiratory Rate - - Oxygen Saturation 95% 11/28/2021 1:32 PM EST Inhaled Oxygen Concentration - - Weight 88.1 kg (194 lb 3.2 oz) 10/23/2022 2:52 P M EST Height 162.6 cm (5' 4 ) 10/29/2020 12:00 PM EST Body Mass Index 33.33 10/29/2020 12:00 PM EST Plan of Treatment Health Maintenance Due Date Last Done Comments Pneumococcal Vaccine: 65+ Years (3 of 3 - PCV) 09/16/2015 09/16/2014, 03/09/2014, 01/19/2014, Additional history exists Influenza Vaccine (#1) 2024 Hepatitis B Vaccine Aged Out No longe r eligible based on patient's age to complete this topic Insurance MEDICARE [place]ICAID [place] MEDICARE MEDICAID [place] Care Teams Bench Assembler Battery Relationship Specialty Start Date End Date Keyla Burgess MD [address] [place] [id number] PCP - General 12/06/20
--- OUTSIDE RECORDS SUMMARY | 2024-12-30 13:23 | XMS_ITS | Encounter Summary ---
Author Organization [employer] Address [address] [place] [address] 7t [place] [address] Care Team Providers Care Drafter Apprentice Name Role Phone Keyla Burgess MD Primary Care Provider [phone] Reason for Visit * Reason Onset Date Comments Verbal Order 11/27/2023 Encounter Details Date Type Department Care Team ([facility] st Contact Info) Description 11/27/2023 Telephone [facility] MED[facility]INE [address] [place] [address] Keyla Burgess MD [address] [place] [address] Verbal Order Social History Tobacco Use Types Packs/Day Years [...] Telephone Encounter - Antonietta Yeung RN - 11/27/2023 4:44 PM EST Returned call to Raegan regarding message below. Informed of VO for decrease visits for pt for woundcare. Raegan verbalized understanding and agrees with plan. * Telephone Encounter - Angel Morin - 11/27/2023 2:57 PM EST Tc from Anil the VN at [facility] calling to request a verbal order for decrease on visitation states states patients wound is scabbing would like to do 3x for the week of 11/27/23 then 1x a week for 2 weeks please call Anil at documented in this encounter Plan of Treatment Upcoming Encounters Date Type Department Care Team (Late st Contact Info) Description 03/09/2025 2:00 PM EDT Telemedicine [facility] MED & PEDS 505 [place] [address] Lin Cline, RN 505 [place] [address] documented as of this encounter Visit Diagnoses Not on filedocumented in this encounter Care Teams Drafter Apprentice Relationship Specialty Start Date End Date Keyla Burgess MD [address] [place] [address] [place] [address] PCP - General Family Medicine 11/10/15 Harry 09/28/24 documented as of this encounter
--- OUTSIDE RECORDS SUMMARY | 2024-12-30 13:23 | XMS_ITS | Encounter Summary ---
Author Organization [employer] Address [address] [place] [address] 7t [place] [address] Care Team Providers Care Infection Control Nurse Name Role Phone Keyla Burgess MD Primary Care Provider [phone] Reason for Visit * Reason Comments Med Refill Encounter Details Date Type Department Care Team ([facility] Contact Info) Description 02/08/2023 Refill [facility] MEDICINE 230 [place], [place] [phone] Keyla Burgess MD 505 [place], [place] [phone] Dorsalgia, unspecified Social History Tobacco Use Types Packs/Day Years [...] suspected to have Coronavirus/COVID-19? No / Unsure 02/01/2023 11:00 AM EST documented as of this encounter Plan of Treatment Upcoming Encounters Date Type Department Care Team ([facility] Contact Info) Description 03/09/2025 2:00 PM EDT Telemedicine [facility] MED & PEDS [address] [place], [place] [phone] Lin Cline RN [address] [place] [address] documented as of this encounter Visit Diagnoses Diagnosis Dorsalgia, unspecified documented in this encounter Care Teams Infection Control Nurse Relationship Specialty Start Date End Date Keyla Burgess MD [address] [place] [address] PCP - General Family Medicine 11/10/15 SethKishore 09/28/24 documented as of this encounter
--- OUTSIDE RECORDS SUMMARY | 2024-12-30 13:23 | XMS_ITS | Encounter Summary ---
Author Organization [employer] Address [address] [place] [address] 7t [place] [address] Care Team Providers Care Community Health Advisor Name Role Phone Keyla Burgess MD Primary Care Provider [phone] Encounter Details Date Type Department Care Team ([facility] Contact Info) Description 01/04/2023 Abstract [facility] MEDICINE [address] [place] [address] Keyla Burgess MD 505 [place], [place] [phone] Social History Tobacco Use Types Packs/Day Years [...] Info) Description 03/09/2025 2:00 PM EDT Telemedicine [facility] MED & PEDS 505 [place] [address] Lin Cline RN 505 [place], [place] [phone] documented as of this encounter Visit Diagnoses Not on filedocumented in this encounter Care Teams Community Health Advisor Relationship Specialty Start Date End Date Keyla Burgess MD [address] [place] [address] PCP - General Family Medicine 11/10/15 Harry 09/28/24 documented as of this encounter
--- OUTSIDE RECORDS SUMMARY | 2024-12-30 13:23 | XMS_ITS | Encounter Summary ---
Author Organization [facility] Address [address] [place] [address] Care Team Providers Care Development Editor Name Role Phone Keyla Burgess MD Primary Care Provider [phone] Reason for Visit * Reason Onset Date Comments tele monitor 12/12/2024 Encounter Details Date Type Department Care Team (Late st Contact Info) Description 12/12/2024 Telephone [facility] [address] [address] Gladis Mauricio MD 300 [place] [address] tele monitor Social History Tobacco Use Types Packs/Day Years [...] as of this encounter Progress Notes * Dana Olivera MA - 12/12/2024 10:10 AM EST I called and spoke to Megan at [facility] and she is referring to a tele monitor that monitors weights and BP readings. The pcp previously had ordered this and they are looking for a new order to be signed. I did tell her that it would be the pcp to renew this. I spoke to Yanique and relayed this information to her and she will address this with the pcp * Cammy Langford MA - 12/12/2024 9:12 AM EST Yanique from [facility] is calling because there is a nurse from [facility] asking fr the report from a tele monitor. She stated they never ordered one, she is wondering if we did. I told her that I am not seeing any order but she would like a call back to discuss and be able to give an answerto the nurse. Call [phone] ext [phone] or ask for Yanique documented in this encounter Plan of Treatment Upcoming Encounters Date Type Department Care Team (Late st Contact Info) Description 03/05/2025 2:40 PM EDT Office Visit [facility] 154 [address] [facility] 154 [place] [address] Rigo Meyers NP 300 [place] [address] 04/16/2025 2:00 PM EDT Ancillary Procedure [facility] 154 300 [facility] 154 [place] [address] 06/23/2025 10:45 AM EDT Office Visit [facility] - [place] [address] [address] Hansa Cheek MD [address] [address] documented as of this encounter Visit Diagnoses Not on filedocumented in this encounter Care Teams Development Editor Relationship Specialty Start Date End Date Keyla Burgess MD [address] [place] [address] PCP - General 09/04/12 documented as of this encounter
--- OUTSIDE RECORDS SUMMARY | 2024-12-30 13:23 | XMS_ITS | Encounter Summary ---
Author Organization [employer] Address [address] [facility] 7t [place] [address] Care Team Providers Care Rn Birthing Name Role Phone Keyla Burgess MD Primary Care Provider [phone] Encounter Details Date Type Department Care Team ([facility] Contact Info) Description 01/30/[address] [facility] MEDICINE 230 [place] [address] Keyla Burgess MD 505 [place], [place] [phone] Social History Tobacco Use Types Packs/Day Years [...] Upcoming Encounters Date Type Department Care Team ([facility] Contact Info) Description 03/09/2025 2:[address] [facility] MED & PEDS 505 [place], [place] [phone] Lin Cline, RN 505 [place], [place] [phone] documented as of this encounter Visit Diagnoses Not on filedocumented in this encounter Care Teams Rn Birthing Relationship Specialty Start Date End Date Keyla Burgess MD [address] [place] [address] [place] [address] PCP - General Family Medicine 11/10/15 Harry 09/28/24 documented as of this encounter
== END 2024-12-30 15:50 | disposition home or self-care (01) ==
PROVIDERS: PCP Student in an Organized Health Care Education/Training Program; Visit Provider Internal Medicine Hypertension Specialist
DX: I12.9 Hypertensive chronic kidney disease with stage 1 through stage 4 chronic kidney disease, or unspecified chronic kidney disease (principal); N18.4 Chronic kidney disease, stage 4 (severe); R31.9 Hematuria, unspecified
CPT/HCPCS: 99214

== ENCOUNTER → 2024-12-30 13:02 | Outpatient (BNVA) | payer MEDICARE, MEDICAID, SELFPAY | PROVIDERS: PCP Student in an Organized Health Care Education/Training Program; Visit Provider Internal Medicine Hypertension Specialist ==

== ENCOUNTER 2025-03-11 11:44 | Outpatient (REF) | payer MEDICARE, MEDICAID, SELFPAY ==
--- OUTSIDE RECORDS SUMMARY | 2025-03-11 14:14 | XMS_ITS | Encounter Summary ---
Author Organization [employer] Address [address] [place] [address] 7t [place] [address] Care Team Providers Care Casting Technician Name Role Phone Keyla Burgess MD Primary Care Provider [phone] Reason for Visit * Reason Comments Med Refill Encounter Details Date Type Department Care Team ([facility] Contact Info) Description 10/11/2023 Refill [facility] MED & PEDS [address] [place] [address] Ana Mei MD [address] [place] [address] Gastroesophageal reflux disease without esophagitis Social History [...] Department Care Team (Late Contact Info) Description 04/15/2025 10:00 AM EDT Office Visit [facility] MED & PEDS [address] [place], [place] [phone] Keyla Burgess MD 505 [place] [address] documented as of this encounter Visit Diagnoses Diagnosis Gastroesophageal reflux disease without esophagitis Esophageal reflux documented in this encounter Care Teams Casting Technician Relationship Specialty Start Date End Date Keyla Burgess MD [address] [place] [address] [place] [address] PCP - General Family Medicine 11/10/15 Harry 09/28/24 documented as of this encounter
--- OUTSIDE RECORDS SUMMARY | 2025-03-11 14:14 | XMS_ITS | Encounter Summary ---
Author Organization [employer] Address [address] [place] [address] 7t [place] [address] Care Team Providers Care Salesperson Handbags Name Role Phone Keyla Burgess MD Primary Care Provider [phone] Reason for Visit * Reason Comments Med Refill Encounter Details Date Type Department Care Team (Late Contact Info) Description 07/18/2023 Refill [facility] MED & PEDS [address] [place] [address] Keyla Burgess MD [address] [place] [address] Gastroesophageal reflux disease without esophagitis Social History [...] Description 04/15/2025 10:00 AM EDT Office Visit [facility] MED & PEDS [address] [place] [address] Keyla Burgess MD [address] [place] [address] documented as of this encounter Visit Diagnoses Diagnosis Gastroesophageal reflux disease without esophagitis Esophageal reflux documented in this encounter Care Teams Salesperson Handbags Relationship Specialty Start Date End Date Keyla Burgess MD [address] [place] [address] [place] [address] PCP - General Family Medicine 11/10/15 Harry 09/28/24 documented as of this encounter
--- OUTSIDE RECORDS SUMMARY | 2025-03-11 14:14 | XMS_ITS | Encounter Summary ---
Author Organization [employer] Address [address] [facility] [address] 7t [place] [address] Care Team Providers Care Manager Personal Name Role Phone Keyla Burgess MD Primary Care Provider [phone] Reason for Visit * Reason Onset Date Comments Med Refill 09/22/2024 Encounter Details Date Type Department Care Team ([facility] st Contact Info) Description 09/22/2024 Telephone [facility] MEDICINE 230 [place] [address] Keyla Burgess MD [address] [place], [place] [phone] Med Refill Social History Tobacco Use Types [...] the past 12 months, has t he [employer] gas, oil or water [employer] threatened to shut off services in your [...] Care Team (Late st Contact Info) Description 04/15/2025 10:00 AM EDT Office Visit [facility] MED & PEDS 505 [place] [address] Keyla Burgess MD 505 [place] [address] documented as of this encounter Visit Diagnoses Not on filedocumented in this encounter Care Teams Manager Personal Relationship Specialty Start Date End Date Keyla Burgess MD 230 [place] [address] PCP - General Family Medicine 11/10/15 Harry 09/28/24 documented as of this encounter
--- OUTSIDE RECORDS SUMMARY | 2025-03-11 14:14 | XMS_ITS | Encounter Summary ---
Author Organization [employer] Address [address] [facility] 7t [place] [address] Care Team Providers Care Mineral Technologist Name Role Phone Keyla Burgess MD Primary Care Provider [phone] Reason for Visit * Reason Onset Date Comments Nurse Triage 05/31/2023 Encounter Details Date Type Department Care Team ([facility] st Contact Info) Description 05/31/2023 Telephone [facility] MEDICINE 230 [place] [address] Keyla Burgess MD [address] [place] [address] Nurse Triage Social History Tobacco Use Types [...] verified as active prior to booking. Apt [facility] 06/01 @ 140pm Protocol Used: Cough [...] 10:00 AM EDT Office Visit [facility] MED & PEDS [address] [place] [address] Keyla Burgess MD 505 [place] [address] documented as of this encounter Visit Diagnoses Not on filedocumented in this encounter Care Teams Mineral Technologist Relationship Specialty Start Date End Date Keyla Burgess MD [address] [place] [id number] PCP - General Family Medicine 11/10/15 Harry 09/28/24 documented as of this encounter
--- OUTSIDE RECORDS SUMMARY | 2025-03-11 14:14 | XMS_ITS | Encounter Summary ---
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 Apt scheduled with Dr. Mei 10/11/23 @ 330pm and Pt agrees with [...] this outcome Bleeding Please contact pt at [phone] documented in this encounter Plan of Treatment Upcoming Encounters Date Type Department Care Team (Late st Contact Info) Description 04/15/2025 10:00 AM EDT Office Visit [facility] CHC MED & PEDS [address] [place] [address] Keyla Burgess MD 505 [place] [address] documented as of this encounter Visit Diagnoses Not on filedocumented in this encounter Care Teams Human Performance Professor Relationship Specialty Start Date End Date Keyla Burgess MD 230 [facility] [place] [address] PCP - General Family Medicine 11/10/15 Harry 09/28/24 documented as of this encounter
--- OUTSIDE RECORDS SUMMARY | 2025-03-11 14:14 | XMS_ITS | Clinical Summary ---
Author Organization [employer] Address [address] [place] [address] 7t [place] [address] Care Team Providers Care Industrial Coffee Grinder Name Role Phone Keyla Burgess MD Primary Care Provider [phone] Allergies Active Allergy Reactions Criticality Noted Date [...] 120 tablet 11 024 Active nystatin (Mycostatin) 383427 UNIT/GM powder Apply topically 2 times daily. APPLY TO THE AFFECTED AREA(S) THREE TIMES DAILY DIRECTED 60 g 3 024 2024 Active Eliquis 5 MG tabletIndication s:Chronic congestive heart failure, unspecified heart failure type (CMS/HCC) TAKE ONE TABLET TWICE DAILY IN THE MORNING AND AT BEDTIME 60 tablet 11 024 Active Incruse Ellipta 62.5 MCG/ACT aerosol powder Take 1 puff by mouth Once per day. 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 28 g 024 Active albuterol 108 (90 Base) MCG/ACT inhaler Inhale 2 puffs every 4 (four) hours if needed for wheezing. 18 g 11 025 Active spironolactone (Aldactone) 25 MG tabletIndication s:Chronic congestive heart failure, unspecified heart failure type (CMS/HCC) TAKE ONE TABLET TWICE DAILY IN THE MORNING AND AT BEDTIME 180 tablet 1 025 Active Breo Ellipta 200-25 MCG/ACT aerosol powder INHALE 1 PUFF DAILY AT THE SAME TIME EACH DAY RINSE MOUTH AFTER USE Active ondansetron (Zofran) 4 MG tabletIndication s:Chronic renal disease, stage IV (CMS/HCC) TAKE ONE TABLET EVERY 4 HOURS NEEDED 20 tablet 025 Active gabapentin (Neurontin) 100 MG capsuleIndicatio ns:Lumbar radiculopathy TAKE ONE CAPSULE EVERY MORNING 30 capsule 2 025 Active oxyCODONE (Roxicodone) 20 MG immediate release tabletIndication s:Lumbar radiculopathy TAKE ONE TABLET THREE TIMES DAILY 90 tablet 025 Active diazePAM (Valium) 5 MG tabletIndication s:Other chcf (current) drug therapy Take 1 tablet (5 mg) by mouth every 12 (twelve) hours if needed for anxiety. 60 tablet 025 Active docusate sodium (Colace) 100 MG capsuleIndicatio ns:Constipation, unspecified constipation type TAKE ONE CAPSULE TWICE DAILY IN THE MORNING AND AT BEDTIME 180 capsule 1 025 Active omeprazole (PriLOSEC) [address] capsuleIndicatio ns:Gastroesophag eal reflux disease without esophagitis TAKE ONE CAPSULE TWICE DAILY IN THE MORNING AND AT BEDTIME 180 capsule 1 025 Active doxycycline (Adoxa) 100 MG tablet Take 100 mg by mouth 2 times daily. Take with a full glass of water and do not lie down for at least 30 minutes after Active bacitracin (RA Bacitracin) 500 UNIT/GM ointment Apply topically 2 times daily. 14 g Active silver sulfADIAZINE (Silvadene) 1 % cream Apply topically 2 times daily. 50 g 025 2024 Active omeprazole (PriLOSEC) [address] capsuleIndicatio ns:Gastroesophag eal reflux disease without esophagitis TAKE ONE CAPSULE TWICE DAILY IN THE MORNING AND AT BEDTIME 180 capsule 1 024 2024 Discontinued docusate sodium (Colace) 100 MG capsuleIndicatio ns:Constipation, unspecified constipation type TAKE ONE CAPSULE TWICE DAILY IN THE MORNING AND AT BEDTIME 180 capsule 1 024 2024 Discontinued diazePAM (Valium) 5 MG tabletIndication s:Other chcf (current) drug therapy TAKE ONE TABLET TWICE DAILY IN THE MORNING AND AT BEDTIME FOR ANXIETY 60 tablet 025 2024 Discontinued(D uplicate order (will not trigger notification to Pharmacy)) oxyCODONE (Roxicodone) 20 MG immediate release tabletIndication s:Lumbar radiculopathy Take 1 tablet (20 mg) by mouth 3 times daily. 90 tablet 025 2024 Discontinued(D uplicate order (will not trigger notification to Pharmacy)) cephalexin (Keflex) 500 MG capsule Take 1 capsule (500 mg) by mouth 2 times daily for 7 days. 14 capsule 025 2024 Discontinued Active Problems Problem Noted Date Diagnosed Date [...] Chronic kidney disease, stage 4 (severe) 022 Deep venous thrombosis 09/17/2021 Overview (01/07/2025): Last Assessment & Plan: She states that [...] is on this for DVTs and PEs. Cellulitis of left lower limb 04/29/2021 Hypertension [...] ambulance and they will take her to [facility] ED for eval. Vitamin D deficiency 04/08/2021 [...] Encounters Date Type Department Care Team Description 03/11/2025 11:30 AM EDT Office Visit [facility] MED & PEDS [address] [place] [address] Keyla Burgess MD Cellulitis of toe of right foot (Primary Dx) 03/11/2025 Travel 03/10/2025 Telephone [facility] MED & PEDS [address] [place] [address] Keyla Burgess MD Chart Prep 03/09/2025 Telephone [facility] & [facility]ED[facility] [address] [place] [address] Lin Cline RN 03/09/2025 Travel 03/04/2025 Patient Outreach [address] [address] Keyla Burgess MD Pre-visit Planning ([facility] screening completed on 02/09/25) 02/27/2025 1:20 PM EDT Office Visit [facility] MED & PEDS [address] [place] [address] Keyla Burgess MD Right foot infection (Primary Dx) 02/27/2025 Travel 02/27/[address] [address] Keyla Burgess MD call back needed 02/26/[address] [address] Keyla Burgess MD Nurse Triage 02/25/2025 Refill [facility] [address] [place] [address] Keyla Burgess MD Constipation, unspecified constipation type; Gastroesophageal reflux disease without esophagitis 02/19/[address] [address] Keyla Burgess MD Call Back Request 02/10/[address] [address] eKyla Burgess MD Call Back Request 02/09/2025 11:15 AM EDT Office Visit [facility] MED & PEDS [address] [place] [address] Keyla Burgess MD Edema, unspecified type (Primary Dx); Chronic obstructive pulmonary disease, unspecified COPD type (CMS/HCC) 02/09/2025 Travel 02/06/2025 Travel 02/06/2025 Telephone [facility] [address] [facility] [place] [address] Keyla Burgess MD Call Back Request 02/06/2025 Telephone [facility] [address] [facility] [place] [address] Keyla Burgess MD 02/06/2025 Population Health Risk Score [facility] () Department [address] [place] [id number] Provider, Population Health Generic 02/04/2025 Telephone [facility] [address] [facility] [place] [address] Keyla Burgess MD Med Refill 02/03/2025 Refill [facility] PEDS [address] [place] [address] Keyla Burgess MD Lumbar radiculopathy; Other chcf (current) drug therapy 02/02/2025 Refill [facility] [address] [place] [address] Keyla Burgess MD Lumbar radiculopathy 01/31/2025 Refill [facility] [address] [facility] [place] [address] Keyla Burgess MD Other chcf (current) drug therapy 01/26/2025 Refill [facility] [address] [place] [address] Keyla Burgess MD Lumbar radiculopathy 01/23/2025 Telephone [facility] [address] [place] [address] Keyla Burgess MD Verbal Order 01/20/2025 Refill [facility] [address] [place] [address] Keyla Burgess MD Chronic renal disease, stage IV (CMS/HCC) 01/08/2025 Telephone [facility]EDS [address] [facility] [place] [address] Keyla Burgess MD 01/05/2025 Orders Only [facility] [address] [place] [address] Ivan Begum MD 01/02/2025 Refill [facility] [address] [facility] [place] [address] Keyla Burgess MD Lumbar radiculopathy 01/01/2025 Refill [facility] [address] [facility] [place] [address] Keyla Burgess MD Other chcf (current) drug therapy 01/01/2025 Refill [facility] [address] [facility] [place] [address] Keyla Burgess MD Chronic congestive heart failure, unspecified heart failure type (CMS/HCC) 12/30/2024 11:30 AM EST Telemedicine [facility] [address] [facility] [place] [address] Keyla Burgess MD Primary hypertension (Primary Dx); Chronic obstructive pulmonary disease, unspecified COPD type (CMS/HCC); Dorsalgia of lumbar region 12/30/2024 Telephone [facility] [address] [place], [place] [address] [address] Keyla Burgess MD 12/30/2024 Travel 12/29/2024 Telephone [facility] MED & PEDS [address] [facility] [place] [address] Keyla Burgess MD 12/24/2024 Telephone [facility] P[facility] [address] [place] [address] Lin Cline, CECILIO 12/22/2024 2:30 PM EST Telemedicine [facility] [address] [place] [address] Lin Cline, RN Lumbar radiculopathy 12/22/2024 Travel 12/19/2024 Telephone [facility] [address] [place] [address] Keyla Burgess MD Nurse Triage 12/12/2024 Telephone [facility] [address] [place] [address] Yanique Villarreal, RN Telemonitor orders 12/11/2024 Telephone [facility] [address] [place] [address] Keyla Burgess MD Verbal orders from Last 3 Months Immunizations Name Administration [...] off services in your home? No 03/14/2024 Internet Access Answer Date Recorded Internet Access Q1 No 02/09/2025 Internet Access Q2 I do not want or need it 01/24 Comments No Sex and Gender Information Value Date Recorded Sex Assigned at Female 09/25/2022 10:25 AM EDT Legal Sex Female 10:25 AM EDT Gender Identity Female 09/25/2022 10:25 AM EDT Sexual Orientation Straight 09/25/2022 10 :25 AM EDT Last Filed Vital Signs Vital Sign Reading Time Taken Comments Blood Pressure 122/70 03/11/2025 11:14 AM EDT Pulse 72 03/11/2025 11:14 AM EDT Temperature 37.1 ??C (98.7 ??F) 03/11/2025 1 1:14 AM EDT Respiratory Rate 16 03/11/2025 11:1 4 AM EDT Oxygen Saturation 96% 02/09/2025 11: 27 AM EDT Inhaled Oxygen Concentration - - Weight 76.5 kg (168 lb 11.2 oz) 025 11:14 AM EDT Height 149.9 cm (4' 11 ) 03/11/2025 11: 14 AM EDT Body Mass Index 34.07 03/11/2025 11:14 AM EDT Plan of Treatment Upcoming Encounters Date Type Department Care Team (Late st Contact Info) Description 04/15/2025 10:00 AM EDT Office Visit [facility] MED & PEDS [address] [place] [address] Keyla Burgess MD [address] [place] [address] Health Maintenance Due Date Last Done Comments Depression Screening 1950 Hepatitis C Screening 1966 DTaP/Tdap/Td Vaccines (1 - Tdap) 08/29/2017 08/28/2017 Alcohol/Substance Use Screening 02/09/2026 02/09/2025 SDOH Screening 02/09/2026 02/09/2025 Tobacco Screening 02/09/2026 02/09/2025 Lipid Panel 09/13/2028 09/13/2023 Pneumococcal Vaccine: 50+ [...] Procedure Name Priority Date/Time Associated Diagnosis Comments BASIC METABOLIC PANEL Routine 12/12/2024 9:13 AM EST PTH, INTACT Routine 12/12/2024 9:13 AM EST CULTURE, URINE, ROUTINE Routine 12/12/2024 9:13 AM EST LIPID PANEL, STANDARD Routine 09/13/2023 11:34 AM EDT Chronic kidney disease, stage 4 (severe) (CMS/[facility]) from Last 3 Months or Most Recently Relevant to Health Maintenance Results * PTH, INTACT (12/12/2024 9:13 AM EST) us Historical Provider LAB BLOOD ORDERABLES Mendy l Result * Culture, Urine, Routine (12/12/2024 9:13 AM EST) Urine us Historical Provider LAB MICROBIOLOGY - GENERA L ORDERABLES Final Result * Basic Metabolic Panel (12/12/2024 9:13 AM EST) Blood Venous blood specimen / Unknown Historical Provider LAB BLOOD ORDERABLES Mendy l Result * (ABNORMAL) Lipid Panel, Standard (09/13/2023 11:34 AM EDT) Triglycerides 187(H) <150 mg/dL [facility] Comment:Desirable Triglyceri de: less than 150 mg/dLBorderline High Triglyceride 150-199 mg/dLHigh Triglyceride: 200-499 mg/dLVery High Triglyceride: greater than or equal to 5OO mg/dL Cholesterol 170 <200 mg/dL [facility] Comment:Desirable Cholestero l: less than 200 mg/dLBorderline High Cholesterol: 200-239 mg/dLHigh Cholesterol: greater than 239 mg/dL LDL Cholesterol Calculated 95 <100 mg/dL [facility] Comment:Desirable LDL: less than 100 mg/dLNear Optimal/Above Optimal LDL: 110- 129 mg/dLBorderline High LDL: 130-159 mg/dLHigh LDL: 160-189 mg/dLVery High LDL: greater than or equal to 190 mg/dL HDL Cholesterol 38(L) >40 mg/dL [facility] Comment:Desirable HDL: great er than 40 mg/dL Note: This HDL assay may give artificially low results in patients with liver disease. Blood Venous blood specimen / Unknown 09/13/2023 11:34 AM EDT 09/13/2023 2:10 PM EDT Keyla Burgess MD LAB BLOOD ORDERABLES Final Resul t [facility] [address] [place], [place] [phone] from Last 3 Months or Most Recently Relevant to Health Maintenance Insurance [place] [address] [place] [id number] [facility] Care Teams Industrial Coffee Grinder Relationship Specialty Start Date End Date Keyla Burgess MD [address] [place] [phone] PCP - General Family Medicine 11/10/15 [facility] 09/28/24
--- OUTSIDE RECORDS SUMMARY | 2025-03-11 14:14 | XMS_ITS | Encounter Summary ---
Author Organization [employer] Address [address] [place] [address] [address] [place] [address] Care Team Providers Care Color Buffer Name Role Phone Keyla Burgess MD Primary Care Provider [phone] Reason for Visit * Reason Onset Date Comments triage 11/22/2022 Encounter Details Date Type Department Care Team ([facility] st Contact Info) Description 11/22/2022 Telephone C [facility] [address] [place] [address] Keyla Burgess MD [address] [place] [address] triage Social History Tobacco Use Types Packs/Day [...] AM EST Pt was recently discharged from [facility], states she has been in so much pain and has been told at the hospital to increase Oxycodone 10mg to qid. She is due for a refill. Please advise. * Telephone Encounter - Annette Dee - 11/22/2022 1:43 PM EST Patient calling for HDF follow up appointment. Patient hospitalized at [facility] on 11/14/22 and discharged on 11/21/22. Patient [...] Description 04/15/2025 10:00 AM EDT Office Visit [facility] MED & PEDS [address] [place] [address] Keyla Burgess MD [address] [place] [address] documented as of this encounter Visit Diagnoses Diagnosis Dorsalgia of lumbar region documented in this encounter Care Teams Color Buffer Relationship Specialty Start Date End Date Keyla Burgess MD [address] [place] [address] PCP - General Family Medicine 11/10/15 [facility] 09/28/24 documented as of this encounter
--- OUTSIDE RECORDS SUMMARY | 2025-03-11 14:14 | XMS_ITS | Encounter Summary ---
Author Organization [employer] Address [address] [facility] 7t [place] [address] Care Team Providers Care Senior Accounting Associate Name Role Phone Keyla Burgess MD Primary Care Provider [phone] Reason for Visit * Reason Onset Date Comments Medication Question 11/11/2024 FYI 11/11/2024 Encounter Details Date Type Department Care Team ([facility] st Contact Info) Description 11/11/2024 Telephone [facility] [address] [place] [address] Keyla Burgess MD [address] [place], [place] [phone] Medication Question; Social History Tobacco Use Types [...] Nauseas. IF any questions contact pt at [phone] documented in this encounter Plan of Treatment Upcoming Encounters Date Type Department Care Team (Late st Contact Info) Description 04/15/2025 10:00 AM EDT Office Visit [facility] MED & PEDS [address] [place] [address] Keyla Burgess MD [address] [place] [address] documented as of this encounter Visit Diagnoses Not on filedocumented in this encounter Care Teams Senior Accounting Associate Relationship Specialty Start Date End Date Keyla Burgess MD [address] [place] [address] PCP - General Family Medicine [facility] documented as of this encounter
--- OUTSIDE RECORDS SUMMARY | 2025-03-11 14:14 | XMS_ITS | Encounter Summary ---
Author Organization [employer] Address [address] [facility] [address] [place] [address] Care Team Providers Care Client Specialist Name Role Phone Keyla Burgess MD Primary Care Provider [phone] Encounter Details Date Type Department Care Team ([facility] st Contact Info) Description 09/18/2024 Orders Only [facility] MED & PEDS [address] [place] [address] ProviderIvan MD Social History Tobacco Use Types [...] Description 04/15/2025 10:00 AM EDT Office Visit [facility] MED & PEDS [address] [place] [address] Keyla Burgess MD [address] [place] [address] documented as of this encounter Procedures Procedure [...] on filedocumented in this encounter Care Teams Client Specialist Relationship Specialty Start Date End Date Keyla Burgess MD [address] [place] [address] PCP - General Family Medicine 11/10/15 [facility] 09/28/24 documented as of this encounter
--- OUTSIDE RECORDS SUMMARY | 2025-03-11 14:14 | XMS_ITS | Encounter Summary ---
Author Organization [employer] Address [address] [place] [address] 7t [place] [address] Care Team Providers Care Optical Engineer Name Role Phone Keyla Burgess MD Primary Care Provider [phone] Reason for Visit * Reason Comments Med Refill Encounter Details Date Type Department Care Team (Late Contact Info) Description 12/07/2022 Refill [facility] MEDICINE [address] [place], [place] [phone] Keyla Burgess MD [address] [place], [place] [phone] Other senior living (current) drug therapy Social History Tobacco Use [...] Upcoming Encounters Date Type Department Care Team ([facility] Contact Info) Description 04/15/2025 10:00 AM EDT Office Visit [facility] MED & PEDS [address] [place], [place] [phone] Keyla Burgess MD [address] [place] [address] documented as of this encounter Visit Diagnoses Diagnosis Other terminal block assembler (current) drug therapy documented in this encounter Care Teams Optical Engineer Relationship Specialty Start Date End Date Keyla Burgess MD [address] [place] [address] PCP - General Family Medicine 11/10/15 Harry 09/28/24 documented as of this encounter
--- OUTSIDE RECORDS SUMMARY | 2025-03-11 14:14 | XMS_ITS | Encounter Summary ---
Author Organization [employer] Address [address] [facility] 7t [place] [address] Care Team Providers Care Economic Manager Name Role Phone Keyla Burgess MD Primary Care Provider Reason for Visit * Reason Onset Date Comments Nurse Triage 12/19/2024 Encounter Details Date Type Department Care Team ([facility] st Contact Info) Description 12/19/2024 Telephone [facility] MEDICINE [address] [place] [address] Keyla Burgess MD [address] [place], [place] [phone] Nurse Triage Social History Tobacco Use Types [...] come once a week and has a MICROFICHE CAMERA OPERATOR come Sunday-. Pt states that she feels [...] blood work or be referred to a Board Lining Machine Operator to control and monitor her pain. Advised [...] Description 04/15/2025 10:00 AM EDT Office Visit [facility] MED & PEDS [address] [place] [address] Keyla Burgess MD [address] [place] [address] documented as of this encounter Visit Diagnoses Not on filedocumented in this encounter Care Teams Economic Manager Relationship Specialty Start Date End Date Keyla Burgess MD [address] [place] [address] PCP - General Family Medicine 11/10/15 [facility] documented as of this encounter
--- OUTSIDE RECORDS SUMMARY | 2025-03-11 14:14 | XMS_ITS | Encounter Summary ---
Author Organization [employer] Address [address] [place] [address] 7[address] [place] [address] Care Team Providers Care Grape Grower Name Role Phone Keyla Burgess MD Primary Care Provider [phone] Reason for Visit * Reason Onset Date Comments Med Refill 05/22/2023 Encounter Details Date Type Department Care Team (Late st Contact Info) Description 05/22/2023 Telephone [facility] MED & PEDS [address] [place] [address] Keyla Burgess MD [address] [place] [address] Med Refill Social History Tobacco Use Types [...] Description 04/15/2025 10:00 AM EDT Office Visit [facility] MED & PEDS [address] [place] [address] Keyla Burgess MD [address] [place] [address] documented as of this encounter Visit Diagnoses Not on filedocumented in this encounter Care Teams Grape Grower Relationship Specialty Start Date End Date Keyla Burgess MD [address] [place] [address] PCP - General Family Medicine 11/10/15 Harry 09/28/24 documented as of this encounter
--- OUTSIDE RECORDS SUMMARY | 2025-03-11 14:14 | XMS_ITS | Clinical Summary ---
Author Organization [address] [facility] Address [address] [place] [address] Phone Care Team Providers Care Operations Lieutenant Name Role Phone eKyla Burgess MD Primary Care Provider [phone] Allergies Active Allergy Reactions Criticality Noted Date Comments Acetaminophen 2022 Adhesive Tape-Silicones 10/16/2023 Medical tape Aspirin Other 10/26/2020 Other Reaction(s): angioedema- lip swelling Epinephrine 05/12/2015 Ibuprofen 2022 Cephalexin 10/27/2024 Procaine 05/12/2015 Medications torsemide (DEMADEX) 20 mg tablet 40 mg every a.m. and 20 mg every afternoon 02/28/20 19 Active budesonide-formo teroL (SYMBICORT) 160-4.5 mcg/actuation inhaler Inhale 2 puffs by mouth 2 (two) times a day. 06/26/20 24 025 Active fluticasone propion-salmeter oL (ADVAIR HFA) 115-21 mcg/actuation inhaler Inhale 2 puffs by mouth. 01/07/20 24 Active albuterol HFA (PROAIR HFA ; PROVENTIL HFA ; VENTOLIN HFA) 90 mcg/actuation inhaler Inhale 2 puffs by mouth 1 (one) time each day if needed. 11/15/20 23 Active docusate sodium (COLACE) 100 mg capsule Take 1 capsule (100 mg total) by mouth 2 (two) times a day. 03/25/20 24 Active spironolactone (ALDACTONE) 25 mg tablet Take 1 tablet (25 mg total) by mouth 2 (two) times a day. 04/12/20 17 Active ondansetron (ZOFRAN) 4 mg tablet Take 1 tablet (4 mg total) by mouth if needed. 08/30/20 22 Active gabapentin (NEURONTIN) 100 mg capsule Take 1 capsule (100 mg total) by mouth daily. 09/29/20 22 Active apixaban (Eliquis) 5 mg tablet Take 1 tablet (5 mg total) by mouth 2 (two) times a day. 08/30/20 22 Active fluticasone propionate (FLONASE) 50 mcg/actuation nasal spray 2 (two) times a day if needed. 07/28/20 22 Active omeprazole OTC (PriLOSEC OTC) 20 mg EC tablet 2 (two) times a day. Active loratadine (CLARITIN) 10 mg tablet Take 1 tablet (10 mg total) by mouth daily. 05/23/20 22 Active oxyCODONE (ROXICODONE) 15 mg immediate release tablet Take 1 tablet (15 mg total) by mouth every 6 (six) hours if needed. Active atorvastatin (LIPITOR) 10 mg tablet Take 1 tablet (10 mg total) by mouth 1 (one) time each day. 90 tablet 1 11/06/20 24 Active budesonide-formo teroL (Symbicort) 160-4.5 mcg/actuation inhalerIndicatio ns:Chronic obstructive pulmonary disease, unspecified COPD type ([facility] V24, CMS/[facility] V28),Bronchiecta sis without acute exacerbation ([facility] V24, [facility] V28) Inhale 2 puffs by mouth 2 (two) times a day. Rinse mouth with water after use to reduce aftertaste and incidence of candidiasis. Do not swallow. 3 each 3 12/09/19 25 026 Active umeclidinium (Incruse Ellipta) 62.5 mcg/actuation inhalationIndica tions:Chronic obstructive pulmonary disease, unspecified COPD type ([facility] V24, CMS/[facility] V28),Bronchiecta sis without acute exacerbation ([facility] V24, [facility] V28) Inhale 1 puff by mouth 1 (one) time each day. 3 each 3 12/09/19 25 026 Active albuterol HFA (PROAIR HFA ; PROVENTIL HFA ; VENTOLIN HFA) 90 mcg/actuation inhalerIndicatio ns:Chronic obstructive pulmonary disease, unspecified COPD type (CMS/[facility] V24, CMS/[facility] V28) Inhale 2 puffs by mouth every 6 (six) hours if needed for wheezing or shortness of breath. 3 each 12/09/19 25 026 Active fluticasone furoate-vilanter oL (Breo Ellipta) 200-25 mcg/dose inhaler Inhale 1 puff by mouth 1 (one) time each day. 2 each 12/17/19 25 026 Active dilTIAZem CD (CARDIZEM CD) 120 mg 24 hr capsule Take 1 capsule (120 mg total) by mouth 1 (one) time each day. 90 each 2 03/03/20 25 Active calcitrioL (ROCALTROL) 0.25 mcg capsule Take 1 capsule (0.25 mcg total) by mouth 1 (one) time each day. Active diazePAM (VALIUM) 5 mg tablet Take 1 tablet (5 mg total) by mouth 1 (one) time each day. Max Daily Amount: 5 mg Active cephalexin (KEFLEX) 500 mg capsule Take 1 capsule (500 mg total) by mouth 2 (two) times a day. Active dilTIAZem SR (CARDIZEM SR) 120 mg 12 hr capsule Take 1 capsule (120 mg total) by mouth 1 (one) time each day. 06/05/20 11 025 Discontinued Active Problems Problem Noted Date Diagnosed [...] do think she needs to see a tight rope walker if she is having hypoxia. She may benefit from supplemental oxygen. I am going to refer her for this. Echocardiogram from January is relatively unremarkable. I also do not believe this is a volume issue. HLD (hyperlipidemia) 07/10/2022 Overview (09/02/2024): Last Assessment & Plan: Continue low-dose atorvastatin. Assessment & Plan (03/05/2025 3:21 PM EDT): Patient currently utilizing atorvastatin 10 mg p.o. daily. Need to update lipid panel. Assessment & Plan (10/27/2024 3:17 PM EST): [...] follow-up in device clinic. Deep venous thrombosis ([facility] V24, [facility] V28 ) 09/17/2021 Overview (09/02/2024): Last Assessment & Plan: [...] DVTs and PEs. (HFpEF) heart failure with p reserved ejection fraction (CMS/HCC V24, [facility]/HCC V28) 02/15/2021 Overview (09/02/2024): -??Last echocardiogram is from [...] hold off for now. Assessment & Plan (03/05/2025 3:21 PM EDT): Patient appears euvolemic on exam today. Continue on current regiment which includes spironolactone, and torsemide. I would like to eventually discontinue the torsemide and introduce an SGL 2 2 inhibitor. I will wait until next appointment to do this I do want to see an updated BMP. Patient should weigh yourself every morning and report to the office if she gains more than 2 pounds in a day or 5 pounds in a week. Limit salt. Orders: Basic metabolic panel; Future Assessment & Plan (10/27/2024 3:17 PM EST): [...] differential B-type natriuretic peptide Paroxysmal supraventricular tachycardia (CMS/HCC V24) 02/15/2021 Overview (09/02/2024): Paroxysmal supraventricular tachycardia Last Assessment & Plan: Patient did have a 3-minute episode since her last device check but it did not correlate any of her symptomatic episodes. Continue diltiazem for suppression. Assessment & Plan (03/05/2025 3:21 PM EDT): Patient is having a device check after this. Did have a 3-minute burst of SVT from the prior remote check. Patient had no symptoms. Continue use with diltiazem for rate control. Assessment & Plan (10/27/2024 3:17 PM EST): Seen on remote download. 3 seconds of AT/A-fib. Patient is anticoagulated on Eliquis. No issues with abnormal bleeding. Of note Eliquis is primarily for history of PE/DVTs. Orders: Basic metabolic panel; Future CBC and differential; Future B-type natriuretic peptide; Future Basic metabolic panel CBC and differential B-type natriuretic peptide Sick sinus syndrome (CMS/HCC V24, CMS/HCC V28) 0 02/15/2021 Overview (09/02/2024): Sinus node dysfunction Last Assessment & Plan: Normal functioning Medtronic dual-chamber permanent pacemaker on most recent device check. 3.5 years of battery longevity. We will continue to monitor. Assessment & Plan (03/05/2025 3:21 PM EDT): Patient should continue with remote monitor checkups. Assessment & Plan (10/27/2024 3:17 PM EST): Normal functioning Medtronic dual-chamber permanent pacemaker. Continue to monitor. Orders: Basic metabolic panel; Future CBC and differential; Future B-type natriuretic peptide; Future Basic metabolic panel CBC and differential B-type natriuretic peptide Hypertension 02/15/2021 Overview (09/02/2024): Last Assessment & Plan: Well-controlled on current regimen, continue. Assessment & Plan (03/05/2025 3:21 PM EDT): Well-controlled the appointment today. Continue current medication regimen. Chest pain 02/15/2021 Overview (09/02/2024): Chest pain [...] be ruled out. Chronic obstructive lung disease (CMS/HCC V24, [facility] V28) 11/10/2015 Overview (09/02/2024): Chronic obstructive lung disease Encounters Date Type Department Care Team Description 03/05/2025 3:30 PM EDT Ancillary Procedure [facility] Cardiology [facility] [address] [place] [address] Encounter for adjustment or management of cardiac device 03/05/2025 2:40 PM EDT Office Visit [facility] [address] [place] [address] Rigo Meyers NP Heart failure with preserved ejection fraction, unspecified HF chronicity (CMS/HCC V24, CMS/HCC V28) (Primary Dx); Paroxysmal supraventricular tachycardia (CMS/HCC V24); Sick sinus syndrome (CMS/HCC V24, CMS/HCC V28); Hypertension, unspecified type; Hyperlipidemia, unspecified hyperlipidemia type 03/03/2025 Telephone [facility] Cardiology [facility] [address] [place] [address] Gladis Mauricio MD Med Refill (Diltiazem refill ) 02/27/2025 8:25 PM EDT Ancillary Procedure [facility] [address] [place] [address] 01/21/2025 8:50 PM EST Ancillary Procedure [facility] Cardiology [facility] [address] [place] [phone] 01/14/2025 Telephone [facility] Cardiology [facility] [address] [place] [phone] Alexandro Osborn MD 12/24/2024 Telephone [facility] [place] [address] [facility] [address] [facility] [address] [place] [phone] Hansa Cheek MD prior authorization 12/17/2024 Telephone [facility] [place] [address] [place] [phone] Emily Keita MA 12/12/2024 Telephone [facility] Cardiology [facility] [address] [place] [phone] Gladis Mauricio MD tele monitor from Last 3 Months Immunizations Name Administration [...] PACEMAKER OTHER SURGICAL HISTORY 02/16/2021 N/A PROCEDURE: TX RPR EPIGASTRIC HERNIA REDUCIBLE SPX; COMMENT: open epigastric ventral hernia repair - Dr. Charlie Marquez HYSTERECTOMY PROCEDURE: HISTORICAL HYSTERECTOMY Medical History Medical History Date Comments Heart disease DX:Heart disease Acute respiratory failure wi th hypoxia (CMS/HCC V24, CMS/HCC V28) DX:Acute respirator y failure with hypoxia (HCC) COPD exacerbation (CMS/HCC V 24, CMS/HCC V28) DX:COPD exacerbation (HCC) SSS (sick sinus syndrome) ([facility]/HCC V24, CMS/HCC V28) DX:SSS (sick sinus syndrome) (HCC) CKD (chronic kidney disease) , stage IV (CMS/HCC V24, CMS/HCC V28) DX:CKD (chronic kidney d isease), stage IV ([facility]) History of DVT (deep vein thrombosis) DX:History [...] at Not on file Legal Sex Female 1:54 AM EST Gender Identity Not on file Sexual Orientation Not on file Obstetrics History Last Filed Vital Signs Vital Sign Reading Time Taken Comments Blood Pressure 104/74 03/05/2025 2:32 PM EDT Pulse 86 03/05/2025 2:32 PM EDT Temperature 36.1 ??C (96.9 ??F) 12/09/2024 1:19 PM ES T Respiratory Rate 21 12/09/2024 1:19 PM EST Oxygen Saturation 93% 03/05/2025 2:32 PM EDT Inhaled Oxygen Concentration - - Weight 76 kg (167 lb 9.6 oz) 03/05/2025 2:32 PM EDT Height 152.4 cm (5') 03/05/2025 2:32 PM EDT Body Mass Index 32.73 03/05/2025 2:32 PM EDT Plan of Treatment Upcoming Encounters Date Type Department Care Team (Late st Contact Info) Description 04/16/2025 2:00 PM EDT Ancillary Procedure [facility] Cardiology [facility] [address] [facility] [address] [place] [address] 06/23/2025 10:45 AM EDT Office Visit [facility] [place] [address] [facility] [address] [place] [address] Hansa Cheek MD [address] [facility] [address] [place] [address] 09/21/2025 1:10 PM EDT Office Visit [facility] - [facility] [address] [facility] [address] [place] [address] Rigo Meyers NP [address] [place] [address] 09/21/2025 2:00 PM EDT Ancillary Procedure [facility] - [facility] [address] [facility] [address] [place] [address] Health Maintenance Due Date Last Done Comments Depression Screening 11/04/2022 Falls Risk Assessment 11/04/2022 Hepatitis C Screening 11/04/2022 Medicare Annual Wellness Visit 11/04/2022 Osteoporosis Screening (Bone Density Screening) 11/04/2022 Social Influencers of Health Screening 11/04/2022 COVID-19 Vaccine (8 - Moderna risk season) 2025 08/23/2024, 07/13/2023, 09/15/2022, Additional history exists Hypertension/CHF/CAD Annual BMP Blood Test 12/12/2025 12/12/2024, 2024, 10/30/2024, Additional history exists DTaP,Tdap,and Td Vaccines (2 - Td or Tdap) 08/28/2027 08/28/2017 Cholesterol Screening (Lipid Panel) 09/13/2028 09/13/2023, 09/13/2023 Pneumococcal Vaccine: 50+ Years Completed 10/30/2019, 10/29/2018, 07/30/2016, Additional history exists Zoster Vaccines Completed 08/10/2022, 06/08/2022 RSV Immunization Adult Patients Completed 06/27/2024 Influenza Vaccine Completed 08/23/2024, , 09/15/2022, Additional [...] patient's age to complete this topic Meningococcal B Vaccine Aged Out No l onger eligible based on patient's age to complete this topic RSV Immunization Patients Under 20 months Aged Out No longer eligible based on patient's age to complete this topic Varicella Vaccines Aged Out No longer eligible based on patient's age to complete this topic Medical Devices Implanted Type Area Circus Supervisor Device Identifier Shelf Expiration Date Model / Serial / Lot Medt-Card Advisa Dr Mccoy [id number] Implanted: (Quantity not on file) Cardiac Pacemaker MEDTRON[employer] - CARDIAC RHYTH-CRDM ADVISA DR MCCOY [id number] / [id number] / Procedures Procedure Name Priority Date/Time Associated Diagnosis Comments CARDIAC DEVICE CHECK- REMOTE- MURJ Routine 02/27/2025 8:22 PM EDT CARDIAC DEVICE CHECK- REMOTE- MURJ Routine 01/21/2025 8:47 PM EST COMPREHENSIVE METABOLIC PANEL STAT 2024 12:20 PM EST LIPID PANEL Routine 09/13/2023 from Last 3 Months or Most Recently Relevant to Health Maintenance Results * Cardiac device check - Remote- MURJ (02/27/2025 8:22 PM EDT) Only the most recent of2 resultswithin the time period is included. Date Time Interrogation Session [id number] CV DEVICE CHECK Type Interrogation Session Remote CV DEVICE CHECK Implantable Pulse Generator Circus Supervisor MDT CV DEVICE CHECK Implantable Pulse Generator Type IPG CV DEVICE CHECK Implantable Pulse Generator Model Advisa DR MRI [id number] CV DEVICE CHECK Implantable Pulse Generator Serial Number [id number] CV DEVICE CHECK Implantable Pulse Generator Implant Date [id number] CV DEVICE CHECK Battery Remaining Longevity 29.0 CV DEVICE CHECK Battery Voltage 2.940 CV D EVICE CHECK Battery MEAT SERVICE TEAM MEMBER Trigger 2.830 CV DEVICE CHECK Battery Status Middle of Service CV DEVICE CHECK Pawan Statistic RA Percent Paced 13.78 CV DEVICE CHECK Pawan Statistic RV Percent Paced 0.14 CV DEVICE CHECK Atrial Tachy Statistic AT/AF Mylo Percent 0.00 CV DEVICE CHECK Lead Channel Sensing Intrinsic Amplitude 2.375 CV DEVICE CHECK Lead Channel Setting Sensing Sensitivity 0.45 CV DEVICE CHECK Lead Channel Impedance Value 342 CV DEVICE CHECK Lead Channel Pacing Threshold Amplitude 0.500 CV DEVICE CHECK Lead Channel Pacing Threshold Pulse Width 0.4 CV DEVICE CHECK Lead Channel RA Pacing Threshold Date 2024-08-07 CV DEVICE CHECK Lead Channel Setting Pacing Amplitude 1.500 CV DEVICE CHECK Lead Channel Setting Pacing Pulse Width 0.4 CV DEVICE CHECK Lead Channel Sensing Intrinsic Amplitude 11.125 CV DEVICE CHECK Lead Channel Setting Sensing Sensitivity 2.80 CV DEVICE CHECK Lead Channel Impedance Value 475 CV DEVICE CHECK Lead Channel Pacing Threshold Amplitude 1.000 CV DEVICE CHECK Lead Channel Pacing Threshold Pulse Width 0.4 CV DEVICE CHECK Lead Channel RV Pacing Threshold Date 2024-08-07 CV DEVICE CHECK Lead Channel Setting Pacing Amplitude 2.250 CV DEVICE CHECK Lead Channel Setting Pacing Pulse Width 0.4 CV DEVICE CHECK Pawan Setting Mode (NBG Code) AAI<=>DDD CV DEVICE CHECK Pawan Setting Lower Rate Limit 60 CV DEVICE CHECK Pawan Setting AT Mode Switch Rate 140 CV DEVICE CHECK Pawan Setting Maximum Tracking Rate 130 CV DEVICE CHECK Pawan Setting Maximum Sensor Rate 130 CV DEVICE CHECK Pawan Setting PAV Delay 180 CV DEVICE CHECK Pawan Setting LYNN Delay 150 CV DEVICE CHECK Zone Setting Type Category AT/AF CV DEVICE CHECK Rate 140 CV DEVICE CHECK Therapies Some Rx Off CV DEVIC E CHECK Zone Setting Status Monitor CV DEVICE CHECK Zone ID 2 CV DEVICE CHECK Zone Setting Type Category VT CV DEVICE CHECK Rate 133 CV DEVICE CHECK Zone Setting Status ENABLED CV DEVICE CHECK Zone ID 6 CV DEVICE CHECK Date of Service 2024-10-03 CV DEVICE CHECK Anatomical Region Laterality Modality Device Interroga tion 08/07/2024 9:16 AM EDT Impressions 08/08/2024 3:58 PM EDT Sinus Tachycardia Triage * Stored EGMs are consistent with or suggestive of Sinus Tachycardia *7 episodes Most recent 07/27/24 Longest 2min 37 seconds @136 bpm Narrative Procedure Note Kati Wood, [employer]UB ATTENDANT - 02/27/2025 IMPRESSION: Sinus Tachycardia Triage * Stored EGMs are consistent with or suggestive of Sinus Tachycardia *7 episodes Most recent 07/27/24 Longest 2min 37 seconds @136 bpm Kati Wood NP CV IMPLANTABLE CARDIAC DEVIC E PROCEDURES Final Result * (ABNORMAL) Comprehensive Metabolic Panel (CMP) (2024 12:20 PM EST) Sodium 138 133 - 145 mmol/L LAB CHEMISTRY METHOD 2024 12:54 PM [facility] Potassium 3.8 3.5 - 5.5 mmol/L LAB CHEMISTRY METHOD 2024 12:54 PM [facility] Chloride 101 96 - 110 mmol/L LAB CHEMISTRY METHOD 2024 12:54 PM [facility] CO2 29 21 - 32 mmol/L LAB CHEMISTRY METHOD 2024 12:54 PM [facility] Anion Gap 8 3 - 11 LAB CHEMISTRY METHOD 2024 12:54 PM [facility] Glucose 131(H) 70 - 100 mg/dL LAB CHEMISTRY METHOD 2024 12:54 PM [facility] BUN 24 5 - 25 mg/dL LAB CHEMISTRY METHOD 2024 12:54 PM [facility] Creatinine 1.98(H) 0.50 - 1.10 mg/dL LAB CHEMISTRY METHOD 2024 12:54 PM [facility] eGFR 26(L) >=60 mL/min/1. 73m2 LAB CHEMISTRY METHOD 2024 12:54 PM [facility] Comment:Calculation based on the??Chronic Kidney Disease Epidemiology Collaboration (CKD-EPI) equation refit??without adjustment for race. BUN/Creatinine Ratio 12.1 LAB CHEMISTRY METHOD 2024 12:54 PM [facility] Calcium 9.8 8.5 - 10.5 mg/dL LAB CHEMISTRY METHOD 2024 12:54 PM [facility] AST (SGOT) 14 10 - 42 unit/L LAB CHEMISTRY METHOD 2024 12:54 PM [facility] ALT (SGPT) 10 10 - 60 unit/L LAB CHEMISTRY METHOD 2024 12:54 PM [facility] Alkaline Phosphatase 143(H) 42 - 121 unit/L LAB CHEMISTRY METHOD 2024 12:54 PM [facility] Total Protein 6.5 6.0 - 8.0 g/dL LAB CHEMISTRY METHOD 2024 12:54 PM [facility] Albumin 3.5 3.2 - 5.0 g/dL LAB CHEMISTRY METHOD 2024 12:54 PM [facility] Total Bilirubin 0.4 0.0 - 1.4 mg/dL LAB CHEMISTRY METHOD 2024 12:54 PM [facility] Blood Venous blood specimen / Unknown Venipuncture / Unknown 2024 12:20 PM EST 2024 12:28 PM EST [place] [facility] LAB BLOOD ORDERABLES Mendy l Result [facility] [address] [place] [address], * Lipid panel (09/13/2023) LDL/HDL Ratio 0 Comment:no interpretation Triglycerides 0 mg/dL Comment:no interpretation Cholesterol 0 mg/dL Comment:no interpretation HDL 0 mg/dL Comment:no interpretation LDL Cholesterol 0 mg/dL Comment:no interpretation Blood Venous blood specimen / Unknown Historical Provider LAB BLOOD ORDERABLES Mendy l Result from Last 3 Months or Most Recently Relevant to Health Maintenance Insurance MEDICARE [place]ICAID - [place] Advance Directives Documents on File Type Date Recorded Patient Detacker Expl anation Health Care Decision (hx) 01/31/2023 AD SOTELO DIRECTIVE Health Care Decision (hx) 01/31/2023 AD SOTELO DIRECTIVE Health Care Decision (hx) 01/31/2023 AD SOTELO DIRECTIVE Health Care Decision (hx) 01/31/2023 AD ASHLEIGH DIRECTIVE Care Teams Operations Lieutenant Relationship Specialty Start Date End Date Keyla Burgess MD [address] [place] [id number] PCP - General 09/04/12
--- OUTSIDE RECORDS SUMMARY | 2025-03-11 14:15 | XMS_ITS | Encounter Summary ---
Author Organization [employer] Address [address] [place] [address] Care Team Providers Care Real Estate Assistant Name Role Phone Keyla Burgess MD Primary Care Provider [phone] Reason for Visit * Reason Onset Date Comments Med Refill 02/04/2025 Encounter Details Date Type Department Care Team ([facility] st Contact Info) Description 02/04/2025 Telephone [facility] MEDICINE [address] [place] [address] Keyla Burgess MD [address] [place], [place] [id number] Med Refill Social History Tobacco Use Types [...] the past 12 months, has t he [email or web address], gas, oil or water [employer] threatened to shut off services in your home? No 03/14/2024 Comments No Sex and Gender Information Value Date Recorded Sex Assigned at Female 09/25/2022 10:25 AM EDT Legal Sex Female 10:25 AM EDT Gender Identity Female 09/25/2022 10:25 AM EDT Sexual Orientation Straight 09/25/2022 10 :25 AM EDT documented as of this encounter Miscellaneous Notes * Telephone Encounter - Jessenia Ernandez - 02/04/2025 4:15 PM EDT TC from pt requesting medication refill. Medications needing refill : oxyCODONE (Roxicodone) 20 MG immediate release tablet [facility] documented in this encounter Plan of Treatment Upcoming Encounters Date Type Department Care Team (Late st Contact Info) Description 04/15/2025 10:00 AM EDT Office Visit [facility] [address] [place] [address] Keyla Burgess MD [address] [place] [address] documented as of this encounter Visit Diagnoses Not on filedocumented in this encounter Care Teams Real Estate Assistant Relationship Specialty Start Date End Date Keyla Burgess MD [address] [place] [id number] PCP - General Family Medicine 11/10/15 SethKishore 09/28/24 documented as of this encounter
--- OUTSIDE RECORDS SUMMARY | 2025-03-11 14:15 | XMS_ITS | Encounter Summary ---
Author Organization [employer] Address [address] [place] [address] 7t [place] [address] Care Team Providers Care Delivery Supervisor Name Role Phone Keyla Burgess MD Primary Care Provider [phone] Reason for Visit * Reason Comments Med Refill Encounter Details Date Type Department Care Team (Late st Contact Info) Description 01/03/2024 Refill [facility] MED & PEDS [address] [place] [address] Keyla Burgess MD 505 [place] [address] Lumbar radiculopathy; Other senior care (current) drug therapy Social History Tobacco Use [...] Description 04/15/2025 10:00 AM EDT Office Visit [facility] MED & PEDS [address] [place] [address] Keyla Burgess MD 505 [place] [address] documented as of this encounter Visit Diagnoses Diagnosis Lumbar radiculopathy Thoracic or lumbosacral neuritis or radiculitis, unspecified Other senior care (current) drug therapy documented in this encounter Care Teams Delivery Supervisor Relationship Specialty Start Date End Date Keyla Burgess MD [address] [place] [address] PCP - General Family Medicine 11/10/15 Harry 09/28/24 documented as of this encounter
--- OUTSIDE RECORDS SUMMARY | 2025-03-11 14:15 | XMS_ITS | Encounter Summary ---
Author Organization [employer] Address [address] 7t [place] [address] Care Team Providers Care Nitrate Operator Name Role Phone Keyla Burgess MD Primary Care Provider [phone] Encounter Details Date Type Department Care Team (Latest Contact Info) Description 03/11/2025 Travel Social History Tobacco Use Types Packs/Day [...] 10:00 AM EDT Office Visit [facility] MED & PEDS 505 [place] [address] Keyla Burgess MD 505 [place] [address] documented as of this encounter Visit Diagnoses Not on filedocumented in this encounter Care Teams Nitrate Operator Relationship Specialty Start Date End Date Keyla Burgess MD [address] [place] [address] PCP - General Family Medicine 11/10/15 Harry 09/28/24 documented as of this encounter
--- OUTSIDE RECORDS SUMMARY | 2025-03-11 14:15 | XMS_ITS | Encounter Summary ---
Author Organization [employer] Address [address] [facility] 7t [place] [address] Care Team Providers Care Ironworker Name Role Phone Keyla Burgess MD Primary Care Provider [phone] Encounter Details Date Type Department Care Team ([facility] Contact Info) Description 01/30/2023 Abstract [facility] MEDICINE [address] [place] [address] Keyla Burgess MD 505 [place] [address] Social History Tobacco Use Types Packs/Day Years [...] Upcoming Encounters Date Type Department Care Team ([facility] Contact Info) Description 04/15/2025 10:00 AM EDT Office Visit [facility] MED & PEDS 505 [place] [address] Keyla Burgess MD 505 [place], [place] [phone] documented as of this encounter Visit Diagnoses Not on filedocumented in this encounter Care Teams Ironworker Relationship Specialty Start Date End Date Keyla Burgess MD [address] [place] [address] PCP - General Family Medicine 11/10/15 Harry 09/28/24 documented as of this encounter
--- OUTSIDE RECORDS SUMMARY | 2025-03-11 14:15 | XMS_ITS | Encounter Summary ---
Author Organization [employer] Address [address] 7t [place] [address] Care Team Providers Care Cash Application Representative Name Role Phone Keyla Burgess MD Primary Care Provider [phone] Encounter Details Date Type Department Care Team (Late st Contact Info) Description 03/11/2025 11:30 AM EDT Office Visit [facility] CHC MED & PEDS [address] [place], [place] [phone] Keyla Burgess MD [address] [place], [place] [phone] Cellulitis of toe of right foot (Primary Dx) Social History Tobacco Use Types Packs/Day Years [...] the past 12 months, has t he [employer], [employer] threatened to shut off services in your [...] AM EDT documented as of this encounter Last Filed Vital Signs Vital Sign Reading Time Taken Comments Blood Pressure 122/70 03/11/2025 11:14 AM EDT Pulse 72 03/11/2025 11:14 AM EDT Temperature 37.1 ??C (98.7 ??F) 03/11/2025 1 1:14 AM EDT Respiratory Rate 16 03/11/2025 11:1 4 AM EDT Oxygen Saturation - - Inhaled Oxygen Concentration - - Weight 76.5 kg (168 lb 11.2 oz) 025 11:14 AM EDT Height 149.9 cm (4' 11 ) 03/11/2025 11: 14 AM EDT Body Mass Index 34.07 03/11/2025 11:14 AM EDT documented in this encounter Progress Notes * Keyla Burgess MD - 03/11/2025 11:30 AM EDT Subjective Patient ID: Ame Hernandez is a 74 y.o. female who presents for No chief complaint on file.. Wound Check She was originally treated more than 14 days ago. Previous treatment included oral antibiotics. There has been bloody discharge from the wound. The redness has improved. The swelling has improved. The pain has improved. Review of Systems Constitutional: Negative. Respiratory: Negative. Negative for shortness of breath. Cardiovascular: Negative for chest pain and palpitations. Gastrointestinal: Negative. Genitourinary: Negative. Musculoskeletal: Negative for neck pain. Skin: Positive for wound. Neurological: Negative for headaches. Objective Physical Exam Constitutional: Appearance: Normal appearance. Cardiovascular: Rate and Rhythm: Normal rate and regular rhythm. Pulses: Normal pulses. Heart sounds: Normal heart sounds. Pulmonary: Effort: Pulmonary effort is normal. Skin: Findings: Erythema, lesion and wound present. Neurological: Mental Status: She is alert. Assessment/Plan Diagnoses and all orders for this visit: Cellulitis of toe of right foot Comments: Wound cleaned and dressed with Bacitracin and Silvadene Cont Doxy and wound care at home F/U in 1 mnth Orders: - Basic Metabolic Panel; Future - Hepatic Function Panel; Future - CBC auto differential; Future - C-reactive Protein; Future - Sed Rate by Modified Izzyren; Future Other orders - bacitracin (RA Bacitracin) 500 UNIT/GM ointment; Apply topically 2 times daily. - silver sulfADIAZINE (Silvadene) 1 % cream; Apply topically 2 times daily. documented in this encounter Plan of Treatment Upcoming Encounters Date Type Department Care Team (Late st Contact Info) Description 04/15/2025 10:00 AM EDT Office Visit [facility] MED & PEDS 505 [place] [address] Keyla Burgess MD [address] [place] [address] Scheduled Orders Name Type Priority Associated Diagnoses Orde r Schedule Basic Metabolic Panel Lab Routine Cellulitis of toe of right foot Expected: 03/11/2025 (Approximate), Expires: 03/11/2026 Hepatic Function Panel Lab Routine Cellulitis of toe of right foot Expected: 03/11/2025 (Approximate), Expires: 03/11/2026 CBC auto differential Lab Routine Cellulitis of toe of right foot Expected: 03/11/2025 (Approximate), Expires: 03/11/2026 C-reactive Protein Lab Routine Cellulitis of toe of right foot Expected: 03/11/2025 (Approximate), Expires: 03/11/2026 Sed Rate by Modified Westergren Lab Routine Cellulitis of toe of right foot Expected: 03/11/2025, Expires: 03/11/2026 documented as of this encounter Visit Diagnoses Diagnosis Cellulitis of toe of right foot- Primary documented in this encounter Care Teams Cash Application Representative Relationship Specialty Start Date End Date Keyla Burgess MD [address] [place] [address] PCP - General Family Medicine 11/10/15 Harry 09/28/24 documented as of this encounter
--- OUTSIDE RECORDS SUMMARY | 2025-03-11 14:15 | XMS_ITS | Encounter Summary ---
Author Organization [employer] Address [address] 7t [place] [address] Care Team Providers Care Diamond Wheel Edger Name Role Phone Keyla Burgess MD Primary Care Provider Reason for Visit * Reason Onset Date Comments Call Back Request 02/06/2025 Encounter Details Date Type Department Care Team ([facility] Contact Info) Description 02/06/2025 Telephone [facility] MEDICINE 230 [place] [address] Keyla Burgess MD [address] [place], [place] [phone] Call Back Request Social History Tobacco Use Types Packs/Day Years [...] t he electric, gas, oil or water [employer] threatened to shut off services in your [...] encounter Miscellaneous Notes * Telephone Encounter - Wing Dilshad RN - 02/06/2025 4:08 PM EDT Tc from JOANNE Orellana who reported pt had a three lb weight gain since being last weighted on 02/02.Reyna also reported p's right forearm was edematous and lower extremities bilaterally were +1 onswelling. Diminished lung sound bilaterally with wheezing heard, O2 was 88% but improved to 96% with deep breathing. In addition to fluid pocket under right eye. Reyna has not seen the patient before and was covering for today. Reyna also performed wound care on toe with 4x4 as calcium algage which was suppose to be used was unavailable. Contacted pt who confirmed all of what Reyna stated. Advised going to the ED due to weight gain,edematous extremities, and diminished lung sounds. Pt declined stating it would be a waste of time as she had been to the ED three times recently. Pt denies any blurred vision, stated the swelling has been an ongoing issue for a couple of months, and stated she is taking her medications and is about to take her furosemide. Gave appt with PCP for 02/09 at 11:15 am. Advised pt to go to ED if her swelling gets worse or she has trouble breathing. Pt verbalized understanding and agreement with plan. * Telephone Encounter - Jey Amor - 02/06/2025 3:13 PM EDT Tc from Reyna with [employer] requesting a call back regarding Pt. Contact Reyna at [phone] documented in this encounter Plan of Treatment Upcoming Encounters Date Type Department Care Team (Late st Contact Info) Description 04/15/2025 10:00 AM EDT Office Visit [facility] MED & PEDS 505 [place] [address] Keyla Burgess MD 505 [place] [address] documented as of this encounter Visit Diagnoses Not on filedocumented in this encounter Care Teams Diamond Wheel Edger Relationship Specialty Start Date End Date Keyla Burgess MD [address] [place] [address] PCP - General Family Medicine 11/10/15 Harry 09/28/24 documented as of this encounter
--- OUTSIDE RECORDS SUMMARY | 2025-03-11 14:15 | XMS_ITS | Encounter Summary ---
Author Organization [employer] Address [address] [facility] 7t [place] [address] Care Team Providers Care Urban Planning Professor Name Role Phone Keyla Burgess MD Primary Care Provider Reason for Visit * Reason Onset Date Comments Nurse Triage 06/17/2024 Encounter Details Date Type Department Care Team ([facility] st Contact Info) Description 06/17/2024 Telephone [facility] MEDICINE [address] [place] [address] Keyla Burgess MD [address] [place], [place] [phone] Nurse Triage Social History Tobacco Use Types [...] 10:00 AM EDT Office Visit [facility] MED & PEDS [address] [place] [address] Keyla Burgess MD [address] [place] [address] documented as of this encounter Visit Diagnoses Not on filedocumented in this encounter Care Teams Urban Planning Professor Relationship Specialty Start Date End Date Keyla Burgess MD [address] [place] [address] [place] [address] PCP - General Family Medicine 11/10/15 Harry 09/28/24 documented as of this encounter
--- OUTSIDE RECORDS SUMMARY | 2025-03-11 14:15 | XMS_ITS | Encounter Summary ---
Author Organization [facility] [employer] Address [address] [facility] 7t [place] [address] Care Team Providers Care Boulevard Glassware Replacer Name Role Phone Keyla Burgess MD Primary Care Provider Reason for Visit * Reason Onset Date Comments Verbal Order 11/27/2023 Encounter Details Date Type Department Care Team ([facility] st Contact Info) Description 11/27/2023 Telephone [facility] MEDICINE 230 [place] [address] Keyla Burgess MD 505 [place] [address] Verbal Order Social History Tobacco Use Types [...] EST Tc from Anil the VN at [facility] calling to request a verbal order for [...] 10:00 AM EDT Office Visit [facility] MED & PEDS 505 [place] [address] Keyla Burgess MD 505 [place] [address] documented as of this encounter Visit Diagnoses Not on filedocumented in this encounter Care Teams Boulevard Glassware Replacer Relationship Specialty Start Date End Date Keyla Burgess MD [address] [place] [address] [place] [address] PCP - General Family Medicine 11/10/15 Harry 09/28/24 documented as of this encounter
--- OUTSIDE RECORDS SUMMARY | 2025-03-11 14:15 | XMS_ITS | Clinical Summary ---
Author Organization [facility] Address [address] [place] [address] Phone Care Team Providers Care Racket Stringer Name Role Phone Keyla Burgess MD Primary Care Provider [phone] Allergies Active Allergy Reactions Criticality Noted Date [...] in the evening. 180 tablet 3 4 Active calcitriol (ROCALTROL) 0.25 MCG capsule TAKE [...] (congestive) heart failure 03/31/2021 Hypokalemia 03/31/2021 Immunizations Immunization Administration Dates Next Due Pneumococcal Polysaccharide 09/16/2014, [...] Due Date Last Done Comments Pneumococcal Vaccine: 50+ Years (3 of 3 - PCV) 09/16/2015 09/16/2014, 03/09/2014, 01/19/2014, Additional history exists Influenza Vaccine (Season Ended) 2025 Pneumococcal Vaccine: Peds (0 to 5 Years) and At-Risk Patients (6 to 49 Years) Discontinued 09/16/2014, 03/09/2014, 01/19/2014, Additional history exists Hepatitis B Vaccine Aged Out No longe r eligible based on patient's age to complete this topic Insurance [place] [id number] [place] Care Teams Racket Stringer Relationship Specialty Start Date End Date Keyla Burgess MD [address] [place] [address] PCP - General 12/06/20
--- OUTSIDE RECORDS SUMMARY | 2025-03-11 14:15 | XMS_ITS | Encounter Summary ---
Author Organization [employer] Address [address] [facility] [address] 7t [place] [address] Care Team Providers Care Security Installer Name Role Phone Keyla Burgess MD Primary Care Provider Encounter Details Date Type Department Care Team ([facility] st Contact Info) Description 11/03/2024 Orders Only [facility] CHC MED & PEDS [address] [place] [address] ProviderIvan MD Social History Tobacco Use Types [...] 04/15/2025 10:00 AM EDT Office Visit [facility] CHC MED & PEDS 505 [place] [address] Keyla Burgess MD [address] [place] [address] documented as of this encounter Procedures Procedure [...] EST) Blood Venous blood specimen / Unknown [facility] Provider LAB BLOOD ORDERABLES Mendy l Result documented in this encounter Visit Diagnoses Not on filedocumented in this encounter Care Teams Security Installer Relationship Specialty Start Date End Date Keyla Burgess MD [address] [place] [address] PCP - General Family Medicine 11/10/15 SethKishore 09/28/24 documented as of this encounter
--- OUTSIDE RECORDS SUMMARY | 2025-03-11 14:15 | XMS_ITS | Encounter Summary ---
Author Organization [employer] Address [address] 7t [place] [address] Care Team Providers Care Clay Modeler Name Role Phone Keyal Burgess MD Primary Care Provider [phone] Encounter Details Date Type Department Care Team ([facility] st Contact Info) Description 08/11/2024 Telephone [facility] MED & PEDS 505 [place] [address] Keyla Burgess MD 505 [place] [address] Social History Tobacco Use Types Packs/Day Years [...] 10:00 AM EDT Office Visit [facility] MED & PEDS 505 [place] [address] Keyla Burgess MD 505 [place] [address] documented as of this encounter Visit Diagnoses Not on filedocumented in this encounter Care Teams Clay Modeler Relationship Specialty Start Date End Date Keyla Burgess MD 230 [place] [address] PCP - General Family Medicine 11/10/15 SethPoultney 09/28/24 documented as of this encounter
--- OUTSIDE RECORDS SUMMARY | 2025-03-11 14:15 | XMS_ITS | Encounter Summary ---
Author Organization [employer] Address [address] [place] [address] 7t [place] [address] Care Team Providers Care Coin Collector Name Role Phone Keyla Burgess MD Primary Care Provider [phone] Reason for Visit * Reason Comments Med Refill Encounter Details Date Type Department Care Team ([facility] Contact Info) Description 02/08/2023 Refill [facility] MEDICINE 230 [place], [place] [phone] Keyla Burgess MD [address] [place], [place] [phone] Dorsalgia, unspecified Social History Tobacco Use Types [...] Upcoming Encounters Date Type Department Care Team ([facility] Contact Info) Description 04/15/2025 10:00 AM EDT Office Visit [facility] MED & PEDS 505 [place], [place] [phone] Keyla Burgess MD [address] [place] [address] documented as of this encounter Visit Diagnoses Diagnosis Dorsalgia, unspecified documented in this encounter Care Teams Coin Collector Relationship Specialty Start Date End Date Keyla Burgess MD [address] [place] [address] PCP - General Family Medicine 11/10/15 [facility] 09/28/24 documented as of this encounter
--- OUTSIDE RECORDS SUMMARY | 2025-03-11 14:15 | XMS_ITS | Encounter Summary ---
Author Organization [employer] Address [address] [facility] [address] 7t [place] [address] Care Team Providers Care Cleaner And Dyer Name Role Phone Keyla Burgess MD Primary Care Provider [phone] Reason for Visit * Reason Onset Date Comments ER Follow-up 11/03/2024 Encounter Details Date Type Department Care Team ([facility] st Contact Info) Description 11/03/2024 Telephone [facility] MEDICINE 230 [place] [address] Keyla Burgess MD [address] [place], [place] [phone] ER Follow-up Social History Tobacco Use Types [...] the past 12 months, has t he [employer], gas, oil or water company threatened to [...] ED visit on : Date: 10/31 Hospital: [facility] Seen for: Swelling Arms, Back pain, and Numb Hands cause of Hand swelling. Symptomatic No *if yes message should go to Triage Contact pt at [phone] Patient advised will forward to team nurse for follow up documented in this encounter Plan of Treatment Upcoming Encounters Date Type Department Care Team (Late st Contact Info) Description 04/15/2025 10:00 AM EDT Office Visit [facility] MED & PEDS [address] [place] [address] Keyla Burgess MD 505 [place] [address] documented as of this encounter Visit Diagnoses Not on filedocumented in this encounter Care Teams Cleaner And Dyer Relationship Specialty Start Date End Date Keyla Burgess MD [address] [place] [address] PCP - General Family Medicine 11/10/15 Harry 09/28/24 documented as of this encounter
--- OUTSIDE RECORDS SUMMARY | 2025-03-11 14:15 | XMS_ITS | Encounter Summary ---
Author Organization [employer] Address [address] 7t [place] [address] Care Team Providers Care Home Care Companion Name Role Phone Keyla Burgess MD Primary Care Provider [phone] Encounter Details Date Type Department Care Team (Latest Contact Info) Description 03/09/2025 Travel Social History Tobacco Use Types Packs/Day [...] Description 04/15/2025 10:00 AM EDT Office Visit [facility] MED & PEDS 505 [place] [address] Keyla Burgess MD 505 [place] [address] documented as of this encounter Visit Diagnoses Not on filedocumented in this encounter Care Teams Home Care Companion Relationship Specialty Start Date End Date Keyla Burgess MD [address] [place] [address] PCP - General Family Medicine 11/10/15 Harry 09/28/24 documented as of this encounter
--- OUTSIDE RECORDS SUMMARY | 2025-03-11 14:15 | XMS_ITS | Encounter Summary ---
Author Organization [employer] Address [address] 7[address] [place] [address] Care Team Providers Care Sew On Operator Name Role Phone Keyla Burgess MD Primary Care Provider [phone] Encounter Details Date Type Department Care Team ([facility] st Contact Info) Description 01/08/2025 Telephone [facility] CHC MED & PEDS 505 [place] [address] Keyla Burgess MD 505 [place] [address] Social History Tobacco Use Types Packs/Day Years [...] encounter Miscellaneous Notes * Telephone Encounter - Patience Ramíreznte - 01/08/2025 1:13 PM EST Tc from pt requesting to cancel appointment with pharmacy. Contact pt at [phone] documented in this encounter Plan of Treatment Upcoming Encounters Date Type Department Care Team (Late st Contact Info) Description 04/15/2025 10:00 AM EDT Office Visit [facility] MED & PEDS 505 [place] [address] Keyla Burgess MD 505 [place] [address] documented as of this encounter Visit Diagnoses Not on filedocumented in this encounter Care Teams Sew On Operator Relationship Specialty Start Date End Date Keyla Burgess MD [address] [place] [address] PCP - General Family Medicine 11/10/15 SethKishore 09/28/24 documented as of this encounter
--- OUTSIDE RECORDS SUMMARY | 2025-03-11 14:15 | XMS_ITS | Encounter Summary ---
Author Organization [employer] Address [address] [facility] 7t [place] [address] Care Team Providers Care Grocery Bagger Name Role Phone Keyla Burgess MD Primary Care Provider [phone] Reason for Visit * Reason Onset Date Comments Chart Prep 03/10/2025 Encounter Details Date Type Department Care Team ([facility] Contact Info) Description 03/10/2025 Telephone [facility] CHC MED & PEDS 505 [place] [address] Keyla Burgess MD 505 [place] [address] Chart Prep Social History Tobacco Use Types Packs/Day Years [...] the past 12 months, has t he [employer], [employer], oil or water company threatened to shut [...] Telephone Encounter - Eva Diop MA - 03/10/2025 10:04 AM EDT Chart Prep Labs: done Images: done Referrals: complete Vaccines due: yes Screenings: foot exam Overdue care gaps: SDOH, PHQ-9, and Disability screen documented in this encounter Plan of Treatment Upcoming Encounters Date Type Department Care Team (Late st Contact Info) Description 04/15/2025 10:00 AM EDT Office Visit [facility] CHC MED & PEDS [address] [place] [address] Keyla Burgess MD [address] [place] [address] documented as of this encounter Visit Diagnoses Not on filedocumented in this encounter Care Teams Grocery Bagger Relationship Specialty Start Date End Date Keyla Burgess MD [address] [place] [address] PCP - General Family Medicine 11/10/15 SethKishore 09/28/24 documented as of this encounter
--- OUTSIDE RECORDS SUMMARY | 2025-03-11 14:15 | XMS_ITS | Encounter Summary ---
Author Organization [employer] Address 75 [facility] 7t [place] [address] Care Team Providers Care Correctional Supervisor Lieutenant Name Role Phone Keyla Burgess MD Primary Care Provider [phone] Reason for Visit * Reason Onset Date Comments VNA Services 11/15/2023 Encounter Details Date Type Department Care Team ([facility] st Contact Info) Description 11/15/2023 Telephone [facility] [address] [place] [address] Keyla Burgess MD [address] [place], [place] [phone] VNA Services Social History Tobacco Use Types [...] as FYI. * Telephone Encounter - Nasima Diamondoyo - 11/15/2023 2:18 PM EST Tc from pt requesting status on at home VNA services. documented in this encounter Plan of Treatment Upcoming Encounters Date Type Department Care Team (Late st Contact Info) Description 04/15/2025 10:00 AM EDT Office Visit [facility] MED & PEDS 505 [place] [address] Keyla Burgess MD 505 [place] [address] documented as of this encounter Visit Diagnoses Not on filedocumented in this encounter Care Teams Correctional Supervisor Lieutenant Relationship Specialty Start Date End Date Keyla Burgess MD [address] [place] [address] [place] [address] PCP - General Family Medicine 11/10/15 Harry 09/28/24 documented as of this encounter
--- OUTSIDE RECORDS SUMMARY | 2025-03-11 14:15 | XMS_ITS | Encounter Summary ---
Author Organization [employer] Address [address] [place] [address] 7t [place] [address] Care Team Providers Care Manual Plate Filler Name Role Phone Keyla Burgess MD Primary Care Provider [phone] Encounter Details Date Type Department Care Team ([facility] [address] Contact Info) Description 01/04/2023 Abstract [facility] MEDICINE 230 [place] [address] Keyla Burgess MD [address] [place] [address] Social History Tobacco Use Types Packs/Day Years [...] Description 04/15/2025 10:00 AM EDT Office Visit [facility] MED & PEDS 505 [place] [address] Keyla Burgess MD [address] [place] [address] documented as of this encounter Visit Diagnoses Not on filedocumented in this encounter Care Teams Manual Plate Filler Relationship Specialty Start Date End Date Keyla Burgess MD [address] [place] [address] PCP - General Family Medicine 11/10/15 Harry 09/28/24 documented as of this encounter
--- OUTSIDE RECORDS SUMMARY | 2025-03-11 14:15 | XMS_ITS | Encounter Summary ---
Author Organization [facility] Address [address] [place] [address] Phone Care Team Providers Care Blue Split Trimmer Name Role Phone Keyla Burgess MD Primary Care Provider [phone] Encounter Details Date Type Department Care Team (Late st Contact Info) Description 11/29/2021 Telephone [facility] [address] [place] [address] Ashly Caruso Social History Tobacco [...] on filedocumented in this encounter Care Teams Blue Split Trimmer Relationship Specialty Start Date End Date Keyla Burgess MD [address] [place] [address] PCP - General 12/06/20 documented as of this encounter
--- OUTSIDE RECORDS SUMMARY | 2025-03-11 14:15 | XMS_ITS | Encounter Summary ---
Author Organization [employer] Address [address] [facility] [address] 7t [place] [address] Care Team Providers Care Inside Sales Name Role Phone Keyla Burgess MD Primary Care Provider [phone] Encounter Details Date Type Department Care Team ([facility] Contact Info) Description 03/09/2025 Telephone C [facility]S 505 [place] [address] Lin Cline, RN 505 [place] [address] Social History Tobacco Use Types Packs/Day Years Used Date Smoking Tobacco: Never Passive Smoke Exposure: Never Smokeless Tobacco: Never Alcohol Use Standard Drinks/Week Comments Never 0 (1 standard drink = 0.6 oz pur e alcohol) Housing Stability Answer Date Recorded What is your housing situation today? I have megan sfiuentes 03/14/[address] you li [...] encounter Miscellaneous Notes * Telephone Encounter - Lin Cline RN - 03/09/2025 2:17 PM EDT Tc to pt x3 for RESEARCH & ANALYTICS MANAGER Televisit. No answer. Lvm for pt to c/b and r/s. documented in this encounter Plan of Treatment Upcoming Encounters Date Type Department Care Team (Late st Contact Info) Description 04/15/2025 10:00 AM EDT Office Visit [facility] MED & PEDS 505 [place] [address] Keyla Burgess MD 505 [place] [address] documented as of this encounter Visit Diagnoses Not on filedocumented in this encounter Care Teams Inside Sales Relationship Specialty Start Date End Date Keyla Burgess MD 230 [place] [address] PCP - General Family Medicine 11/10/15 [facility] 09/28/24 documented as of this encounter
--- OUTSIDE RECORDS SUMMARY | 2025-03-11 14:15 | XMS_ITS | Encounter Summary ---
Author Organization [employer] Address [address] [facility] [address] [place] [address] Care Team Providers Care Shuttle Hand Name Role Phone Keyla Burgess MD Primary Care Provider [phone] Encounter Details Date Type Department Care Team ([facility] st Contact Info) Description 01/05/2025 Orders Only [facility] CHC MED & PEDS [address] [place] [address] ProviderIvan MD Social History Tobacco Use Types [...] Description 04/15/2025 10:00 AM EDT Office Visit [facility] MED & PEDS 505 [place] [address] Keyla Burgess MD [address] [place] [address] documented as of this encounter Procedures Procedure Name Priority Date/Time Associated Diagnosis Comments PTH, INTACT Routine 12/12/2024 9:13 AM EST CULTURE, URINE, ROUTINE Routine 12/12/2024 9:13 AM EST BASIC METABOLIC PANEL Routine 12/12/2024 9:13 AM EST documented in this encounter Results * Basic Metabolic Panel (12/12/2024 9:13 AM EST) Blood Venous blood specimen / Unknown [facility] Provider LAB BLOOD ORDERABLES Mendy l Result * Culture, Urine, Routine (12/12/2024 9:13 AM EST) Urine [facility] Provider LAB MICROBIOLOGY - GENERA L ORDERABLES Final Result * PTH, INTACT (12/12/2024 9:13 AM EST) [facility] Provider LAB BLOOD ORDERABLES Mendy l Result documented in this encounter Visit Diagnoses Not on filedocumented in this encounter Care Teams Shuttle Hand Relationship Specialty Start Date End Date Keyla Burgess MD 230 [place] [address] PCP - General Family Medicine [facility]10[facility] documented as of this encounter
--- OUTSIDE RECORDS SUMMARY | 2025-03-11 14:15 | XMS_ITS | Encounter Summary ---
Author Organization [employer] Address 75 [facility] 7t [place] [address] Care Team Providers Care Sales Support Associate Name Role Phone Keyla Burgess MD Primary Care Provider [phone] Encounter Details Date Type Department Care Team (Late st Contact Info) Description 08/15/2024 Orders Only [facility] [address] [place], [place] [phone] ProviderIvan MD Social History Tobacco Use Types [...] Description 04/15/2025 10:00 AM EDT Office Visit [facility] CHC MED & PEDS 505 [place] [address] Keyla Burgess MD 505 [place] [address] documented as of this encounter Procedures Procedure [...] on filedocumented in this encounter Care Teams Sales Support Associate Relationship Specialty Start Date End Date Keyla Brugess MD [address] [place] [id number] PCP - General Family Medicine 11/10/15 Harry 09/28/24 documented as of this encounter
--- OUTSIDE RECORDS SUMMARY | 2025-03-11 14:15 | XMS_ITS | Encounter Summary ---
Author Organization [employer] Address 75 [facility] 7t [place] [address] Care Team Providers Care Network Management Specialist Name Role Phone Keyla Burgess MD Primary Care Provider [phone] Reason for Visit * Reason Onset Date Comments Nurse Triage 10/09/2024 Encounter Details Date Type Department Care Team ([facility] st Contact Info) Description 10/09/2024 Telephone [facility] MEDICINE 230 [place] [address] Keyla Burgess MD [address] [place] [address] Nurse Triage Social History Tobacco Use Types [...] reports as related to visit on 10/01/24 [facility] for right arm Xray and Ultrasound reports. Any notes appreciated. * Telephone Encounter - Jessica Alaniz LPN - 10/09/2024 2:14 PM EST Triage call returned to patient. Is at home and [facility] Patient with swelling from elbow to fingers when PT arrived. Patient reported hand was cold thismorning and had some tingling of 4th and 5th finger, Right arm Currently elevated and in approx 40 minutes swelling has significantly improved per PT and Patient. Patient did have imaging completed at [facility] on 10/01/24 and was told no blood clot ( records requested) Patient continues on Eliquis and is on Torsemide and is due to see Grating Machine Operator next Sunday. Is followed by VNA due [...] You become worse * Telephone Encounter - Manjeetalpesh Awais - 10/09/2024 1:58 PM EST Symptom: [...] 04/15/2025 10:00 AM EDT Office Visit [facility] MED & PEDS [address] [place] [address] Keyla Burgess MD [address] [place] [address] documented as of this encounter Visit Diagnoses Not on filedocumented in this encounter Care Teams Network Management Specialist Relationship Specialty Start Date End Date Keyla Burgess MD [address] [place] [address] [place] [address] PCP - General Family Medicine 11/10/15 [facility] 09/28/24 documented as of this encounter
[2025-03-11 14:51] LABS: Basophils Percent Auto 0.3 % (0-2); Eosinophils Percent Auto 0.3 % (0-4); Hematocrit 30.5 % (37.0-47.0); Imm Gran Abs Auto 0.06 X10*3/uL (0.00-0.03); Imm Gran Pct Auto 0.9 % (0.0-0.4); Lymphocytes Percent Auto 13.9 % (20-40); MANUAL DIFF FLAG SCAN; Mean Corpuscular HGB Conc 29.5 g/dl (31.0-35.0); Mean Corpuscular Hemoglobin 23.1 pg (27.0-33.0); Mean Corpuscular Volume 78.2 fL (80.0-98.0); Mean Platelet Volume 10.2 fL (9.4-12.3); Monocytes Absolute Auto 1.8 X10*3/uL (0.1-1.2); Monocytes Percent Auto 25.4 % (2-11); Neutrophils Absolute Auto 4.1 x10*3/uL (2.0-8.3); Neutrophils Percent Auto 59.2 % (45-73); Platelet Count 288 X10*3/uL (160-400); Red Cell Distribution Width 17.8 % (11.0-16.0); SCAN SMEAR FLAG 1
[2025-03-11 15:18] LABS: Alanine Aminotransferase < 6 U/L (0-31); Albumin Level 4.2 g/dL (3.5-5.0); Anion Gap 17 (12-20); Aspartate Amino Transferase 19 U/L (5-31); Bilirubin Direct 0.2 mg/dL (0.0-0.5); Bilirubin Total 0.3 mg/dL (0.0-1.0); Blood Urea Nitrogen 43 mg/dL (9-16); C Reactive Protein 3.51 mg/dL (< or = 0.50); Carbon Dioxide 22 mmol/L (22-29); Chloride 97 mmol/L (96-108); Estimated Glomerular Filt Rate 27; Glucose Random 106 mg/dL (60-115); Potassium 4.2 mmol/L (3.3-5.1); Sodium 132 mmol/L (135-145); Total Protein 7.2 g/dL (6.5-8.0)
[2025-03-11 15:40] LABS: Parathyroid Hormone Intact 262.5 pg/mL (8.7-77.1)
[2025-03-11 15:48] LABS: Alkaline Phosphatase 161 U/L (39-117)
[2025-03-11 16:05] LABS: SLIDE REVIEW VERIFIED
[2025-03-11 16:28] LABS: Erythrocyte Sedimentation Rate 40 MM/HR (0-20)
== END 2025-03-11 11:45 | disposition home or self-care (01) ==
LOC: HO.CHCLDS 11:44
PROVIDERS: PCP Student in an Organized Health Care Education/Training Program; Referring Provider Internal Medicine Hypertension Specialist; Visit Provider Student in an Organized Health Care Education/Training Program
DX: L03.031 Cellulitis of right toe (principal); I10 Essential (primary) hypertension; N18.4 Chronic kidney disease, stage 4 (severe)
CPT/HCPCS: 36415; 80048; 80076; 83970; 85025; 85027; 85652; 86140

== ENCOUNTER 2025-03-27 10:35 | Outpatient (REF) | payer MEDICARE, MEDICAID, SELFPAY ==
--- OUTSIDE RECORDS SUMMARY | 2025-03-27 11:53 | XMS_ITS | Encounter Summary ---
Author Organization [employer] Address 75 [facility] 7t [place] [address] Care Team Providers Care Health And Safety Technician Name Role Phone Keyla Burgess MD Primary Care Provider [phone] Reason for Visit * Reason Onset Date Comments Medication Question 11/11/2024 FYI 11/11/2024 Encounter Details Date Type Department Care Team ([facility] st Contact Info) Description 11/11/2024 Telephone [facility] MEDICINE [address] [place] [address] Keyla Burgess MD [address] [place], [place] [phone] Medication Question; Social History Tobacco Use Types [...] Nauseas. IF any questions contact pt at [phone] documented in this encounter Plan of Treatment Upcoming Encounters Date Type Department Care Team (Late st Contact Info) Description 04/13/2025 1:00 PM EDT Telemedicine [facility] MED & PEDS 505 [place] [address] Lin Cline, CECILIO 505 [place] [address] 04/15/2025 10:00 AM EDT Office Visit [facility] MED & PEDS 505 [place] [address] Keyla Burgess MD 505 [place] [address] documented as of this encounter Visit Diagnoses Not on filedocumented in this encounter Care Teams Health And Safety Technician Relationship Specialty Start Date End Date Keyla Burgess MD [address] [place] [address] PCP - General Family Medicine 11/10/15 Harry 09/28/24 documented as of this encounter
--- OUTSIDE RECORDS SUMMARY | 2025-03-27 11:53 | XMS_ITS | Encounter Summary ---
Author Organization [employer] Address [address] [place] [address] 7t [place] [address] Care Team Providers Care Poolroom/Poolhall Manager Name Role Phone Keyla Burgess MD Primary Care Provider [phone] Reason for Visit * Reason Onset Date Comments Nurse Triage 10/08/2023 Encounter Details Date Type Department Care Team ([facility] st Contact Info) Description 10/08/2023 Telephone C [facility]S [address] [place] [address] Keyla Burgess MD 505 [place] [address] Nurse Triage Social History Tobacco Use Types [...] EST Triage call Pt reports getting up ancillary specialist for the bathroom 10/06/23 and hitting left [...] this outcome Bleeding Please contact pt at [phone] documented in this encounter Plan of Treatment Upcoming Encounters Date Type Department Care Team (Late st Contact Info) Description 04/13/2025 1:00 PM EDT Telemedicine [facility] MED & PEDS 505 [place] [address] Lin Cline, RN 505 [place] [address] 04/15/2025 10:00 AM EDT Office Visit [facility] MED & PEDS [address] [place] [address] Keyla Burgess MD [address] [place] [address] documented as of this encounter Visit Diagnoses Not on filedocumented in this encounter Care Teams Poolroom/Poolhall Manager Relationship Specialty Start Date End Date Keyla Burgess MD [address] [place] [address] PCP - General Family Medicine 11/10/15 [facility] 09/28/24 documented as of this encounter
--- OUTSIDE RECORDS SUMMARY | 2025-03-27 11:53 | XMS_ITS | Encounter Summary ---
Author Organization [facility] Address [address] [place] [address] Phone Care Team Providers Care Stock Control Supervisor Name Role Phone Keyla Burgess MD Primary Care Provider [phone] Encounter Details Date Type Department Care Team (Late st Contact Info) Description 11/29/2021 Telephone [facility] [address] [place] [address] Ashly Caruso Social History Tobacco [...] on filedocumented in this encounter Care Teams Stock Control Supervisor Relationship Specialty Start Date End Date Keyla Burgess MD [address] [place] [address] PCP - General 12/06/20 documented as of this encounter
--- OUTSIDE RECORDS SUMMARY | 2025-03-27 11:53 | XMS_ITS | Encounter Summary ---
Author Organization [employer] Address [address] [place] [address] 7t [place] [address] Care Team Providers Care Collision Worker Name Role Phone Keyla Burgess MD Primary Care Provider Reason for Visit * Reason Onset Date Comments Med Refill 05/22/2023 Encounter Details Date Type Department Care Team (Late st Contact Info) Description 05/22/2023 Telephone [facility] MED & PEDS 505 [place] [address] Keyla Burgess MD [address] [place] [address] Med Refill Social History Tobacco Use Types [...] Info) Description 04/13/2025 1:00 PM EDT Telemedicine [facility] MED & PEDS 505 [place] [address] Lin Cline, CECILIO 505 [place] [address] 04/15/2025 10:00 AM EDT Office Visit [facility] MED & PEDS 505 [place] [address] Keyla Burgess MD [address] [place] [address] documented as of this encounter Visit Diagnoses Not on filedocumented in this encounter Care Teams Collision Worker Relationship Specialty Start Date End Date Keyla Burgess MD [address] [place] [address] PCP - General Family Medicine 11/10/15 Harry 09/28/24 documented as of this encounter
--- OUTSIDE RECORDS SUMMARY | 2025-03-27 11:53 | XMS_ITS | Encounter Summary ---
Author Organization [employer] Address [address] [place] [address] [address]t [place] [address] Care Team Providers Care Food Safety Auditor Name Role Phone Keyla Burgess MD Primary Care Provider [phone] Reason for Visit * Reason Comments Med Refill Encounter Details Date Type Department Care Team ([facility] Contact Info) Description 10/11/2023 Refill [facility] MED & PEDS [address] [place] [address] Ana Mei MD [address] [place] [address] Gastroesophageal reflux disease without esophagitis Social History [...] Upcoming Encounters Date Type Department Care Team ([facility] Contact Info) Description 04/13/2025 1:00 PM EDT Telemedicine [facility] MED & PEDS [address] [place] [address] Lin Cline RN [address] [place] [address] 04/15/2025 10:00 AM EDT Office Visit [facility] MED & PEDS [address] [place] [address] Keyla Burgess MD [address] [place] [address] documented as of this encounter Visit Diagnoses Diagnosis Gastroesophageal reflux disease without esophagitis Esophageal reflux documented in this encounter Care Teams Food Safety Auditor Relationship Specialty Start Date End Date Keyla Burgess MD [address] [place] [address] PCP - General Family Medicine [facility]/10/15 [facility] documented as of this encounter
--- OUTSIDE RECORDS SUMMARY | 2025-03-27 11:53 | XMS_ITS | Clinical Summary ---
Author Organization [facility] Address [address] [place] [address] Phone Care Team Providers Care Head Loader Name Role Phone Keyla Burgess MD Primary Care Provider [phone] Allergies Active Allergy Reactions Criticality Noted Date [...] ns:Chronic obstructive pulmonary disease, unspecified COPD type ([facility] V24, [facility] V28),Bronchiecta sis without acute exacerbation ([facility] V24, [facility] V28) Inhale 2 puffs by mouth 2 (two) times a day. Rinse mouth with water after use to reduce aftertaste and incidence of candidiasis. Do not swallow. 3 each 3 12/09/19 25 026 Active umeclidinium (Incruse Ellipta) 62.5 mcg/actuation inhalationIndica tions:Chronic obstructive pulmonary disease, unspecified COPD type ([facility] V24, [facility] V28),Bronchiecta sis without acute exacerbation ([facility] V24, [facility] V28) Inhale 1 puff by mouth 1 (one) time each day. 3 each 3 12/09/19 25 026 Active albuterol HFA (PROAIR HFA ; PROVENTIL HFA ; VENTOLIN HFA) 90 mcg/actuation inhalerIndicatio ns:Chronic obstructive pulmonary disease, unspecified COPD type ([facility] V24, [facility] V28) Inhale 2 puffs by mouth every [...] do think she needs to see a certified medical assistant if she is having hypoxia. She may [...] follow-up in device clinic. Deep venous thrombosis ([facility] V24, [facility] V28 ) 09/17/2021 Overview (09/02/2024): Last Assessment [...] with p reserved ejection fraction (CMS/HCC V24, [facility]/HCC V28) 02/15/2021 Overview (09/02/2024): -??Last echocardiogram is [...] Chronic obstructive lung disease (CMS/HCC V24, C MS/HCC V28) 11/10/2015 Overview (09/02/2024): Chronic obstructive lung disease Encounters Date Type Department Care Team Description 03/24/2025 Telephone [facility] Cardiology [facility] [address] [place] [address] Rigo Meyers NP Results 03/05/2025 3:30 PM EDT Ancillary Procedure [facility] [address] [place] [address] Encounter for adjustment or management of cardiac device 03/05/2025 2:40 PM EDT Office Visit [facility] [address] [place] [address] Rigo Meyers NP Heart failure with preserved ejection fraction, unspecified HF chronicity (CMS/HCC V24, CMS/HCC V28) (Primary Dx); Paroxysmal supraventricular tachycardia (CMS/HCC V24); Sick sinus syndrome (CMS/HCC V24, CMS/HCC V28); Hypertension, unspecified type; Hyperlipidemia, unspecified hyperlipidemia type 03/03/2025 Telephone [facility] Cardiology [facility] [address] [place] [address] Gladis Mauricio MD Med Refill (Diltiazem refill ) 02/27/2025 8:25 PM EDT Ancillary Procedure [facility] [address] [place] [address] 01/21/2025 8:50 PM EST Ancillary Procedure [facility] [address] [place] [address] 01/14/2025 Telephone [facility] [address] [place] [address] Alexandro Osborn MD from Last 3 Months Immunizations Name Administration [...] PACEMAKER OTHER SURGICAL HISTORY 02/16/2021 N/A PROCEDURE: SD RPR EPIGASTRIC HERNIA REDUCIBLE SPX; COMMENT: open epigastric ventral hernia repair - Dr. Charlie Marquez HYSTERECTOMY PROCEDURE: HISTORICAL HYSTERECTOMY Medical History Medical History Date Comments Heart disease DX:Heart disease Acute respiratory failure wi th hypoxia (CMS/HCC V24, CMS/HCC V28) DX:Acute respirator y failure with hypoxia (HCC) COPD exacerbation (CMS/HCC V 24, CMS/HCC V28) DX:COPD exacerbation (HCC) SSS (sick sinus syndrome) (C MS/HCC V24, CMS/HCC V28) DX:SSS (sick sinus syndrome) (HCC) CKD (chronic kidney disease) , stage IV (CMS/HCC V24, CMS/HCC V28) DX:CKD (chronic kidney d isease), stage IV (HCC) History of DVT (deep [...] Description 04/16/2025 2:00 PM EDT Ancillary Procedure [facility] [address] [facility] 154 [place] [address] 06/23/2025 10:45 AM EDT Office Visit Pulmonolgy - [place] [facility] 200 [place] [phone] Hansa Cheek MD 175 [facility] 200 [place] [address] 09/21/2025 1:10 PM EDT Office Visit [facility] Cardiology [facility] [address] [facility] 154 [place] [address] Rigo Meyers NP [address] [place] [address] 09/21/2025 2:00 PM EDT Ancillary Procedure [facility] [address] [facility] 154 [place] [phone] Health Maintenance Due Date Last Done Comments Depression Screening 11/04/2022 Falls Risk Assessment 11/04/2022 Hepatitis C Screening 11/04/2022 Medicare Annual Wellness Visit 11/04/2022 Osteoporosis Screening (Bone Density Screening) 11/04/2022 Social Influencers of Health Screening 11/04/2022 COVID-19 Vaccine (8 - Moderna risk season) 2025 08/23/2024, 07/13/2023, 09/15/2022, Additional history exists Hypertension/CHF/CAD Annual BMP Blood Test 03/11/2026 03/11/2025, 12/12/2024, 2024, Additional history exists DTaP,Tdap,and Td Vaccines (2 [...] this topic Medical Devices Implanted Type Area [employer] Sales Associate Device Identifier Shelf Expiration Date Model / Serial / Lot Medt-Card Advisa Dr Paul [id number] Implanted: (Quantity not on file) Cardiac Pacemaker [employer] - CARDIAC RHYTH-CRDM ADVISA DR PAUL [id number] / [id number] / Procedures Procedure Name Priority Date/Time Associated Diagnosis Comments CARDIAC DEVICE CHECK- IN CLINIC- MURJ Routine 03/05/2025 3:22 PM EDT Encounter for adjustment or management of cardiac device CARDIAC DEVICE CHECK- REMOTE- MURJ Routine 02/27/2025 8:22 PM EDT CARDIAC DEVICE CHECK- REMOTE- MURJ Routine 01/21/2025 8:47 PM EST COMPREHENSIVE METABOLIC PANEL STAT 2024 12:20 PM EST LIPID PANEL Routine 09/13/2023 from Last 3 Months or Most Recently Relevant to Health Maintenance Results * CARDIAC DEVICE CHECK- IN CLINIC- MURJ (03/05/2025 3:22 PM EDT) Date Time Interrogation Session [id number] CV DEVICE CHECK Implantable Pulse Generator [employer] Sales Associate MDT CV DEVICE CHECK Implantable Pulse Generator Type IPG CV DEVICE CHECK Implantable Pulse Generator Model Advisa DR PAUL [id number] CV DEVICE CHECK Implantable Pulse Generator Serial Number [id number] CV DEVICE CHECK Implantable Pulse Generator Implant Date 20150907 CV DEVICE CHECK Battery Voltage 2.930 CV D EVICE CHECK Battery Status Middle of Service CV DEVICE CHECK Pawan Statistic RA Percent Paced 7.00 CV DEVICE CHECK Pawan Statistic RV Percent Paced 0.10 CV DEVICE CHECK Atrial Tachy Statistic AT/AF Preston Percent 0.10 CV DEVICE CHECK Lead Channel Sensing Intrinsic Amplitude 2.600 CV DEVICE CHECK Lead Channel Setting Sensing Sensitivity 0.45 CV DEVICE CHECK Lead Channel Impedance Value 361 CV DEVICE CHECK Lead Channel Pacing Threshold Amplitude 0.630 CV DEVICE CHECK Lead Channel Pacing Threshold Pulse Width 0.4 CV DEVICE CHECK Lead Channel RA Pacing Threshold Date 2025-03-05 CV DEVICE CHECK Lead Channel Setting Pacing Amplitude 1.500 CV DEVICE CHECK Lead Channel Setting Pacing Pulse Width 0.4 CV DEVICE CHECK Lead Channel Sensing Intrinsic Amplitude 11.400 CV DEVICE CHECK Lead Channel Setting Sensing Sensitivity 2.80 CV DEVICE CHECK Lead Channel Impedance Value 475 CV DEVICE CHECK Lead Channel Pacing Threshold Amplitude 1.630 CV DEVICE CHECK Lead Channel Pacing Threshold Pulse Width 0.4 CV DEVICE CHECK Lead Channel RV Pacing Threshold Date 2025-03-05 CV DEVICE CHECK Lead Channel Setting Pacing Amplitude 3.250 CV DEVICE CHECK Lead Channel Setting Pacing Pulse Width 0.4 CV DEVICE CHECK Pawan Setting Mode (NBG Code) AAI<=>DDD CV DEVICE CHECK Pawan Setting Lower Rate Limit 60 CV DEVICE CHECK Pawan Setting AT Mode Switch Rate 140 CV DEVICE CHECK Pawan Setting Maximum Tracking Rate 130 CV DEVICE CHECK Pawan Setting Maximum Sensor Rate 130 CV DEVICE CHECK Zone Setting Type Category AT/AF CV DEVICE CHECK Therapies All Rx Off CV DEVICE CHECK Zone Setting Status Monitor CV DEVICE CHECK Zone ID 2 CV DEVICE CHECK Zone Setting Type Category VT CV DEVICE CHECK Zone Setting Status Monitor CV DEVICE CHECK Zone ID 5 CV DEVICE CHECK Date of Service 2025-03-05 CV DEVICE CHECK Anatomical Region Laterality Modality Device Interroga tion 03/05/2025 Impressions 03/15/2025 3:10 PM EDT Normal In-Office: No Events * Normal Device Function * Alerts or events: No new HVR alerts, 3 AT events recorded, EGMs suggestive of ST vs AT patient is on OAC. * Battery: MOS, 2 years ?(1.5 - 2.5 years) * Sensing, impedance and thresholds reviewed and tested * Presenting Rhythm: -VS 90s * Heart Rate Histograms reviewed * Pacing and Detection Parameters were evaluated Narrative Procedure Note Alexandro Osborn MD - 03/15/2025 IMPRESSION: Normal In-Office: No Events * Normal Device Function * Alerts or events: No new HVR alerts, 3 AT events recorded, EGMssuggestive of ST vs AT patient is on OAC. * Battery: MOS, 2 years (1.5 - 2.5 years) * Sensing, impedance and thresholds reviewed and tested * Presenting Rhythm: -VS 90s * Heart Rate Histograms reviewed * Pacing and Detection Parameters were evaluated us Order Referral Cardiovascular CV IMPLANTABLE CAR DIAC DEVICE PROCEDURES Final Result * Cardiac device check - Remote- MURJ (02/27/2025 8:22 PM EDT) Only the most recent of2 resultswithin the time period is included. Date Time Interrogation Session [id number] CV DEVICE CHECK Type Interrogation Session Remote CV DEVICE CHECK Implantable Pulse Generator [employer] Sales Associate MDT CV DEVICE CHECK Implantable Pulse Generator Type IPG CV DEVICE CHECK Implantable Pulse Generator Model Advisa DR PAUL [id number] CV DEVICE CHECK Implantable Pulse Generator Serial Number [id number] CV DEVICE CHECK Implantable Pulse Generator Implant Date 20150907 CV DEVICE CHECK Battery Remaining Longevity 29.0 CV DEVICE CHECK Battery Voltage 2.940 CV D EVICE CHECK Battery FLEXIBLE NANNY Trigger 2.830 CV DEVICE CHECK Battery Status Middle of Service CV DEVICE CHECK Pawan Statistic RA Percent Paced 13.78 CV DEVICE CHECK Pawan Statistic RV Percent Paced 0.14 CV DEVICE CHECK Atrial Tachy Statistic AT/AF Preston Percent 0.00 CV DEVICE CHECK Lead Channel [...] Delay 180 CV DEVICE CHECK Pawan Setting LNYN Delay 150 CV DEVICE CHECK Zone Setting [...] @136 bpm Narrative Procedure Note Kati Wood, FRANCK - 02/27/2025 IMPRESSION: Sinus Tachycardia Triage * Stored EGMs are consistent with or suggestive of Sinus Tachycardia *7 episodes Most recent 07/27/24 Longest 2min 37 seconds @136 bpm Kati Wood ALUMNI RELATIONS OFFICER CV IMPLANTABLE CARDIAC DEVIC E PROCEDURES Final Result * (ABNORMAL) Comprehensive Metabolic Panel (CMP) (2024 12:20 PM EST) Sodium 138 133 - 145 mmol/L LAB CHEMISTRY METHOD 2024 12:54 PM [facility] Potassium 3.8 3.5 - 5.5 mmol/L LAB CHEMISTRY METHOD 2024 12:54 PM [facility] Chloride 101 96 - 110 mmol/L LAB CHEMISTRY METHOD 2024 12:54 PM [facility] CO2 29 21 - 32 mmol/L LAB CHEMISTRY METHOD 2024 12:54 PM [facility] Anion Gap 8 3 - 11 LAB CHEMISTRY METHOD 2024 12:54 PM [facility] Glucose 131(H) 70 - 100 mg/dL LAB CHEMISTRY METHOD 2024 12:54 PM [facility] BUN 24 5 - 25 mg/dL LAB CHEMISTRY METHOD 2024 12:54 PM [facility] Creatinine 1.98(H) 0.50 - 1.10 mg/dL LAB CHEMISTRY METHOD 2024 12:54 PM [facility] eGFR 26(L) >=60 mL/min/1. 73m2 LAB CHEMISTRY METHOD 2024 12:54 PM [facility] Comment:Calculation based on the??Chronic Kidney Disease Epidemiology Collaboration (CKD-EPI) equation refit??without adjustment for race. BUN/Creatinine Ratio 12.1 LAB CHEMISTRY METHOD 2024 12:54 PM [facility] Calcium 9.8 8.5 - 10.5 mg/dL LAB CHEMISTRY METHOD 2024 12:54 PM [facility] AST (SGOT) 14 10 - 42 unit/L LAB CHEMISTRY METHOD 2024 12:54 PM [facility] ALT (SGPT) 10 10 - 60 unit/L LAB CHEMISTRY METHOD 2024 12:54 PM [facility] Alkaline Phosphatase 143(H) 42 - 121 unit/L LAB CHEMISTRY METHOD 2024 12:[address] [facility] Total Protein 6.5 6.0 - 8.0 g/dL LAB CHEMISTRY METHOD 2024 12:[address] [facility] Albumin 3.5 3.2 - 5.0 g/dL LAB CHEMISTRY METHOD 2024 12:[address] [facility] Total Bilirubin 0.4 0.0 - 1.4 mg/dL LAB CHEMISTRY METHOD 2024 12:[address] [facility] Blood Venous blood specimen / Unknown Venipuncture / Unknown 2024 12:20 PM EST 2024 12:28 PM EST [place] [facility] BLOOD ORDERABLES Mendy l Result [facility] [address] [place] [address], * Lipid panel (09/13/2023) LDL/HDL Ratio 0 Comment:no interpretation Triglycerides 0 mg/dL Comment:no interpretation Cholesterol 0 mg/dL Comment:no interpretation HDL 0 mg/dL Comment:no interpretation LDL Cholesterol 0 mg/dL Comment:no interpretation Blood Venous blood specimen / Unknown Historical Provider LAB BLOOD ORDERABLES Mendy l Result from Last 3 Months or Most Recently Relevant to Health [place] [address] MEDICARE [place]ICA[place] - [place] Advance Directives Documents on File Type Date Recorded Patient Director Asset Expl anation Health Care Decision (hx) 01/31/2023 AD SOTELO DIRECTIVE Health Care Decision (hx) 01/31/2023 AD SOTELO DIRECTIVE Health Care Decision (hx) 01/31/2023 AD SOTELO DIRECTIVE Health Care Decision (hx) 01/31/2023 AD SOTELO DIRECTIVE Care Teams Head Loader Relationship Specialty Start Date End Date Keyla Burgess MD [address] [place] [address] PCP - General 09/04/12
--- OUTSIDE RECORDS SUMMARY | 2025-03-27 11:53 | XMS_ITS | Encounter Summary ---
Author Organization [facility] Address [address] [place] [address] Care Team Providers Care Tariff Supervisor Name Role Phone Keyla Burgess MD Primary Care Provider [phone] Reason for Visit * Reason Onset Date Comments Results 03/24/2025 Encounter Details Date Type Department Care Team (Late st Contact Info) Description 03/24/2025 Telephone [facility] - [facility] [address] [address] Rigo Meyers NP [address] [place], [place] [phone] Results Social History Tobacco Use Types Packs/Day [...] as of this encounter Progress Notes * Blair Yang RN - 03/26/2025 2:25 PM EDT Called pt this PM and made aware of message below from Jennifer Meyers. Is aware to reduce Torsemide to 40mg daily for the next three days and then resume normal dosing 40mg in AM and 20mg in PM after the3 day reduction. States he has not taken PM dose yet today - is aware to start reduction today and not take additional 20mg tonight. States he will do this as directed. Is aware to get fasting lipidsper provider - states she will go tomorrow, uses [facility] for labs - faxed order for lipids to [phone] via right fax with confirmation. * Rigo Meyers NP - 03/26/2025 2:08 PM EDT Lets let her know that it looks like her kidney values remain similar to the previous draw. Can we please have her take only 40 mg of torsemide for the next 3 days, and then she can resume her previous medication regiment. otherwise, lets have her get the lipid panel drawn at some point within the next couple of weeks. * Shirin Ellis RN - 03/24/2025 2:25 PM EDT Pt lab results are back pt asking for them to be reviewed. LIPID panel is not there do you want pt to go back to have that done ? * Bebe Fleming - 03/24/2025 2:14 PM EDT Patient called regarding results of her recent lab work she completed and would like to discuss. She states she went to [facility], however the lab orders are still active. Were these separate labs? Her call back number is [phone]. documented in this encounter Plan of Treatment Upcoming Encounters Date Type Department Care Team (Late st Contact Info) Description 04/16/2025 2:00 PM EDT Ancillary Procedure [facility] - [facility] [address] [facility] [address] [place] [address] 06/23/2025 10:45 AM EDT Office Visit Pulmonolgy - [place] [address] [facility] [address] [place] [address] Hansa Cheek MD 175 [facility] 200 [place] [address] 09/21/2025 1:10 PM EDT Office Visit [facility] - [facility] [address] [facility] 154 [place] [address] Rigo Meyers NP [address] [place] [address] 09/21/2025 2:00 PM EDT Ancillary Procedure [facility] [address] [facility] 154 [place] [address] documented as of this encounter Visit Diagnoses Not on filedocumented in this encounter Care Teams Tariff Supervisor Relationship Specialty Start Date End Date Keyla Burgess MD [address] [place] [id number] PCP - General 09/04/12 documented as of this encounter
--- OUTSIDE RECORDS SUMMARY | 2025-03-27 11:53 | XMS_ITS | Encounter Summary ---
Author Organization [employer] Address [address] [place] [address] [address] [place] [address] Care Team Providers Care Audio Visual Technician Name Role Phone Keyla Burgess MD Primary Care Provider [phone] Reason for Visit * Reason Comments Med Refill Encounter Details Date Type Department Care Team ([facility] Contact Info) Description 12/07/2022 Refill [facility] [address] [place] [address] Keyla Burgess MD [address] [place] [address] Other mcfp (current) drug therapy Social History Tobacco Use [...] Upcoming Encounters Date Type Department Care Team ([facility] Contact Info) Description 04/13/2025 1:00 PM EDT Telemedicine [facility] [address] [place], [place] [phone] Lin Cline RN 505 [place] [address] 04/15/2025 10:00 AM EDT Office Visit [facility] [address] [place] [address] Keyla Burgess MD [address] [place] [address] documented as of this encounter Visit Diagnoses Diagnosis Other intermediate designer (current) drug therapy documented in this encounter Care Teams Audio Visual Technician Relationship Specialty Start Date End Date Keyla Burgess MD [address] [place] [address] PCP - General Family Medicine 11/10/15 Harry 09/28/24 documented as of this encounter
--- OUTSIDE RECORDS SUMMARY | 2025-03-27 11:53 | XMS_ITS | Encounter Summary ---
Author Organization [employer] Address [address] [facility] [address] [place] [address] Care Team Providers Care Diversional Therapist Name Role Phone Keyla Burgess MD Primary Care Provider [phone] Reason for Visit * Reason Onset Date Comments Nurse Triage 10/09/2024 Encounter Details Date Type Department Care Team ([facility] st Contact Info) Description 10/09/2024 Telephone [facility] [address] [place] [address] Keyla Burgess MD [address] [place] [address] Nurse Triage Social History Tobacco Use Types [...] reports as related to visit on 10/01/24 [facility] for right arm Xray and Ultrasound reports. Any notes appreciated. * Telephone Encounter - Jessica Alaniz LPN - 10/09/2024 2:14 PM EST Triage call returned to patient. Is at home and is [facility]. Patient with swelling from elbow to fingers when PT arrived. Patient reported hand was cold thismorning and had some tingling of 4th and 5th finger, Right arm Currently elevated and in approx 40 minutes swelling has significantly improved per PT and Patient. Patient did have imaging completed at [facility] on 10/01/24 and was told no blood clot ( records requested) Patient continues on Eliquis and is on Torsemide and is due to see Lead Sprinkler next Sunday. Is followed by [facility] due [...] become worse * Telephone Encounter - Jessenia Ernandez - 10/09/2024 1:58 PM EST Symptom: Arm Swelling - Not From Injury Outcome: Schedule an urgent appointment (within 1 hour) or talk to a nurse or provider soon Reason: Swelling of entire arm The caller accepted this outcome. documented in this encounter Plan of Treatment Upcoming Encounters Date Type Department Care Team (Late st Contact Info) Description 04/13/2025 1:00 PM EDT Telemedicine [facility] MED & PEDS [address] [place] [address] Lin Cline, CECILIO [address] [place] [address] 04/15/2025 10:00 AM EDT Office Visit [facility] MED & PEDS [address] [place] [address] Keyla Burgess MD 505 [place] [address] documented as of this encounter Visit Diagnoses Not on filedocumented in this encounter Care Teams Diversional Therapist Relationship Specialty Start Date End Date Keyla Burgess MD [address] [place] [address] PCP - General Family Medicine 11/10/15 [facility] documented as of this encounter
--- OUTSIDE RECORDS SUMMARY | 2025-03-27 11:53 | XMS_ITS | Encounter Summary ---
Author Organization [employer] Address [address] [facility] 7t [place] [address] Care Team Providers Care Waste Hand Name Role Phone Keyla Burgess MD Primary Care Provider [phone] Reason for Visit * Reason Onset Date Comments Nurse Triage 12/19/2024 Encounter Details Date Type Department Care Team ([facility] st Contact Info) Description 12/19/2024 Telephone [facility] [address] [place] [address] Keyla Burgess MD [address] [place], [place] [phone] Nurse Triage Social History Tobacco Use Types [...] come once a week and has a SEAT NAILER come Sunday-. Pt states that she feels [...] blood work or be referred to a [place]agsaw Operator to control and monitor her pain. [...] 04/13/2025 1:00 PM EDT Telemedicine [facility] MED & PEDS [address] [place] [address] Lin Cline RN 505 [place] [address] 04/15/2025 10:00 AM EDT Office Visit [facility] 505 [place] [address] Keyla Burgess MD 505 [place] [address] documented as of this encounter Visit Diagnoses Not on filedocumented in this encounter Care Teams Waste Hand Relationship Specialty Start Date End Date Keyla Burgess MD [address] [place] [address] PCP - General Family Medicine 11/10/15 SethKishore 09/28/24 documented as of this encounter
--- OUTSIDE RECORDS SUMMARY | 2025-03-27 11:53 | XMS_ITS | Encounter Summary ---
Author Organization [employer] Address [address] [facility] [address] 7t [place] [address] Care Team Providers Care Health Care Analyst Name Role Phone Keyla Burgess MD Primary Care Provider [phone] Encounter Details Date Type Department Care Team ([facility] st Contact Info) Description 11/03/2024 Orders Only [facility] MED & PEDS [address] [place] [address] ProviderIvan MD Social History Tobacco Use Types [...] Info) Description 04/13/2025 1:00 PM EDT Telemedicine [facility] MED & PEDS 505 [place] [address] Lin Cline, RN 505 [place] [address] 04/15/2025 10:00 AM EDT Office Visit [facility] MED [facility] PEDS 505 [place] [address] Keyla Burgess MD 505 [place] [address] documented as of this encounter Procedures Procedure Name Priority Date/Time Associated Diagnosis Comments CBC WITH AUTO DIFFERENTIAL Routine 10/30/2024 9:51 AM EST BASIC METABOLIC PANEL Routine 10/30/2024 9:51 AM EST documented in this encounter Results * CBC auto differential (10/30/2024 9:51 AM EST) Blood Venous blood specimen / Unknown [facility] Provider LAB BLOOD ORDERABLES Mendy l Result * Basic Metabolic Panel (10/30/2024 9:51 AM EST) Blood Venous blood specimen / Unknown Historical Provider LAB BLOOD ORDERABLES Mendy l Result documented in this encounter Visit Diagnoses Not on filedocumented in this encounter Care Teams Health Care Analyst Relationship Specialty Start Date End Date Keyla Burgess MD [address] [place] [address] PCP - General Family Medicine [facility] documented as of this encounter
--- OUTSIDE RECORDS SUMMARY | 2025-03-27 11:53 | XMS_ITS | Encounter Summary ---
Author Organization [employer] Address [address] [facility] [address] 7t [place] [address] Care Team Providers Care Accounting Manager Name Role Phone Keyla Burgess MD Primary Care Provider [phone] Reason for Visit * Reason Onset Date Comments Med Refill 09/22/2024 Encounter Details Date Type Department Care Team ([facility] st Contact Info) Description 09/22/2024 Telephone [facility] MEDICINE 230 [place] [address] Keyla Burgess MD [address] [place], [place] [phone] Med Refill Social History Tobacco Use Types [...] the past 12 months, has t he [employer], gas, oil or water [employer] threatened to shut off services in your [...] 04/13/2025 1:00 PM EDT Telemedicine [facility] MED & PEDS 505 [place] [address] Lin Cline RN 505 [place] [address] 04/15/2025 10:00 AM EDT Office Visit [facility] MED & PEDS 505 [place] [address] Keyla Burgess MD 505 [place] [address] documented as of this encounter Visit Diagnoses Not on filedocumented in this encounter Care Teams Accounting Manager Relationship Specialty Start Date End Date Keyla Burgess MD [address] [place] [address] PCP - General Family Medicine 11/10/[address] [facility] documented as of this encounter
--- OUTSIDE RECORDS SUMMARY | 2025-03-27 11:53 | XMS_ITS | Encounter Summary ---
Author Organization [employer] Address [address] [facility] [address] 7t [place] [address] Care Team Providers Care Mobile Lab Technician Name Role Phone Keyla Burgess MD Primary Care Provider [phone] Encounter Details Date Type Department Care Team ([facility] st Contact Info) Description 09/18/2024 Orders Only [facility] CHC MED & PEDS [address] [place] [address] ProviderIvan MD Social History Tobacco Use Types [...] 04/13/2025 1:00 PM EDT Telemedicine [facility] MED & PEDS 505 [place] [address] Lin Cline, RN 505 [place] [address] 04/15/2025 10:00 AM EDT Office Visit [facility] MED & PEDS [address] [place] [address] Keyla Burgess MD 505 [place] [address] documented as of this encounter Procedures Procedure [...] on filedocumented in this encounter Care Teams Mobile Lab Technician Relationship Specialty Start Date End Date Keyla Burgess MD [address] [place] [address] PCP - General Family Medicine 11/10/15 Harry 09/28/24 documented as of this encounter
--- OUTSIDE RECORDS SUMMARY | 2025-03-27 11:53 | XMS_ITS | Encounter Summary ---
Author Organization [employer] Address [address] [facility] [address] 7t [place] [address] Care Team Providers Care Decorative Engraver Name Role Phone Keyla Burgess MD Primary Care Provider [phone] Encounter Details Date Type Department Care Team (Latest Contact Info) Description 03/27/2025 Travel Social History Tobacco Use Types Packs/Day [...] 04/13/2025 1:00 PM EDT Telemedicine [facility] MED & PEDS 505 [place] [address] Lin Cline RN 505 [place] [address] 04/15/2025 10:00 AM EDT Office Visit [facility] MED & PEDS [address] [place] [address] Keyla Burgess MD 505 [place] [address] documented as of this encounter Visit Diagnoses Not on filedocumented in this encounter Care Teams Decorative Engraver Relationship Specialty Start Date End Date Keyla Burgess MD [address] [place] [address] PCP - General Family Medicine 11/10/15 Harry 09/28/24 documented as of this encounter
--- OUTSIDE RECORDS SUMMARY | 2025-03-27 11:53 | XMS_ITS | Encounter Summary ---
Author Organization [employer] Address [address] [facility] 7t [place] [address] Care Team Providers Care Communication Manager Name Role Phone Keyla Burgess MD Primary Care Provider [phone] Reason for Visit * Reason Onset Date Comments Nurse Triage 05/31/2023 Encounter Details Date Type Department Care Team ([facility] st Contact Info) Description 05/31/2023 Telephone [facility] MEDICINE 230 [place] [address] Keyla Burgess MD [address] [place] [address] Nurse Triage Social History Tobacco Use Types [...] verified as active prior to booking. Apt [facility] 06/01 @ 140pm Protocol Used: [...] Info) Description 04/13/2025 1:00 PM EDT Telemedicine [facility] MED & PEDS 505 [place] [address] Lin Cline, CECILIO 505 [place] [address] 04/15/2025 10:00 AM EDT Office Visit [facility] MED & PEDS 505 [place] [address] Keyla Burgess MD 505 [place] [address] documented as of this encounter Visit Diagnoses Not on filedocumented in this encounter Care Teams Communication Manager Relationship Specialty Start Date End Date Keyla Burgess MD [address] [place] [address] PCP - General Family Medicine 11/10/15 Harry 09/28/24 documented as of this encounter
--- OUTSIDE RECORDS SUMMARY | 2025-03-27 11:53 | XMS_ITS | Encounter Summary ---
Author Organization [employer] Address [address] [facility] [address] 7[address] [place] [address] Care Team Providers Care Operations Supervisor Chemical Cleaning Name Role Phone Keyla Burgess MD Primary Care Provider [phone] Reason for Visit * Reason Comments Med Refill Encounter Details Date Type Department Care Team (Late st Contact Info) Description 03/27/2025 Refill [facility] MEDICINE 230 [place] [address] Keyla Burgess MD [address] [place], [place] [phone] Other retirement (current) drug therapy Social History Tobacco Use [...] Telephone Encounter - Lin Cline RN - 03/27/2025 11:35 AM EDT TC to pt, TRUST ADMINISTRATIVE ASSISTANT [place] r/s to 04/13/25 @1pm. documented in this encounter Plan of Treatment Upcoming Encounters Date Type Department Care Team (Late st Contact Info) Description 04/13/2025 1:00 PM EDT Telemedicine [facility] MED & PEDS 505 [place] [address] Lin Cline, RN 505 [place] [address] 04/15/2025 10:00 AM EDT Office Visit [facility] MED & PEDS 505 [place] [address] Keyla Burgess MD 505 [place] [address] documented as of this encounter Visit Diagnoses Diagnosis Other retirement (current) drug therapy documented in this encounter Care Teams Operations Supervisor Chemical Cleaning Relationship Specialty Start Date End Date Keyla Burgess MD [address] [place] [address] PCP - General Family Medicine 11/10/15 Harry 09/28/24 documented as of this encounter
--- OUTSIDE RECORDS SUMMARY | 2025-03-27 11:53 | XMS_ITS | Encounter Summary ---
Author Organization [employer] Address [address] [place] [address] 7t [place] [address] Care Team Providers Care Building Maintenance Custodian Name Role Phone Keyla Burgess MD Primary Care Provider [phone] Reason for Visit * Reason Comments Med Refill Encounter Details Date Type Department Care Team (Late Contact Info) Description 07/18/2023 Refill [facility] MED & PEDS 505 [place] [address] Keyla Burgess MD 505 [place] [address] Gastroesophageal reflux disease without esophagitis Social History [...] Upcoming Encounters Date Type Department Care Team ([facility] Contact Info) Description 04/13/2025 1:00 PM EDT Telemedicine [facility] MED & PEDS 505 [place] [address] Lin Cline RN 505 [place] [address] 04/15/2025 10:00 AM EDT Office Visit [facility] MED & PEDS 505 [place] [address] Keyla Burgess MD [address] [place] [address] documented as of this encounter Visit Diagnoses Diagnosis Gastroesophageal reflux disease without esophagitis Esophageal reflux documented in this encounter Care Teams Building Maintenance Custodian Relationship Specialty Start Date End Date Keyla Burgess MD [address] [place] [address] PCP - General Family Medicine [facility]10[facility] documented as of this encounter
--- OUTSIDE RECORDS SUMMARY | 2025-03-27 11:53 | XMS_ITS | Encounter Summary ---
Author Organization [employer] Address [address] [facility] [address] 7t [place] [address] Care Team Providers Care Software Consultant Name Role Phone Keyla Burgess MD Primary Care Provider [phone] Reason for Visit * Reason Onset Date Comments ER Follow-up 11/03/2024 Encounter Details Date Type Department Care Team ([facility] st Contact Info) Description 11/03/2024 Telephone [facility] MEDICINE 230 [place] [address] Keyla Burgess MD [address] [place], [place] [phone] ER Follow-up Social History Tobacco Use Types [...] the past 12 months, has t he [employer], gas, oil or water company threatened to [...] ED visit on : Date: 10/31 Hospital: [facility] Seen for: Swelling Arms, Back pain, and Numb Hands cause of Hand swelling. Symptomatic No *if yes message should go to Triage Contact pt at [phone] Patient advised will forward to team nurse for follow up documented in this encounter Plan of Treatment Upcoming Encounters Date Type Department Care Team (Late st Contact Info) Description 04/13/2025 1:00 PM EDT Telemedicine [facility] MED & PEDS 505 [place] [address] Lin Cline, RN 505 [place] [address] 04/15/2025 10:00 AM EDT Office Visit [facility] MED & PEDS 505 [place] [address] Keyla Burgess MD 505 [place] [address] documented as of this encounter Visit Diagnoses Not on filedocumented in this encounter Care Teams Software Consultant Relationship Specialty Start Date End Date Keyla Burgess MD [address] [place] [address] PCP - General Family Medicine 11/10/15 Harry 09/28/24 documented as of this encounter
--- OUTSIDE RECORDS SUMMARY | 2025-03-27 11:53 | XMS_ITS | Encounter Summary ---
Author Organization [employer] Address [address] [facility] [address] 7t [place] [address] Care Team Providers Care General Clerk Name Role Phone Keyla Burgess MD Primary Care Provider [phone] Encounter Details Date Type Department Care Team ([facility] st Contact Info) Description 08/11/2024 Telephone [facility] CHC MED & PEDS 505 [place] [address] Keyla Burgess MD 505 [place] [address] Social History Tobacco Use Types Packs/Day Years [...] Info) Description 04/13/2025 1:00 PM EDT Telemedicine [facility] MED & PEDS 505 [place] [address] Lin Cline, RN 505 [place] [address] 04/15/2025 10:00 AM EDT Office Visit [facility] MED & PEDS 505 [place] [address] Keyla Burgess MD 505 [place] [address] documented as of this encounter Visit Diagnoses Not on filedocumented in this encounter Care Teams General Clerk Relationship Specialty Start Date End Date Keyla Burgess MD [address] [place] [address] [place] [address] PCP - General Family Medicine 11/10/15 Harry 09/28/24 documented as of this encounter
--- OUTSIDE RECORDS SUMMARY | 2025-03-27 11:53 | XMS_ITS | Encounter Summary ---
Author Organization [employer] Address [address] [facility] 7t [place] [address] Care Team Providers Care Nurse Tech Name Role Phone Keyla Burgess MD Primary Care Provider [phone] Encounter Details Date Type Department Care Team (Late st Contact Info) Description 08/15/2024 Orders Only [facility] 230 [place], [place] [phone] ProviderIvan MD Social History Tobacco Use Types [...] 04/13/2025 1:00 PM EDT Telemedicine [facility] MED & PEDS 505 [place] [address] Lin Cline, RN 505 [place] [address] 04/15/2025 10:00 AM EDT Office Visit [facility] MED & PEDS 505 [place] [address] Keyla Burgess MD 505 [place] [address] documented as of this encounter Procedures Procedure [...] on filedocumented in this encounter Care Teams Nurse Tech Relationship Specialty Start Date End Date Keyla Burgess MD [address] [place] [address] PCP - General Family Medicine 11/10/15 Harry 09/28/24 documented as of this encounter
--- OUTSIDE RECORDS SUMMARY | 2025-03-27 11:53 | XMS_ITS | Encounter Summary ---
Author Organization [employer] Address [address] [place] [address] 7t [place] [address] Care Team Providers Care Hris Coordinator Name Role Phone Keyla Burgess MD Primary Care Provider [phone] Reason for Visit * Reason Onset Date Comments triage 11/22/2022 Encounter Details Date Type Department Care Team ([facility] st Contact Info) Description 11/22/2022 Telephone C [facility] MED & PEDS 505 [place] [address] Keyla Burgess MD 505 [place] [address] triage Social History Tobacco Use Types Packs/Day [...] AM EST Pt was recently discharged from [facility], states she has been in so much pain and has been told at the hospital to increase Oxycodone 10mg to qid. She is due for a refill. Please advise. * Telephone Encounter - Annette Price - 11/22/2022 1:43 PM EST Patient calling for HDF follow up appointment. Patient hospitalized at [facility] on 11/14/22 and discharged on 11/21/22. [...] Info) Description 04/13/2025 1:00 PM EDT Telemedicine [facility] MED & PEDS 505 [place] [address] Lin Cline RN 505 [place] [address] 04/15/2025 10:00 AM EDT Office Visit [facility] MED & PEDS 505 [place] [address] Keyla Burgess MD 505 [place] [address] documented as of this encounter Visit Diagnoses Diagnosis Dorsalgia of lumbar region documented in this encounter Care Teams Hris Coordinator Relationship Specialty Start Date End Date Keyla Burgess MD 230 [place] [address] PCP - General Family Medicine 11/10/15 Harry 09/28/24 documented as of this encounter
--- OUTSIDE RECORDS SUMMARY | 2025-03-27 11:53 | XMS_ITS | Encounter Summary ---
Author Organization [employer] Address [address] [facility] [address] 7t [place] [address] Care Team Providers Care Shell Mold Bonder Name Role Phone Keyla Burgess MD Primary Care Provider [phone] Reason for Visit * Reason Onset Date Comments Woom care 03/23/2025 Encounter Details Date Type Department Care Team ([facility] st Contact Info) Description 03/23/2025 Telephone [facility] MEDICINE 230 [place] [address] Kyela Burgess MD [address] [place], [place] [phone] Woom care Social History Tobacco Use Types Packs/Day Years [...] t he [employer], gas, oil or water [employer] threatened to shut off services in your [...] Telephone Encounter - Yanique Villarreal RN - 03/24/2025 10:32 AM EDT Spoke with PB De Leon. Discussed wound care instructions. Verbal orders given. Moises will call office with any questions or concerns. * Telephone Encounter - Mary Jane Goldstein - 03/23/2025 2:22 PM EDT Tc from Moises (Nurse) with Care tender requisting a call back regarding Woom Care Contact Moises at [phone] documented in this encounter Plan of Treatment Upcoming Encounters Date Type Department Care Team ([facility] st Contact Info) Description 04/13/2025 1:00 PM EDT Telemedicine [facility] MED & PEDS 505 [place] [address] Lin Cline, RN 505 [place] [address] 04/15/2025 10:00 AM EDT Office Visit [facility] MED & PEDS 505 [place] [address] Keyla Burgess MD 505 [place] [address] documented as of this encounter Visit Diagnoses Not on filedocumented in this encounter Care Teams Shell Mold Bonder Relationship Specialty Start Date End Date Keyla Burgess MD [address] [place], [place] [address] [address] PCP - General Family Medicine 11/10/15 [facility] 09/28/24 documented as of this encounter
--- OUTSIDE RECORDS SUMMARY | 2025-03-27 11:53 | XMS_ITS | Encounter Summary ---
Author Organization [employer] Address [address] [facility] 7t [place] [address] Care Team Providers Care Sugar Cane Grower Name Role Phone Keyla Burgess MD Primary Care Provider [phone] Reason for Visit * Reason Onset Date Comments Results 03/19/2025 Encounter Details Date Type Department Care Team ([facility] st Contact Info) Description 03/19/2025 Telephone [facility] MEDICINE 230 [place] [address] Keyla Burgess MD [address] [place], [place] [phone] Results Social History Tobacco Use Types Packs/Day [...] encounter Miscellaneous Notes * Telephone Encounter - Viktoria Almanzar RN - 03/23/2025 1:57 PM EDT TC to pt to inform that labs were ordered for molecular biology scientist and to have pt follow up with cardiologydue to them following up with lab work. Pt verbalized understanding and agreement with plan. * Telephone Encounter - Keyla Burgess MD - 03/23/2025 10:50 AM EDT Its for Nephro and cardio to manage * Telephone Encounter - Ridge Kothari - 03/19/2025 10:55 AM EDT TC from pt requesting call back regarding Results. Type of results: labs Date when done: 03/11/25 Facility: [facility] / results onchart documented in this encounter Plan of Treatment Upcoming Encounters Date Type Department Care Team (Late st Contact Info) Description 04/13/2025 1:00 PM EDT Telemedicine [facility] MED & PEDS 505 [place] [address] Lin Cline, RN 505 [place] [address] 04/15/2025 10:00 AM EDT Office Visit [facility] MED & PEDS 505 [place] [address] Keyla Burgess MD [address] [place] [address] documented as of this encounter Visit Diagnoses Not on filedocumented in this encounter Care Teams Sugar Cane Grower Relationship Specialty Start Date End Date Keyla Burgess MD [address] [place] [address] PCP - General Family Medicine 11/10/15 [facility] 09/28/24 documented as of this encounter
--- OUTSIDE RECORDS SUMMARY | 2025-03-27 11:53 | XMS_ITS | Encounter Summary ---
Author Organization [employer] Address [address] [facility] 7t [place] [address] Care Team Providers Care Doctor Of Osteopathy Name Role Phone Keyla Burgess MD Primary Care Provider [phone] Reason for Visit * Reason Onset Date Comments Nurse Triage 06/17/2024 Encounter Details Date Type Department Care Team ([facility] st Contact Info) Description 06/17/[address] [facility] MEDICINE 230 [place] [address] Keyla Burgess MD [address] [place], [place] [phone] Nurse Triage Social History Tobacco Use Types [...] EDT Telemedicine [facility] MED & PEDS 505 [place] [address] Lin Cline, RN 505 [place] [address] 04/15/2025 10:00 AM EDT Office Visit [facility] MED & PEDS 505 [place] [address] Keyla Burgses MD 505 [place] [address] documented as of this encounter Visit Diagnoses Not on filedocumented in this encounter Care Teams Doctor Of Osteopathy Relationship Specialty Start Date End Date Keyla Burgses MD [address] [place] [address] PCP - General Family Medicine 11/10/15 Harry 09/28/24 documented as of this encounter
--- OUTSIDE RECORDS SUMMARY | 2025-03-27 11:53 | XMS_ITS | Clinical Summary ---
Author Organization [employer] Address [address] [place] [address] 7t [place] [address] Care Team Providers Care Energy Crop Farmer Name Role Phone Keyla Burgess MD Primary Care Provider [phone] Allergies Active Allergy Reactions Criticality Noted Date [...] 120 tablet 11 024 Active nystatin (Mycostatin) 143568 UNIT/GM powder Apply topically 2 times daily. [...] Active diazePAM (Valium) 5 MG tabletIndication s:Other prison (current) drug therapy Take 1 tablet (5 [...] Discontinued diazePAM (Valium) 5 MG tabletIndication s:Other prison (current) drug therapy TAKE ONE TABLET TWICE [...] ambulance and they will take her to [facility] ED for eval. 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 03/23/[address] [address] Keyla Burgess MD Wo care 03/19/[address] [address] Keyla Burgess MD Results 03/19/2025 Telephone [facility] [address] [place] [address] Keyla Burgess MD Results 03/11/2025 11:30 AM EDT Office Visit [facility] [address] [place] [address] Keyla Burgess MD Cellulitis of toe of right foot (Primary Dx) 03/11/2025 Orders Only GENERIC EXTERNAL DATA DEPARTMENT Provider, Generic External Data 03/11/2025 Travel 03/10/2025 Telephone [facility] [address] [place] [address] Keyla Burgess MD Chart Prep 03/09/2025 Telephone [facility] [address] [place] [address] Lin Cline, CECILIO 03/09/2025 Travel 03/04/2025 Patient Outreach [address] [address] Keyla Burgess MD Pre-visit Planning ([facility] screening completed on 02/09/25) 02/27/2025 1:20 PM EDT Office Visit [facility] [address] [place] [address] Keyla Burgess MD Right foot infection (Primary Dx) 02/27/2025 Travel 02/27/[address] [address] Keyla Burgess MD call back needed 02/26/[address] [address] Keyla Burgess MD Nurse Triage 02/25/2025 Refill [facility] 505 [facility] [place] [address] Keyla Burgess MD Constipation, unspecified constipation type; Gastroesophageal reflux disease without esophagitis 02/19/2025 Telephone [facility] [address] [facility] [place] [address] Keyla Burgess MD Call Back Request 02/10/2025 Telephone [facility] [address] [place] [address] Keyla Burgess MD Call Back Request 02/09/2025 11:15 AM EDT Office Visit [facility] [address] [place] [address] Keyla Burgess MD Edema, unspecified type (Primary Dx); Chronic obstructive pulmonary disease, unspecified COPD type (CMS/HCC) 02/09/2025 Travel 02/06/2025 Travel 02/06/2025 Telephone [facility] [address] [place] [phone] Keyla Burgess MD Call Back Request 02/06/2025 Telephone [facility] [address] [place] [phone] Keyla Burgess MD 02/06/2025 Population Health Risk Score [facility] () Department [address] [place] [phone] Provider, Population Health Generic 02/04/2025 Telephone [facility] [address] [place], [place] [address] [address] Keyla Burgess MD Med Refill 02/03/2025 Refill [facility] [address] [place] [address] Keyla Burgess MD Lumbar radiculopathy; Other prison (current) drug therapy 02/02/2025 Refill [facility] [address] [place] [address] Keyla Burgess MD Lumbar radiculopathy 01/31/2025 Refill [facility] [address] [place] [address] Keyla Burgess MD 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 01/26/2025 Refill [facility] [address] [place] [address] Keyla Burgess MD Lumbar radiculopathy 01/23/2025 Telephone [facility] [address] [place] [address] Keyla Burgess MD Verbal Order 01/20/2025 Refill [facility] [address] [place] [address] Keyla Burgess MD Chronic renal disease, stage IV (CMS/HCC) 01/08/2025 Telephone [facility] [address] [place] [address] Keyla Burgess MD 01/05/2025 Orders Only [facility] [address] [place] [address] Ivan Begum MD 01/02/2025 Refill [facility] [address] [place] [address] Keyla Burgess MD Lumbar radiculopathy 01/01/2025 Refill [facility] [address] [place] [address] Keyla Burgess MD Other prison (current) drug therapy 01/01/2025 Refill [facility] [address] [place] [address] Keyla Burgess MD Chronic congestive heart failure, unspecified heart failure type ([facility]/HCC) 12/30/2024 11:30 AM EST Telemedicine [facility] [address] [place] [address] Keyla Burgess MD Primary hypertension (Primary Dx); Chronic obstructive pulmonary disease, unspecified COPD type (CMS/HCC); Dorsalgia of lumbar region 12/30/2024 Telephone [facility] [address] [facility] [place] [address] Keyla Burgess MD 12/30/2024 Travel 12/29/2024 Telephone [facility] [address] [place] [address] Keyla Burgess MD from Last 3 Months Immunizations Name [...] Description 04/13/2025 1:00 PM EDT Telemedicine [facility] [address] [place] [address] Lin Cline, CECILIO 505 [place] [address] 04/15/2025 10:00 AM EDT Office Visit [facility] [address] [place] [address] Keyla Burgess MD 505 [place] [address] Health Maintenance Due Date Last Done Comments [...] Procedure Name Priority Date/Time Associated Diagnosis Comments SLIDE REVIEW Routine 03/11/2025 11:48 AM EDT PTH, INTACT WITHOUT CALCIUM Routine 03/11/2025 11:48 AM EDT SED RATE BY MODIFIED WESTERGREN Routine 03/11/2025 11:48 AM EDT Cellulitis of toe of right foot C-REACTIVE PROTEIN Routine 03/11/2025 11 :48 AM EDT Cellulitis of toe of right foot CBC WITH AUTO DIFFERENTIAL Routine 03/11/2025 11:48 AM EDT Cellulitis of toe of right foot HEPATIC FUNCTION PANEL Routine 03/11/2025 11:48 AM EDT Cellulitis of toe of right foot BASIC METABOLIC PANEL Routine 03/11/2025 11:48 AM EDT Cellulitis of toe of right foot LIPID PANEL, STANDARD Routine 09/13/2023 11:34 AM EDT Chronic kidney disease, stage 4 (severe) (CMS/HCC) from Last 3 Months or Most Recently Relevant to Health Maintenance Results * Slide Review (03/11/2025 11:48 AM EDT) Slide Review VERIFIED [facility] 03/11/2025 11:4 8 AM EDT 03/11/2025 2:25 PM EDT us Keyla Burgess MD LAB BLOOD ORDERABLES Final Resul t [facility] [address] [place] [phone] * (ABNORMAL) CBC auto differential (03/11/2025 11:48 AM EDT) White Blood Count 7.0 4.8 - 10.8 X10*3/uL [facility] Red Blood Count 3.90(L) 4.20 - 5.50 X10*6/uL [facility] Hemoglobin 9.0(L) 12.0 - 16.0 g/dl [facility] Hematocrit 30.5(L) 37.0 - 47.0 % [facility] Mean Corpuscular Volume 78.2(L) 80.0 - 98.0 fL [facility] Mean Corpuscular Hemoglobin 23.1(L) 27.0 - 33.0 pg [facility] Mean Corpuscular HGB Conc 29.5(L) 31.0 - 35.0 g/dl [facility] Red Cell Distribution Width 17.8(H) 11.0 - 16.0 % [facility] Platelet Count 288 160 - 400 X10*3/uL [facility] Mean Platelet Volume 10.2 9.4 - 12.3 fL [facility] Neutrophils Percent Auto 59.2 45 - 73 % [facility] Imm Gran Pct Auto 0.9(H) 0.0 - 0.4 % [facility] Lymphocytes Percent Auto 13.9(L) 20 - 40 % [facility] Monocytes Percent Auto 25.4(H) 2 - 11 % [facility] Eosinophils Percent Auto 0.3 0 - 4 % [facility] Basophils Percent Auto 0.3 0 - 2 % [facility] NRBC Pct Auto 0.0 0.0 - 0.2 /100WBC [facility] Neutrophils Absolute Auto 4.1 2.0 - 8.3 x10*3/uL [facility] Imm Gran Abs Auto 0.06(H) 0.00 - 0.03 X10*3/uL [facility] Lymphocytes Absolute Auto 1.0(L) 1.2 - 4.9 X10*3/uL [facility] Monocytes Absolute Auto 1.8(H) 0.1 - 1.2 X10*3/uL [facility] Eosinophils Absolute Auto 0.0 0.0 - 0.4 X10*3/uL [facility] Basophils Absolute Auto 0.0 0.0 - 0.2 X10*3/uL [facility] NRBC Abs Auto 0.000 0.0 - 0.012 X10*3/uL [facility] Blood Venous blood specimen / Unknown 03/11/2025 11:48 AM EDT 03/11/2025 2:25 PM EDT us Keyla Burgess MD LAB BLOOD ORDERABLES Edited Resu lt - Final [facility] [address] [place] [phone] [phone] * (ABNORMAL) Sed Rate by Modified Davey (03/11/2025 11:48 AM EDT) Erythrocyte Sedimentation Rate 40(H) 0 - 20 MM/HR [facility] Comment:Patients with polycy themia and many hemoglobin abnormalitiesmay have depressed sed rates whereas patients with anemiamay have elevated sed rates. Blood Venous blood specimen / Unknown 03/11/2025 11:48 AM EDT 03/11/2025 2:25 PM EDT Keyla Burgess MD LAB BLOOD ORDERABLES Final Resul t Performing Organization Address [facility] [facility] de Phone Number [facility] [address] [place] [phone] * (ABNORMAL) C-reactive Protein (03/11/2025 11:48 AM EDT) C Reactive Protein 3.51(H) < or = 0.50 mg/dL [facility] Blood Venous blood specimen / Unknown 03/11/2025 11:48 AM EDT 03/11/2025 2:18 PM EDT us Keyla Burgess MD LAB BLOOD ORDERABLES Final Resul t Performing Organization Address [facility] de Phone Number [facility] [address] [place] [phone] * (ABNORMAL) PTH, Intact Without Calcium (03/11/2025 11:48 AM EDT) Parathyroid Hormone, Intact 262.5(H) 8.7 - 77.1 pg/mL [facility] 03/11/2025 11:4 8 AM EDT 03/11/2025 2:18 PM EDT us Generic External Data Provider LAB BLOOD ORDERAB LES Final Result Performing Organization Address [facility] de Phone Number [facility] [address] [place] [phone] * (ABNORMAL) Hepatic Function Panel (03/11/2025 11:48 AM EDT) Bilirubin, Total 0.3 0.0 - 1.0 mg/dL [facility] Bilirubin, Direct 0.2 0.0 - 0.5 mg/dL [facility] Aspartate Amino Transferase 19 5 - 31 U/L [facility] Alanine Aminotransferase <6 0 - 31 U/L [facility] Total Protein 7.2 6.5 - 8.0 g/dL [facility] Albumin Level 4.2 3.5 - 5.0 g/dL [facility] Alkaline Phosphatase 161(H) 39 - 117 U/L [facility] Blood Venous blood specimen / Unknown 03/11/2025 11:48 AM EDT 03/11/2025 2:18 PM EDT us Keyla Burgess MD LAB BLOOD ORDERABLES Final Resul t [facility] [address] [place] [phone] * (ABNORMAL) Basic Metabolic Panel (03/11/2025 11:48 AM EDT) Sodium 132(L) 135 - 145 mmol/L [facility] Potassium 4.2 3.3 - 5.1 mmol/L [facility] Chloride 97 96 - 108 mmol/L [facility] Carbon Dioxide 22 22 - 29 mmol/L [facility] Anion Gap 17 12 - 20 [facility] Urea Nitrogen (BUN) 43(H) 9 - 16 mg/dL [facility] Creatinine, Serum 1.82(H) 0.5 - 1.4 mg/dL [facility] Estimated Glomerular Filt Rate 27 [facility] Comment:Chronic Kidney Disea se: Estimated GFR < 60 mL/min/[id number] Kidney Disease: Estimated GFR < 15 mL/min/1.73m2 Glucose 106 60 - 115 mg/dL [facility] Calcium 10.0 8.4 - 10.2 mg/dL [facility] Blood Venous blood specimen / Unknown 03/11/2025 11:48 AM EDT 03/11/2025 2:18 PM EDT us Keyla Burgess MD LAB BLOOD ORDERABLES Final Resul t Performing Organization Address [facility] Co de Phone Number [facility] [address] [place] [phone] * (ABNORMAL) Lipid Panel, Standard (09/13/2023 11:34 AM EDT) Triglycerides 187(H) <150 mg/dL [facility] Comment:Desirable Triglyceri de: less than 150 mg/dLBorderline High Triglyceride 150-199 mg/dLHigh Triglyceride: 200-499 mg/dLVery High Triglyceride: greater than or equal to 5OO mg/dL Cholesterol 170 <200 mg/dL [facility] Comment:Desirable Cholestero l: less than 200 mg/dLBorderline High Cholesterol: 200-239 mg/dLHigh Cholesterol: greater than 239 mg/dL LDL Cholesterol Calculated 95 <100 mg/dL [facility] Comment:Desirable LDL: less than 100 mg/dLNear Optimal/Above Optimal LDL: 110- 129 mg/dLBorderline High LDL: 130-159 mg/dLHigh LDL: 160-189 mg/dLVery High LDL: greater than or equal to 190 mg/dL HDL Cholesterol 38(L) >40 mg/dL [facility] Comment:Desirable HDL: great er than 40 mg/dL Note: This HDL assay may give artificially low results in patients with liver disease. Blood Venous blood specimen / Unknown 09/13/2023 11:34 AM EDT 09/13/2023 2:10 PM EDT us Keyla Burgess MD LAB BLOOD ORDERABLES Final Resul t Performing Organization Address [facility]/ZIP Co de Phone Number [facility] [address] [place] [phone] [phone] from Last 3 Months or Most Recently Relevant to Health Maintenance Insurance MEDICARE [facility] STANDARD Care Teams Energy Crop Farmer Relationship Specialty Start Date End Date Keyla Burgess MD [address] [place] [phone] PCP - General Family Medicine 11/10/15 [facility]ly [facility] 09/28/24
--- OUTSIDE RECORDS SUMMARY | 2025-03-27 11:54 | XMS_ITS | Encounter Summary ---
Author Organization [employer] Address [address] [facility] [place] [address] Care Team Providers Care Aviation Electrician Name Role Phone Keyla Burgess MD Primary Care Provider [phone] Reason for Visit * Reason Onset Date Comments Call Back Request 02/06/2025 Encounter Details Date Type Department Care Team ([facility] Contact Info) Description 02/06/2025 Telephone [facility] [address] [place] [address] Keyla Burgess MD [address] [place], [place] [phone] Call Back Request Social History Tobacco Use [...] t he electric, gas, oil or water [employer] threatened to shut off services in your [...] call back regarding Pt. Contact Reyna at [phone] documented in this encounter Plan of Treatment Upcoming Encounters Date Type Department Care Team (Late st Contact Info) Description 04/13/2025 1:00 PM EDT Telemedicine [facility] [address] [place] [address] Lin Cline, RN [address] [place] [address] 04/15/2025 10:00 AM EDT Office Visit [facility] [address] [place] [address] Keyla Burgess MD [address] [place] [address] documented as of this encounter Visit Diagnoses Not on filedocumented in this encounter Care Teams Aviation Electrician Relationship Specialty Start Date End Date Keyla Burgess MD [address] [place] [address] [place] [address] PCP - General Family Medicine 11/10/15 Harry 09/28/24 documented as of this encounter
--- OUTSIDE RECORDS SUMMARY | 2025-03-27 11:54 | XMS_ITS | Encounter Summary ---
Author Organization [employer] Address [address] [place] [address] 7t [place] [address] Care Team Providers Care Supervisor Brake Repair Name Role Phone Keyla Burgess MD Primary Care Provider Reason for Visit * Reason Comments Med Refill Encounter Details Date Type Department Care Team ([facility] Contact Info) Description 02/08/[address] [facility] [address] [place], [place] [phone] Keyla Burgess MD [address] [place], [place] [phone] Dorsalgia, unspecified Social History Tobacco Use Types [...] Upcoming Encounters Date Type Department Care Team ([facility] Contact Info) Description 04/13/2025 1:00 PM EDT Telemedicine [facility] [address] [place], [place] [phone] Lin Cline RN [address] [place] [address] 04/15/2025 10:00 AM EDT Office Visit [facility] [address] [place] [address] Keyla Burgess MD [address] [place] [address] documented as of this encounter Visit Diagnoses Diagnosis Dorsalgia, unspecified documented in this encounter Care Teams Supervisor Brake Repair Relationship Specialty Start Date End Date Keyla Burgess MD [address] [place] [phone] PCP - General Family Medicine 11/10/15 Harry 09/28/24 documented as of this encounter
--- OUTSIDE RECORDS SUMMARY | 2025-03-27 11:54 | XMS_ITS | Encounter Summary ---
Author Organization [employer] Address [address] [place] [address] 7t [place] [address] Care Team Providers Care Soil Sort Worker Name Role Phone Keyla Burgess MD Primary Care Provider [phone] Reason for Visit * Reason Comments Med Refill Encounter Details Date Type Department Care Team (Late Contact Info) Description 01/03/2024 Refill [facility] [address] [place] [address] Keyla Burgess MD [address] [place] [address] Lumbar radiculopathy; Other [facility] (current) drug therapy Social History Tobacco Use [...] 04/13/2025 1:00 PM EDT Telemedicine [facility] [address] [place] [address] Lin Cline RN [address] [place] [address] 04/15/2025 10:00 AM EDT Office Visit [facility] [address] [place] [address] Keyla Burgess MD [address] [place] [address] documented as of this encounter Visit Diagnoses Diagnosis Lumbar radiculopathy Thoracic or lumbosacral neuritis or radiculitis, unspecified Other [facility] (current) drug therapy documented in this encounter Care Teams Soil Sort Worker Relationship Specialty Start Date End Date Keyla Burgess MD [address] [place] [phone] PCP - General Family Medicine 11/10/15 Harry 09/28/24 documented as of this encounter
--- OUTSIDE RECORDS SUMMARY | 2025-03-27 11:54 | XMS_ITS | Encounter Summary ---
Author Organization [employer] Address [address] [place] [address] Care Team Providers Care Processing Manager Name Role Phone Keyla Burgess MD Primary Care Provider Encounter Details Date Type Department Care Team ([facility] st Contact Info) Description 01/08/2025 Telephone [facility] [address] [place] [address] Keyla Burgess MD 505 [place] [address] Social History Tobacco Use Types Packs/Day Years [...] Miscellaneous Notes * Telephone Encounter - Patience Riojas - 01/08/2025 1:13 PM EST Tc from pt requesting to cancel appointment with pharmacy. Contact pt at [phone] documented in this encounter Plan of Treatment Upcoming Encounters Date Type Department Care Team ([facility] st Contact Info) Description 04/13/2025 1:00 PM EDT Telemedicine [facility] [address] [place] [address] Lin Cline, RN [address] [place] [address] 04/15/2025 10:00 AM EDT Office Visit [facility] [address] [place] [address] Keyla Burgess MD [address] [place] [address] documented as of this encounter Visit Diagnoses Not on filedocumented in this encounter Care Teams Processing Manager Relationship Specialty Start Date End Date Keyla Burgess MD [address] [place] [phone] PCP - General Family Medicine 11/10/15 SethKishore 09/28/24 documented as of this encounter
--- OUTSIDE RECORDS SUMMARY | 2025-03-27 11:54 | XMS_ITS | Clinical Summary ---
Author Organization [facility] Address [address] [place] [address] Phone Care Team Providers Care First Aid Instructor Name Role Phone Keyla Burgess MD Primary Care Provider [phone] Allergies Active Allergy Reactions Criticality Noted Date [...] to complete this topic Insurance [place] [id number] [place] Care Teams First Aid Instructor Relationship Specialty Start Date End Date Keyla Burgess MD [address] [place] [phone] PCP - General 12/06/20
--- OUTSIDE RECORDS SUMMARY | 2025-03-27 11:54 | XMS_ITS | Encounter Summary ---
Author Organization [employer] Address [address] [place] [address] Care Team Providers Care Manager Proposal Name Role Phone Keyla Burgess MD Primary Care Provider [phone] Encounter Details Date Type Department Care Team ([facility] st Contact Info) Description 01/05/2025 Orders Only [facility] [address] [place] [address] ProviderIvan MD Social History Tobacco Use Types [...] Info) Description 04/13/2025 1:00 PM EDT Telemedicine [facility] [address] [place] [address] Lin Cline RN [address] [place] [address] 04/15/2025 10:00 AM EDT Office Visit [facility] [address] [place] [address] Keyla Burgess MD [address] [place] [address] documented as of this encounter Procedures Procedure Name Priority Date/Time Associated Diagnosis Comments PTH, INTACT Routine 12/12/2024 9:13 AM EST CULTURE, URINE, ROUTINE Routine 12/12/2024 9:13 AM EST BASIC METABOLIC PANEL Routine 12/12/2024 9:13 AM EST documented in this encounter Results * Basic Metabolic Panel (12/12/2024 9:13 AM EST) Blood Venous blood specimen / Unknown [facility] Provider LAB BLOOD ORDERABLES Mendy l Result * Culture, Urine, Routine (12/12/2024 9:13 AM EST) Urine [facility] Provider LAB MICROBIOLOGY - GENERA L ORDERABLES Final Result * PTH, INTACT (12/12/2024 9:13 AM EST) [facility] Provider LAB BLOOD ORDERABLES Mendy l Result documented in this encounter Visit Diagnoses Not on filedocumented in this encounter Care Teams Manager Proposal Relationship Specialty Start Date End Date Keyla Burgess MD [address] [place] [phone] PCP - General Family Medicine 11/10/15 Harry 09/28/24 documented as of this encounter
--- OUTSIDE RECORDS SUMMARY | 2025-03-27 11:54 | XMS_ITS | Encounter Summary ---
Author Organization [employer] Address [address] 7t [place] [address] Care Team Providers Care Television Schedule Coordinator Name Role Phone Keyla Burgess MD Primary Care Provider [phone] Reason for Visit * Reason Onset Date Comments Med Refill 02/04/2025 Encounter Details Date Type Department Care Team ([facility] st Contact Info) Description 02/04/2025 Telephone [facility] MEDICINE [address] [place] [address] Keyla Burgess MD [address] [place], [place] [phone] Med Refill Social History Tobacco Use Types [...] the past 12 months, has t he [employer], oil or water [employer] threatened to shut off services in your [...] immediate release tablet To be sent to: [facility] documented in this encounter Plan of Treatment Upcoming Encounters Date Type Department Care Team (Late st Contact Info) Description 04/13/2025 1:00 PM EDT Telemedicine [facility] MED & PEDS [address] [place] [address] Lin Cline, CECILIO 505 [place] [address] 04/15/2025 10:00 AM EDT Office Visit [facility] [address] [place] [address] Keyla Burgess MD 505 [place] [address] documented as of this encounter Visit Diagnoses Not on filedocumented in this encounter Care Teams Television Schedule Coordinator Relationship Specialty Start Date End Date Keyla Burgess MD [address] [place] [address] PCP - General Family Medicine 11/10/15 [place] 09/28/24 documented as of this encounter
--- OUTSIDE RECORDS SUMMARY | 2025-03-27 11:54 | XMS_ITS | Encounter Summary ---
Author Organization [employer] Address [address] [facility] 7t [place] [address] Care Team Providers Care Donor Recruiter Name Role Phone Keyla Burgess MD Primary Care Provider [phone] Reason for Visit * Reason Onset Date Comments VNA Services 11/15/2023 Encounter Details Date Type Department Care Team ([facility] st Contact Info) Description 11/15/2023 Telephone [facility] MEDICINE [address] [place] [address] Keyla Burgess MD [address] [place], [place] [phone] VNA Services Social History Tobacco Use Types [...] as FYI. * Telephone Encounter - Nasima Ned - 11/15/2023 2:18 PM EST Tc from pt requesting status on at home VNA services. documented in this encounter Plan of Treatment Upcoming Encounters Date Type Department Care Team (Late st Contact Info) Description 04/13/2025 1:00 PM EDT Telemedicine [facility] MED [facility]ED[facility] [address] [place] [address] Lin Cline, CECILIO 505 [place] [address] 04/15/2025 10:00 AM EDT Office Visit [facility] [address] [place] [address] Keyla Burgess MD [address] [place] [address] documented as of this encounter Visit Diagnoses Not on filedocumented in this encounter Care Teams Donor Recruiter Relationship Specialty Start Date End Date Keyla Burgess MD [address] [place] [id number] PCP - General Family Medicine 11/10/15 [place] 09/28/24 documented as of this encounter
--- OUTSIDE RECORDS SUMMARY | 2025-03-27 11:54 | XMS_ITS | Encounter Summary ---
Author Organization [employer] Address [address] [facility] 7t [place] [address] Care Team Providers Care Paint Line Operator Name Role Phone Keyla Burgess MD Primary Care Provider [phone] Reason for Visit * Reason Onset Date Comments Verbal Order 11/27/2023 Encounter Details Date Type Department Care Team ([facility] st Contact Info) Description 11/27/2023 Telephone [facility] MEDICINE [address] [place] [address] Keyla Burgess MD 505 [place] [address] Verbal Order Social History Tobacco Use Types [...] EST Tc from Anil the VN at [facility] calling to request a verbal order for [...] [facility] MED & PEDS [address] [place] [address] Lin Cline, CECILIO 505 [place] [address] 04/15/2025 10:00 AM EDT Office Visit [facility] [address] [place] [address] Keyla Burgess MD 505 [place] [address] documented as of this encounter Visit Diagnoses Not on filedocumented in this encounter Care Teams Paint Line Operator Relationship Specialty Start Date End Date Keyla Burgess MD [address] [place] [address] PCP - General Family Medicine 11/10/15 [place] 09/28/24 documented as of this encounter
--- OUTSIDE RECORDS SUMMARY | 2025-03-27 11:54 | XMS_ITS | Encounter Summary ---
Author Organization [id number] Address [address] [facility] 7t [place] [address] Care Team Providers Care Mat Roller Name Role Phone Keyla Burgess MD Primary Care Provider [phone] Encounter Details Date Type Department Care Team ([facility] Contact Info) Description 01/30/2023 Abstract [facility] MEDICINE [address] [place] [address] Keyla Burgess MD [address] [place] [address] Social History Tobacco Use Types Packs/Day Years [...] Department Care Team ([facility] Contact Info) Description 04/13/2025 1:00 PM EDT Telemedicine [facility] MED [facility] PEDS [address] [place], [place] [phone] Lin Cline, RN 505 [place], [place] [phone] 04/15/2025 10:00 AM EDT Office Visit [facility]EDS [address] [place] [address] Keyla Burgess MD [address] [place] [address] documented as of this encounter Visit Diagnoses Not on filedocumented in this encounter Care Teams Mat Roller Relationship Specialty Start Date End Date Keyla Burgess MD [address] [place] [address] PCP - General Family Medicine 11/10/15 [place] 09/28/24 documented as of this encounter
--- OUTSIDE RECORDS SUMMARY | 2025-03-27 11:54 | XMS_ITS | Encounter Summary ---
Author Organization [employer] Address [address] [facility] 7t [place] [address] Care Team Providers Care Commercial Escrow Officer Name Role Phone Keyla Burgess MD Primary Care Provider [phone] Encounter Details Date Type Department Care Team ([facility] Contact Info) Description 01/04/2023 Abstract [facility] MEDICINE [address] [place] [address] Keyla Burgess MD [address] [place] [address] Social History Tobacco Use Types Packs/Day Years [...] Upcoming Encounters Date Type Department Care Team ([facility] Contact Info) Description 04/13/2025 1:00 PM EDT Telemedicine [facility] MED & PEDS 505 [place] [address] Lin Cline RN 505 [place] [address] 04/15/2025 10:00 AM EDT Office Visit [facility] [address] [place] [address] Keyla Burgess MD [address] [place] [address] documented as of this encounter Visit Diagnoses Not on filedocumented in this encounter Care Teams Commercial Escrow Officer Relationship Specialty Start Date End Date Keyla Burgess MD [address] [place] [address] PCP - General Family Medicine 11/10/15 [facility] 09/28/24 documented as of this encounter
[2025-03-27 14:43] LABS: Hematocrit 32.2 % (37.0-47.0); Hemoglobin 9.4 g/dl (12.0-16.0); Mean Corpuscular HGB Conc 29.2 g/dl (31.0-35.0); Mean Corpuscular Hemoglobin 23.2 pg (27.0-33.0); Mean Corpuscular Volume 79.5 fL (80.0-98.0); Mean Platelet Volume 9.9 fL (9.4-12.3); Platelet Count 290 X10*3/uL (160-400); Red Blood Count 4.05 X10*6/uL (4.20-5.50); Red Cell Distribution Width 17.6 % (11.0-16.0); White Blood Count 5.6 X10*3/uL (4.8-10.8)
[2025-03-27 14:46] LABS: Anion Gap 17 (12-20); Blood Urea Nitrogen 40 mg/dL (9-16); Calcium 10.7 mg/dL (8.4-10.2); Carbon Dioxide 24 mmol/L (22-29); Chloride 100 mmol/L (96-108); Cholesterol 153 mg/dL (<200); Estimated Glomerular Filt Rate 31; Glucose Fasting 96 mg/dL (60-99); HDL Cholesterol 43 mg/dL (>40); LDL Cholesterol Calculated 82 mg/dL (<100); Potassium 4.5 mmol/L (3.3-5.1); Sodium 136 mmol/L (135-145); Triglycerides 144 mg/dL (<150)
== END 2025-03-27 10:36 | disposition home or self-care (01) ==
LOC: HO.CHCLDS 10:35
PROVIDERS: Internal Medicine Hypertension Specialist; PCP Student in an Organized Health Care Education/Training Program; Referring Provider Nurse Practitioner Primary Care; Visit Provider Nurse Practitioner Primary Care
DX: I50.30 Unspecified diastolic (congestive) heart failure (principal); I10 Essential (primary) hypertension; N18.4 Chronic kidney disease, stage 4 (severe)
CPT/HCPCS: 36415; 80048; 80061; 85027

== ENCOUNTER 2025-05-27 09:44 | Outpatient (REF) | payer MEDICARE, MEDICAID, SELFPAY ==
--- OUTSIDE RECORDS SUMMARY | 2025-05-27 10:06 | XMS_ITS | Encounter Summary ---
Author Organization [facility] Address [address] [place] [address] Phone Care Team Providers Care Arts And Crafts Teacher Name Role Phone Keyla Burgess MD Primary Care Provider [phone] Encounter Details Date Type Department Care Team (Late st Contact Info) Description 11/29/2021 Telephone [facility] [address] [place] [address] Ashly Caruso Social History Tobacco [...] on filedocumented in this encounter Care Teams Arts And Crafts Teacher Relationship Specialty Start Date End Date Keyla Burgess MD [address] [place] [address] PCP - General 12/06/20 documented as of this encounter
--- OUTSIDE RECORDS SUMMARY | 2025-05-27 10:06 | XMS_ITS | Encounter Summary ---
Author Organization [employer] Address [address] [place] [address] 7t [place] [address] Care Team Providers Care Carton Machine Operator Name Role Phone Keyla Burgess MD Primary Care Provider [phone] Reason for Visit * Reason Onset Date Comments triage 11/22/2022 Encounter Details Date Type Department Care Team ([facility] st Contact Info) Description 11/22/2022 Telephone [facility] MED & PEDS [address] [place] [address] Keyla Burgess MD [address] [place] [address] triage Social History Tobacco Use Types Packs/Day [...] AM EST Pt was recently discharged from [facility], states she has been in so much pain and has been told at the hospital to increase Oxycodone 10mg to qid. She is due for a refill. Please advise. * Telephone Encounter - Annette Price - 11/22/2022 1:43 PM EST Patient calling for HDF follow up appointment. Patient hospitalized at [facility] on 11/14/22 and discharged on 11/21/22. Patient advised will forward to triage nurse for follow up and appointment scheduling. Pt states paper work informs needs an appt within 2 weeks. Pt also informs her saturation oxygen levels are between 84-88. documented in this encounter Plan of Treatment Upcoming Encounters Date Type Department Care Team (Late st Contact Info) Description 06/22/2025 1:30 PM EDT Telemedicine [facility] [address] [place] [address] Lin Cline, CECILIO [address] [place] [address] documented as of this encounter Visit Diagnoses Diagnosis Dorsalgia of lumbar region documented in this encounter Care Teams Carton Machine Operator Relationship Specialty Start Date End Date Keyla Burgess MD [address] [place] [address] PCP - General Family Medicine 11/10/15 [facility] [place] [facility] documented as of this encounter
--- OUTSIDE RECORDS SUMMARY | 2025-05-27 10:06 | XMS_ITS | Clinical Summary ---
Author Organization [address] [facility] Address [address] [place] [address] Phone Care Team Providers Care Ivf Embryologist Name Role Phone Keyla Burgess MD Primary Care Provider [phone] Allergies Active Allergy Reactions Criticality Noted Date Comments Adhesive Tape-Silicones 10/16/2023 Medical tape Aspirin Other 10/26/2020 Other Reaction(s): angioedema- lip swelling Epinephrine 05/12/2015 Ibuprofen 2022 Cephalexin 10/27/2024 Procaine 05/12/2015 Medications docusate sodium (COLACE) 100 mg capsule Take 1 capsule (100 mg total) by mouth 2 (two) times a day. 03/25/20 24 Active spironolactone (ALDACTONE) 25 mg tablet Take 1 tablet (25 mg total) by mouth 2 (two) times a day. 04/12/20 17 Active gabapentin (NEURONTIN) 100 mg capsule Take 1 capsule (100 mg total) by mouth daily. 09/29/20 22 Active apixaban (Eliquis) 5 mg tablet Take 1 tablet (5 mg total) by mouth 2 (two) times a day. 08/30/20 22 Active fluticasone propionate (FLONASE) 50 mcg/actuation nasal spray Administer 2 sprays into each nostril 1 (one) time each day if needed for allergies. 07/28/20 22 Active loratadine (CLARITIN) 10 mg tablet Take 1 tablet (10 mg total) by mouth 1 (one) time each day if needed for allergies. 05/23/20 Active umeclidinium (Incruse Ellipta) 62.5 mcg/actuation inhalationIndic ations:Chronic obstructive pulmonary disease, unspecified COPD type (CMS/[facility] V24, CMS/[facility] V28),Bronchiect asis without acute exacerbation (CMS/[facility] V24, CMS/[facility] V28) Inhale 1 puff by mouth 1 (one) time each day. 3 each 3 12/09/19 25 2025 Active albuterol HFA (PROAIR HFA ; PROVENTIL HFA ; VENTOLIN HFA) 90 mcg/actuation inhalerIndicati ons:Chronic obstructive pulmonary disease, unspecified COPD type (CMS/[facility] V24, CMS/[facility] V28) Inhale 2 puffs by mouth every 6 (six) hours if needed for wheezing or shortness of breath. 3 each 3 12/09/19 25 2025 Active fluticasone furoate-vilante roL (Breo Ellipta) 200-25 mcg/dose inhaler Inhale 1 puff by mouth 1 (one) time each day. 2 each 4 12/17/19 25 2025 Active dilTIAZem CD (CARDIZEM CD) 120 mg 24 hr capsule Take 1 capsule (120 mg total) by mouth 1 (one) time each day. 90 each 2 03/03/20 25 Active calcitrioL (ROCALTROL) 0.25 mcg capsule Take 1 capsule (0.25 mcg total) by mouth every other day. Active omeprazole (PriLOSEC) [address] capsule Take 1 capsule (20 mg total) by mouth 2 (two) times a day. 03/02/20 25 Active oxyCODONE (ROXICODONE) 20 mg immediate release tablet Take 1 tablet (20 mg total) by mouth 3 (three) times a day. 04/03/20 25 Active atorvastatin (LIPITOR) 10 mg tablet Take 1 tablet (10 mg total) by mouth at bedtime. 90 tablet 1 04/30/20 25 Active doxycycline (DORYX) 100 mg EC tablet Take 1 tablet (100 mg total) by mouth 2 (two) times a day. Do not crush or chew. Take with a full glass of water and do not lie down for at least 30 minutes after. 05/02/20 25 2024 Active torsemide (DEMADEX) 20 mg tablet Take 1 tablet (20 mg total) by mouth 1 (one) time each day. 05/02/20 25 Active allopurinoL (ZYLOPRIM) 100 mg tablet Take 1 tablet (100 mg total) by mouth 1 (one) time each day. 30 each 05/02/20 25 2025 Active senna (SENOKOT) 8.6 mg tablet Take 2 tablets (17.2 mg total) by mouth at bedtime. 60 each 05/02/20 25 2025 Active oxyCODONE (ROXICODONE) 15 mg immediate release tabletIndicatio ns:Osteomyeliti s of right foot, unspecified type (CMS/HCC V24, CMS/HCC V28) Take 1 tablet (15 mg total) by mouth every 6 (six) hours if needed (Moderate to severe pain). Max Daily Amount: 60 mg 05/02/20 25 Active diazePAM (VALIUM) 5 mg tablet Take 1 tablet (5 mg total) by mouth at bedtime. Max Daily Amount: 5 mg 05/02/20 25 Active traMADoL (ULTRAM) 50 mg tablet Take 1 tablet (50 mg total) by mouth every 6 (six) hours if needed for severe pain. Max Daily Amount: 200 mg Active torsemide (DEMADEX) 20 mg tablet Take 1 tablet (20 mg total) by mouth 1 (one) time each day in the evening. 02/28/20 19 2024 Discontinued budesonide-form oteroL (SYMBICORT) 160-4.5 mcg/actuation inhaler Inhale 2 puffs by mouth 2 (two) times a day. 06/26/20 24 2024 Discontinued(E ntered in Error) fluticasone propion-salmete roL (ADVAIR HFA) 115-21 mcg/actuation inhaler Inhale 2 puffs by mouth. 01/07/20 24 2024 Discontinued(E ntered in Error) albuterol HFA (PROAIR HFA ; PROVENTIL HFA ; VENTOLIN HFA) 90 mcg/actuation inhaler Inhale 2 puffs by mouth 1 (one) time each day if needed. 11/15/20 23 2024 Discontinued(E ntered in Error) ondansetron (ZOFRAN) 4 mg tablet Take 1 tablet (4 mg total) by mouth if needed. 08/30/20 22 2024 Discontinued omeprazole OTC (PriLOSEC OTC) 20 mg EC tablet 2 (two) times a day. 2024 Discontinued(E ntered in Error) atorvastatin (LIPITOR) 10 mg tablet Take 1 tablet (10 mg total) by mouth 1 (one) time each day. 90 tablet 1 11/06/20 24 2024 Discontinued(R eorder) budesonide-form oteroL (Symbicort) 160-4.5 mcg/actuation inhalerIndicati ons:Chronic obstructive pulmonary disease, unspecified COPD type (CMS/[facility] V24, CMS/[facility] V28),Bronchiect asis without acute exacerbation (CMS/[facility] V24, CMS/[facility] V28) Inhale 2 puffs by mouth 2 (two) times a day. Rinse mouth with water after use to reduce aftertaste and incidence of candidiasis. Do not swallow. 3 each 3 12/09/19 25 2024 Discontinued(E ntered in Error) diazePAM (VALIUM) 5 mg tablet Take 2 tablets (10 mg total) by mouth at bedtime. 2024 Discontinued cephalexin (KEFLEX) 500 mg capsule Take 1 capsule (500 mg total) by mouth 2 (two) times a day. 2024 Discontinued(E ntered in Error) torsemide 40 mg tablet Take 40 mg by mouth 1 (one) time each day. 2024 Discontinued(S top Taking at Discharge) silver sulfADIAZINE (SILVADENE, SSD) 1 % cream Apply 1 Application topically 2 (two) times a day. 2024 Discontinued(E ntered in Error) bacitracin zinc 500 unit/gram ointment Apply 1 Application topically 2 (two) times a day. 2024 Discontinued(E ntered in Error) acetaminophen (TYLENOL) 500 mg tablet Take 2 tablets (1,000 mg total) by mouth 3 (three) times a day for 7 days. 30 tablet 05/02/20 25 2024 Active Problems Problem Noted Date Diagnosed Date Osteomyelitis of right foot, unspecified type (CMS/HCC V24, CMS/HCC V28) 04/25/2025 Osteomyelitis of right foot (CMS/HCC V24, CMS/HC C V28) 04/24/2025 Hypoxia 06/15/2023 Overview (09/02/2024): Last Assessment & [...] do think she needs to see a cassandra architect if she is having hypoxia. She may [...] follow-up in device clinic. Deep venous thrombosis ([facility] V24, [facility] V28 ) 09/17/2021 Overview (09/02/2024): Last [...] heart failure with p reserved ejection fraction ([facility] V24, [facility] V28) 02/15/2021 Overview (09/02/2024): - Last echocardiogram is from January 2023 revealing mild [...] Encounters Date Type Department Care Team Description 05/13/2025 10:00 AM EDT Office Visit [facility] - [place] [address] [place] [address] Fanny Rausch MD Osteomyelitis of right foot, unspecified type (CMS/HCC V24, CMS/HCC V28) (Primary Dx) 05/06/2025 Lab Requisition [facility] - Main Lab [address] [facility] [place] [address] Magno Lewis MD Diarrhea, unspecified 05/04/2025 Lab Requisition [facility] - [facility] Lab [address] [facility] [place] [address] Magno Lewis MD Chronic obstructive pulmonary disease, unspecified ([facility] V24, [facility] V28) 04/30/2025 Telephone [facility] [address] 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 [address] [place] [phone] Raul Olea MD Shapiro, Benjamin, DO Alam, Aroosa, MD Santoyo-Pacheco, Omar D, MD Osteomyelitis of right foot, unspecified type ([facility] V24, [facility] V28) (Primary Dx); Other acute osteomyelitis of right foot ([facility] V24, [facility] V28) Discharge Disposition: [facility]pc Facility 04/22/2025 12:07 PM EDT - 04/22/2025 11:59 PM EDT Hospital Encounter [facility] Xray [address] [place] [phone] Pain in right toe(s) Discharge Disposition: Home or Self Care 03/27/2025 Telephone [facility] - [facility] [address] [facility] [address] [place] [address] Gladis Mauricio MD Records 03/24/2025 Telephone [facility] [address] [place] [address] Rigo Meyers NP Results 03/05/2025 3:30 PM EDT Ancillary Procedure [facility] [address] [place] [address] Encounter for adjustment or management of cardiac device 03/05/2025 2:40 PM EDT Office Visit [facility] [address] [place] [address] Rigo Meyers NP Heart failure with preserved ejection fraction, unspecified HF chronicity (CMS/HCC V24, CMS/HCC V28) (Primary Dx); Paroxysmal supraventricular tachycardia (CMS/HCC V24); Sick sinus syndrome (CMS/HCC V24, CMS/HCC V28); Hypertension, unspecified type; Hyperlipidemia, unspecified hyperlipidemia type 03/03/2025 Telephone [facility] [address] [place] [address] Gladis Mauricio MD Med Refill (Diltiazem refill ) 02/27/2025 8:25 PM EDT Ancillary Procedure [facility] [address] [place] [address] from Last 3 Months Immunizations Name Administration [...] PACEMAKER OTHER SURGICAL HISTORY 02/16/2021 N/A PROCEDURE: NC RPR EPIGASTRIC HERNIA REDUCIBLE SPX; COMMENT: open epigastric ventral hernia repair - Dr. Charlie Marquez HYSTERECTOMY PROCEDURE: HISTORICAL HYSTERECTOMY Medical History Medical History Date Comments Heart disease DX:Heart disease Acute respiratory failure wi th hypoxia (CMS/HCC V24, [facility]/HCC V28) DX:Acute respirator y failure with hypoxia (HCC) COPD exacerbation (CMS/HCC V 24, CMS/HCC V28) DX:COPD exacerbation (HCC) SSS (sick sinus syndrome) (C AL/HCC V24, CMS/HCC V28) DX:SSS (sick sinus syndrome) (HCC) CKD (chronic kidney disease) , stage IV (CMS/HCC V24, CMS/HCC V28) DX:CKD (chronic kidney d isease), stage IV ([facility]) History of DVT (deep vein thrombosis) DX:History of DVT (deep vein thrombosis) HEMANT (obstructive sleep apnea) 12/13/2022 DX :HEMANT (obstructive sleep apnea) Ventral hernia DX:Ventral herni a Obesity DX:Obesity Pacemaker Family History Medical History Relation Name Comments Coronary artery disease Brother Coronary artery disease Father Relation Name Status Comments Brother Father triple by pass Social History Tobacco Use Types Packs/Day Years Used Date Smoking Tobacco: Former Smokeless Tobacco: Never Tobacco Cessation:Counseling Given: Not Answered Alcohol Use Standard Drinks/Week Comments No 0 (1 standard drink = 0.6 oz pur e alcohol) Interpersonal Safety Answer Date Record ed Physical Abuse 04/24/2025 Verbal Abuse 04/24/2025 Comments Unknown Sex and Gender Information Value Date Recorded Sex Assigned at Not on file Legal Sex Female 1:54 AM EST Gender Identity Not on file Sexual Orientation Not on file Obstetrics History Last Filed Vital Signs Vital Sign Reading Time Taken Comments Blood Pressure 117/76 05/13/2025 9:45 AM EDT Pulse 120 05/13/2025 9:45 AM EDT Temperature 36.1 C (97 F) 05/02/2025 7:59 AM EDT Respiratory Rate 16 05/02/2025 7:59 AM EDT Oxygen Saturation 97% 05/02/2025 9:07 AM EDT Inhaled Oxygen Concentration - - Weight 75.8 kg (167 lb) 04/24/2025 5:00 PM EDT Height 152.4 cm (5') 05/13/2025 9:45 AM EDT Body Mass Index 27.79 04/24/2025 1:13 PM EDT Plan of Treatment Upcoming Encounters Date Type Department Care Team (Late st Contact Info) Description 06/09/2025 4:00 PM EDT Office Visit Infectious Disease - [facility] [address] [phone] Lela Marsh MD [address] [address] 06/23/2025 10:45 AM EDT Office Visit Pulmonolgy - [facility] [address] [phone] Hansa Cheek MD [address] [facility] [address] [place] [address] 09/21/2025 1:10 PM EDT Office Visit [facility] Cardiology [facility] - [facility] [address] [facility] 154 [place] [address] Rigo Meyers NP [address] [place] [address] 09/21/2025 2:00 PM EDT Ancillary Procedure [facility] 154 [address] [facility] 154 [place] [address] 05/13/2026 10:00 AM EDT Office Visit Vascular Surgery - [place] [address] [place] [phone] Fanny Rausch MD [address] [place] [address] Health Maintenance Due Date Last Done Comments Hepatitis A Vaccines (1 of 2 - Risk 2-dose series) 1969 Depression Screening 11/04/2022 Hepatitis C Screening 11/04/2022 Medicare Annual Wellness Visit 11/04/2022 Osteoporosis Screening (Bone Density Screening) 11/04/2022 Social Influencers of Health Screening 11/04/2022 COVID-19 Vaccine (8 - Moderna risk season) 2025 08/23/2024, 07/13/2023, 09/15/2022, Additional history exists Influenza Vaccine (#1) 2025 , 07/13/2023, 09/15/2022, Additional history exists Falls Risk Assessment 05/02/2026 05/02/2025 Hypertension/CHF/CAD Annual BMP Blood Test 05/04/2026 05/04/2025, 04/29/2025, 04/28/2025, Additional history exists DTaP,Tdap,and Td Vaccines (2 - Td or Tdap) 08/28/2027 08/28/2017 Cholesterol Screening (Lipid Panel) 03/27/2030 03/27/2025, 09/13/2023, 09/13/2023 Pneumococcal Vaccine: 50+ Years Completed 10/30/2019, 10/29/2018, 07/30/2016, Additional history exists Zoster Vaccines Completed 08/10/2022, 06/08/2022 RSV Immunization Adult Patients Completed 06/27/2024 HIB Vaccines Aged Out No longer eligi [...] this topic Medical Devices Implanted Type Area Maintenance Equipment Operator Device Identifier Shelf Expiration Date Model / Serial / Lot Medt-Card Advisa Dr Mccoy [id number] Implanted: (Quantity not on file) Cardiac Pacemaker [employer] - CARDIAC RHYTH-CRDM ADVISA DR MCCOY [id number] / [id number] / Procedures Procedure Name Priority Date/Time Associated Diagnosis Comments CLOSTRIDIUM DIFFICILE PCR Routine 05/05/2025 1:20 PM EDT Diarrhea, unspecified GASTROINTESTINAL PATHOGENS BY PCR Routine 05/05/2025 1:20 PM EDT Diarrhea, unspecified CLOSTRIDIUM DIFFICILE TOXIN Routine 05/05/2025 1:20 PM EDT Diarrhea, unspecified CBC WITH AUTO DIFFERENTIAL Routine 05/04/2025 7:56 AM EDT Chronic obstructive pulmonary disease, unspecified (CMS/HCC V24, CMS/HCC V28) COMPREHENSIVE METABOLIC PANEL Routine 05/04/2025 7:56 AM EDT Chronic obstructive pulmonary disease, unspecified (CMS/HCC V24, CMS/HCC V28) CBC AND DIFFERENTIAL Routine 05/04/2025 7:56 AM EDT Chronic obstructive pulmonary disease, unspecified (CMS/HCC V24, CMS/HCC V28) C-REACTIVE PROTEIN Routine 04/29/2025 6: 33 AM EDT PHOSPHORUS Routine 04/29/2025 6:33 AM EDT MAGNESIUM Routine 04/29/2025 6:33 AM EDT BASIC METABOLIC PANEL Routine 04/29/2025 6:33 AM EDT CBC WITH AUTO DIFFERENTIAL Routine 04/29/2025 6:32 AM EDT CBC AND DIFFERENTIAL Routine 04/29/2025 6:32 AM EDT VANCOMYCIN, TROUGH Timed 04/28/2025 5: 49 PM EDT MANUAL DIFFERENTIAL - SYSMEX WAM Routine 04/28/2025 6:10 AM EDT URIC ACID Add-On 04/28/2025 6:10 AM EDT CBC WITH AUTO DIFFERENTIAL Routine 04/28/2025 6:10 AM EDT PHOSPHORUS Routine 04/28/2025 6:10 AM EDT MAGNESIUM Routine 04/28/2025 6:10 AM EDT CBC AND DIFFERENTIAL Routine 04/28/2025 6:10 AM EDT BASIC METABOLIC PANEL Routine 04/28/2025 6:10 AM EDT CBC WITH AUTO DIFFERENTIAL Routine 04/27/2025 5:29 AM EDT BASIC METABOLIC PANEL Routine 04/27/2025 5:29 AM EDT CBC AND DIFFERENTIAL Routine 04/27/2025 5:29 AM EDT CULTURE TISSUE WITH GRAM STAIN Routine 04/26/2025 2:33 PM EDT Osteomyelitis of right foot, unspecified type (CMS/HCC V24, CMS/HCC V28) TISSUE EXAM Routine 04/26/2025 2:10 PM EDT Osteomyelitis of right foot, unspecified type (CMS/HCC V24, CMS/HCC V28) INCISION DRAINAGE EXTREMITY LOWER 04/26/2025 1:50 PM EDT Osteomyelitis of right foot, unspecified type (CMS/HCC V24, CMS/HCC V28) Other acute osteomyelitis of right foot (CMS/HCC V24, CMS/HCC V28) VANCOMYCIN, TROUGH Timed 04/26/2025 1: 13 PM EDT ECG 12-LEAD STAT 04/26/2025 12:38 PM EDT CBC WITH AUTO DIFFERENTIAL Routine 04/26/2025 6:07 AM EDT BASIC METABOLIC PANEL Routine 04/26/2025 6:07 AM EDT CBC AND DIFFERENTIAL Routine 04/26/2025 6:07 AM EDT CBC WITH AUTO DIFFERENTIAL Routine 04/25/2025 6:26 AM EDT BASIC METABOLIC PANEL Routine 04/25/2025 6:26 AM EDT CBC AND DIFFERENTIAL Routine 04/25/2025 6:26 AM EDT CULTURE BLOOD STAT 04/24/2025 6:11 PM EDT CULTURE BLOOD STAT 04/24/2025 6:07 PM EDT C-REACTIVE PROTEIN STAT Add-on 04/24/2025 12:26 PM EDT CBC WITH AUTO DIFFERENTIAL STAT 04/24/2025 12:26 PM EDT BASIC METABOLIC PANEL STAT 04/24/2025 12:26 PM EDT CBC AND DIFFERENTIAL STAT 04/24/2025 12:26 PM EDT XR FOOT 3+ VIEWS RIGHT Routine 12:23 PM EDT Pain in right toe(s) CARDIAC DEVICE CHECK- IN CL[facility]IC- [facility] Routine 03/05/2025 3:22 PM EDT Encounter for adjustment or management of cardiac device CARDIAC DEVICE CHECK- REMOTE- MURJ Routine 02/27/2025 8:22 PM EDT LIPID PANEL Routine 09/13/2023 from Last 3 Months or Most Recently Relevant to Health Maintenance Results * Gastrointestinal pathogens molecular study (05/05/2025 1:20 PM EDT) Campylobacter Detection by PCR Not Detected Not Detected LAB MICROBIOLOGY METHOD 5 11:59 AM EDT [facility] Plesiomonas shigelloides Detection by PCR Not Detected Not Detected LAB MICROBIOLOGY METHOD 5 11:59 AM EDT [facility] Salmonella Detection by PCR Not Detected Not Detected LAB MICROBIOLOGY METHOD 5 11:59 AM EDT [facility] Vibrio Detection by PCR Not Detected Not Detected LAB MICROBIOLOGY METHOD 5 11:59 AM EDT [facility] Vibrio cholerae Detection by PCR Not Detected Not Detected LAB MICROBIOLOGY METHOD 5 11:59 AM EDT [facility] Yersinia enterocolitica Detection by PCR Not Detected Not Detected LAB MICROBIOLOGY METHOD 5 11:59 AM EDT [facility] Enteroaggregative E coli EAEC Detection by PCR Not Detected Not Detected LAB MICROBIOLOGY METHOD 5 11:59 AM EDT [facility] Enteropathogenic E coli EPEC Detection Not Detected Not Detected LAB MICROBIOLOGY METHOD 5 11:59 AM EDT [facility] Enterotoxigenic E coli ETEC LTST Detection Not Detected Not Detected LAB MICROBIOLOGY METHOD 5 11:59 AM EDT [facility] Shiga-like toxin producing E coli STEC STX1 STX2 Det Not Detected Not Detected LAB MICROBIOLOGY METHOD 5 11:59 AM EDT [facility] Shigella Enteroinvasive E coli EIEC Detection Not Detected Not Detected LAB MICROBIOLOGY METHOD 5 11:59 AM EDT [facility] Cryptosporidium Detection by PCR Not Detected Not Detected LAB MICROBIOLOGY METHOD 5 11:59 AM EDT [facility] Cyclospora cayetanensis Detection by PCR Not Detected Not Detected LAB MICROBIOLOGY METHOD 5 11:59 AM EDT [facility] Entamoeba histolytica Detection by PCR Not Detected Not Detected LAB MICROBIOLOGY METHOD 5 11:59 AM EDT [facility] Giardia lamblia Detection by PCR Not Detected Not Detected LAB MICROBIOLOGY METHOD 5 11:59 AM T [facility] Adenovirus F 40 41 Detection by PCR Not Detected Not Detected LAB MICROBIOLOGY METHOD 5 11:59 AM [facility] Astrovirus Detection by PCR Not Detected Not Detected LAB MICROBIOLOGY METHOD 5 11:59 AM T [facility] Norovirus GI GII Detection by PCR Not Detected LAB MICROBIOLOGY METHOD 5 11:59 AM [facility] Sapovirus Detection by PCR Not Detected Not Detected LAB MICROBIOLOGY METHOD 5 11:59 AM [facility] Rotavirus A Detection by PCR Not Detected Not Detected LAB MICROBIOLOGY METHOD 5 11:59 AM [facility] Stool Rectum structure / Unknown Non-blood Collection / Unknown 05/05/2025 1:20 PM EDT 05/06/2025 10:02 AM EDT [facility] LAB - 05/06/2025 11:59 AM EDT PCR testing is much more sensitive than traditional techniques and allows for the detection of low numbers of stool pathogens. The clinical correlation of PCR results with the need for treatment and clinical outcomes has not been established. Therefore the results of PCR testing for stool pathogens must be taken into clinical context when making treatment decisions. This is a diagnostic test only, repeat testing for cure is not advised. You may consider infectious disease consult for additional guidance. Testing Performed by [facility] us Magno Lewis MD LAB MICROBIOLOGY - GENERAL O RDERABLES Final Result Performing Organization Address [facility]/ZIP Co de Phone Number [facility] [address] [place] [address], [place] [phone] * Clostridium difficile molecular study (05/05/2025 1:20 PM EDT) Clostridium difficile PCR Negative Negative LAB MICROBIOLOGY METHOD 05/06/2025 12:22 PM EDT [facility] Comment:NEGATIVE FOR TOXIN P RODUCING CLOSTRIDIOIDES DIFFICILE, NO ADDITIONAL TESTING IS NECESSARY. Stool Rectum structure / Unknown Non-blood Collection / Unknown 05/05/2025 1:20 PM EDT 05/06/2025 11:34 AM EDT us Magno Lewis MD LAB MICROBIOLOGY - GENERAL O RDERABLES Final Result Performing Organization Address [facility] Co de Phone Number [facility] [address] [place] [address], [place] [phone] * Clostridium difficile toxin (05/05/2025 1:20 PM EDT) C difficile Toxins A+B, EIA 05/06/2025 11:34 AM EDT [facility] Comment:Refer to C. difficil e PCR assay for results. Stool Rectum structure / Unknown Non-blood Collection / Unknown 05/05/2025 1:20 PM EDT 05/06/2025 10:02 AM EDT us Magno Lewis MD LAB MICROBIOLOGY - GENERAL O RDERABLES Final Result Performing Organization Address [facility] Co de Phone Number [facility] [address] [place] [address], [place] [phone] * (ABNORMAL) CBC auto differential (05/04/2025 7:56 AM EDT) Only the most recent of7 resultswithin the time period is included. WBC 3.2(L) 4.8 - 10.8 K/mcL LAB HEMETOLOGY METHOD 05/04/2025 2:46 PM [facility] RBC 3.30(L) 3.80 - 4.80 M/mcL LAB HEMETOLOGY METHOD 05/04/2025 2:46 PM [facility] Hemoglobin 7.7(L) 11.5 - 16.0 g/dL LAB HEMETOLOGY METHOD 05/04/2025 2:46 PM [facility] Hematocrit 28.0(L) 35.0 - 47.0 % LAB HEMETOLOGY METHOD 05/04/2025 2:46 PM [facility] MCV 85.9 79.0 - 98.0 FL LAB HEMETOLOGY METHOD 05/04/2025 2:46 PM [facility] MCH 23.6(L) 27.0 - 32.0 pcg LAB HEMETOLOGY METHOD 05/04/2025 2:46 PM [facility] MCHC 27.5(L) 32.0 - 37.0 g/dL LAB HEMETOLOGY METHOD 05/04/2025 2:46 PM [facility] RDW 17.8(H) 11.0 - 15.0 % LAB HEMETOLOGY METHOD 05/04/2025 2:46 PM [facility] Platelets 271 130 - 400 K/mcL LAB HEMETOLOGY METHOD 05/04/2025 2:46 PM [facility] MPV 10.7 7.0 - 11.0 FL LAB HEMETOLOGY METHOD 05/04/2025 2:46 PM [facility] NRBC 0.0 <1.0 % LAB HEMETOLOGY METHOD 05/04/2025 2:46 PM [facility] NRBC Absolute 0.00 <0.10 K/mcL LAB HEMETOLOGY METHOD 05/04/2025 2:46 PM [facility] Neutrophils Relative 59.0 % LAB HEMETOLOGY METHOD 05/04/2025 2:46 PM [facility] Lymphocytes Relative 21.9 % LAB HEMETOLOGY METHOD 05/04/2025 2:46 PM [facility] Monocytes Relative 17.6 % LAB HEMETOLOGY METHOD 05/04/2025 2:46 PM [facility] Eosinophils Relative 0.6 % LAB HEMETOLOGY METHOD 05/04/2025 2:46 PM [facility] Basophils Relative 0.3 % LAB HEMETOLOGY METHOD 05/04/2025 2:46 PM [facility] Immature Granulocytes Relative 0.6 % LAB HEMETOLOGY METHOD 05/04/2025 2:46 PM [facility] Neutrophils Absolute 1.88 1.50 - 7.00 K/mcL LAB HEMETOLOGY METHOD 05/04/2025 2:46 PM [facility] Lymphocytes Absolute 0.70(L) 1.00 - 5.00 K/mcL LAB HEMETOLOGY METHOD 05/04/2025 2:46 PM [facility] Monocytes Absolute 0.56 0.20 - 1.00 K/mcL LAB HEMETOLOGY METHOD 05/04/2025 2:46 PM [facility] Eosinophils Absolute 0.02 0.00 - 0.50 K/mcL LAB HEMETOLOGY METHOD 05/04/2025 2:46 PM [facility] Basophils Absolute 0.01 0.00 - 0.20 K/mcL LAB HEMETOLOGY METHOD 05/04/2025 2:46 PM [facility] Immature Granulocytes Absolute 0.02 0.00 - 0.03 K/mcL LAB HEMETOLOGY METHOD 05/04/2025 2:46 PM T [facility] Blood Venous blood specimen / Unknown Venipuncture / Unknown 05/04/2025 7:56 AM EDT 05/04/2025 12:42 PM EDT us Magno Lewis MD LAB BLOOD ORDERABLES Final R esult [facility] [address] [place] [address], [place] [phone] * (ABNORMAL) Comprehensive metabolic panel (05/04/2025 7:56 AM EDT) Sodium 138 133 - 145 mmol/L LAB CHEMISTRY METHOD 05/04/2025 5:43 PM [facility] Potassium 4.3 3.5 - 5.5 mmol/L LAB CHEMISTRY METHOD 05/04/2025 5:43 PM [facility] Chloride 108 96 - 110 mmol/L LAB CHEMISTRY METHOD 05/04/2025 5:43 PM [facility] CO2 23 21 - 32 mmol/L LAB CHEMISTRY METHOD 05/04/2025 5:43 PM [facility] Anion Gap 7 3 - 11 LAB CHEMISTRY METHOD 05/04/2025 5:43 PM [facility] Glucose 81 70 - 100 mg/dL LAB CHEMISTRY METHOD 05/04/2025 5:43 PM [facility] BUN 10 5 - 25 mg/dL LAB CHEMISTRY METHOD 05/04/2025 5:43 PM [facility] Creatinine 1.14(H) 0.50 - 1.10 mg/dL LAB CHEMISTRY METHOD 05/04/2025 5:43 PM [facility] eGFR 50(L) >=60 mL/min/1. 73m2 LAB CHEMISTRY METHOD 05/04[facility]25 5:[facility] Comment:Calculation based on the Chronic Kidney Disease Epidemiology Collaboration (CKD-EPI) equation refit without adjustment for race. BUN/Creatinine Ratio 8.8 LAB CHEMISTRY METHOD 05/04/2025 5:43 PM [facility] Calcium 9.7 8.5 - 10.5 mg/dL LAB CHEMISTRY METHOD 05/04/2025 5:43 PM [facility] AST (SGOT) 12 10 - 42 unit/L LAB CHEMISTRY METHOD 05/04/2025 5:43 PM [facility] ALT (SGPT) 15 10 - 60 unit/L LAB CHEMISTRY METHOD 05/04/2025 5:43 PM [facility] Alkaline Phosphatase 181(H) 42 - 121 unit/L LAB CHEMISTRY METHOD 05/04/2025 5:43 PM [facility] Total Protein 5.7(L) 6.0 - 8.0 g/dL LAB CHEMISTRY METHOD 05/04/2025 5:43 PM [facility] Albumin 3.0(L) 3.2 - 5.0 g/dL LAB CHEMISTRY METHOD 05/04/2025 5:43 PM [facility] Total Bilirubin 0.4 0.0 - 1.4 mg/dL LAB CHEMISTRY METHOD 05/04/2025 5:43 PM [facility] Blood Venous blood specimen / Unknown Venipuncture / Unknown 05/04/2025 7:56 AM EDT 05/04/2025 12:42 PM EDT us Magno Lewis MD LAB BLOOD ORDERABLES Final R esult [facility] [address] [place] [address], * (ABNORMAL) C-reactive protein (04/29/2025 6:33 AM EDT) Only the most recent of2 resultswithin the time period is included. C-Reactive Protein 8.68(H) <=0.50 mg/dL LAB CHEMISTRY METHOD 04/29/2025 8:17 AM EDT [facility] Blood Venous blood specimen / Unknown Venipuncture / Unknown 04/29/2025 6:33 AM EDT 04/29/2025 7:01 AM EDT us Hayden Loving MD LAB BLOOD ORDERABLES F inal Result Performing Organization Address City/[facility]/ZIP Co de Phone Number [facility] [address] [place] [address], [place] [phone] * Phosphorus (04/29/2025 6:33 AM EDT) Only the most recent of2 resultswithin the time period is included. Phosphorus 3.9 2.5 - 4.5 mg/dL LAB CHEMISTRY METHOD 04/29/2025 8:08 AM EDT [facility] Blood Venous blood specimen / Unknown Venipuncture / Unknown 04/29/2025 6:33 AM EDT 04/29/2025 7:01 AM EDT us Hayden Loving MD LAB BLOOD ORDERABLES F inal Result Performing Organization Address City/[facility]/ZIP Co de Phone Number [facility] [address] [place] [address], [place] [phone] * Magnesium (04/29/2025 6:33 AM EDT) Only the most recent of2 resultswithin the time period is included. Magnesium 2.0 1.9 - 2.6 mg/dL LAB CHEMISTRY METHOD 04/29/2025 8:08 AM EDT [facility] Blood Venous blood specimen / Unknown Venipuncture / Unknown 04/29/2025 6:33 AM EDT 04/29/2025 7:01 AM EDT us Hayden Loving MD LAB BLOOD ORDERABLES F inal Result [facility] [address] [place] [address], [place] [phone] * (ABNORMAL) Basic metabolic panel (04/29/2025 6:33 AM EDT) Only the most recent of6 resultswithin the time period is included. [facility] Sodium 135 133 - 145 mmol/L LAB CHEMISTRY METHOD 04/29/2025 8:08 AM [facility] Potassium 4.8 3.5 - 5.5 mmol/L LAB CHEMISTRY METHOD 04/29/2025 8:08 AM [facility] Chloride 101 96 - 110 mmol/L LAB CHEMISTRY METHOD 04/29/2025 8:08 AM [facility] CO2 28 21 - 32 mmol/L LAB CHEMISTRY METHOD 04/29/2025 8:08 AM [facility] Anion Gap 6 3 - 11 LAB CHEMISTRY METHOD 04/29/2025 8:08 AM [facility] Glucose 94 70 - 100 mg/dL LAB CHEMISTRY METHOD 04/29/2025 8:08 AM [facility] BUN 15 5 - 25 mg/dL LAB CHEMISTRY METHOD 04/29/2025 8:08 AM [facility] Creatinine 1.24(H) 0.50 - 1.10 mg/dL LAB CHEMISTRY METHOD 04/29/2025 8:08 AM [facility] eGFR 45(L) >=60 mL/min/1. 73m2 LAB CHEMISTRY METHOD 04/29/2025 8:08 AM [facility] Comment:Calculation based on the Chronic Kidney Disease Epidemiology Collaboration (CKD-EPI) equation refit without adjustment for race. BUN/Creatinine Ratio 12.1 LAB CHEMISTRY METHOD 04/29/2025 8:08 AM EDT [facility] Calcium 9.6 8.5 - 10.5 mg/dL LAB CHEMISTRY METHOD 04/29/2025 8:08 AM EDT [facility] Blood Venous blood specimen / Unknown Venipuncture / Unknown 04/29/2025 6:33 AM EDT 04/29/2025 7:01 AM EDT us Hayden Loving MD LAB BLOOD ORDERABLES F inal Result Performing Organization Address City/[facility] Co de Phone Number [facility] [address] [place] [address], [place] [phone] * Vancomycin, trough Please draw level 1 hour prior to vancomycin administration (04/28/2025 5:49 PM EDT) Only the most recent of2 resultswithin the time period is included. [facility] Vancomycin Trough 19.5 10.0 - 20.0 mcg/mL LAB CHEMISTRY METHOD 04/28/2025 6:27 PM EDT [facility] Blood Venous blood specimen / Unknown Venipuncture / Unknown 04/28/2025 5:49 PM EDT 04/28/2025 5:55 PM EDT us Hadyen Loving MD LAB BLOOD ORDERABLES F inal Result Performing Organization Address City/[facility]/ZIP Co de Phone Number [facility] [address] [place] [address], [place] [phone] * (ABNORMAL) Manual differential (04/28/2025 6:10 AM EDT) [facility] Neutrophils % 67.0 % LAB HEMETOLOGY METHOD 04/28/2025 8:32 AM EDT [facility] Lymphocytes % 18.0 % LAB HEMETOLOGY METHOD 04/28/2025 8:32 AM EDT [facility] Monocytes % 15.0 % LAB HEMETOLOGY METHOD 04/28/2025 8:32 AM [facility] Eosinophils % 0.0 % LAB HEMETOLOGY METHOD 04/28/2025 8:32 AM [facility] Basophils % 0.0 % LAB HEMETOLOGY METHOD 04/28/2025 8:32 AM [facility] Neutrophils Absolute Manual 4.62 1.50 - 7.00 K/mcL LAB HEMETOLOGY METHOD 04/28/2025 8:32 AM [facility] Lymphocytes Absolute 1.24 1.00 - 5.00 K/mcL LAB HEMETOLOGY METHOD 04/28/2025 8:32 AM [facility] Monocytes Absolute Manual 1.04(H) 0.20 - 1.00 K/mcL LAB HEMETOLOGY METHOD 04/28/2025 8:32 AM [facility] Eosinophils Absolute Manual 0.00 0.00 - 0.50 K/mcL LAB HEMETOLOGY METHOD 04/28/2025 8:32 AM [facility] Basophils Absolute Manual 0.00 0.00 - 0.20 K/mcL LAB HEMETOLOGY METHOD 04/28/2025 8:32 AM [facility] Rbc Morphology Consistent with indices Consistent with indices, Normal for [place] LAB HEMETOLOGY METHOD 04/28/2025 8:32 AM [facility] Platelet Morphology - WAM Normal Normal LAB HEMETOLOGY METHOD 04/28/2025 8:32 AM [facility] Polychromasia Present Present(A) (none) LAB HEMETOLOGY METHOD 04/28/2025 8:32 AM [facility] Blood Venous blood specimen / Unknown Venipuncture / Unknown 04/28/2025 6:10 AM EDT 04/28/2025 6:45 AM EDT us Hayden Loving MD LAB BLOOD ORDERABLES F inal Result Performing Organization Address City/[facility]/ZIP Co de Phone Number [facility] [address] [place] [address], [place] [phone] * Uric acid (04/28/2025 6:10 AM EDT) Uric Acid 7.6 3.1 - 7.8 mg/dL LAB CHEMISTRY METHOD 04/28/2025 5:26 PM EDT [facility] Blood Venous blood specimen / Unknown Venipuncture / Unknown 04/28/2025 6:10 AM EDT 04/28/2025 6:45 AM EDT us Hayden Loving MD LAB BLOOD ORDERABLES F inal Result Performing Organization Address [facility] Co de Phone Number [facility] [address] [place] [address], [place] [phone] * (ABNORMAL) Culture tissue with gram stain (04/26/2025 2:33 PM EDT) Pathologist [facility] Culture, Tissue No Anaerobes isolated at 5 days. 05/01/2025 8:05 AM EDT [facility] Culture, Tissue Staphylococcus auricularis(A) 05/01/2025 8:05 AM EDT [facility] Comment: The organism value for this result has been updated. These results have been appended to the previously preliminary verified report. Edited result: Previously reported as Gram Positive Cocci on 04/29/2025 at 1048 EDT. Gram Stain Result No polymorphonuclear leukocytes, No epithelial cells, and No organisms noted 05/01/2025 8:05 AM EDT [facility] Tissue Structure of toe of right foot / Unknown 04/26/2025 2:33 PM EDT 04/26/2025 3:36 PM EDT Narrative Organism Antibiotic Method Susceptibility Staphylococcus auricularis Ciprofloxacin DISK DIFFUSIO N Resistant Staphylococcus auricularis Clindamycin DISK DIFFUSION Susceptible Staphylococcus auricularis Erythromycin DISK DIFFUSION Resistant Staphylococcus auricularis Gentamicin DISK DIFFUSION Susceptible Staphylococcus auricularis Levofloxacin DISK DIFFUSION Resistant Staphylococcus auricularis Linezolid DISK DIFFUSION Susceptible Staphylococcus auricularis Oxacillin DISK DIFFUSION Susceptible Staphylococcus auricularis Penicillin DISK DIFFUSION Susceptible Staphylococcus auricularis Tetracycline DISK DIFFUSION Susceptible Staphylococcus auricularis Trimethoprim/ Sulfamethoxazo le DISK DIFFUSION Susceptible Comment:If Vancomycin result s are required for treatment of the Staphylococcus coagulase negative isolate for this patient, please contact the Microbiology Dept.([phone]) within 7 days to request alternate test method. us Mark Pride MD LAB MICROBIOLOGY - GENERAL SANDY GARCIA Final Result [facility] [address] [place] [address], * Tissue exam (04/26/2025 2:10 PM EDT) Final Diagnosis A. 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 04/28/2025 12:50 PM EDT [facility] Gross Description A. Toe, Right, second metatarsal: Labeled toe R, second me . Received in formalin is a 4.8 x 2.3 x 1.9 cm lower extremity digit disarticulated at the metatarsal phalangeal joint. The dorsal aspect displays a 0.6 x 0.5 cm red-brown crusted lesion, located 2.1 cm from the grossly viable soft tissue margin. The underlying bone is ayers-yellow trabecular firm cut surfaces and embedded ayers-white chalky substance at the distal interphalangeal joint. A scrape prep is made. The uninvolved skin is pink-white and wrinkled. The toenail is ayers-yellow and slightly thickened. The soft tissue margin is inked blue. Chemical Laboratory Chief sections are submitted as follows: 1 and 2, complete longitudinal cross-section to include lesion, underlying bone, and margin, following decalcification, one piece each 3, soft tissue with embedded white chalky substance for gout processing, one piece B. Toe, Right, second metatarsal bone margin: Labeled toe R, second me . Received in formalin is a 1.3 x 1 x 0.6 cm ayers-white articular bone fragment with a minimally attached white-brown rubbery tissue. The cut surfaces display ayers-yellow to red-brown trabecular bone. The specimen is trisected and entirely submitted in one cassette following decalcification, three pieces. JULES 04/28/2025 12:50 PM EDT [facility] Disclaimer Unless otherwise specified, all tissue is 10% NB formalin fixed and paraffin embedded. 04/28/2025 12:50 PM EDT [facility] Tissue Structure of toe of right foot / Unknown 04/26/2025 2:10 PM EDT 04/27/2025 6:26 AM EDT Tissue specimen (specimen) Structure of toe of right foot / Unknown 04/26/2025 2:15 PM EDT 04/27/2025 6:26 AM EDT Mark Pride MD LAB PATHOLOGY ORDERABLES Final Result [facility] [address] [place] [address], * ECG 12 lead (04/26/2025 12:38 PM EDT) Ventricular Rate ECG 71 BPM GEMUSE Atrial Rate 71 BPM GEMUSE P-R Interval 204 ms GEMUSE QRS Duration 68 ms GEMUSE Q-T Interval 336 ms GEMUSE QTc 365 ms GEMUSE P Wave [place] 48 degrees GEMUSE R [place] 31 degrees GEMUSE T [place] 49 degrees GEMUSE ECG Interpretation Normal sinus rhythm Normal ECG When compared with ECG of 17-SEP-2024 15:23, No significant change was found Confirmed by DIDIER NEAL ([id number]) on 04/28/2025 9:20:58 AM GEMUSE 04/26/2025 12:3 8 PM EDT 04/28/2025 9:20 AM EDT us Alireza Jane MD ECG ORDERABLES Final Result GEMUSE * Culture blood (04/24/2025 6:11 PM EDT) Only the most recent of2 resultswithin the time period is included. Culture, Blood No growth at 5 days LAB MICROBIOLOGY METHOD 04/29/2025 7:01 PM EDT [facility] Blood Venous blood specimen / Unknown Venipuncture / Unknown 04/24/2025 6:11 PM EDT 04/24/2025 6:43 PM EDT us Nelly VENEGAS LAB MICROBIOLOGY - GENERAL OR DERABLES Final Result Performing Organization Address [facility] Co de Phone Number [facility] [address] [place] [address], [place] [phone] * XR Foot 3+ Views Right (04/22/2025 12:23 PM EDT) Anatomical Region Laterality Modality Lower Extremities, Foot Right Radiogra phic Imaging 04/24/2025 7:37 AM EDT Impressions 04/24/2025 7:40 AM EDT 1. Gross destruction of most of the second middle phalanx extending into the base of the second distal phalanx, with overlying soft tissue swelling, highly consistent with acute osteomyelitis. 2. Severe hallux valgus. 3. Bony demineralization. Code 49768 -------- FINAL REPORT -------- Dictated By: Magno Byrne Dictated Date: 04/24/2025 07:37 ET Assigned Physician: Magno Byrne Reviewed and Electronically Signed By: Magno Bryne Signed Date: 04/24/2025 07:40 ET Workstation ID: [id number] Transcribed By: Self Edit Transcribed Date: 04/24/2025 07:37 ET Narrative 04/24/2025 7:40 AM EDT HISTORY: The patient is a 74-year-old female with a nonhealing wound on the right second toe. FINDINGS: AP, lateral, and oblique views of the right foot are obtained. The study demonstrates bony demineralization. There is no fracture or dislocation. However, there is gross destruction involving most of the second middle phalanx, extending into the base of the second distal phalanx. There is overlying soft tissue swelling. These findings are highly consistent with acute osteomyelitis. There is no evidence of osteomyelitis elsewhere in the foot. There is severe hallux valgus. No soft tissue gas is demonstrated. Procedure Note Magno Byrne MD - 04/24/2025 HISTORY: The patient is a 74-year-old female with a nonhealing wound onthe right second toe. FINDINGS: AP, lateral, and oblique views of the right foot are obtained.The study demonstrates bony demineralization. There is no fracture ordislocation. However, there is gross destruction involving most of thesecond middle phalanx, extending into the base of the second distalphalanx. There is overlying soft tissue swelling. These findings arehighly consistent with acute osteomyelitis. There is no evidence ofosteomyelitis elsewhere in the foot. There is severe hallux valgus. Nosoft tissue gas is demonstrated. IMPRESSION: 1. Gross destruction of most of the second middle phalanx extending intothe base of the second distal phalanx, with overlying soft tissueswelling, highly consistent with acute osteomyelitis. 2. Severe hallux valgus. 3. Bony demineralization. Code 80460 -------- FINAL REPORT -------- Dictated By: Magno Byrne Dictated Date: 04/24/2025 07:37 ET Assigned Physician: Magno Byrne Reviewed and Electronically Signed By: Magno Byrne Signed Date: 04/24/2025 07:40 ET Workstation ID: [id number] Transcribed By: Self Edit Transcribed Date: 04/24/2025 07:37 ET us Keyla Burgess MD IMG XR PROCEDURES Final Result * CARDIAC DEVICE CHECK- IN CLINIC- [facility] (03/05/2025 3:22 PM EDT) Date Time Interrogation Session [id number] CV DEVICE CHECK Implantable Pulse Generator Maintenance Equipment Operator MDTomi CV DEVICE CHECK Implantable Pulse Generator Type IPG CV DEVICE CHECK Implantable Pulse Generator Model Advisa DR MRI A2DR01 CV DEVICE CHECK Implantable Pulse Generator Serial Number [id number] CV DEVICE CHECK Implantable Pulse Generator Implant Date 20150907 CV DEVICE CHECK Battery Voltage 2.930 CV D EVICE CHECK Battery Status Middle of Service CV DEVICE CHECK Pawan Statistic RA Percent Paced 7.00 CV DEVICE CHECK Pawna Statistic RV Percent Paced 0.10 CV DEVICE CHECK Atrial Tachy Statistic AT/AF [place] Percent 0.10 CV DEVICE CHECK Lead Channel [...] - Remote- [facility] (02/27/2025 8:22 PM EDT) Date Time Interrogation Session [id number] CV DEVICE CHECK Type Interrogation Session Remote CV DEVICE CHECK Implantable Pulse Generator Maintenance Equipment Operator MDT CV DEVICE CHECK Implantable Pulse Generator Type IPG CV DEVICE CHECK Implantable Pulse Generator Model Advisa DR MCCOY A2DR01 CV DEVICE CHECK Implantable Pulse Generator Serial Number [id number] CV DEVICE CHECK Implantable Pulse Generator Implant Date 20150907 CV DEVICE CHECK Battery Remaining Longevity 29.0 CV DEVICE CHECK Battery Voltage 2.940 CV D EVICE CHECK Battery COAL MINE INSPECTOR Trigger 2.830 CV DEVICE CHECK Battery Status Middle of Service CV DEVICE CHECK Pawan Statistic RA Percent Paced 13.78 CV DEVICE CHECK Pawna Statistic RV Percent Paced 0.14 CV DEVICE CHECK Atrial Tachy Statistic AT/AF [place] Percent 0.00 CV DEVICE CHECK Lead Channel [...] seconds @136 bpm Narrative Procedure Note Kati Wood NP - 02/27/2025 IMPRESSION: Sinus Tachycardia Triage * Stored EGMs are consistent with or suggestive of Sinus Tachycardia *7 episodes Most recent 07/27/24 Longest 2min 37 seconds @136 bpm Kati Wood [employer] 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 BUILDER CV IMPLANTABLE CARDIAC DEVIC E PROCEDURES Final Result * Lipid panel (09/13/2023) LDL/HDL Ratio 0 Comment:no interpretation Triglycerides 0 mg/dL Comment:no interpretation Cholesterol 0 mg/dL Comment:no interpretation HDL 0 mg/dL Comment:no interpretation LDL Cholesterol 0 mg/dL Comment:no interpretation Blood Venous blood specimen / Unknown us Historical Provider LAB BLOOD ORDERABLES Mendy l Result from Last 3 Months or Most Recently Relevant to Health Maintenance Insurance [place]ICARE [place]ICAID [place] Advance Directives Documents on File Type Date Recorded Patient Chemical Laboratory Chief Expl anation Health Care Decision (hx) 01/31/2023 AD SOTELO DIRECTIVE Health Care Decision (hx) 01/31/2023 AD SOTELO DIRECTIVE Health Care Decision (hx) 01/31/2023 AD SOTELO DIRECTIVE Health Care Decision (hx) 01/31/2023 AD SOTELO DIRECTIVE * Full Code - Default (Latest Code Status on File) Date Activated Date Inactivated Comments 04/24/2025 5:36 PM 05/02/2025 6:01 PM This is order is used when code status has not been discussed with the patient, or code status is otherwise unknown/unconfirmed To update the patient's code status, place a code status order. Do not modify or discontinue any currently active code status orders. Care Teams Ivf Embryologist Relationship Specialty Start Date End Date Keyla Burgess MD [address] [place] [id number] PCP - General 09/04/12
[2025-05-27 15:09] LABS: Anion Gap 18 (12-20); Blood Urea Nitrogen 56 mg/dL (9-16); Calcium 10.9 mg/dL (8.4-10.2); Carbon Dioxide 23 mmol/L (22-29); Chloride 99 mmol/L (96-108); Estimated Glomerular Filt Rate 24; Potassium 4.1 mmol/L (3.3-5.1); Sodium 136 mmol/L (135-145)
== END 2025-05-27 09:45 | disposition home or self-care (01) ==
LOC: HO.CHCLDS 09:44
PROVIDERS: Visit Provider Internal Medicine
DX: N18.4 Chronic kidney disease, stage 4 (severe) (principal)
CPT/HCPCS: 36415; 80048

== ENCOUNTER 2025-06-19 10:27 | Outpatient (REF) | payer MEDICARE, MEDICAID, SELFPAY ==
--- OUTSIDE RECORDS SUMMARY | 2025-06-19 10:40 | XMS_ITS | Clinical Summary ---
Author Organization [address] [facility] Address [address] [place] [address] Phone Care Team Providers Care Pantry Cook Name Role Phone Keyla Burgess MD Primary Care Provider Allergies Active Allergy Reactions Criticality Noted Date [...] each day if needed for allergies. 05/23/20 22 Active umeclidinium (Incruse Ellipta) 62.5 mcg/actuation inhalationIndica tions:Chronic obstructive pulmonary disease, unspecified COPD type ([facility] V24, [facility] V28),Bronchiecta sis without acute exacerbation ([facility] V24, [facility] V28) Inhale 1 puff by mouth 1 (one) time each day. 3 each 3 12/09/19 25 026 Active albuterol HFA (PROAIR HFA ; PROVENTIL HFA ; VENTOLIN HFA) 90 mcg/actuation inhalerIndicatio ns:Chronic obstructive pulmonary disease, unspecified COPD type ([facility] V24, [facility] V28) Inhale 2 puffs by mouth every 6 (six) hours if needed for wheezing or shortness of breath. 3 each 3 12/09/19 25 026 Active fluticasone furoate-vilanter oL [...] (two) times a day. 03/02/20 25 Active torsemide (DEMADEX) 20 mg tablet Take 1 tablet (20 mg total) by mouth 1 (one) time each day. 05/02/20 25 Active allopurinoL (ZYLOPRIM) 100 mg tablet Take 1 tablet (100 mg total) by mouth 1 (one) time each day. 30 each 05/02/20 25 026 Active senna (SENOKOT) 8.6 mg tablet Take 2 tablets (17.2 mg total) by mouth at bedtime. 60 each 05/02/20 25 026 Active diazePAM (VALIUM) 5 mg tablet Take 1 tablet (5 mg total) by mouth at bedtime. Max Daily Amount: 5 mg 05/02/20 25 Active oxyCODONE (ROXICODONE) 20 mg immediate release tablet Take 1 tablet (20 mg total) by mouth 3 (three) times a day. 04/03/20 25 025 Discontinu ed(Stop Taking at Discharge) atorvastatin (LIPITOR) 10 mg tablet Take 1 tablet (10 mg total) by mouth at bedtime. 90 tablet 1 04/30/20 25 025 Discontinu ed(Stop Taking at Discharge) doxycycline (DORYX) 100 mg EC tablet Take 1 tablet (100 mg total) by mouth 2 (two) times a day. Do not crush or chew. Take with a full glass of water and do not lie down for at least 30 minutes after. 05/02/20 25 025 oxyCODONE (ROXICODONE) 15 mg immediate release tabletIndication s:Osteomyelitis of right foot, unspecified type (CMS/HCC V24, CMS/HCC V28) Take 1 tablet (15 mg total) by mouth every 6 (six) hours if needed (Moderate to severe pain). Max Daily Amount: 60 mg 05/02/20 25 025 Discontinu ed(Therapy completed) traMADoL (ULTRAM) 50 mg tablet Take 1 tablet (50 mg total) by mouth every 6 (six) hours if needed for severe pain. Max Daily Amount: 200 mg 025 Discontinu ed(Therapy completed) magnesium oxide (MAG-OX) 400 mg magnesium tablet Take 1 tablet (400 mg total) by mouth 1 (one) time each day for 5 days. 5 tablet 06/02/20 25 025 Active Problems Problem Noted Date Diagnosed Date [...] do think she needs to see a mail technician if she is having hypoxia. She may [...] follow-up in device clinic. Deep venous thrombosis (CMS/HCC V24, CMS/HCC V28 ) 09/17/2021 Overview (09/02/2024): Last Assessment [...] heart failure with p reserved ejection fraction ([facility] V24, [facility] V28) 02/15/2021 Overview (09/02/2024): - Last [...] be ruled out. Chronic obstructive lung disease ([facility], [facility] V28) 11/10/2015 Overview (09/02/2024): Chronic obstructive lung disease Resolved Problems Problem Noted Date Diagnosed Date Resolved Date Idiopathic acute pancreatiti s, unspecified complication status 06/02/2025 06/05/2025 Acute pancreatitis 05/31/2025 Encounters Date Type Department Care Team Description 06/09/2025 Telephone Infectious Disease - [place] [address] [place] [address] Salazar Salguero LPN Today 4pm 05/31/2025 10:21 AM EDT - 06/05/2025 4:50 PM EDT Hospital Encounter [facility] [address] [place] [phone] Sorin Green, Julissa Barclay MD Landry, Jonathan P, MD Seralathan, Manikandan, MD Idiopathic acute pancreatitis, unspecified complication status (Primary Dx) Discharge Disposition: Care Home Facility 05/13/2025 10:00 AM EDT Office Visit Vascular Surgery - [place] [address] [place] [address] Fanny Rausch MD Osteomyelitis of right foot, unspecified type ([facility] V24, [facility] V28) (Primary Dx) 05/06/2025 Lab Requisition [facility] [address] [place] [phone] Magno Lewis MD Diarrhea, unspecified 05/04/2025 Lab Requisition [facility] [address] [place] [phone] Magno Lewis MD Chronic obstructive pulmonary disease, unspecified ([facility] V24, [facility] V28) 04/30/2025 Telephone [facility] - [facility] [address] [facility] 154 [place] [phone] Rigo Meyers NP Med Refill 04/26/2025 2:10 PM EDT - 04/26/2025 3:40 PM EDT Surgery [facility] OR [address] [place] [address] Mark Pride MD right second toe ray amputation 04/26/2025 1:48 PM EDT Anesthesia Event [facility] OR [address] [place] [phone] Miguelangel Black MD [facility] 04/24/2025 12:06 PM EDT - 05/02/2025 4:00 PM EDT Hospital Encounter [facility] [address] [place] [address] Raul Olea MD Shapiro, Benjamin, DO Alam, Aroosa, MD Santoyo-Pacheco, Omar D, MD Osteomyelitis of right foot, unspecified type ([facility] V24, [facility] V28) (Primary Dx); Other acute osteomyelitis of right foot ([facility] V24, [facility] V28) Discharge Disposition: Care Home Facility 04/22/2025 12:07 PM EDT - 04/22/2025 11:59 PM EDT Hospital Encounter [facility] Xray [address] [place] [address] Pain in right toe(s) Discharge Disposition: Home or Self Care 03/27/2025 Telephone [facility] [address] [facility] 154 [place] [address] Gladis Mauricio MD Records 03/24/2025 Telephone [facility] [address] [facility] 154 [place] [address] Rigo Meyers NP Results from Last 3 Months Immunizations Name Administration [...] PACEMAKER OTHER SURGICAL HISTORY 02/16/2021 N/A PROCEDURE: SC RPR EPIGASTRIC HERNIA REDUCIBLE SPX; COMMENT: open epigastric ventral hernia repair - Dr. Charlie Marquez HYSTERECTOMY PROCEDURE: HISTORICAL HYSTERECTOMY Medical History Medical History Date Comments Heart disease DX:Heart disease Acute respiratory failure wi th hypoxia ([facility] V24, [facility] V28) DX:Acute respirator y failure with hypoxia (HCC) COPD exacerbation ([facility] V 24, [facility] V28) DX:COPD exacerbation (HCC) SSS (sick sinus syndrome) ([facility] V24, [facility] V28) DX:SSS (sick sinus syndrome) (HCC) CKD (chronic kidney disease) , stage IV ([facility] V24, [facility] V28) DX:CKD (chronic kidney d isease), stage IV ([facility]) History of DVT (deep vein thrombosis) [...] Safety Answer Date Record ed Physical Abuse 06/01/2025 Verbal Abuse 06/01/2025 Comments Unknown Sex and Gender Information Value Date Recorded Sex Assigned at Not on file Legal Sex Female 1:54 AM EST Gender Identity Not on file Sexual Orientation Not on file Obstetrics History Last Filed Vital Signs Vital Sign Reading Time Taken Comments Blood Pressure 127/63 06/05/2025 7:28 AM EDT Pulse 87 06/05/2025 7:28 AM EDT Temperature 36.7 C (98.1 F) 06/05/2025 7:28 AM EDT Respiratory Rate 16 06/05/2025 7:28 AM EDT Oxygen Saturation 97% 06/05/2025 7:28 AM EDT Inhaled Oxygen Concentration - - Weight 76.2 kg (168 lb 1.6 oz) 06/05/2025 5:00 A M EDT Height 152.4 cm (5') 06/01/2025 4:56 PM EDT Body Mass Index 32.83 06/01/2025 4:56 PM EDT Plan of Treatment Upcoming Encounters Date Type Department Care Team (Late st Contact Info) Description 06/23/2025 10:45 AM EDT Office Visit Pulmonolgy - [place] [address] [facility] 200 [place] [phone] Hansa Cheek MD [address] [address] 08/05/2025 2:00 PM EDT Office Visit Infectious Disease - [place] 175 [facility] 200 [place] [phone] Lela Marsh MD [address] [address] 09/21/2025 1:10 PM EDT Office Visit [facility] - [facility] [address] [facility] 154 [place] [phone] Rigo Meyers NP [address] [place] [address] 09/21/2025 2:00 PM EDT Ancillary Procedure [facility] - [facility] [address] [facility] 154 [place] [phone] 05/13/2026 10:00 AM EDT Office Visit Vascular Surgery - [place] 300 [facility] 210 [place] [address] Fanny Rausch MD 300 [facility] 210 [place] [address] Health Maintenance Due Date Last Done Comments Hepatitis A Vaccines (1 of 2 - Risk 2-dose series) 1969 Hepatitis C Screening 11/04/2022 Medicare Annual Wellness Visit 11/04/2022 Osteoporosis Screening (Bone Density Screening) 11/04/2022 Social Influencers of Health Screening 11/04/2022 Depression Screening 11/26/2024 COVID-19 Vaccine (8 - Moderna risk season) 2025 08/23/2024, 07/13/2023, 09/15/2022, Additional history exists Influenza Vaccine (#1) 2025 , 07/13/2023, 09/15/2022, Additional history exists Hypertension/CHF/CAD Annual BMP Blood Test 06/04/2026 06/04/2025, 06/03/2025, 06/02/2025, Additional history exists Falls Risk Assessment 06/05/2026 06/05/2025 DTaP,Tdap,and Td Vaccines (2 - Td or [...] this topic Medical Devices Implanted Type Area Program Director Group Work Device Identifier Shelf Expiration Date Model / Serial / Lot Medt-Card Advisa Dr Mccoy [id number] Implanted: (Quantity not on file) Cardiac Pacemaker [employer] - CARDIAC RHYTH-CRDM ADVISA DR MCCOY [id number] / [id number] / Procedures Procedure Name Priority Date/Time Associated Diagnosis Comments ECG ANNOTATED 06/06/2025 XR ABDOMEN 1 VIEW STAT 06/05/2025 10:25 AM EDT POCT GLUCOSE BLOOD Routine 06/05/2025 9: 23 AM EDT POCT GLUCOSE BLOOD Routine 06/05/2025 2: 48 AM EDT POCT GLUCOSE BLOOD Routine 06/04/2025 7: 54 PM EDT POCT GLUCOSE BLOOD Routine 06/04/2025 3: 29 PM EDT XR ABDOMEN 2 VIEWS Routine 06/04/2025 11:31 AM EDT CBC WITH AUTO DIFFERENTIAL Routine 06/04/2025 9:23 AM EDT CBC AND DIFFERENTIAL Routine 06/04/2025 9:23 AM EDT BASIC METABOLIC PANEL Routine 06/04/2025 9:23 AM EDT MAGNESIUM Routine 06/04/2025 9:23 AM EDT PHOSPHORUS Routine 06/04/2025 9:23 AM EDT POCT GLUCOSE BLOOD Routine 06/04/2025 9: 02 AM EDT POCT GLUCOSE BLOOD Routine 06/04/2025 2: 59 AM EDT POCT GLUCOSE BLOOD Routine 06/03/2025 8: 40 PM EDT POCT GLUCOSE BLOOD Routine 06/03/2025 3: 18 PM EDT POCT GLUCOSE BLOOD Routine 06/03/2025 9: 03 AM EDT CBC WITH AUTO DIFFERENTIAL Routine 06/03/2025 8:39 AM EDT CBC AND DIFFERENTIAL Routine 06/03/2025 8:39 AM EDT BASIC METABOLIC PANEL Routine 06/03/2025 8:39 AM EDT MAGNESIUM Routine 06/03/2025 8:39 AM EDT PHOSPHORUS Routine 06/03/2025 8:39 AM EDT POCT GLUCOSE BLOOD Routine 06/03/2025 3: 29 AM EDT POCT GLUCOSE BLOOD Routine 06/02/2025 9: 21 PM EDT POCT GLUCOSE BLOOD Routine 06/02/2025 3: 36 PM EDT POCT GLUCOSE BLOOD Routine 06/02/2025 12:08 PM EDT MR ABDOMEN WO CONTRAST MRCP Routine 06/02/2025 10:53 AM EDT MANUAL DIFFERENTIAL - SYSMEX WAM Routine 06/02/2025 8:15 AM EDT CBC WITH AUTO DIFFERENTIAL Routine 06/02/2025 8:15 AM EDT CBC AND DIFFERENTIAL Routine 06/02/2025 8:15 AM EDT BASIC METABOLIC PANEL Routine 06/02/2025 8:15 AM EDT MAGNESIUM Routine 06/02/2025 8:15 AM EDT PHOSPHORUS Routine 06/02/2025 8:15 AM EDT YELLOW URINE NO ADDITIVE Routine 06/02/2025 5:49 AM EDT EXTRA TUBES Routine 06/02/2025 5:49 AM EDT CHUNG URINE CULTURE TUBE Routine 06/02/20 5:49 AM EDT URINALYSIS WITH REFLEX MICROSCOPIC AND CULTURE Routine 06/02/2025 5:49 AM EDT URINALYSIS WITH REFLEX MICROSCOPIC AND CULTURE Routine 06/02/2025 5:49 AM EDT POCT GLUCOSE BLOOD Routine 06/02/2025 3: 14 AM EDT POCT GLUCOSE BLOOD Routine 06/01/2025 9: 10 PM EDT POCT GLUCOSE BLOOD Routine 06/01/2025 3: 13 PM EDT POCT GLUCOSE BLOOD Routine 06/01/2025 8: 59 AM EDT COMPLETE BLOOD COUNT Routine 06/01/2025 6:04 AM EDT BASIC METABOLIC PANEL Routine 06/01/2025 6:04 AM EDT US ABDOMEN LIMITED Routine 06/01/2025 4: 26 AM EDT POCT GLUCOSE BLOOD Routine 06/01/2025 3: 26 AM EDT POCT GLUCOSE BLOOD Routine 05/31/2025 8: 17 PM EDT TROPONIN I HIGH SENSITIVITY STAT 05/31/2025 1:[address] ABDOMEN PELVIS WO CONTRAST STAT 05/31/2025 1:00 PM EDT XR CHEST 2 VIEWS STAT 05/31/2025 12:32 PM EDT TROPONIN I HIGH SENSITIVITY STAT 05/31/2025 11:59 AM EDT RESPIRATORY VIRUS PANEL MOLECULAR STUDY STAT 05/31/2025 11:59 AM EDT ECG 12-LEAD STAT 05/31/2025 11:55 AM EDT TRIGLYCERIDES Add-On 05/31/2025 10:50 AM EDT LIPASE Add-On 05/31/2025 10:50 AM EDT ALKALINE PHOSPHATASE STAT Add-on 05/31/2025 10:50 AM EDT BILIRUBIN, TOTAL Add-On 05/31/2025 10:50 AM EDT ALANINE AMINOTRANSFERASE STAT Add-on 05/31/2025 10:50 AM EDT ASPARTATE AMINOTRANSFERASE STAT Add-on 05/31/2025 10:50 AM EDT RBC MORPHOLOGY REVIEW STAT 05/31/2025 10:50 AM EDT CBC WITH AUTO DIFFERENTIAL STAT 05/31/2025 10:50 AM EDT MAGNESIUM STAT 05/31/2025 10:50 AM EDT BASIC METABOLIC PANEL STAT 05/31/2025 10:50 AM EDT CBC AND DIFFERENTIAL STAT 05/31/2025 10:50 AM EDT CLOSTRIDIUM DIFFICILE PCR Routine 05/05/2025 1:20 PM [...] AM EDT Chronic obstructive pulmonary disease, unspecified ([facility] V24, [facility] V28) C-REACTIVE PROTEIN Routine 04/29/2025 6: 33 [...] 12:23 PM EDT Pain in right toe(s) LIPID PANEL Routine 09/13/2023 from Last 3 Months or Most Recently Relevant to Health Maintenance Results * ECG-Annotated (06/06/2025) us Provider Onbase MD ECG ORDERABLES Final Result * XR Abdomen 1 View (06/05/2025 10:25 AM EDT) Anatomical Region Laterality Modality Body Radiographic Reba ging 06/05/2025 11:4 2 AM EDT Impressions 06/05/2025 11:44 AM EDT Normal bowel gas pattern. -------- FINAL REPORT -------- Dictated By: Antonina Barber Dictated Date: 06/05/2025 11:42 ET Assigned Physician: Antonina Barber Reviewed and Electronically Signed By: Antonina Barber Signed Date: 06/05/2025 11:44 ET Workstation ID: [id number] Transcribed By: Self Edit Transcribed Date: 06/05/2025 11:42 ET Narrative 06/05/2025 11:44 AM EDT INDICATION: Abdominal pain FINDINGS: Single view of the abdomen was obtained. Compared to study from June 04, 2025. There is a nonobstructive bowel gas pattern. There are no air-filled, dilated loops of small bowel. Air and stool noted throughout the colon. Left lower pole renal stones again noted, unchanged. Bony structures demonstrate osteopenia, degenerative and scoliotic changes.. Procedure Note Antonina Barber MD - 06/05/2025 INDICATION: Abdominal pain FINDINGS: Single view of the abdomen was obtained. Compared to study fromJune 04, 2025. There is a nonobstructive bowel gas pattern. There are no air-filled,dilated loops of small bowel. Air and stool noted throughout the colon. Left lower pole renal stones again noted, unchanged. Bony structures demonstrate osteopenia, degenerative and scolioticchanges.. IMPRESSION: Normal bowel gas pattern. -------- FINAL REPORT -------- Dictated By: Antonina Barber Dictated Date: 06/05/2025 11:42 ET Assigned Physician: Antonina Barber Reviewed and Electronically Signed By: Antonina Barber Signed Date: 06/05/2025 11:44 ET Workstation ID: [id number] Transcribed By: Self Edit Transcribed Date: 06/05/2025 11:42 ET us Dino Hopper MD IMG XR PROCEDURES Final Result * POCT Glucose, blood (06/05/2025 9:23 AM EDT) Only the most recent of19 resultswithin the time period is included. [facility] Signature Glucose POCT 99 70 - 100 mg/dL 06/05/2025 9:24 AM EDT [facility] Blood Capillary blood specimen / Unknown 06/05/2025 9:23 AM EDT 06/05/2025 9:25 AM EDT us Dino Hopper MD LAB POINT OF CA RE TEST DOCKED DEVICE UNSOLICITED RESULTS Final Result [facility] [address] [place] [address], [place] [phone] * XR Abdomen 2 Views (06/04/2025 11:31 AM EDT) Anatomical Region Laterality Modality Body Radiographic Reba ging 06/04/2025 11:3 3 AM EDT Impressions 06/04/2025 11:36 AM EDT Impression: 1. Mild ileus suspected. 2. No evidence of bowel obstruction. Telerad RUBI ([id number]) -------- FINAL REPORT -------- Dictated By: Rachael Johnson Dictated Date: 06/04/2025 11:33 ET Assigned Physician: Rachael Johnson Reviewed and Electronically Signed By: Rachael Johnson Signed Date: 06/04/2025 11:36 ET Workstation ID: [id number] Transcribed By: Self Edit Transcribed Date: 06/04/2025 11:33 ET Narrative 06/04/2025 11:36 AM EDT History: Follow-up ileus/small bowel obstruction. Comparison: CT abdomen/pelvis 05/31/25 Findings: AP supine and left lateral decubitus views of the abdomen are submitted. No bowel dilatation is identified. There are scattered air-fluid levels within the small bowel, possibly mild ileus in the setting of known acute pancreatitis. There is no pneumoperitoneum. Solid visceral outlines are unremarkable. A cluster of small calculi project over the lower pole of the left kidney, consistent with nonobstructing renal calculi, with CT correlation. The bones are demineralized. Cardiac pacemaker leads are partially imaged. Procedure Note Rachael Johnson MD - 06/04/2025 History: Follow-up ileus/small bowel obstruction. Comparison: CT abdomen/pelvis 05/31/25 Findings: AP supine and left lateral decubitus views of the abdomen are submitted.No bowel dilatation is identified. There are scattered air-fluid levelswithin the small bowel, possibly mild ileus in the setting of known acutepancreatitis. There is no pneumoperitoneum. Solid visceral outlines are unremarkable. A cluster of small calculiproject over the lower pole of the left kidney, consistent withnonobstructing renal calculi, with CT correlation. The bones are demineralized. Cardiac pacemaker leads are partially imaged. IMPRESSION: Impression: 1. Mild ileus suspected. 2. No evidence of bowel obstruction. Isela VENEGAS ([id number]) -------- FINAL REPORT -------- Dictated By: Rachael Johnson Dictated Date: 06/04/2025 11:33 ET Assigned Physician: Rachael Johnson Reviewed and Electronically Signed By: Rachael Johnson Signed Date: 06/04/2025 11:36 ET Workstation ID: [id number] Transcribed By: Self Edit Transcribed Date: 06/04/2025 11:33 ET Dino Hopper MD IMG XR PROCEDURES Final Result * (ABNORMAL) CBC auto differential (06/04/2025 9:23 AM EDT) Only the most recent of11 resultswithin the time period is included. WBC 6.3 4.8 - 10.8 K/mcL LAB HEMETOLOGY METHOD 06/04/2025 10:10 AM [facility] RBC 3.20(L) 3.80 - 4.80 M/mcL LAB HEMETOLOGY METHOD 06/04/2025 10:10 AM [facility] Hemoglobin 7.7(L) 11.5 - 16.0 g/dL LAB HEMETOLOGY METHOD 06/04/2025 10:10 AM [facility] Hematocrit 27.0(L) 35.0 - 47.0 % LAB HEMETOLOGY METHOD 06/04/2025 10:10 AM [facility] MCV 83.6 79.0 - 98.0 FL LAB HEMETOLOGY METHOD 06/04/2025 10:10 AM [facility] MCH 23.8(L) 27.0 - 32.0 pcg LAB HEMETOLOGY METHOD 06/04/2025 10:10 AM [facility] MCHC 28.5(L) 32.0 - 37.0 g/dL LAB HEMETOLOGY METHOD 06/04/2025 10:10 AM [facility] RDW 19.1(H) 11.0 - 15.0 % LAB HEMETOLOGY METHOD 06/04/2025 10:10 AM [facility] Platelets 203 130 - 400 K/mcL LAB HEMETOLOGY METHOD 06/04/2025 10:10 AM [facility] MPV 10.2 7.0 - 11.0 FL LAB HEMETOLOGY METHOD 06/04/2025 10:10 AM [facility] NRBC 0.0 <1.0 % LAB HEMETOLOGY METHOD 06/04/2025 10:10 AM [facility] NRBC Absolute 0.00 <0.10 K/mcL LAB HEMETOLOGY METHOD 06/04/2025 10:10 AM [facility] Neutrophils Relative 60.1 % LAB HEMETOLOGY METHOD 06/04/2025 10:10 AM [facility] Lymphocytes Relative 15.9 % LAB HEMETOLOGY METHOD 06/04/2025 10:10 AM [facility] Monocytes Relative 21.1 % LAB HEMETOLOGY METHOD 06/04/2025 10:10 AM [facility] Eosinophils Relative 1.3 % LAB HEMETOLOGY METHOD 06/04/2025 10:10 AM [facility] Basophils Relative 0.2 % LAB HEMETOLOGY METHOD 06/04/2025 10:10 AM [facility] Immature Granulocytes Relative 1.4 % LAB HEMETOLOGY METHOD 06/04/2025 10:10 AM [facility] Neutrophils Absolute 3.78 1.50 - 7.00 K/mcL LAB HEMETOLOGY METHOD 06/04/2025 10:10 AM [facility] Lymphocytes Absolute 1.00 1.00 - 5.00 K/mcL LAB HEMETOLOGY METHOD 06/04/2025 10:10 AM [facility] Monocytes Absolute 1.33(H) 0.20 - 1.00 K/mcL LAB HEMETOLOGY METHOD 06/04/2025 10:10 AM [facility] Eosinophils Absolute 0.08 0.00 - 0.50 K/mcL LAB HEMETOLOGY METHOD 06/04/2025 10:10 AM [facility] Basophils Absolute 0.01 0.00 - 0.20 K/mcL LAB HEMETOLOGY METHOD 06/04/2025 10:10 AM EDT [facility] Immature Granulocytes Absolute 0.09(H) 0.00 - 0.03 K/mcL LAB HEMETOLOGY METHOD 06/04/2025 10:10 AM EDT [facility] Blood Venous blood specimen / Unknown Venipuncture / Unknown 06/04/2025 9:23 AM EDT 06/04/2025 9:44 AM EDT us Dino Hopper MD LAB BLOOD ORDERABLES Fi nal Result Performing Organization Address [facility] Co de Phone Number [facility] [address] [place] [address], [place] [phone] * (ABNORMAL) Phosphorus (06/04/2025 9:23 AM EDT) Only the most recent of5 resultswithin the time period is included. Phosphorus 2.0(L) 2.5 - 4.5 mg/dL LAB CHEMISTRY METHOD 06/04/2025 10:35 AM EDT [facility] Blood Venous blood specimen / Unknown Venipuncture / Unknown 06/04/2025 9:23 AM EDT 06/04/2025 9:44 AM EDT us Dino Hopper MD LAB BLOOD ORDERABLES Fi nal Result Performing Organization Address City/[facility]/ZIP Co de Phone Number [facility] [address] [place] [address], [place] [phone] * (ABNORMAL) Magnesium (06/04/2025 9:23 AM EDT) Only the most recent of6 resultswithin the time period is included. Magnesium 1.6(L) 1.9 - 2.6 mg/dL LAB CHEMISTRY METHOD 06/04/2025 10:35 AM [facility] Blood Venous blood specimen / Unknown Venipuncture / Unknown 06/04/2025 9:23 AM EDT 06/04/2025 9:44 AM EDT Dino Hopper MD LAB BLOOD ORDERABLES Fi nal Result [facility] [address] [place] [address], * (ABNORMAL) Basic metabolic panel (06/04/2025 9:23 AM EDT) Only the most recent of11 resultswithin the time period is included. Sodium 140 133 - 145 mmol/L LAB CHEMISTRY METHOD 06/04/2025 10:35 AM [facility] Potassium 4.5 3.5 - 5.5 mmol/L LAB CHEMISTRY METHOD 06/04/2025 10:35 AM [facility] Chloride 111(H) 96 - 110 mmol/L LAB CHEMISTRY METHOD 06/04/2025 10:35 AM [facility] CO2 23 21 - 32 mmol/L LAB CHEMISTRY METHOD 06/04/2025 10:35 AM [facility] Anion Gap 6 3 - 11 LAB CHEMISTRY METHOD 06/04/2025 10:35 AM [facility] Glucose 88 70 - 100 mg/dL LAB CHEMISTRY METHOD 06/04/2025 10:35 AM [facility] BUN 9 5 - 25 mg/dL LAB CHEMISTRY METHOD 06/04/2025 10:35 AM [facility] Creatinine 0.90 0.50 - 1.10 mg/dL LAB CHEMISTRY METHOD 06/04/2025 10:35 AM [facility] eGFR 66 >=60 mL/min/1. 73m2 LAB CHEMISTRY METHOD 06/04/2025 10:35 AM [facility] Comment:Calculation based on the Chronic Kidney Disease Epidemiology Collaboration (CKD-EPI) equation refit without adjustment for race. BUN/Creatinine Ratio 10.0 LAB CHEMISTRY METHOD 06/04/2025 10:35 AM EDT [facility] Calcium 8.7 8.5 - 10.5 mg/dL LAB CHEMISTRY METHOD 06/04/2025 10:35 AM EDT [facility] Blood Venous blood specimen / Unknown Venipuncture / Unknown 06/04/2025 9:23 AM EDT 06/04/2025 9:44 AM EDT Dino Hopper MD LAB BLOOD ORDERABLES Fi nal Result [facility] [address] [place] [address], [place] [phone] * MR Abdomen wo Contrast MRCP (06/02/2025 10:53 AM EDT) Anatomical Region Laterality Modality Body Magnetic Resonan ce 06/02/2025 10:5 9 AM EDT Impressions 06/02/2025 11:05 AM EDT Limited study. The patient was unable to cooperate with breathing instructions and could not complete the exam. MRCP could not be performed. Limited images of the biliary tree demonstrating layering low signal material in the gallbladder suspected to represent sludge. There is no ductal dilatation and no visible ductal filling defect. -------- FINAL REPORT -------- Dictated By: Mihai Hernandez Dictated Date: 06/02/2025 10:59 ET Assigned Physician: Mihai Hernandez Reviewed and Electronically Signed By: Mihai Hernandez Signed Date: 06/02/2025 11:05 ET Workstation ID: [id number] Transcribed By: Self Edit Transcribed Date: 06/02/2025 10:59 ET Narrative 06/02/2025 11:05 AM EDT PROCEDURE: MRI abdomen with MRCP. HISTORY: MRCP. Pancreatitis. TECHNIQUE: Multiplanar multisequence MRI of the abdomen without intravenous contrast administration. MRCP was also performed, with multiple reformats. COMPARISON: Ultrasound dated 06/01/2025. CT dated 05/31/2025. FINDINGS: Limited examination. The patient was unable to cooperate with breathing instructions and was unable to tolerate the entirety of the exam. LOWER THORAX: The heart is mildly enlarged. LIVER: No focal lesion on limited noncontrast evaluation. No evidence of steatosis on out of phase imaging. BILIARY: MRCP images could not be obtained. Layering low signal material in the gallbladder suggestive of sludge. Normal caliber biliary tree. No visible ductal filling defect. PANCREAS: No focal lesion on limited noncontrast evaluation. No ductal dilatation. SPLEEN: Normal. ADRENAL GLANDS: Normal. KIDNEYS: Moderate bilateral renal cortical atrophy with multiple small T2 hyperintense cortical lesions suggestive of cysts. Visible portions of the collecting systems are normal. RETROPERITONEUM: No mass or lymphadenopathy. VASCULATURE: No aneurysm. BOWEL/MESENTERY: Scattered colonic diverticula. ABDOMINAL WALL: Moderate generalized muscular atrophy. BONES: Degenerative changes of the spine. Mild S-shaped lumbar curvature. There are inferior endplate deformities at L1 and L2 and a mild compression deformity affecting the superior and inferior endplates at T12 which are unchanged compared with the recent CT. A wedge compression deformity at T6 is also noted; this level is out of the [id number] on the comparison CT. Procedure Note Mihai Hernandez MD - 06/02/2025 PROCEDURE: MRI abdomen with MRCP. HISTORY: MRCP. Pancreatitis. TECHNIQUE: Multiplanar multisequence MRI of the abdomen withoutintravenous contrast administration. MRCP was also performed, withmultiple reformats. COMPARISON: Ultrasound dated 06/01/2025. CT dated 05/31/2025. FINDINGS: Limited examination. The patient was unable to cooperate with breathinginstructions and was unable to tolerate the entirety of the exam. LOWER THORAX: The heart is mildly enlarged. LIVER: No focal lesion on limited noncontrast evaluation. No evidence ofsteatosis on out of phase imaging. BILIARY: MRCP images could not be obtained. Layering low signal materialin the gallbladder suggestive of sludge. Normal caliber biliary tree. Novisible ductal filling defect. PANCREAS: No focal lesion on limited noncontrast evaluation. No ductaldilatation. SPLEEN: Normal. ADRENAL GLANDS: Normal. KIDNEYS: Moderate bilateral renal cortical atrophy with multiple small [id number] cortical lesions suggestive of cysts. Visible portions ofthe collecting systems are normal. RETROPERITONEUM: No mass or lymphadenopathy. VASCULATURE: No aneurysm. BOWEL/MESENTERY: Scattered colonic diverticula. ABDOMINAL WALL: Moderate generalized muscular atrophy. BONES: Degenerative changes of the spine. Mild S-shaped lumbar curvature.There are inferior endplate deformities at L1 and L2 and a mildcompression deformity affecting the superior and inferior endplates at [id number] are unchanged compared with the recent CT. A wedge compressiondeformity at T6 is also noted; this level is out of the [id number] onthe comparison CT. IMPRESSION: Limited study. The patient was unable to cooperate with breathinginstructions and could not complete the exam. MRCP could not beperformed. Limited images of the biliary tree demonstrating layering lowsignal material in the gallbladder suspected to represent sludge. Thereis no ductal dilatation and no visible ductal filling defect. -------- FINAL REPORT -------- Dictated By: Mihai Hernandez Dictated Date: 06/02/2025 10:59 ET Assigned Physician: Mihai Hernandez Reviewed and Electronically Signed By: Mihai Hernandez Signed Date: 06/02/2025 11:05 ET Workstation ID: [id number] Transcribed By: Self Edit Transcribed Date: 06/02/2025 10:59 ET Dino Hopper MD [facility] MRI PROCEDURES Mendy l Result * (ABNORMAL) Manual differential (06/02/2025 8:15 AM EDT) Only the most recent of2 resultswithin the time period is included. Neutrophils % 86.0 % LAB HEMETOLOGY METHOD 06/02/2025 10:42 AM EDT [facility] Lymphocytes % 6.0 % LAB HEMETOLOGY METHOD 06/02/2025 10:42 AM EDT [facility] Monocytes % 7.0 % LAB HEMETOLOGY METHOD 06/02/2025 10:42 AM EDT [facility] Eosinophils % 0.0 % LAB [facility] Basophils % 0.0 % LAB HEMETOLOGY METHOD 06/02/2025 10:42 AM [facility] Promyelocytes % 1.0(H) % LAB HEMETOLOGY METHOD 06/02/2025 10:42 AM [facility] Neutrophils Absolute Manual 9.37(H) 1.50 - 7.00 K/mcL LAB HEMETOLOGY METHOD 06/02/2025 10:42 AM [facility] Lymphocytes Absolute 0.65(L) 1.00 - 5.00 K/mcL LAB HEMETOLOGY METHOD 06/02/2025 10:42 AM [facility] Monocytes Absolute Manual 0.76 0.20 - 1.00 K/mcL LAB HEMETOLOGY METHOD 06/02/2025 10:42 AM [facility] Eosinophils Absolute Manual 0.00 0.00 - 0.50 K/mcL LAB HEMETOLOGY METHOD 06/02/2025 10:42 AM [facility] Basophils Absolute Manual 0.00 0.00 - 0.20 K/mcL LAB HEMETOLOGY METHOD 06/02/2025 10:42 AM [facility] Promyelocytes Absolute Manual 0.11(H) 0.00 - 0.00 K/mcL LAB HEMETOLOGY METHOD 06/02/2025 10:42 AM [facility] Rbc Morphology Consistent with indices Consistent with indices, Normal for LAB HEMETOLOGY METHOD 06/02/2025 10:42 AM [facility] Platelet Morphology - WAM See Note(A) Normal LAB HEMETOLOGY METHOD 06/02/2025 10:42 AM [facility] Comment:PLT: Normal Blood Venous blood specimen / Unknown Venipuncture / Unknown 06/02/2025 8:15 AM EDT 06/02/2025 8:20 AM EDT Dino Hopper MD LAB BLOOD ORDERABLES Fi nal Result [facility] [address] [place] [address], [place] [phone] * Urinalysis with reflex microscopic and culture (06/02/2025 5:49 AM EDT) Pathologist [facility] Specific [place] Urine 1.013 1.003 - 1.030 LAB URINALYSIS - AUTOMATED METHOD 06/02/2025 6:04 AM [facility] pH, Urine 6.0 5.0 - 8.0 pH LAB URINALYSIS - AUTOMATED METHOD 06/02/2025 6:04 AM [facility] Leukocytes, Urine Negative Negative LAB URINALYSIS - AUTOMATED METHOD 06/02/2025 6:04 AM [facility] Nitrite, Urine Negative Negative LAB URINALYSIS - AUTOMATED METHOD 06/02/2025 6:04 AM [facility] Protein, Urine Trace <=Trace mg/dL LAB URINALYSIS - AUTOMATED METHOD 06/02/2025 6:04 AM [facility] Glucose, Urine Negative Negative mg/dL LAB URINALYSIS - AUTOMATED METHOD 06/02/2025 6:04 AM [facility] Ketones, Urine Negative Negative mg/dL LAB URINALYSIS - AUTOMATED METHOD 06/02/2025 6:04 AM [facility] Urobilinogen, Urine 0.2 0.2 - 1.0 mg/dL LAB URINALYSIS - AUTOMATED METHOD 06/02/2025 6:04 AM [facility] Bilirubin, Urine Negative Negative LAB URINALYSIS - AUTOMATED METHOD 06/02/2025 6:04 AM [facility] Blood, Urine Negative Negative LAB URINALYSIS - AUTOMATED METHOD 06/02/2025 6:04 AM EDT [facility] Urine Urine specimen obtained by clean catch procedure / Unknown Non-blood Collection / Unknown 06/02/2025 5:49 AM EDT 06/02/2025 5:57 AM EDT Mellisa VENEGAS LAB URINE ORDERABLES Final Resu lt Performing Organization Address [facility] de Phone Number [facility] [address] [place] [address], [place] [phone] * Chung urine culture tube (06/02/2025 5:49 AM EDT) Extra Tube Hold for add-ons. 06/02/2025 7:01 AM EDT [facility] Comment:Auto resulted. Urine Urine specimen obtained by clean catch procedure / Unknown Non-blood Collection / Unknown 06/02/2025 5:49 AM EDT 06/02/2025 5:57 AM EDT Mellisa VENEGAS LAB URINE ORDERABLES Final Resu lt Performing Organization Address [facility] de Phone Number [facility] [address] [place] [address], [place] [phone] * Yellow urine no additive (06/02/2025 5:49 AM EDT) Extra Tube Hold for add-ons. 06/02/2025 7:01 AM EDT [facility] Comment:Auto resulted. Urine Urine specimen obtained by clean catch procedure / Unknown 06/02/2025 5:49 AM EDT 06/02/2025 5:58 AM EDT Dino Hopper MD LAB URINE ORDERABLES Fi nal Result Performing Organization Address [facility] de Phone Number [facility] [address] [place] [address], * (ABNORMAL) Complete blood count (06/01/2025 6:04 AM EDT) [facility] WBC 13.3(H) 4.8 - 10.8 K/mcL LAB HEMETOLOGY METHOD 06/01/2025 6:45 AM [facility] RBC 4.10 3.80 - 4.80 M/mcL LAB HEMETOLOGY METHOD 06/01/2025 6:[facility] Hemoglobin 9.7(L) 11.5 - 16.0 g/dL LAB HEMETOLOGY METHOD 06/01/2025 6:45 AM [facility] Hematocrit 33.7(L) 35.0 - 47.0 % LAB HEMETOLOGY METHOD 06/01/2025 6:45 AM [facility] MCV 82.8 79.0 - 98.0 FL LAB HEMETOLOGY METHOD 06/01/2025 6:45 AM [facility] MCH 23.8(L) 27.0 - 32.0 pcg LAB HEMETOLOGY METHOD 06/01/2025 6:45 AM [facility] MCHC 28.8(L) 32.0 - 37.0 g/dL LAB HEMETOLOGY METHOD 06/01/2025 6:45 AM [facility] RDW 18.9(H) 11.0 - 15.0 % LAB HEMETOLOGY METHOD 06/01/2025 6:45 AM [facility] Platelets 204 130 - 400 K/mcL LAB HEMETOLOGY METHOD 06/01/2025 6:45 AM [facility] MPV 10.5 7.0 - 11.0 FL LAB HEMETOLOGY METHOD 06/01/2025 6:45 AM [facility] NRBC 0.0 <1.0 % LAB HEMETOLOGY METHOD 06/01/2025 6:45 AM EDT [facility] NRBC Absolute 0.00 <0.10 K/mcL LAB HEMETOLOGY METHOD 06/01/2025 6:45 AM EDT [facility] Blood Venous blood specimen / Unknown Venipuncture / Unknown 06/01/2025 6:04 AM EDT 06/01/2025 6:08 AM EDT us Julissa Preciado MD LAB BLOOD ORDERABLES Final Res ult [facility] [address] [place] [address], [place] [phone] * US Abdomen Limited (06/01/2025 4:26 AM EDT) Anatomical Region Laterality Modality Body Ultrasound 06/01/2025 5:52 AM EDT Impressions 06/01/2025 5:52 AM EDT No gallstone seen on this limited study. This document has been electronically signed by: Jerri Lopez MD on 06/01/2025 05:52:02 Narrative 06/01/2025 5:52 AM EDT INDICATION: Pancreatitis, rule out cholecystitis/gallstone US abdomen limited Comparison: None provided Findings: Limited exam due to bowel gas. Distended gallbladder without stone. There is no sonographic Medrano sign. The main portal vein is antegrade. Rest of right upper abdominal structures could not be accurately evaluated due to bowel gas. Procedure Note Jerri Lopez MD - 06/01/2025 INDICATION: Pancreatitis, rule out cholecystitis/gallstone US abdomen limited Comparison: None provided Findings: Limited exam due to bowel gas. Distended gallbladder without stone. There is no sonographic Murphysign. The main portal vein is antegrade. Rest of right upper abdominal structures could not be accuratelyevaluated due to bowel gas. IMPRESSION: No gallstone seen on this limited study. This document has been electronically signed by: Jerri Lopez MD on 06/01/2025 05:52:02 us Mellisa VENEGAS IMG US PROCEDURES Final Result * Troponin I high sensitivity (05/31/2025 1:19 PM EDT) Only the most recent of2 resultswithin the time period is included. High Sensitivity Troponin I 16 <=54 ng/L LAB CHEMISTRY METHOD 05/31/2025 2:25 PM EDT [facility] Blood Venous blood specimen / Unknown Venipuncture / Unknown 05/31/2025 1:19 PM EDT 05/31/2025 1:54 PM EDT Narrative [facility] - 05/31/2025 2:25 PM EDT High levels of biotin in samples may falsely decrease hsTroponin values. Use caution when interpreting hsTroponin results in patients taking biotin who exhibit renal impairment (eGFR <60) or in patients taking more than 20 mg/day of biotin. Sorin Green DO LAB BLOOD ORDERABLES Final Res ult [facility] [address] [place] [address], [place] [phone] * CT Abdomen Pelvis wo Contrast (05/31/2025 1:00 PM EDT) Anatomical Region Laterality Modality Body Computed Tomogra phy 05/31/2025 1:20 PM EDT Impressions 05/31/2025 1:39 PM EDT Findings consistent with acute pancreatitis. No fluid collection. -------- FINAL REPORT -------- Dictated By: Sydney Rivas Dictated Date: 05/31/2025 13:20 ET Assigned Physician: Sydney Rivas Reviewed and Electronically Signed By: Sydney Rivas Signed Date: 05/31/2025 13:39 ET Workstation ID: [id number] Transcribed By: Self Edit Transcribed Date: 05/31/2025 13:32 ET Narrative 05/31/2025 1:39 PM EDT PROCEDURE: CT Abdomen and Pelvis without contrast INDICATION: diff abd pain TECHNIQUE: CT of the abdomen and pelvis without contrast. Multiplanar reformats. The examination was performed utilizing dose reduction techniques. DLP: 1107 mGy/cm COMPARISON: 09/17/2024 FINDINGS: LOWER THORAX: Atelectasis at the lung bases. Pacer leads. HEPATOBILIARY: No focal liver lesions. No cholelithiasis or biliary duct dilatation. SPLEEN: No splenomegaly. PANCREAS: There is some inflammatory change about the pancreas which could represent acute pancreatitis versus duodenitis. ADRENALS: No nodules. KIDNEYS/URETERS: Nonobstructing bilateral renal stones. PELVIC ORGANS/BLADDER: Status post hysterectomy. PERITONEUM / RETROPERITONEUM: No ascites or free air. No retroperitoneal lymphadenopathy. VESSELS: Scattered atherosclerotic calcifications throughout the aorta and its major branches. No aneurysm. GI TRACT: No bowel distention or wall thickening. Normal appendix. BONES AND SOFT TISSUES: Degenerative changes and osteopenia. Chronic vertebral deformities. Multiple lumbar disc bulges. Remote right lumbar transverse process fractures. Soft tissues are unremarkable. Procedure Note Sydney Rivas MD - 05/31/2025 PROCEDURE: CT Abdomen and Pelvis without contrast INDICATION: diff abd pain TECHNIQUE: CT of the abdomen and pelvis without contrast. Multiplanarreformats. The examination was performed utilizing dose reductiontechniques. DLP: 1107 mGy/cm COMPARISON: 09/17/2024 FINDINGS: LOWER THORAX: Atelectasis at the lung bases. Pacer leads. HEPATOBILIARY: No focal liver lesions. No cholelithiasis or biliary ductdilatation. SPLEEN: No splenomegaly. PANCREAS: There is some inflammatory change about the pancreas which couldrepresent acute pancreatitis versus duodenitis. ADRENALS: No nodules. KIDNEYS/URETERS: Nonobstructing bilateral renal stones. PELVIC ORGANS/BLADDER: Status post hysterectomy. PERITONEUM / RETROPERITONEUM: No ascites or free air. No retroperitoneallymphadenopathy. VESSELS: Scattered atherosclerotic calcifications throughout the aorta andits major branches. No aneurysm. GI TRACT: No bowel distention or wall thickening. Normal appendix. BONES AND SOFT TISSUES: Degenerative changes and osteopenia. Chronicvertebral deformities. Multiple lumbar disc bulges. Remote right lumbartransverse process fractures. Soft tissues are unremarkable. IMPRESSION: Findings consistent with acute pancreatitis. No fluid collection. -------- FINAL REPORT -------- Dictated By: Sydney Rivas Dictated Date: 05/31/2025 13:20 ET Assigned Physician: Sydney Rivas Reviewed and Electronically Signed By: Sydney Rivas Signed Date: 05/31/2025 13:39 ET Workstation ID: [id number] Transcribed By: Self Edit Transcribed Date: 05/31/2025 13:32 ET Sorin Green DO IMG CT PROCEDURES Final Result * XR Chest 2 Views (05/31/2025 12:32 PM EDT) Anatomical Region Laterality Modality Body Radiographic Reba ging 05/31/2025 1:14 PM EDT Impressions 05/31/2025 1:14 PM EDT FINDINGS/IMPRESSION: Hypoventilatory examination with crowding of bronchovascular structures at the lung bases. Left chest wall pacer. Remote rib deformities, left humeral neck deformity and degenerative changes. Left chest wall pacer. -------- FINAL REPORT -------- Dictated By: Sydney Rivas Dictated Date: 05/31/2025 13:14 ET Assigned Physician: Sydney Rivas Reviewed and Electronically Signed By: Sydney Rivas Signed Date: 05/31/2025 13:14 ET Workstation ID: [id number] Transcribed By: Self Edit Transcribed Date: 05/31/2025 13:14 ET Narrative 05/31/2025 1:14 PM EDT XR CHEST 2 VIEWS INDICATION: gen weakness TECHNIQUE: XR CHEST 2 VIEWS COMPARISON: No priors available. Procedure Note Sydney Rivas MD - 05/31/2025 XR CHEST 2 VIEWS INDICATION: gen weakness TECHNIQUE: XR CHEST 2 VIEWS COMPARISON: No priors available. IMPRESSION: FINDINGS/IMPRESSION: Hypoventilatory examination with crowding ofbronchovascular structures at the lung bases. Left chest wall pacer.Remote rib deformities, left humeral neck deformity and degenerativechanges. Left chest wall pacer. -------- FINAL REPORT -------- Dictated By: Sydney Rivas Dictated Date: 05/31/2025 13:14 ET Assigned Physician: Sydney Rivas Reviewed and Electronically Signed By: Rivas, Manu Signed Date: 05/31/2025 13:14 ET Workstation ID: [id number] Transcribed By: Self Edit Transcribed Date: 05/31/2025 13:14 ET Sorin Green DO IMG XR PROCEDURES Final Result * Respiratory virus panel molecular study (05/31/2025 11:59 AM EDT) Adenovirus Detection by PCR Not Detected Not Detected LAB MICROBIOLOGY METHOD 05/31/2025 1:18 PM EDT [facility] Influenza A PCR Not Detected Not Detected LAB MICROBIOLOGY METHOD 05/31/2025 1:18 PM EDT [facility] Influenza B PCR Not Detected Not Detected LAB MICROBIOLOGY METHOD 05/31/2025 1:18 PM EDT [facility] Coronavirus 229E Not Detected Not Detected LAB MICROBIOLOGY METHOD 05/31/2025 1:18 PM EDT [facility] Coronavirus HKU1 Not Detected Not Detected LAB MICROBIOLOGY METHOD 05/31/2025 1:18 PM EDT [facility] Coronavirus OC43 Not Detected Not Detected LAB MICROBIOLOGY METHOD 05/31/2025 1:18 PM EDT [facility] Coronavirus NL63 Not Detected Not Detected LAB MICROBIOLOGY METHOD 05/31/2025 1:18 PM EDT [facility] Parainfluenza Virus 1 Not Detected Not Detected LAB MICROBIOLOGY METHOD 05/31/2025 1:18 PM EDT [facility] Parainfluenza Virus 2 Not Detected Not Detected LAB MICROBIOLOGY METHOD 05/31/2025 1:18 PM EDT [facility] Parainfluenza Virus 3 Not Detected Not Detected LAB MICROBIOLOGY METHOD 05/31/2025 1:18 PM EDT [facility] Parainfluenza Virus 4 Not Detected Not Detected LAB MICROBIOLOGY METHOD 05/31/2025 1:18 PM EDT [facility] RSV PCR Not Detected Not Detected LAB MICROBIOLOGY METHOD 05/31/2025 1:18 PM EDT [facility] Human Metapneumovirus A and B Not Detected Not Detected LAB MICROBIOLOGY METHOD 05/31/2025 1:18 PM EDT [facility] Rhinovirus/Entero virus Not Detected Not Detected LAB MICROBIOLOGY METHOD 05/31/2025 1:18 PM EDT [facility] Bordetella pertussis Not Detected Not Detected LAB MICROBIOLOGY METHOD 05/31/2025 1:18 PM EDT [facility] Bordetella parapertussis Not Detected Not Detected LAB MICROBIOLOGY METHOD 05/31/2025 1:18 PM EDT [facility] Mycoplasma pneumo by PCR Not Detected Not Detected LAB MICROBIOLOGY METHOD 05/31/2025 1:18 PM EDT [facility] Chlamydia pneumoniae Not Detected Not Detected LAB MICROBIOLOGY METHOD 05/31/2025 1:18 PM EDT [facility] SARS COV-2 Not Detected Not Detected LAB MICROBIOLOGY METHOD 05/31/2025 1:18 PM EDT [facility] Swab Both anterior nares / Unknown Non-blood Collection / Unknown 05/31/2025 11:59 AM EDT 05/31/2025 12:23 PM EDT [facility] - 05/31/2025 1:18 PM EDT Testing was performed using the Technology [employer] Respiratory Pathogen PCR Assay. All results must be correlated with the clinical findings. Results should not be used as the sole basis for diagnosis. False Negative results may occur from the presence of sequence variants in the region targeted by the assay or the presence of inhibitors. Results may be affected by concurrent antiviral/antimicrobial therapy or levels of organisms that are below the limit of detection. us Sorin Green DO LAB MICROBIOLOGY - GENERAL ORD ERABLES Final Result [facility] [address] [place] [address], * ECG 12 lead (05/31/2025 11:55 AM EDT) Only the most recent of2 resultswithin the time period is included. Ventricular Rate ECG 111 BPM GEMUSE Atrial Rate 111 BPM GEMUSE P-R Interval 190 ms GEMUSE QRS Duration 72 ms GEMUSE Q-T Interval 324 ms GEMUSE QTc 440 ms GEMUSE P Wave [place] 47 degrees GEMUSE R [place] 13 degrees GEMUSE T [place] 21 degrees GEMUSE ECG Interpretation Sinus tachycardia Possible Inferior infarct , age undetermined Abnormal ECG When compared with ECG of 26-APR-2025 12:38, Vent. rate has increased BY 40 BPM Borderline criteria for Inferior infarct are now Present Nonspecific T wave abnormality now evident in Inferior leads Nonspecific T wave abnormality now evident in Anterior leads Confirmed by MD York Christopher ([id number]) on 06/01/2025 5:00:31 PM GEMUSE 05/31/2025 11:5 5 AM EDT 06/01/2025 5:00 PM EDT Sorin Green DO ECG ORDERABLES Final Result GEMUSE * RBC morphology review (05/31/2025 10:50 AM EDT) Rbc Morphology Consistent with indices Consistent with indices, Normal for [place] LAB HEMETOLOGY METHOD 05/31/2025 12:02 PM EDT [facility] Platelet Morphology - WAM Normal Normal LAB HEMETOLOGY METHOD 05/31/2025 12:02 PM EDT [facility] Blood Venous blood specimen / Unknown Venipuncture / Unknown 05/31/2025 10:50 AM EDT 05/31/2025 11:26 AM EDT us Sorin Green DO LAB BLOOD ORDERABLES Final Res ult [facility] [address] [place] [address], [place] [phone] * Triglycerides (05/31/2025 10:50 AM EDT) Triglycerides 73 0 - 150 mg/dL LAB CHEMISTRY METHOD 05/31/2025 7:36 PM EDT [facility] Blood Venous blood specimen / Unknown Venipuncture / Unknown 05/31/2025 10:50 AM EDT 05/31/2025 11:26 AM EDT Mellisa VENEGAS LAB BLOOD ORDERABLES Final Resu lt Performing Organization Address [facility]/ZIP Co de Phone Number [facility] [address] [place] [address], [place] [phone] * Alanine aminotransferase (05/31/2025 10:50 AM EDT) ALT (SGPT) 15 10 - 60 unit/L LAB CHEMISTRY METHOD 05/31/2025 3:20 PM EDT [facility] Blood Venous blood specimen / Unknown Venipuncture / Unknown 05/31/2025 10:50 AM EDT 05/31/2025 11:26 AM EDT us Sorin Green DO LAB BLOOD ORDERABLES Final Res ult Performing Organization Address [facility] Co de Phone Number [facility] [address] [place] [address], [place] [phone] * Aspartate aminotransferase (05/31/2025 10:50 AM EDT) AST (SGOT) 19 10 - 42 unit/L LAB CHEMISTRY METHOD 05/31/2025 3:20 PM EDT [facility] Blood Venous blood specimen / Unknown Venipuncture / Unknown 05/31/2025 10:50 AM EDT 05/31/2025 11:26 AM EDT us Sorin Green DO LAB BLOOD ORDERABLES Final Res ult [facility] [address] [place] [address], [place] [phone] * (ABNORMAL) Alkaline phosphatase (05/31/2025 10:50 AM EDT) Pathologist [facility] Alkaline Phosphatase 279(H) 42 - 121 unit/L LAB CHEMISTRY METHOD 05/31/2025 3:20 PM EDT [facility] Blood Venous blood specimen / Unknown Venipuncture / Unknown 05/31/2025 10:50 AM EDT 05/31/2025 11:26 AM EDT Sorin Green DO LAB BLOOD ORDERABLES Final Res ult [facility] [address] [place] [address], [place] [phone] * (ABNORMAL) Lipase (05/31/2025 10:50 AM EDT) [facility] Lipase 635(H) 13 - 75 unit/L LAB CHEMISTRY METHOD 05/31/2025 3:20 PM EDT [facility] Blood Venous blood specimen / Unknown Venipuncture / Unknown 05/31/2025 10:50 AM EDT 05/31/2025 11:26 AM EDT Sorin Green DO LAB BLOOD ORDERABLES Final Res ult [facility] [address] [place] [address], [place] [phone] * Bilirubin, total (05/31/2025 10:50 AM EDT) [facility] Total Bilirubin 0.6 0.0 - 1.4 mg/dL LAB CHEMISTRY METHOD 05/31/2025 3:20 PM EDT [facility] Blood Venous blood specimen / Unknown Venipuncture / Unknown 05/31/2025 10:50 AM EDT 05/31/2025 11:26 AM EDT us Sorin Green DO LAB BLOOD ORDERABLES Final Res ult [facility] [address] [place] [address], [place] [phone] * Gastrointestinal pathogens molecular study (05/05/2025 1:20 PM EDT) Campylobacter Detection by PCR Not Detected Not Detected LAB MICROBIOLOGY METHOD 5 11:59 AM EDT [facility] Plesiomonas shigelloides Detection by PCR Not Detected Not Detected LAB MICROBIOLOGY METHOD 5 11:59 AM EDT [facility] Salmonella Detection by PCR Not Detected Not Detected LAB MICROBIOLOGY METHOD 5 11:59 AM EDT [facility] Vibrio Detection by PCR Not Detected Not Detected LAB MICROBIOLOGY METHOD 5 11:59 AM EDT [facility] Vibrio cholerae Detection by PCR Not Detected Not Detected LAB MICROBIOLOGY METHOD 5 11:59 AM EDT [facility] Yersinia enterocolitica Detection by PCR Not Detected Not Detected LAB MICROBIOLOGY METHOD 5 11:59 AM EDT [facility] Enteroaggregative E coli EAEC Detection by PCR Not Detected Not Detected LAB MICROBIOLOGY METHOD 5 11:59 AM EDT [facility] Enteropathogenic E coli EPEC Detection Not Detected Not Detected LAB MICROBIOLOGY METHOD 5 11:59 AM EDT [facility] Enterotoxigenic E coli ETEC LTST Detection Not Detected Not Detected LAB MICROBIOLOGY METHOD 5 11:59 AM EDT [facility] Shiga-like toxin producing E coli STEC STX1 STX2 Det Not Detected Not Detected LAB MICROBIOLOGY METHOD 5 11:59 AM EDT [facility] Shigella Enteroinvasive E coli EIEC Detection Not Detected Not Detected LAB MICROBIOLOGY METHOD 5 11:59 AM EDT [facility] Cryptosporidium Detection by PCR Not Detected Not Detected LAB MICROBIOLOGY METHOD 5 11:59 AM EDT [facility] Cyclospora cayetanensis Detection by PCR Not Detected Not Detected LAB MICROBIOLOGY METHOD 5 11:59 AM EDT [facility] Entamoeba histolytica Detection by PCR Not Detected Not Detected LAB MICROBIOLOGY METHOD 5 11:59 AM EDT [facility] Giardia lamblia Detection by PCR Not Detected Not Detected LAB MICROBIOLOGY METHOD 5 11:59 AM T [facility] Adenovirus F 40 41 Detection by PCR Not Detected Not Detected LAB MICROBIOLOGY METHOD 5 11:59 AM [facility] Astrovirus Detection by PCR Not Detected Not Detected LAB MICROBIOLOGY METHOD 5 11:59 AM EDT [facility] Norovirus GI GII Detection by PCR Not Detected LAB MICROBIOLOGY METHOD 5 11:59 AM EDT [facility] Sapovirus Detection by PCR Not Detected Not Detected LAB MICROBIOLOGY METHOD 5 11:59 AM [facility] Rotavirus A Detection by PCR Not Detected Not Detected LAB MICROBIOLOGY METHOD 5 11:59 AM [facility] Stool Rectum structure / Unknown Non-blood Collection / Unknown 05/05/2025 1:20 PM EDT 05/06/2025 10:02 AM EDT [facility] - 05/06/2025 11:59 AM [...] O RDERABLES Final Result Performing Organization Address City/[facility]/ZIP Co de Phone Number [facility] [address] [place] [address], [place] [phone] * Clostridium difficile molecular study (05/05/2025 1:20 PM EDT) Clostridium difficile PCR Negative Negative LAB MICROBIOLOGY METHOD 05/06/2025 12:22 PM EDT [facility] Comment:NEGATIVE FOR TOXIN P RODUCING CLOSTRIDIOIDES DIFFICILE, NO ADDITIONAL TESTING IS NECESSARY. Stool Rectum structure / Unknown Non-blood Collection / Unknown 05/05/2025 1:20 PM EDT 05/06/2025 11:34 AM EDT us Magno Lewis MD LAB MICROBIOLOGY - GENERAL O RDERABLES Final Result Performing Organization Address [facility] Co de Phone Number [facility] [address] [place] [address], [place] [phone] * Clostridium difficile toxin (05/05/2025 1:20 PM EDT) C difficile Toxins A+B, EIA 05/06/2025 11:34 AM EDT [facility] Comment:Refer to C. difficil e PCR assay for results. Stool Rectum structure / Unknown Non-blood Collection / Unknown 05/05/2025 1:20 PM EDT 05/06/2025 10:02 AM EDT us Magno Lewis MD LAB MICROBIOLOGY - GENERAL O RDERABLES Final Result Performing Organization Address [facility]/ZIP Co de Phone Number [facility] [address] [place] [address], [place] [phone] * (ABNORMAL) Comprehensive metabolic panel (05/04/2025 7:56 AM EDT) Sodium 138 133 - 145 mmol/L LAB CHEMISTRY METHOD 05/04/2025 5:43 PM [facility] Potassium 4.3 3.5 - 5.5 mmol/L LAB CHEMISTRY METHOD 05/04/2025 5:43 PM [facility] Chloride 108 96 - 110 mmol/L LAB CHEMISTRY METHOD 05/04/2025 5:43 PM [facility] CO2 23 21 - 32 mmol/L LAB CHEMISTRY METHOD 05/04/2025 5:43 PM [facility] Anion Gap 7 3 - 11 LAB CHEMISTRY METHOD 05/04/2025 5:43 PM [facility] Glucose 81 70 - 100 mg/dL LAB CHEMISTRY METHOD 05/04/2025 5:43 PM [facility] BUN 10 5 - 25 mg/dL LAB CHEMISTRY METHOD 05/04/2025 5:43 PM [facility] Creatinine 1.14(H) 0.50 - 1.10 mg/dL LAB CHEMISTRY METHOD 05/04/2025 5:43 PM [facility] eGFR 50(L) >=60 mL/min/1. 73m2 LAB CHEMISTRY METHOD 05/04/2025 5:43 PM [facility] Comment:Calculation based on the Chronic Kidney Disease Epidemiology Collaboration (CKD-EPI) equation refit without adjustment for race. BUN/Creatinine Ratio 8.8 LAB CHEMISTRY METHOD 05/04/2025 5:43 PM [facility] Calcium 9.7 8.5 - 10.5 mg/dL LAB CHEMISTRY METHOD 05/04/2025 5:43 PM [facility] AST (SGOT) 12 10 - 42 unit/L LAB CHEMISTRY METHOD 05/04/2025 5:43 PM [facility] ALT (SGPT) 15 10 - 60 unit/L LAB CHEMISTRY METHOD 05/04/2025 5:43 PM EDT [facility] Alkaline Phosphatase 181(H) 42 - 121 unit/L LAB CHEMISTRY METHOD 05/04/2025 5:43 PM EDT [facility] Total Protein 5.7(L) 6.0 - 8.0 g/dL LAB CHEMISTRY METHOD 05/04/2025 5:43 PM EDT [facility] Albumin 3.0(L) 3.2 - 5.0 g/dL LAB CHEMISTRY METHOD 05/04/2025 5:43 PM EDT [facility] Total Bilirubin 0.4 0.0 - 1.4 mg/dL LAB CHEMISTRY METHOD 05/04/2025 5:43 PM EDT [facility] Blood Venous blood specimen / Unknown Venipuncture / Unknown 05/04/2025 7:56 AM EDT 05/04/2025 12:42 PM EDT Magno Lewis MD LAB BLOOD ORDERABLES Final R esult [facility] [address] [place] [address], * (ABNORMAL) C-reactive protein (04/29/2025 6:33 AM EDT) Only the most recent of2 resultswithin the time period is included. C-Reactive Protein 8.68(H) <=0.50 mg/dL LAB CHEMISTRY METHOD 04/29/2025 8:17 AM EDT [facility] Blood Venous blood specimen / Unknown Venipuncture / Unknown 04/29/2025 6:33 AM EDT 04/29/2025 7:01 AM EDT Hayden Loving MD LAB BLOOD ORDERABLES F inal Result [facility] [address] [place] [address], [place] [phone] * Vancomycin, trough Please draw level 1 hour prior to vancomycin administration (04/28/2025 5:49 PM EDT) Only the most recent of2 resultswithin the time period is included. [facility] Vancomycin Trough 19.5 10.0 - 20.0 mcg/mL LAB CHEMISTRY METHOD 04/28/2025 6:27 PM EDT [facility] Blood Venous blood specimen / Unknown Venipuncture / Unknown 04/28/2025 5:49 PM EDT 04/28/2025 5:55 PM EDT us Hayden Loving MD LAB BLOOD ORDERABLES F inal Result [facility] [address] [place] [address], [place] [phone] * Uric acid (04/28/2025 6:10 AM EDT) [facility] Uric Acid 7.6 3.1 - 7.8 mg/dL LAB CHEMISTRY METHOD 04/28/2025 5:26 PM EDT [facility] Blood Venous blood specimen / Unknown Venipuncture / Unknown 04/28/2025 6:10 AM EDT 04/28/2025 6:45 AM EDT us Hayden Loving MD LAB BLOOD ORDERABLES F inal Result [facility] [address] [place] [address], [place] [phone] * (ABNORMAL) Culture tissue with gram stain (04/26/2025 2:33 PM EDT) [facility] Culture, Tissue No Anaerobes isolated at 5 days. 05/01/2025 8:05 AM EDT [facility] Culture, Tissue Staphylococcus auricularis(A) 05/01/2025 8:05 AM EDT [facility] Comment: The organism value for this result has been updated. These results have been appended to the previously preliminary verified report. Edited result: Previously reported as Gram Positive Cocci on 04/29/2025 at 1048 EDT. Gram Stain Result No polymorphonuclear leukocytes, No epithelial cells, and No organisms noted 05/01/2025 8:05 AM EDT [facility] Tissue Structure of toe of [...] for this patient, please contact the Microbiology Dept.([phone]) within 7 days to request alternate test method. us Mark Pride MD LAB MICROBIOLOGY - GENERAL SANDY GARCIA Final Result [facility] [address] [place] [address], * Tissue exam (04/26/2025 2:10 PM EDT) Final Diagnosis A. 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 Toe, Right, second metatarsal bone margin-amputation : -TOPHACEOUS GOUT -Negative for osteomyelitis 04/28/2025 12:50 PM EDT [facility] Comment A, B.) Crystals characteristic of urate crystals are observed on polarization microscopy. 04/28/2025 12:50 PM EDT [facility] Gross Description A. Toe, Right, [...] The soft tissue margin is inked blue. Perfume Maker sections are submitted as follows: 1 and [...] three pieces. JULES 04/28/2025 12:50 PM EDT [facility] Disclaimer Unless otherwise specified, all tissue is 10% NB formalin fixed and paraffin embedded. 04/28/2025 12:50 PM EDT [facility] Tissue Structure of toe of right foot / Unknown 04/26/2025 2:10 PM EDT 04/27/2025 6:26 AM EDT Tissue specimen (specimen) Structure of toe of right foot / Unknown 04/26/2025 2:15 PM EDT 04/27/2025 6:26 AM EDT us Mark Pride MD LAB PATHOLOGY ORDERABLES Final Result Performing Organization Address [facility] Co de Phone Number [facility] [address] [place] [address], * Culture blood (04/24/2025 6:11 PM EDT) Only the most recent of2 resultswithin the time period is included. Culture, Blood No growth at 5 days LAB MICROBIOLOGY METHOD 04/29/2025 7:01 PM EDT [facility] Blood Venous blood specimen / Unknown Venipuncture / Unknown 04/24/2025 6:11 PM EDT 04/24/2025 6:43 PM EDT Nelly VENEGAS LAB MICROBIOLOGY - GENERAL OR DERABLES Final Result Performing Organization Address [facility] Co de Phone Number [facility] [address] [place] [address], * XR Foot 3+ Views Right (04/22/2025 [...] Severe hallux valgus. 3. Bony demineralization. Code 61018 -------- FINAL REPORT -------- Dictated By: Magno Byrne Dictated Date: 04/24/2025 07:37 ET Assigned Physician: Magno Byrne Reviewed and Electronically Signed By: Magno Byrne Signed Date: 04/24/2025 07:40 ET Workstation ID: [id number] Transcribed By: Self Edit Transcribed Date: 04/24/2025 [...] Severe hallux valgus. 3. Bony demineralization. Code 09843 -------- FINAL REPORT -------- Dictated By: Magno Byrne Dictated Date: 04/24/2025 07:37 ET Assigned Physician: Magno Byrne Reviewed and Electronically Signed By: Magno Byrne Signed Date: 04/24/2025 07:40 ET Workstation ID: [id number] Transcribed By: Self Edit Transcribed Date: 04/24/2025 07:37 ET us Keyla Burgess MD IMG XR PROCEDURES Final Result * Lipid panel (09/13/2023) LDL/HDL Ratio 0 Comment:no interpretation Triglycerides 0 mg/dL Comment:no interpretation Cholesterol 0 mg/dL Comment:no interpretation HDL 0 mg/dL Comment:no interpretation LDL Cholesterol 0 mg/dL Comment:no interpretation Blood Venous blood specimen / Unknown us Historical Provider LAB BLOOD ORDERABLES Mendy anderson Result from Last 3 Months or Most Recently Relevant to Health Maintenance Insurance MEDICARE [place]ICAID [place] Advance Directives Documents on File Type Date Recorded Patient Perfume Maker Expl anation Health Care Decision (hx) 01/31/2023 AD SOTELO DIRECTIVE Health Care Decision (hx) 01/31/2023 AD SOTELO DIRECTIVE Health Care Decision (hx) 01/31/2023 AD SOTELO DIRECTIVE Health Care Decision (hx) 01/31/2023 AD SOTELO DIRECTIVE * Full Code - Default (Latest Code Status on File) Date Activated Date Inactivated Comments 05/31/2025 3:07 PM 06/05/2025 6:51 PM This is order is used when code status has not been discussed with the patient, or code status is otherwise unknown/unconfirmed To update the patient's code status, place a code status order. Do not modify or discontinue any currently active code status orders. * Full Code - Default Date Activated Date Inactivated Comments 04/24/2025 5:36 PM 05/02/2025 6:01 PM This is order is used when code status has not been discussed with the patient, or code status is otherwise unknown/unconfirmed To update the patient's code status, place a code status order. Do not modify or discontinue any currently active code status orders. Care Teams Pantry Cook Relationship Specialty Start Date End Date Keyla Burgess MD [address] [place] [id number] PCP - General 09/04/12
--- OUTSIDE RECORDS SUMMARY | 2025-06-19 10:40 | XMS_ITS ---
Author Name [facility] Organization Unknown History of Medication Use Medication Directions Dispensed Refills Start Date End Date [facility] allopurinoL (ZYLOPRIM) 100 mg tablet Take 1 tablet (100 mg total) by mouth 1 (one) time each day. 05/02/2025 active diazePAM (VALIUM) 5 mg tablet Take 1 tablet (5 mg total) by mouth at bedtime. Max Daily Amount: 5 mg 05/02/2025 active senna (SENOKOT) 8.6 mg tablet Take 2 tablets (17.2 mg total) by mouth at bedtime. 05/02/2025 active torsemide (DEMADEX) 20 mg tablet Take 1 tablet (20 mg total) by mouth 1 (one) time each day. 05/02/2025 active dilTIAZem CD (CARDIZEM CD) 120 mg 24 hr capsule Take 1 capsule (120 mg total) by mouth 1 (one) time each day. 03/03/2025 active omeprazole (PriLOSEC) [address] capsule Take 1 capsule (20 mg total) by mouth 2 (two) times a day. 03/02/2025 active fluticasone furoate-vilanteroL (Breo Ellipta) 200-25 mcg/dose inhaler Inhale 1 puff by mouth 1 (one) time each day. 12/17/2024 active albuterol HFA (PROAIR HFA ; PROVENTIL HFA ; VENTOLIN HFA) 90 mcg/actuation inhaler Inhale 2 puffs by mouth every 6 (six) hours if needed for wheezing or shortness of breath. 12/09/2024 active umeclidinium (Incruse Ellipta) 62.5 mcg/actuation inhalation Inhale 1 puff by mouth 1 (one) time each day. 12/09/2024 active docusate sodium (COLACE) 100 mg capsule Take 1 capsule (100 mg total) by mouth 2 (two) times a day. 03/25/2024 active gabapentin (NEURONTIN) 100 mg capsule Take 1 capsule (100 mg total) by mouth daily. 09/29/2022 active apixaban (Eliquis) 5 mg tablet Take 1 tablet (5 mg total) by mouth 2 (two) times a day. 08/30/2022 active fluticasone propionate (FLONASE) 50 mcg/actuation nasal spray Administer 2 sprays into each nostril 1 (one) time each day if needed for allergies. 07/28/2022 active loratadine (CLARITIN) 10 mg tablet Take 1 tablet (10 mg total) by mouth 1 (one) time each day if needed for allergies. 05/23/2022 active spironolactone (ALDACTONE) 25 mg tablet Take 1 tablet (25 mg total) by mouth 2 (two) times a day. 04/12/2017 active calcitrioL (ROCALTROL) 0.25 mcg capsule Take 1 capsule (0.25 mcg total) by mouth every other day. active Allergies Allergen Reaction Severity Comment Documented Date Source Statu s CEPHALEXIN 10/27/2024 [facility] active ADHESIVE TAPE-SILICONES Medical tape 10/16/2023 [facility] active IBUPROFEN 2022 [facility] active ASPIRIN OTHER Other Reaction(s): angioedema- lip swelling 10/26/2020 [facility] active EPINEPHRINE 05/12/2015 [facility] active PROCAINE 05/12/2015 [facility] active Problems Problem Status Onset Date Problem Type Date of Resolution Source Encounter for adjustment or management of cardiac device active EncounterDiagnosisAct [facility] Hypertension active 2021-02-15 ProblemAct [facility] Status post placement of cardiac pacemaker active 2022-07-10 ProblemAct [facility] Paroxysmal supraventricular tachycardia ([facility]/HCC V24) active 2021-02-15 ProblemAct [facility] Sick sinus syndrome (CMS/HCC V24, CMS/HCC V28) active 2021-02-15 ProblemAct [facility] Deep venous thrombosis (CMS/HCC V24, CMS/[facility] V28) active 2021-09-17 ProblemAct [facility] HLD (hyperlipidemia) active 2022-07-10 ProblemAct [facility] Chronic obstructive lung disease ([facility] V24, [facility] V28) active 2015-11-10 ProblemAct [facility] Chest pain active 2021-02-15 ProblemAct [facility] Hypoxia active 2023-06-15 ProblemAct [facility] Osteomyelitis of right foot, unspecified type ([facility] V24, [facility] V28) active 2025-04-25 ProblemAct [facility] (HFpEF) heart failure with preserved ejection fraction ([facility] V24, [facility] V28) active 2021-02-15 ProblemAct [facility] Immunizations Vaccine Date Source Lot Number Status Influenza Quadravalent, 0.5m l (Fluzone High-dose) 65yo and older 07/13/2023 [facility] [id number] comple kayode Influenza Quadravalent, 0.5m l (Fluzone High-dose) 65yo and older 09/15/2022 [facility] [id number] comple kayode Zoster recombinant (Shingrix ) 19yo and older 08/10/2022 [facility] [id number] completed Zoster recombinant (Shingrix ) 19yo and older 06/08/2022 [facility] [id number] completed Moderna SARS-CoV-2 COVID-19, mRNA, LNP-S, preservative free 10/18/2021 [facility] [id number] completed Influenza Quadravalent, 0.5m l (Fluzone High-dose) 65yo and older 09/08/2021 [facility] [id number] comple kayode Moderna SARS-CoV-2 COVID-19, mRNA, LNP-S, preservative free 02/02/2021 [facility] [id number] completed Influenza Quadravalent, 0.5m l (Fluzone High-dose) 65yo and older 09/01/2020 [facility] [id number] comple kayode Pneumococcal polysaccharide 23 valent (Pneumovax 23) 2yo and older 10/30/2019 [facility] [id number] com pleted Influenza Quadrivalent, with preservative (Fluzone; Afluria) 6mo and older 09/16/2019 [facility] [id number] completed Pneumococcal conjugate 13 va lent (Prevnar 13, PCV13) 2mo and older 10/29/2018 [facility] [id number] complet ed Influenza Quadrivalent, with preservative (Fluzone; Afluria) 6mo and older 09/02/2018 [facility] [id number] completed Influenza Quadrivalent, with preservative (Fluzone; Afluria) 6mo and older 08/28/2017 [facility] [id number] completed Td Tetanus diptheria (Tdvax) 7yo and older 08/28/2017 [facility] [id number] completed Influenza trivalent, 0.5mL ( Fluzone High-dose) 65yo and older 07/30/2016 [facility] comple kayode Pneumococcal conjugate 13 va lent (Prevnar 13, PCV13) 2mo and older 07/30/2016 [facility] complet ed Influenza Quadrivalent, with preservative (Fluzone; Afluria) 6mo and older 11/10/2015 [facility] [id number] completed Pneumococcal polysaccharide 23 valent (Pneumovax 23) 2yo and older 09/16/2014 [facility] com pleted Pneumococcal polysaccharide 23 valent (Pneumovax 23) 2yo and older 03/09/2014 [facility] com pleted Pneumococcal polysaccharide 23 valent (Pneumovax 23) 2yo and older 01/19/2014 [facility] com pleted Pneumococcal polysaccharide 23 valent (Pneumovax 23) 2yo and older 01/19/2013 [facility] [id number] com pleted
--- OUTSIDE RECORDS SUMMARY | 2025-06-19 10:40 | XMS_ITS | Encounter Summary ---
Author Organization [employer] Address [address] [place] [address] [address] [place] [address] Care Team Providers Care [facility] Director Name Role Phone Keyla Burgess MD Primary Care Provider Reason for Visit * Reason Onset Date Comments triage 11/22/2022 Encounter Details Date Type Department Care Team ([facility] st Contact Info) Description 11/22/2022 Telephone [facility] [address] [place] [address] Keyla Burgess MD [address] [place] [address] triage Social History Tobacco Use Types Packs/Day [...] HDF follow up appointment. Patient hospitalized at [facility] on 11/14/22 and discharged on 11/21/22. [...] Description 06/22/2025 1:30 PM EDT Telemedicine [facility] [address] [place] [address] Lin Cline RN [address] [place] [address] 07/06/2025 9:30 AM EDT Office Visit [facility] [address] [place] [address] Keyla Burgess MD [address] [place] [address] documented as of this encounter Visit Diagnoses Diagnosis Dorsalgia of lumbar region documented in this encounter Care Teams [facility] Director Relationship Specialty Start Date End Date Keyla Burgess MD [address] [place] [address] PCP - General Family Medicine 11/10/15 Harry 09/28/24 documented as of this encounter
--- OUTSIDE RECORDS SUMMARY | 2025-06-19 10:40 | XMS_ITS | Encounter Summary ---
Author Organization [facility] Address [address] [place] [address] Phone Care Team Providers Care Aluminum Siding Mechanic Name Role Phone Keyla Burgess MD Primary Care Provider [phone] Encounter Details Date Type Department Care Team (Late st Contact Info) Description 11/29/2021 Telephone [facility] [address] [place] [address] Ashly Caruso Social History Tobacco [...] on filedocumented in this encounter Care Teams Aluminum Siding Mechanic Relationship Specialty Start Date End Date Keyla Burgess MD [address] [place] [id number] PCP - General 12/06/20 documented as of this encounter
[2025-06-19 14:16] LABS: Alanine Aminotransferase 24 U/L (0-31); Albumin Level 3.8 g/dL (3.5-5.0); Alkaline Phosphatase 283 U/L (39-117); Amylase 18 U/L (28-100); Anion Gap 13 (12-20); Aspartate Amino Transferase 31 U/L (5-31); Blood Urea Nitrogen 19 mg/dL (9-16); Calcium 9.7 mg/dL (8.4-10.2); Carbon Dioxide 25 mmol/L (22-29); Chloride 98 mmol/L (96-108); Estimated Glomerular Filt Rate 30; Lipase 33 U/L (8-78); Magnesium 1.5 mg/dL (1.6-2.6); Potassium 4.1 mmol/L (3.3-5.1); Sodium 132 mmol/L (135-145); Total Protein 7.2 g/dL (6.5-8.0)
== END 2025-06-19 10:28 | disposition home or self-care (01) ==
LOC: HO.CHCLDS 10:27
PROVIDERS: Visit Provider Student in an Organized Health Care Education/Training Program
DX: K85.90 Acute pancreatitis without necrosis or infection, unspecified (principal)
CPT/HCPCS: 36415; 80048; 80076; 82150; 83690; 83735; 84100